=== PATIENT | male | born 1955 | race Caucasian/White ===

== ENCOUNTER 2019-06-02 17:51 | Inpatient (IN) | payer MEDICARE, MEDICAID, SELFPAY ==
[2019-06-02] VITALS (12 sets, daily range): BP systolic 142–189; BP diastolic 64–120; PULSE 48–72; RESP 16–32; O2SAT 92–99; BMI 36.5
--- NOTE | 2019-06-02 17:52 | ED_ITS ---
Entered by Vivienne Rivero, acting as scribe for Sherly Gerard MD HPI - SOB/Dyspnea General: Chief Complaint: Shortness of Breath/Dyspnea Stated Complaint: resp distress Time Seen by Provider: 06/02/19 18:00 Source: EMS Mode of arrival: EMS Limitations: altered mental status History of Present Illness: HPI Narrative: 63 yo Male presents to ED with complaint respiratory distress. Per EMS, patient was saturating at 72% on room air. Per EMS, patient was put on CPAP and came up to 80%. Per EMS, patient told them he had been intubated before and would like to be intubated again. Pt is altered on his arrival to the ED. MD elicited complaint: shortness of breath Pertinent past history: COPD and diabetes Onset (ago): minute(s) (Just Prior to Arrival) Timing: progressively worsening Known history of: COPD and diabetes Treatment prior to arrival: oxygen (CPAP) Review of Systems General: Reports: ROS unobtainable due to medical condition (respiratory distress) and ROS unobtainable due to mental status Resp: Reports: shortness of breath PFSH ED PFSH: Statuses (acute, chronic, etc) shown below reflect problem list status as previously entered and may not be historically accurate Medical History (Updated 06/02/19 @ 18:12 by Vivienne Rivero) Afib CHF (congestive heart failure) COPD (chronic obstructive pulmonary disease) Diabetes Surgical History (Updated 06/02/19 @ 18:12 by Vivienne Rivero) H/O heart artery stent Social History Smoking and tobacco status: current every day smoker Physical Exam Const: COMMON NORMALS: apparent distress EXAM LIMITATIONS: altered mental status GENERAL APPEARANCE: in distress and diaphoretic HENMT: COMMON NORMALS: normocephalic, head/scalp atraumatic, external ears normal, external nose normal and moist oral mucous membranes HEAD & SCALP: normocephalic and atraumatic FACE & SINUS: normal facial exam; no facial tenderness NOSE: external nose normal EXTERNAL EAR: Yes external ears normal MOUTH: oral and palatal mucosa normal, lip normal and tongue normal TEETH & GINGIVA: no abnormal tooth and associated gingiva THROAT: posterior oropharynx normal and uvula midline Eye: COMMON NORMALS: PERRL and EOMs intact bilaterally PUPIL: Yes PERRL Neck/C-Spine: COMMON NORMALS: full ROM, supple and no JVD GENERAL: Yes normal visual inspection and Yes trachea midline CERVICAL SPINE: No cervical spine tenderness Lymph: LYMPHATIC: no lymphadenopathy noted Chest: COMMONS NORMALS: inspection of chest normal Resp: COMMON NORMALS: normal respiratory effort and no use of accessory muscles; negative for clear to auscultation bilaterally EFFORT & INSPECTION: Yes able to speak in complete sentences and Yes symmetric chest movement AUSCULTATION: not clear to auscultation bilaterally and rhonchi Cardio: COMMON NORMALS: no JVD, regular rate, regular rhythm, no gallops, no murmurs and peripheral pulses 2+ throughout RATE: regular rate RHYTHM: regular rhythm PERIPHERAL PULSES: pulses 2+ throughout GI: COMMON NORMALS: normal to inspection, nondistended, normoactive bowel sounds, soft to palpation and non-tender PALPATION: Yes soft Back/Pelvis: COMMON NORMALS: thoracic and lumbar spine normal to inspection and thoraco-lumbar ROM normal Extremity: COMMON NORMALS: normal to inspection, full ROM and normal capillary refill GENERAL: Yes edema (1+ edema to bilateral lower extremities) Psych: COMMON NORMALS: mental status grossly normal, thought process normal, cooperative, affect normal, speech normal and activity/motor behavior normal SPEECH: Yes normal speech THOUGHT PROCESS: normal thought process Skin: COMMON NORMALS: no rashes or lesions noted and skin turgor normal GENERAL SKIN EXAM: no rashes or lesions noted and turgor normal Course ED course: Patient arrived by EMS - CPAP mask not tightly applied. He was agitated initially, then became obtunded. EMS reported a blood glucose of 135 - however on the ABG his glucose was 13 and on the initial labs it was 35. He was given an amp of D50, and his mental status improved - his accucheck was then 180, but dropped to 79 with in a short time. I reordered another amp, but by the time he was ready to be given that his glucose was down to 24 and he was agitated again. The second amp was given. Unclear why his glucose is dropping so low. He is in CHF and we need to be cautious with fluids - but will have to start a D10 drip. His ABG was acceptable from a respiratory stand point and he is doing well on Bipap. I think he will need to be admitted to close monitoring such as the ICU. Patient improved a lot in the ED - still on bipap, but alert and able to answer questions. His Blood glucose stabilized on a D10 drip. He was able to relate that he may have taken too much insulin. His insurance would not cover the insulin pen - and he has trouble seeing well enough to see the insulin syringes to be able to get his dosing right. Hospitalist will admit to a CSU bed for close monitoring. Vital Signs: Vital signs: Vital Signs Pulse Rate 52 L 06/02/19 22:17 Respiratory Rate 21 H 06/02/19 22:17 Blood Pressure 154/75 06/02/19 21:39 Pulse Oximetry 98 06/02/19 22:17 MDM - SOB/Dyspnea Lab Data: Labs: Lab Results 06/02/19 06/02/19 06/02/19 Range/Units 18:00 18:00 18:00 WBC 17.3 H (4.0-10.0) 10^3/ uL RBC 5.50 H (4.1-5.3) 10^6/u L Hgb 14.1 (11.7-16.6) g/dL Hct 46.5 (42.0-52.0) % MCV 84.5 (80-94) fL MCH 25.6 L (28.0-34.0) pg MCHC 30.3 (30.0-36.0) g/dL RDW 14.8 (12.1-15.1) % Plt Count 246 (130-400) 10^3/c mm MPV 11.1 H (7.4-10.4) fL Neut % (Auto) 73.7 % Lymph % (Auto) 14.5 % [place] % (Auto) 8.9 % Eos % (Auto) 1.5 % Baso % (Auto) 0.6 % Neut # (Auto) 12.8 H (1.8-7.7) 10^3/u L Lymph # (Auto) 2.5 (0.8-4.8) 10^3/u L [place] # (Auto) 1.5 H (0.2-0.9) 10^3/u L Eos # (Auto) 0.3 (0.0-0.8) 10^3/u L Baso # (Auto) 0.1 (0.0-0.1) 10^3/u L Nucleated RBC % (a uto) 0 % Nucleated RBCs # 0.0 /100WBC PT 14.60 H (10.5-13.3) SECO NDS INR 1.10 (0.8-1.2) Specimen Type Sample Site ABG pH (7.35-7.45) ABG pCO2 (35-45) mmHg ABG pO2 (80.0-100.0) mmH g ABG HCO3 (22-26) mmol/L ABG Base Excess (-2.0-2.0) mmol/ L Matthew Test Hematocrit (42-52) % Hgb O2 Saturation (95-100) % Carboxyhemoglobin (0.4-20.1) %THgb Methemoglobin (0.4-1.5) % Total Hemoglobin (14-18) g/dL O2 Delivery Device FiO2 % Digital Photographer ID Sodium 135 L (136-145) mmol/L Potassium 4.0 (3.5-5.1) mmol/L Chloride 94 L (98-107) mmol/L Carbon Dioxide 25 (22-29) mmol/L Anion Gap 20.0 H (5-19) BUN 39 H (8-23) mg/dL Creatinine 1.6 H (0.7-1.2) mg/dL GFR Calculation 43.6 L (90-130) mL/min Glucose 35 L* (65-115) mg/dL POC Glucose (70-110) mg/dL Calcium 9.8 (8.5-10.5) mg/dL Total Bilirubin 0.3 (0.15-1.2) mg/dL AST 23 (0-40) U/L ALT 12 (0-41) U/L Alkaline Phosphata se 77 (40-130) IU/L Troponin T Baselin e (0-15) ng/mL Troponin T 120 Min [place] (0-15) ng/mL Delta Troponin T (0-10) ABS# NT-Pro-B Natriuret Pep 3988 H (0-125) pg/mL Total Protein 7.5 (6.6-8.7) g/dL Albumin 4.1 (3.5-5.2) g/dL Globulin 3.4 (1.3-4.6) g/dL Influenza Type A A g (Negative) POC Influenza B Ag (Negative) 06/02/19 06/02/19 06/02/19 Range/Units 18:00 18:05 18:29 WBC (4.0-10.0) 10^3/ uL RBC (4.1-5.3) 10^6/u L Hgb (11.7-16.6) g/dL Hct (42.0-52.0) % MCV (80-94) fL MCH (28.0-34.0) pg MCHC (30.0-36.0) g/dL RDW (12.1-15.1) % Plt Count (130-400) 10^3/c mm MPV (7.4-10.4) fL Neut % (Auto) % Lymph % (Auto) % [place] % (Auto) % Eos % (Auto) % Baso % (Auto) % Neut # (Auto) (1.8-7.7) 10^3/u L Lymph # (Auto) (0.8-4.8) 10^3/u L [place] # (Auto) (0.2-0.9) 10^3/u L Eos # (Auto) (0.0-0.8) 10^3/u L Baso # (Auto) (0.0-0.1) 10^3/u L Nucleated RBC % (a uto) % Nucleated RBCs # /100WBC PT (10.5-13.3) SECO NDS INR (0.8-1.2) Specimen Type Arterial Sample Site Radial, right ABG pH 7.34 L (7.35-7.45) ABG pCO2 56.9 H (35-45) mmHg ABG pO2 73.5 L (80.0-100.0) mmH g ABG HCO3 30.5 H (22-26) mmol/L ABG Base Excess 3.2 H (-2.0-2.0) mmol/ L Matthew Test Pos Hematocrit 44.0 (42-52) % Hgb O2 Saturation 90.7 L (95-100) % Carboxyhemoglobin 3.8 (0.4-20.1) %THgb Methemoglobin 0.3 L (0.4-1.5) % Total Hemoglobin 14.4 (14-18) g/dL O2 Delivery Device Bipap FiO2 70.0 % Digital Photographer ID glc Sodium (136-145) mmol/L Potassium (3.5-5.1) mmol/L Chloride (98-107) mmol/L Carbon Dioxide (22-29) mmol/L Anion Gap (5-19) BUN (8-23) mg/dL Creatinine (0.7-1.2) mg/dL GFR Calculation (90-130) mL/min Glucose (65-115) mg/dL POC Glucose 180 (70-110) mg/dL Calcium (8.5-10.5) mg/dL Total Bilirubin (0.15-1.2) mg/dL AST (0-40) U/L ALT (0-41) U/L Alkaline Phosphata se (40-130) IU/L Troponin T Baselin e 47 H (0-15) ng/mL Troponin T 120 Min [place] (0-15) ng/mL Delta Troponin T (0-10) ABS# NT-Pro-B Natriuret Pep (0-125) pg/mL Total Protein (6.6-8.7) g/dL Albumin (3.5-5.2) g/dL Globulin (1.3-4.6) g/dL Influenza Type A A g (Negative) POC Influenza B Ag (Negative) 06/02/19 06/02/19 06/02/19 Range/Units 18:38 18:58 19:36 WBC (4.0-10.0) 10^3/ uL RBC (4.1-5.3) 10^6/u L Hgb (11.7-16.6) g/dL Hct (42.0-52.0) % MCV (80-94) fL MCH (28.0-34.0) pg MCHC (30.0-36.0) g/dL RDW (12.1-15.1) % Plt Count (130-400) 10^3/c mm MPV (7.4-10.4) fL Neut % (Auto) % Lymph % (Auto) % [place] % (Auto) % Eos % (Auto) % Baso % (Auto) % Neut # (Auto) (1.8-7.7) 10^3/u L Lymph # (Auto) (0.8-4.8) 10^3/u L [place] # (Auto) (0.2-0.9) 10^3/u L Eos # (Auto) (0.0-0.8) 10^3/u L Baso # (Auto) (0.0-0.1) 10^3/u L Nucleated RBC % (a uto) % Nucleated RBCs # /100WBC PT (10.5-13.3) SECO NDS INR (0.8-1.2) Specimen Type Sample Site ABG pH (7.35-7.45) ABG pCO2 (35-45) mmHg ABG pO2 (80.0-100.0) mmH g ABG HCO3 (22-26) mmol/L ABG Base Excess (-2.0-2.0) mmol/ L [place] Test Hematocrit (42-52) % Hgb O2 Saturation (95-100) % Carboxyhemoglobin (0.4-20.1) %THgb Methemoglobin (0.4-1.5) % Total Hemoglobin (14-18) g/dL O2 Delivery Device FiO2 % Digital Photographer ID Sodium (136-145) mmol/L Potassium (3.5-5.1) mmol/L Chloride (98-107) mmol/L Carbon Dioxide (22-29) mmol/L Anion Gap (5-19) BUN (8-23) mg/dL Creatinine (0.7-1.2) mg/dL GFR Calculation (90-130) mL/min Glucose (65-115) mg/dL POC Glucose 79 24 (70-110) mg/dL Calcium (8.5-10.5) mg/dL Total Bilirubin (0.15-1.2) mg/dL AST (0-40) U/L ALT (0-41) U/L Alkaline Phosphata se (40-130) IU/L Troponin T Baselin e (0-15) ng/mL Troponin T 120 Min [place] (0-15) ng/mL Delta Troponin T (0-10) ABS# NT-Pro-B Natriuret Pep (0-125) pg/mL Total Protein (6.6-8.7) g/dL Albumin (3.5-5.2) g/dL Globulin (1.3-4.6) g/dL Influenza Type A A g Negative (Negative) POC Influenza B Ag Negative (Negative) 06/02/19 06/02/19 06/02/19 Range/Units 20:01 20:03 20:28 WBC (4.0-10.0) 10^3/ uL RBC (4.1-5.3) 10^6/u L Hgb (11.7-16.6) g/dL Hct (42.0-52.0) % MCV (80-94) fL MCH (28.0-34.0) pg MCHC (30.0-36.0) g/dL RDW (12.1-15.1) % Plt Count (130-400) 10^3/c mm MPV (7.4-10.4) fL Neut % (Auto) % Lymph % (Auto) % [place] % (Auto) % Eos % (Auto) % Baso % (Auto) % Neut # (Auto) (1.8-7.7) 10^3/u L Lymph # (Auto) (0.8-4.8) 10^3/u L [place] # (Auto) (0.2-0.9) 10^3/u L Eos # (Auto) (0.0-0.8) 10^3/u L Baso # (Auto) (0.0-0.1) 10^3/u L Nucleated RBC % (a uto) % Nucleated RBCs # /100WBC PT (10.5-13.3) SECO NDS INR (0.8-1.2) Specimen Type Sample Site ABG pH (7.35-7.45) ABG pCO2 (35-45) mmHg ABG pO2 (80.0-100.0) mmH g ABG HCO3 (22-26) mmol/L ABG Base Excess (-2.0-2.0) mmol/ L Matthew Test Hematocrit (42-52) % Hgb O2 Saturation (95-100) % Carboxyhemoglobin (0.4-20.1) %THgb Methemoglobin (0.4-1.5) % Total Hemoglobin (14-18) g/dL O2 Delivery Device FiO2 % Digital Photographer ID Sodium (136-145) mmol/L Potassium (3.5-5.1) mmol/L Chloride (98-107) mmol/L Carbon Dioxide (22-29) mmol/L Anion Gap (5-19) BUN (8-23) mg/dL Creatinine (0.7-1.2) mg/dL GFR Calculation (90-130) mL/min Glucose (65-115) mg/dL POC Glucose 90 71 (70-110) mg/dL Calcium (8.5-10.5) mg/dL Total Bilirubin (0.15-1.2) mg/dL AST (0-40) U/L ALT (0-41) U/L Alkaline Phosphata se (40-130) IU/L Troponin T Baselin e (0-15) ng/mL Troponin T 120 Min [place] 56.85 H (0-15) ng/mL Delta Troponin T 9.85 (0-10) ABS# NT-Pro-B Natriuret Pep (0-125) pg/mL Total Protein (6.6-8.7) g/dL Albumin (3.5-5.2) g/dL Globulin (1.3-4.6) g/dL Influenza Type A A g (Negative) POC Influenza B Ag (Negative) 06/02/19 06/02/19 Range/Units 21:08 21:31 WBC (4.0-10.0) 10^3/ uL RBC (4.1-5.3) 10^6/u L Hgb (11.7-16.6) g/dL Hct (42.0-52.0) % MCV (80-94) fL MCH (28.0-34.0) pg MCHC (30.0-36.0) g/dL RDW (12.1-15.1) % Plt Count (130-400) 10^3/c mm MPV (7.4-10.4) fL Neut % (Auto) % Lymph % (Auto) % [place] % (Auto) % Eos % (Auto) % Baso % (Auto) % Neut # (Auto) (1.8-7.7) 10^3/u L Lymph # (Auto) (0.8-4.8) 10^3/u L [place] # (Auto) (0.2-0.9) 10^3/u L Eos # (Auto) (0.0-0.8) 10^3/u L Baso # (Auto) (0.0-0.1) 10^3/u L Nucleated RBC % (a uto) % Nucleated RBCs # /100WBC PT (10.5-13.3) SECO NDS INR (0.8-1.2) Specimen Type Sample Site ABG pH (7.35-7.45) ABG pCO2 (35-45) mmHg ABG pO2 (80.0-100.0) mmH g ABG HCO3 (22-26) mmol/L ABG Base Excess (-2.0-2.0) mmol/ L Matthew Test Hematocrit (42-52) % Hgb O2 Saturation (95-100) % Carboxyhemoglobin (0.4-20.1) %THgb Methemoglobin (0.4-1.5) % Total Hemoglobin (14-18) g/dL O2 Delivery Device FiO2 % Digital Photographer ID Sodium (136-145) mmol/L Potassium (3.5-5.1) mmol/L Chloride (98-107) mmol/L Carbon Dioxide (22-29) mmol/L Anion Gap (5-19) BUN (8-23) mg/dL Creatinine (0.7-1.2) mg/dL GFR Calculation (90-130) mL/min Glucose (65-115) mg/dL POC Glucose 80 89 (70-110) mg/dL Calcium (8.5-10.5) mg/dL Total Bilirubin (0.15-1.2) mg/dL AST (0-40) U/L ALT (0-41) U/L Alkaline Phosphata se (40-130) IU/L Troponin T Baselin e (0-15) ng/mL Troponin T 120 Min [place] (0-15) ng/mL Delta Troponin T (0-10) ABS# NT-Pro-B Natriuret Pep (0-125) pg/mL Total Protein (6.6-8.7) g/dL Albumin (3.5-5.2) g/dL Globulin (1.3-4.6) g/dL Influenza Type A A g (Negative) POC Influenza B Ag (Negative) Imaging Data^: CXR: Radiologist's impression: [address] [address] XRay Report Signed Patient: Franc Olivares #: [id number] : [id number]#:[id number] Age/Sex: 63 / MADM Date: 06/02/19 Loc: ERRoom/Bed: Attending Dr: Ordering Provider/Ordering MD: Sherly Gerard MD Date of Service: 06/02/19 Procedure(s): XR chest 1V portable [id number] Accession Number(s): [id number] Report Number: [id number] PROCEDURE INFORMATION: Exam: XR Chest, 1 View Exam date and time: 06/02/2019 6:20 PM Age: 63 years old Clinical indication: Condition or disease; Lung condition and disease; Respiratory failure; Status not specified; Additional info: Resp failure TECHNIQUE: Imaging protocol: XR of the chest Views: 1 view. COMPARISON: CR Chest 2 views* [id number] 01/17/2019 7:14 AM FINDINGS: Lungs: Vascular congestion. Diffuse mixed interstitial and ground-glass opacities in both lungs. Right base atelectasis. Pleural space: Small right pleural effusion. No pneumothorax. Heart/Mediastinum: Mild cardiomegaly. Bones/joints: Unremarkable. XR/XR chest 1V portable [id number] IMPRESSION: Congestive heart failure pattern. Dictated By:Yinka Concepcion Signed By:Yinka ConcepcionSignrosa Date/Time:06/02/19 1850 DD/ 1849 EKG Data^: EKG 1: EKG Interpretation Date: 06/02/19 EKG interpretation time: 18:30 Interpretation: Rate 71, RAD, elevation V1, V2, without reciprocal changes, QRS 109 EKG 2: EKG Interpretation Date: 06/02/19 EKG interpretation time: 19:45 Interpretation: Rate 55, no significant change from the first of the same day. QRS 112, RAD Critical Care Time Critical Care Time: Critical Care Time: Yes Total Critical Care Time: 45 Attestation: This case had a high probability of a clinically significant, sudden, or life threatening deterioration of this patient's condition which required my full and direct attention, intervention and personal management. Coding Level of Care Code ED Paper Slitter for Chg Fwd Exam Problem Focused The documentation recorded by the Mat kirkpatrick Carmen, accurately reflects the service I personally performed and the decisions made by me, Sherly Gerard MD
--- NOTE | 2019-06-02 18:00 | XRR_ITS ---
PROCEDURE INFORMATION: Exam: XR Chest, 1 View Exam date and time: 06/02/2019 6:20 PM Age: 63 years old Clinical indication: Condition or disease; Lung condition and disease; Respiratory failure; Status not specified; Additional info: Resp failure TECHNIQUE: Imaging protocol: XR of the chest Views: 1 view. COMPARISON: CR Chest 2 views* [id number] 01/17/2019 7:14 AM FINDINGS: Lungs: Vascular congestion. Diffuse mixed interstitial and ground-glass opacities in both lungs. Right base atelectasis. Pleural space: Small right pleural effusion. No pneumothorax. Heart/Mediastinum: Mild cardiomegaly. Bones/joints: Unremarkable. XR/XR chest 1V portable [id number] IMPRESSION: Congestive heart failure pattern.
--- NOTE | 2019-06-02 18:00 | ECG_ITS ---
Measurements Intervals [place] Rate: 71 P: 75 [place]: 177 QRS: 98 QRSD: 109 T: 84 QT: 405 QTc: 442 SINUS RHYTHM BORDERLINE RIGHT AXIS DEVIATION [QRS AXIS > 90] SEPTAL MYOCARDIAL INFARCTION , OF INDETERMINATE AGE [40+ ms Q WAVE IN V1/V2] INTERPRETATION BASED ON A DEFAULT AGE OF 40 YEARS Compared to ECG 01/14/2019 21:54:55 Myocardial infarct finding now present Intraventricular conduction delay no longer present Electronically Signed On 06-02-2019 20:56:55 BELL RINGER by Johnson Javier M.D. [email or web address]
[2019-06-02 18:17] LABS: Basophils # 0.1 10^3/uL (0.0-0.1); Basophils % 0.6 %; Eosinophils # 0.3 10^3/uL (0.0-0.8); Eosinophils % 1.5 %; Hematocrit 46.5 % (42.0-52.0); Hemoglobin 14.1 g/dL (11.7-16.6); Lymphocytes # 2.5 10^3/uL (0.8-4.8); Lymphocytes % 14.5 %; Mean Corpuscular HGB Conc 30.3 g/dL (30.0-36.0); Mean Corpuscular Hemoglobin 25.6 pg (28.0-34.0); Mean Corpuscular Volume 84.5 fL (80-94); Mean Platelet Volume 11.1 fL (7.4-10.4); Monocytes # 1.5 10^3/uL (0.2-0.9); Monocytes % 8.9 %; Neutrophils # 12.8 10^3/uL (1.8-7.7); Neutrophils % 73.7 %; Nucleated Red Blood Cells % 0 %; Platelet Count 246 10^3/cmm (130-400); Red Cell Distribution Width 14.8 % (12.1-15.1); White Blood Count 17.3 10^3/uL (4.0-10.0)
[2019-06-02 18:29] LABS: Troponin(5th) Baseline 47 ng/mL (0-15)
[2019-06-02 18:32] LABS: Glucose Point of Care 180 mg/dL (70-110)
[2019-06-02 18:34] LABS: ABG PCO2 56.9 mmHg (35-45); ABG PH Result 7.34 (7.35-7.45); Base Excess ABG 3.2 mmol/L (-2.0-2.0); Blood Gas Allen Test Pos; Blood Gas Operator Identificat glc; Blood Gas Sample Site Radial, right; Blood Gas Sample Type Arterial; Carboxyhemoglobin 3.8 %THgb (0.4-20.1); HCO3 ABG 30.5 mmol/L (22-26); HGB O2 Sat 90.7 % (95-100); Methemoglobin 0.3 % (0.4-1.5); Oxygen Device BIPAP; PO2 ABG 73.5 mmHg (80.0-100.0); Total Hemoglobin 14.4 g/dL (14-18)
[2019-06-02 18:39] LABS: Alanine Aminotransferase 12 U/L (0-41); Albumin Level 4.1 g/dL (3.5-5.2); Alkaline Phosphatase 77 IU/L (40-130); Aspartate Amino Transferase 23 U/L (0-40); Blood Urea Nitrogen 39 mg/dL (8-23); Calcium 9.8 mg/dL (8.5-10.5); Carbon Dioxide 25 mmol/L (22-29); Chloride 94 mmol/L (98-107); Globulin 3.4 g/dL (1.3-4.6); Glomerular Filtration Rate 43.6 mL/min (90-130); NT Pro B Type Natriuretic Pept 3988 pg/mL (0-125); Sodium 135 mmol/L (136-145); Total Bilirubin 0.3 mg/dL (0.15-1.2); Total Protein 7.5 g/dL (6.6-8.7)
[2019-06-02 18:41] LABS: Glucose 35 mg/dL (65-115)
[2019-06-02 19:01] LABS: Glucose Point of Care 79 mg/dL (70-110)
[2019-06-02 19:12] LABS: Influenza A by IFA Negative (Negative); Influenza B by IFA Negative (Negative)
[2019-06-02] MEDS: nitroglycerin 1 gm/inch oint Pkt 1 INCH TOPICAL (19:32)
[2019-06-02] MEDS: FUROsemide 10 mg/mL SDV 4mL 40 MG IVP (19:34)
[2019-06-02 19:40] LABS: Glucose Point of Care 24 mg/dL (70-110)
--- NOTE | 2019-06-02 19:41 | PC.NURSE ---
patient not answering nurses questions at this time
--- NOTE | 2019-06-02 19:42 | PC.NURSE ---
blood glucose bedside drawn by dago at 1937, blood glucose value was 24
--- NOTE | 2019-06-02 19:43 | PC.NURSE ---
Second EKG done at 1940 and shown to ER doctor
--- NOTE | 2019-06-02 20:01 | ECG_ITS ---
Measurements Intervals [place] Rate: 55 P: 73 [place]: 187 QRS: 104 QRSD: 112 T: 101 QT: 471 QTc: 453 SINUS BRADYCARDIA RIGHT AXIS DEVIATION [QRS AXIS > 100] SEPTAL MYOCARDIAL INFARCTION , PROBABLY RECENT [40+ ms Q WAVE IN V1/V2] ACUTE UT Compared to ECG 01/14/2019 21:54:55 Right-axis deviation now present Myocardial infarct finding now present Sinus rhythm no longer present Intraventricular conduction delay no longer present Electronically Signed On 06-02-2019 21:01:35 BINDER STRIPPER HAND by Johnson Javier M.D. [email or web address]
[2019-06-02] MEDS: dextrose 10% 1,000 ML 150 ML IV (20:05)
[2019-06-02 20:07] LABS: Glucose Point of Care 90 mg/dL (70-110)
[2019-06-02 20:25] LABS: Troponin 5 2HR 56.85 ng/mL (0-15); Troponin 5 2HR Delta 9.85 ABS# (0-10)
--- NOTE | 2019-06-02 20:30 | PC.NURSE ---
Patient blood glucose is 71 at 2030, doctor and charge nurse were notified
[2019-06-02 20:32] LABS: Glucose Point of Care 71 mg/dL (70-110)
--- NOTE | 2019-06-02 21:10 | PC.NURSE ---
Blood glucose at is 80, nurse and doctor were notified
[2019-06-02 21:12] LABS: Glucose Point of Care 80 mg/dL (70-110)
--- NOTE | 2019-06-02 21:33 | PC.NURSE ---
Blood glucose is 89 at 2130, nurse and doctor notified.
[2019-06-02 21:34] LABS: Glucose Point of Care 89 mg/dL (70-110)
--- NOTE | 2019-06-02 22:41 | P.HP_ITS ---
Providers/Chief Complaint Admitting Physician: Rebeca Mcdaniel Primary Care Provider: Aura Guevara Chief Complaint: resp distress History of Present Illness Franc Olivares is a 63 year old male who presented to the emergency room with respiratory distress and essentially unresponsive. By EMS his initial oxygen saturations were 72% on room air. He had been put on CPAP with oxygen en route and had improvement only into the low 80s. On arrival he continued to be quite hypoxemic and was transitioned to BiPAP. It was anticipated that he would likely need intubated. Blood sugar was checked and was 13 on initial value. It was rechecked and confirmed to be low at 35. He was given some D50 with improvement but an hour later had recurrent episodes of hypoglycemia and ultimately ended up on D10W. He was continued on BiPAP and after sugar came up, he started to come around a little bit. In talking with him he was doing okay except earlier today he noted that his blood sugars were quite high, greater than 500. He also had a cheeseburger and he knew he needed to give himself some extra insulin. He no longer has an insulin pen instead he uses syringes and a vial. He knew he needed to give himself some extra insulin and tried to do so. He admits that he has difficulty seeing how much insulin he is giving himself. He does not really know how much he had today. He is not on any oral hypoglycemic medications. He denies any recent chest pain, increasing cough, i ncreasing edema, orthopnea or PND. He denies any fevers. He says he was feeling okay until everything just came on him suddenly today. He has been compliant with his medications. Most of his medical care is received at [place]. Given the profound hypoglycemia and significant respiratory distress on arrival, patient is being admitted for further evaluation and treatment. Review of Systems Const: Denies: fever, chills or change in weight Eyes: Reports: change in vision (Over time and a little bit acutely today) ENMT: Reports: nasal congestion; Denies: throat pain Card: Reports: edema; Denies: chest pain or palpitations Resp: Reports: shortness of breath, productive cough (Sometimes) and non- productive cough (Sometimes); Denies: coughing up blood GI: Denies: abdominal pain, nausea, vomiting, difficulty swallowing, diarrhea, constipation or blood in stool : Denies: urinary hesitancy Musc: Denies: joint pain, joint swelling, redness or joint warmth Skin/Breast: Denies: rash or sores Neuro: Denies: headache, numbness in extremities or weakness in extremities Psych: Denies: anxiety or depression Endo: Denies: excessive sweating [place]/Lymph: Denies: easy bruising or easy bleeding Medications/Allergies Allergies Allergy/AdvReac Type Severity Reaction Status Date / Time No Known Allergies Allergy Verified 06/02/19 18:04 Additional Medication Information Additional Medication Information: Home medications appear to include insulin as already noted with patient being changed from pen to vials in the last 6 months or so. Other medicines include hydrocodone, Lasix, amiodarone, metoprolol, Plavix, Eliquis, gabapentin, lisinopril as well as Combivent and Spiriva along with Incruse Ellipta. He has as needed duo nebs. PFSH Acute PFSH: Statuses (acute, chronic, etc) shown below reflect problem list status as previously entered and may not be historically accurate Medical History Afib CAD (coronary artery disease) RCA stent CHF (congestive heart failure) Chronic kidney disease, stage 3 COPD (chronic obstructive pulmonary disease) Diabetes mellitus, type II, insulin dependent Dyslipidemia Hypertension LAURIE (obstructive sleep apnea) Surgical History H/O heart artery stent 2012. RCA stent. 50% LAD lesion at time. Family History Other CAD (coronary artery disease) Social History Smoking and tobacco status: current every day smoker Lives independently: Yes Household members: none Vitals/I&O/Wt Last Vital Signs Pulse 52 L 06/02/19 22:17 Resp 21 H 06/02/19 22:17 BP 154/75 06/02/19 21:39 Pulse Ox 98 06/02/19 22:17 Weight last 48 hrs Weight 108.862 kg Data : 06/02/19 18:00 06/02/19 18:00 Other Labs: Laboratory Tests 06/02/19 06/02/19 06/02/19 18:00 18:00 18:00 WBC 17.3 H Hgb 14.1 Hct 46.5 Plt Count 246 INR 1.10 ABG pH ABG pCO2 ABG pO2 ABG HCO3 Glucose 35 L* POC Glucose Delta Troponin T NT-Pro-B Natriuret Pep 3988 H 06/02/19 06/02/19 06/02/19 18:05 19:36 20:01 WBC Hgb Hct Plt Count INR ABG pH 7.34 L ABG pCO2 56.9 H ABG pO2 73.5 L ABG HCO3 30.5 H Glucose POC Glucose 24 Delta Troponin T 9.85 NT-Pro-B Natriuret Pep BMP 06/02/19 18:00 Sodium 135 L Potassium 4.0 Chloride 94 L Carbon Dioxide 25 BUN 39 H Creatinine 1.6 H Glucose 35 L* Calcium 9.8 Liver Function 06/02/19 Range/Units 18:00 Total Bilirubin 0.3 (0.15-1.2) mg/dL AST 23 (0-40) U/L ALT 12 (0-41) U/L Alkaline Phosphatase 77 (40-130) IU/L Albumin 4.1 (3.5-5.2) g/dL Urine 06/03/19 Range/Units 01:00 Urine Color Yellow (Yellow) Urine Appearance Clear (CLEAR) Urine pH 5 (5-7) Ur Specific [place] 1.015 (1.005-1.030) Urine Protein 3+ H (Negative) Urine Glucose (UA) Trace H (Normal) CXR: Radiologist's impression: FINDINGS: Lungs: Vascular congestion. Diffuse mixed interstitial and ground-glass opacities in both lungs. Right base atelectasis. Pleural space: Small right pleural effusion. No pneumothorax. Heart/Mediastinum: Mild cardiomegaly. Bones/joints: Unremarkable. XR/XR chest 1V portable [id number] IMPRESSION: Congestive heart failure pattern. A&P Assessment and plan (1) Encephalopathy acute: Secondary to profound hypoglycemia and hypoxemia Status: Acute Code(s): G93.40 - Encephalopathy, unspecified (2) Hypoglycemia: I am assuming that patient gave himself too much insulin based on the story that was provided. No known oral hypoglycemic agents. Acute cardiac event as well as infection are within the differential, as is potential overdose of some medications such as calcium channel blockers which fortunately are not on his available medication list. Status: Acute Code(s): E16.2 - Hypoglycemia, unspecified (3) Acute respiratory failure with hypoxia and hypercapnia: Difficult to fully ascertain at the moment if respiratory distress preceded the hypoglycemia or if the hypoglycemia preceded the respiratory distress. He does have known COPD as well as CHF and sleep apnea. 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 transplanted heart: [place] heart Associated angina: without angina Qualified Code(s): I25.10 - Atherosclerotic heart disease of [place] coronary artery without angina pectoris Code(s): I25.10 - Atherosclerotic heart disease of [place] coronary artery without angina pectoris (6) CHF (congestive heart failure): Acute on chronic Status: Chronic Qualifiers: Heart failure type: diastolic Heart failure chronicity: acute on chronic Qualified Code(s): I50.33 - Acute on chronic diastolic (congestive) heart failure Code(s): I50.9 - Heart failure, unspecified (7) COPD (chronic obstructive pulmonary disease): Cannot rule out an acute component though clinically x-ray is more consistent with acute pulmonary edema Status: Chronic Qualifiers: COPD type: emphysema Emphysema type: panlobular Qualified Code(s): J43.1 - Panlobular emphysema Code(s): J44.9 - Chronic obstructive pulmonary disease, unspecified (8) Chronic anticoagulation: Secondary to atrial fibrillation Status: Chronic Code(s): 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 Anticipate at some point this evening sugars will go up quite high. At that point we will start him on some low-dose insulin coverage. I think trying to get him on some long- acting insulin and avoiding high-dose short acting insulin is probably going to be a better approach for him although it worries me that he has difficulty discerning how much insulin he has given himself leading to this hospital stay. May need to see if we can get approval from insurance for the insulin pen again. Breathing treatments as needed Continue home amiodarone, metoprolol, lisinopril Continue Eliquis and Plavix Eliquis provides appropriate VTE prophylaxis Will need close follow-up with his regular providers upon discharge Would probably benefit from some diabetic education and home health monitoring to ensure he is giving himself appropriate amount of insulin along with managing his other medications. Some in-home teaching on how to draw up the insulin and potentially marking syringes may be helpful. Findings, concerns and plans were discussed with patient. He was given an opportunity to ask questions. Reviewed with him that he was very near today given the profound hypoglycemia and respiratory distress he was then. Fortunately the quick action of those initially caring for him allowed him to recover without requiring intubation this time. We did review CODE STATUS and he is full code. He has been intubated in the past and is okay should he require it again. Attestations Medical Necessity Statement*: Anticipate hospital stay greater than 2 midnights in this patient presenting with profound hypoglycemia and severe respiratory distress. At high risk of clinical decline up to and including without continued monitoring and appropriate management. Coding Level of Care Code Acute Pipelaying Fitter for Fausto Felix Diagnoses Encephalopathy acute G93.40 Hypoglycemia E16.2 Acute respiratory failure with hypoxia and hypercapnia J96.01; J96.02 Diabetes mellitus, type II, insulin dependent E11.9; Z79.4 CAD (coronary artery disease) I25.10 Coronary Disease-Associated Artery/Lesion type: [place] artery [place] vs. transplanted heart: [place] heart Associated angina: without angina CHF (congestive heart failure) I50.33 Heart failure type: diastolic Heart failure chronicity: acute on chronic COPD (chronic obstructive pulmonary disease) J43.1 COPD type: emphysema Emphysema type: panlobular Chronic anticoagulation Z79.01
--- NOTE | 2019-06-02 22:50 | PC.NURSE ---
Blood glucose is 122 at 2245, notified nurse and doctor
[2019-06-02 22:52] LABS: Glucose Point of Care 122 mg/dL (70-110)
--- NOTE | 2019-06-02 23:02 | PC.NURSE ---
EKG done at 2300 and shown to ER doctor. Patient stated that he was having chest pain. Respitory was at bedside at time of EKG, nurse and doctor were notified of the new on set of chest pain. Patient stated that the chest pain came on rough 30 to 40 minutes ago.
[2019-06-03] VITALS (17 sets, daily range): BP systolic 137–178; BP diastolic 49–88; PULSE 54–79; RESP 14–32; TEMP 36.6–36.8; O2SAT 91–99
--- NOTE | 2019-06-03 00:01 | ECG_ITS ---
Measurements Intervals [place] Rate: 57 P: 84 PA: 182 QRS: 113 QRSD: 108 T: 106 QT: 458 QTc: 446 SINUS BRADYCARDIA POSSIBLE RIGHT VENTRICULAR HYPERTROPHY [SOME/ALL OF: PROMINENT R IN V1, LATE TRANSITION, RAD, LEANNE, SSS] ANTEROLATERAL MYOCARDIAL INFARCTION [40+ ms Q WAVE IN I/aVL/V3-V6], OF INDETERMINATE AGE Compared to ECG 06/02/2019 19:44:10 Right-axis deviation no longer present Myocardial infarct finding still present Electronically Signed On 06-03-2019 20:42:10 LEAF STRIPPER by Myranda Rosas M.D. [email or web address]
[2019-06-03] MEDS: apixaban 5 mg Tablet PO ×3 (00:26→17:17)
[2019-06-03 00:35] LABS: Glucose Point of Care 175 mg/dL (70-110)
--- NOTE | 2019-06-03 00:37 | PC.NURSE ---
Dr. Mcdaniel notified of patient's blood sugar of 175. Also notified that I am unable to get a home medication list at this time.
--- NOTE | 2019-06-03 00:38 | PC.NURSE ---
Patient arrived from the ED via stretcher after report was received via phone. Patient is alert and oriented and is talking. I have not visualized patient ambulating. Patient has been oriented to his room and has call light within reach.
[2019-06-03] MEDS: acetaminophen 325 mg Tablet 650 MG PO (01:06)
[2019-06-03 01:27] LABS: Troponin 5 6HR 59.26 ng/L (0-15)
[2019-06-03 01:28] LABS: Troponin 5 6HR Delta 12.26 ng/L (0-12)
[2019-06-03 01:45] LABS: Add Urine Microscopic? YES; Bilirubin Urine Neg (NEGATIVE); Blood Urine Trace (Negative); Glucose Urine UA Trace (Normal); Ketones Urine Negative (Negative); Leukocyte Esterase Urine Negative (Negative); Nitrate Urine Negative (Negative); Protein Urine 3+ (Negative); Specific Gravity, Urine 1.015 (1.005-1.030); Urine Appearance Clear (CLEAR); Urine Color Yellow (Yellow); Urobilinogen Urine Norm (Negative); pH Urine 5 (5-7)
[2019-06-03 01:47] LABS: Hyaline Casts Urine 25-40
[2019-06-03 01:49] LABS: Add Urine Culture? No; Bacteria Urine TRACE; RBC Urine 0-4 /hpf (0-2)
--- NOTE | 2019-06-03 02:19 | PC.NURSE ---
Dr. Mcdaniel notified that patient had one on one sitter order put in at shift change due to confused and agitation that patient experienced after cath. Patient has been calm and alert and oriented all of my shift so far. One on one sitter order discontinued. Will check on patient frequently.
[2019-06-03 03:09] LABS: Glucose Point of Care 356 mg/dL (70-110)
[2019-06-03] MEDS: ipratropium-albuterol 3 mL Neb INHALATION ×5 (03:10→20:33)
--- NOTE | 2019-06-03 03:17 | PC.NURSE ---
Dr. Mcdaniel notified of blood glucose of 356. Ordered to turn dextrose fluids down to 25 ml/hr and recheck blood sugar in one hour.
--- NOTE | 2019-06-03 04:19 | PC.NURSE ---
Blood glucose 396. D10 shut off per order. Will recheck blood sugar in 2 hours.
[2019-06-03 04:22] LABS: Glucose Point of Care 394 mg/dL (70-110)
[2019-06-03] MEDS: metoprolol succinate ER (24 HR) 100 mg Tablet PO (04:52)
[2019-06-03] MEDS: FUROsemide 10 mg/mL SDV 10mL 60 MG IVP ×2 (04:52→17:16)
[2019-06-03 06:21] LABS: Glucose Point of Care 412 mg/dL (70-110)
[2019-06-03 06:40] LABS: Magnesium 1.8 mg/dL (1.7-2.3); Phosphorus 4.7 mg/dL (2.5-4.5)
[2019-06-03] MEDS: nitroglycerin 1 gm/inch oint Pkt 1 INCH TOPICAL ×3 (07:54→18:37)
[2019-06-03] MEDS: budesonide 0.5 mg/2 mL Neb INHALATION ×2 (07:55→20:33)
--- NOTE | 2019-06-03 08:15 | P.PN_ITS ---
Subjective Subjective: Interval history: Chart reviewed, patient known to me from previous visit. Off BiPAP, currently on NC. Off D10 and now hyperglycemic, on ISS. Patient seen and examined, resting in bed, is a little bit better than on initial admission. States he is having difficulty self administering his insulin with the syringes, he was using the pens which is much easier for him as it is more legible; he is unsure how much insulin he took yesterday. He is requesting something for acid reflux and requesting to work with physical therapy as well. Medications: Reviewed: Yes Medication Review Details: Current Medications Generic Name Dose Route Start Last Admin Trade Name Freq PRN Reason Stop Dose Admin Acetaminophen 650 mg 06/02/19 23:59 06/03/19 01:06 Tylenol PO 650 mg Q6H PRN Administration Mild/Mod Pain Or Temp >/= 101 Albuterol/Ipratrop ium 3 ml 06/03/19 04:00 06/03/19 07:55 Duoneb INHALATION 3 ml Q4H.RESPIRATORY S CH Administration Apixaban 5 mg 06/03/19 00:15 06/03/19 00:26 Eliquis PO 5 mg BID CHARLIE Administration Budesonide 0.5 mg 06/03/19 08:00 06/03/19 07:55 Pulmicort INHALATION 0.5 mg BID.RESPIRATORY S CH Administration Furosemide 60 mg 06/03/19 04:00 06/03/19 04:52 Lasix IVP 60 mg Q12H CHARLIE Administration Insulin Aspart 0 unit 06/03/19 21:00 06/03/19 06:27 Novolog SUBCUT 14 unit BEDTIME CHARLIE Administration Protocol Metoprolol Succina te 100 mg 06/03/19 06:00 06/03/19 04:52 Toprol Xl PO 100 mg 06 CHARLIE Administration Nitroglycerin 1 inch 06/03/19 07:00 06/03/19 07:54 Nitro-Bid TOPICAL 1 inch Q6H CHARLIE Administration Vitals/I&O/Wt Last Vital Signs Temp 98.2 F 06/03/19 07:09 Pulse 68 06/03/19 07:58 Resp 16 06/03/19 07:58 BP 178/80 06/03/19 07:09 Pulse Ox 93 06/03/19 07:58 06/02/19 06/03/19 06/03/19 22:59 06:59 14:59 Intake Total 1600 / 1600 Output Total 275 / 275 Balance 1325 / 1325 Weight last 48 hrs Weight 116.392 kg Weight 108.862 kg Physical Exam Const: COMMON NORMALS: no apparent distress and oriented x3 GENERAL APPEARANCE: cooperative, comfortable and disheveled NUTRITIONAL APPEARANCE: obese morbidly obese ORIENTATION/CONSCIOUSNESS: Yes awake HENMT: COMMON NORMALS: normocephalic, head/scalp atraumatic, hearing grossly normal bilaterally and moist oral mucous membranes HEAD & SCALP: normocephalic and atraumatic Eye: COMMON NORMALS: PERRL, EOMs intact bilaterally and conjunctivae normal CONJUNCTIVA: Yes conjunctivae normal PUPIL: Yes PERRL Neck/C-Spine: COMMON NORMALS: full ROM GENERAL: Yes normal visual inspection and Yes trachea midline Resp: COMMON NORMALS: normal respiratory effort, no retractions and no use of accessory muscles EFFORT & INSPECTION: Yes able to speak in complete sentences, Yes symmetric chest movement and No tachypneic OTHER: -Coarse breath sounds bilaterally, currently on 4 L nasal cannula Cardio: COMMON NORMALS: regular rate, regular rhythm, S1 normal heart sound, S2 normal heart sound and no murmurs RATE: regular rate RHYTHM: regular rhythm HEART SOUNDS: S1 normal and S2 normal GI: COMMON NORMALS: normal to inspection, nondistended, normoactive bowel sounds, soft to palpation and non-tender INSPECTION: Yes central obesity PALPATION: Yes soft Extremity: COMMON NORMALS: normal to inspection, full ROM and no clubbing, cyanosis or edema; negative for no pedal edema Neuro: COMMON NORMALS: oriented x3, moves all extremities, no focal motor deficits and no sensory deficits noted Psych: COMMON NORMALS: mental status grossly normal, thought process normal, cooperative, affect normal and speech normal SPEECH: Yes normal speech THOUGHT PROCESS: normal thought process Skin: COMMON NORMALS: no rashes or lesions noted, no jaundice, no petechiae and no mottling GENERAL SKIN EXAM: no rashes or lesions noted Data : 06/02/19 18:00 06/02/19 18:00 A&P Assessment and plan (1) Acute respiratory failure with hypoxia and hypercapnia: -noted to be hypercapnic and hypoxic on initial ABG; required continuous BiPAP that has now been weaned off. Likely multifactorial given acute CHF exacerbation, COPD -continue close monitoring of respiratory status -supplemental oxygen as needed; not oxygen dependent at baseline -will likely need home oxygen evaluation prior to d/c Status: Acute Code(s): J96.01 - Acute respiratory failure with hypoxia; J96.02 - Acute respiratory failure with hypercapnia (2) Encephalopathy acute: -secondary to hypoglycemia as well as hypercapnia and hypoxia -no longer hypoglycemic following D10W infusion; continue close monitoring of blood glucose -fall precautions -reorient as needed -management of hypercapnia and hypoxia as noted above Status: Acute Code(s): G93.40 - Encephalopathy, unspecified (3) Hypoglycemia: -BG as low as 24, improved and now hyperglycemic following D10W infusion -ISS with continued frequent accuchecks -continue hypoglycemia precautions Status: Acute Code(s): E16.2 - Hypoglycemia, unspecified (4) CHF (congestive heart failure): -acutely decompensated diastolic CHF as evidenced by SOB, hypoxia, evidence of fluid overload on imaging, elevated BNP (3988) -Echo (12/2018): EF=68%, G1DD -on IV diuresis with Lasix -monitor Is & Os, daily weights -continue to monitor renal function, lytes -noted troponins with significant delta change likely demand ischemia from CHF exacerbation and respiratory failure Status: Chronic Qualifiers: Heart failure chronicity: acute on chronic Heart failure type: diastolic Qualified Code(s): I50.33 - Acute on chronic diastolic (congestive) heart failure Code(s): I50.9 - Heart failure, unspecified (5) Chronic kidney disease, stage 3: -has known CKD stage 2-3; baseline Cr around 1 -monitor renal function particularly with diuresis Status: Chronic Code(s): N18.3 - Chronic kidney disease, stage 3 (moderate) Additional A&P Information -IDDM type II; last A1c-7.6 -Morbid obesity: BMI-39 kg/m2 -CAD s/p RCA stenting; continue Plavix -HTN; continue oral antihypertensives -LAURIE: CPAP qhs -Atrial fibrillation: on AC with Eliquis -diabetic diet as tolerated -DVT ppx not needed as on Eliquis -GI ppx with PPI Attestations Medical Necessity Statement*: Patient requires hospitalization for continued I V diuresis, monitoring of respiratory status and blood glucose. Time Spent in Patient Care: Greater than 35 minutes (>than 50% of time spent in counselling and/or direct pt care on unit) . Coding Level of Care Code Acute Supervisor Firearms for Chg Fwd Exam Problem Focused Diagnoses Acute respiratory failure with hypoxia and hypercapnia J96.01; J96.02 Encephalopathy acute G93.40 Hypoglycemia E16.2 CHF (congestive heart failure) I50.33 Heart failure chronicity: acute on chronic Heart failure type: diastolic Chronic kidney disease, stage 3 N18.3
[2019-06-03] MEDS: gabapentin 300 mg Capsule PO ×3 (09:39→20:17)
[2019-06-03] MEDS: lisinopril 5 mg Tablet PO (09:40)
[2019-06-03] MEDS: clopidogrel 75 mg Tablet PO (09:40)
[2019-06-03] MEDS: amiodarone 200 mg Tablet PO (09:40)
[2019-06-03 11:13] LABS: Glucose Point of Care 217 mg/dL (70-110)
--- NOTE | 2019-06-03 12:29 | PC.CHAP ---
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 [] Patient/Family/Request visit [] Outpatient visit [] Follow-up visit [] Physician referral [] Code/Alert [x] Routine visit [] Staff referral [] Actively dying [] Patient sleeping [] Family support [] [] Out of room [] Palliative care [] [] Receiving care in room [] Pre-surgical visit [] Trauma [] Long length of stay [] ICU visit [] Other: Relational/Emotional Strength [x] Patient feels connected with others/family/visitors/staff [] Distress [] Loneliness/isolation [] Abandonment Spirituality of Patient [x] Person of Theresa [xx] Attends Adventism of their Theresa [] Believes in Prayer [] Reads Bible or Episcopal materials [] There are Spiritual issues to be addressed Section Crews Activities Clerk Interventions [x] Prayer x] Active listening [x] Non-anxious presence [x] Spiritual/emotional support [] Crisis/trauma care [x] Spiritual counseling [] Bereavement support [] Provided bereavement packet [] Provided Bible/devotional materials [] Provided toy/stuffed animal, coloring book to patient or family member [] Provided Communion [] Anointing/[place] [] Salvation [] Completed spiritual assessment [] Other: Impact on Illness or Injury [] Angry [] Fearful [] Anxious [] Often cries [] Exhaustion [] Unable to work [] Unable to attend baptist [] Unable to walk/stand [] Unable to read [] Unable to drive [] Unable to eat/drink [] Unable to sleep [] Unable to be with family [] Patient intubated [x] Other:n/a Summary Time spent with patient
[2019-06-03] MEDS: pantoprazole DR 40 mg Tablet PO ×2 (13:58→17:16)
[2019-06-03] MEDS: HYDROcodone-acetaminophen 7.5-325 mg Tablet 1 TAB PO ×2 (13:58→18:47)
[2019-06-03] MEDS: alum-mag-hydroxide-sime 30 mL UDC PO (14:25)
[2019-06-03 16:07] LABS: Glucose Point of Care 406 mg/dL (70-110)
--- NOTE | 2019-06-03 16:51 | PC.PHAR ---
pt unable to verify meds. the meds entered are what the pharmacy has filled recently.
[2019-06-03 20:48] LABS: Glucose Point of Care 184 mg/dL (70-110)
--- NOTE | 2019-06-03 21:22 | PC.NURSE ---
Dr. Mcdaniel notified of patient asking for something to help him sleep. Patient states he takes Ambien at home, however Ambien is not listed in his med rec or external med history.
[2019-06-04] VITALS (27 sets, daily range): BP systolic 141–175; BP diastolic 49–99; PULSE 55–78; RESP 18–39; TEMP 36.6–36.8; O2SAT 56–98
[2019-06-04] MEDS: nitroglycerin 1 gm/inch oint Pkt 1 INCH TOPICAL ×3 (00:08→11:58)
[2019-06-04] MEDS: HYDROcodone-acetaminophen 7.5-325 mg Tablet 1 TAB PO ×3 (00:08→21:44)
[2019-06-04] MEDS: ipratropium-albuterol 3 mL Neb INHALATION ×9 (00:14→23:12)
[2019-06-04 04:50] LABS: Basophils # 0.1 10^3/uL (0.0-0.1); Basophils % 0.5 %; Eosinophils # 0.2 10^3/uL (0.0-0.8); Eosinophils % 2.6 %; Hemoglobin 12.5 g/dL (11.7-16.6); Lymphocytes # 2.1 10^3/uL (0.8-4.8); Lymphocytes % 22.6 %; Mean Corpuscular HGB Conc 30.5 g/dL (30.0-36.0); Mean Corpuscular Hemoglobin 26.6 pg (28.0-34.0); Mean Corpuscular Volume 87.2 fL (80-94); Mean Platelet Volume 11.6 fL (7.4-10.4); Monocytes # 0.9 10^3/uL (0.2-0.9); Monocytes % 10.1 %; Neutrophils # 5.8 10^3/uL (1.8-7.7); Neutrophils % 63.7 %; Nucleated Red Blood Cells % 0 %; Platelet Count 175 10^3/cmm (130-400); Red Cell Distribution Width 14.9 % (12.1-15.1); White Blood Count 9.2 10^3/uL (4.0-10.0)
[2019-06-04 05:10] LABS: Anion Gap 17.9 (5-19); Blood Urea Nitrogen 53 mg/dL (8-23); Calcium 9.3 mg/dL (8.5-10.5); Carbon Dioxide 26 mmol/L (22-29); Chloride 92 mmol/L (98-107); Glomerular Filtration Rate 38.1 mL/min (90-130); Glucose 173 mg/dL (65-115); Osmolality Calculated 275 mOsm/kg (285-295); Potassium 4.9 mmol/L (3.5-5.1); Sodium 131 mmol/L (136-145)
[2019-06-04] MEDS: metoprolol succinate ER (24 HR) 100 mg Tablet PO (05:33)
[2019-06-04] MEDS: FUROsemide 10 mg/mL SDV 10mL 60 MG IVP (05:33)
[2019-06-04 06:25] LABS: Glucose Point of Care 186 mg/dL (70-110)
[2019-06-04] MEDS: budesonide 0.5 mg/2 mL Neb INHALATION ×2 (07:58→19:51)
--- NOTE | 2019-06-04 08:53 | P.PN_ITS ---
Subjective Subjective: Interval history: AM labs noted, renal function worsening, had 750 mL urine output overnight. Will switch to bumex. Noted accucheks, will add meal time and long acting insulin. Patient seen and examined, sitting at the edge of the bed, continues to be very coarse diffusely on auscultation, does report feeling slightly better and was able to sit up for his meal earlier today. Has been using BiPAP more frequently throughout the day. Medications: Reviewed: Yes Medication Review Details: Current Medications Generic Name Dose Route Start Last Admin Trade Name Freq PRN Reason Stop Dose Admin Acetaminophen 650 mg 06/02/19 23:59 06/03/19 01:06 Tylenol PO 650 mg Q6H PRN Administration Mild/Mod Pain Or Temp >/= 101 Hydrocodone Bitart /Acetaminophen 1 tab 06/03/19 00:11 06/04/19 00:08 [place] 7.5-325 Mg PO 1 tab Q4H PRN Administration MODERATE TO SEVER E PAIN Al Hydrox/Mg [place] x/Simethicone 30 ml 06/03/19 12:44 06/03/19 14:25 Maalox PO 30 ml Q4H PRN Administration INDIGESTION Albuterol/Ipratrop ium 3 ml 06/03/19 00:11 06/04/19 05:21 Duoneb INHALATION 3 ml Q6H PRN Administration SHORTNESS OF SUSAN TH Albuterol/Ipratrop ium 3 ml 06/03/19 04:00 06/04/19 07:58 Duoneb INHALATION 3 ml Q4H.RESPIRATORY S CH Administration Amiodarone HCl 200 mg 06/03/19 09:00 06/03/19 09:40 Cordarone PO 200 mg DAILY CHARLIE Administration Apixaban 5 mg 06/03/19 00:15 06/03/19 17:17 Eliquis PO 5 mg BID CHARLIE Administration Budesonide 0.5 mg 06/03/19 08:00 06/04/19 07:58 Pulmicort INHALATION 0.5 mg BID.RESPIRATORY S CH Administration Clopidogrel Bisulf ate 75 mg 06/03/19 09:00 06/03/19 09:40 Plavix PO 75 mg DAILY CHARLIE Administration Gabapentin 300 mg 06/03/19 09:00 06/03/19 20:17 Neurontin PO 300 mg TID CHARLIE Administration Insulin Aspart 0 unit 06/03/19 21:00 06/03/19 06:27 Novolog SUBCUT 14 unit BEDTIME CHARLIE Administration Protocol Insulin Aspart 0 unit 06/03/19 08:00 06/03/19 17:18 Novolog SUBCUT 14 unit TIDWM CHARLIE Administration Protocol Lisinopril 5 mg 06/03/19 09:00 06/03/19 09:40 Prinivil PO 5 mg DAILY CHARLIE Administration Metoprolol Succina te 100 mg 06/03/19 06:00 06/04/19 05:33 Toprol Xl PO 100 mg 06 CHARLIE Administration Nitroglycerin 1 inch 06/03/19 07:00 06/04/19 05:33 Nitro-Bid TOPICAL 1 inch Q6H CHARLIE Administration Pantoprazole Sodiu m 40 mg 06/03/19 12:45 06/03/19 17:16 Protonix PO 40 mg BID CHARLIE Administration Vitals/I&O/Wt Last Vital Signs Temp 97.8 F 06/04/19 07:25 Pulse 71 06/04/19 08:21 Resp 39 H 06/04/19 07:58 BP 146/99 06/04/19 07:25 Pulse Ox 93 06/04/19 08:05 06/03/19 06/04/19 06/04/19 22:59 06:59 14:59 Intake Total 240 / 720 300 / 1020 Output Total 650 / 950 450 / 1400 480 / 480 Balance -410 / -230 -150 / -380 -480 / -480 Weight last 48 hrs Weight 115.847 kg Weight 116.392 kg Weight 108.862 kg Physical Exam Const: COMMON NORMALS: no apparent distress and oriented x3 GENERAL APPEARANCE: cooperative, comfortable and disheveled NUTRITIONAL APPEARANCE: obese morbidly obese ORIENTATION/CONSCIOUSNESS: Yes awake HENMT: COMMON NORMALS: normocephalic, head/scalp atraumatic, hearing grossly normal bilaterally and moist oral mucous membranes HEAD & SCALP: normocephalic and atraumatic Eye: COMMON NORMALS: PERRL, EOMs intact bilaterally and conjunctivae normal CONJUNCTIVA: Yes conjunctivae normal PUPIL: Yes PERRL Neck/C-Spine: COMMON NORMALS: full ROM GENERAL: Yes normal visual inspection and Yes trachea midline Resp: COMMON NORMALS: normal respiratory effort, no retractions and no use of accessory muscles EFFORT & INSPECTION: Yes able to speak in complete sentences, Yes symmetric chest movement and No tachypneic OTHER: -Coarse breath sounds bilaterally, currently on 4 L nasal cannula Cardio: COMMON NORMALS: regular rate, regular rhythm, S1 normal heart sound, S2 normal heart sound and no murmurs RATE: regular rate RHYTHM: regular rhythm HEART SOUNDS: S1 normal and S2 normal GI: COMMON NORMALS: normal to inspection, nondistended, normoactive bowel sounds, soft to palpation and non-tender INSPECTION: Yes central obesity PALPATION: Yes soft Extremity: COMMON NORMALS: normal to inspection, full ROM and no clubbing, cyanosis or edema; negative for no pedal edema Neuro: COMMON NORMALS: oriented x3, moves all extremities, no focal motor deficits and no sensory deficits noted Psych: COMMON NORMALS: mental status grossly normal, thought process normal, cooperative, affect normal and speech normal SPEECH: Yes normal speech THOUGHT PROCESS: normal thought process Skin: COMMON NORMALS: no rashes or lesions noted, no jaundice, no petechiae and no mottling GENERAL SKIN EXAM: no rashes or lesions noted Data : 06/04/19 04:06 06/04/19 04:06 A&P Assessment and plan (1) Acute respiratory failure with hypoxia and hypercapnia: -noted to be hypercapnic and hypoxic on initial ABG; required continuous BiPAP that has now been weaned off. Likely multifactorial given acute CHF exac erbation, COPD -continue close monitoring of respiratory status -supplemental oxygen as needed; not oxygen dependent at baseline -will likely need home oxygen evaluation prior to d/c Status: Acute Code(s): J96.01 - Acute respiratory failure with hypoxia; J96.02 - Acute respiratory failure with hypercapnia (2) CHF (congestive heart failure): -acutely decompensated diastolic CHF as evidenced by SOB, hypoxia, evidence of fluid overload on imaging, elevated BNP (3988) -Echo (12/2018): EF=68%, G1DD -on IV diuresis with Lasix; will switch to Bumex for continued diuresis due to noted renal impairment -monitor Is & Os, daily weights -continue to monitor renal function, lytes -noted troponins with significant delta change likely demand ischemia from CHF exacerbation and respiratory failure Status: Chronic Qualifiers: Heart failure chronicity: acute on chronic Heart failure type: diastolic Qualified Code(s): I50.33 - Acute on chronic diastolic (congestive) heart failure Code(s): I50.9 - Heart failure, unspecified (3) Encephalopathy acute: -secondary to hypoglycemia as well as hypercapnia and hypoxia; resolved -no longer hypoglycemic following D10W infusion; continue close monitoring of blood glucose -fall precautions -reorient as needed -management of hypercapnia and hypoxia as noted above Status: Resolved Code(s): G93.40 - Encephalopathy, unspecified (4) Hypoglycemia: -BG as low as 24, improved and now hyperglycemic following D10W infusion -ISS with continued frequent accuchecks -continue hypoglycemia precautions -add long-acting and meal-time insulin Status: Resolved Code(s): E16.2 - Hypoglycemia, unspecified (5) Chronic kidney disease, stage 3: -has known CKD stage 2-3; baseline Cr around 1 -continue to monitor renal function particularly with diuresis Status: Chronic Code(s): N18.3 - Chronic kidney disease, stage 3 (moderate) Additional A&P Information -IDDM type II; last A1c-7.6 -Morbid obesity: BMI-39 kg/m2 -CAD s/p RCA stenting; continue Plavix -HTN; continue oral antihypertensives -LAURIE: CPAP qhs -Atrial fibrillation: on AC with Eliquis -diabetic diet as tolerated -DVT ppx not needed as on Eliquis -GI ppx with PPI Attestations Medical Necessity Statement*: Patient requires hospitalization for continued IV diuresis, monitoring of renal function Time Spent in Patient Care: Greater than 35 minutes (>than 50% of time spent in counselling and/or direct pt care on unit) . Coding Level of Care Code Acute Director Of Premium Seat Sales for Fausto Felix Exam Problem Focused Diagnoses Acute respiratory failure with hypoxia and hypercapnia J96.01; J96.02 CHF (congestive heart failure) I50.33 Heart failure chronicity: acute on chronic Heart failure type: diastolic Encephalopathy acute G93.40 Hypoglycemia E16.2 Chronic kidney disease, stage 3 N18.3
[2019-06-04] MEDS: amiodarone 200 mg Tablet PO (09:17)
[2019-06-04] MEDS: gabapentin 300 mg Capsule PO ×3 (09:17→21:44)
[2019-06-04] MEDS: lisinopril 5 mg Tablet PO (09:17)
[2019-06-04] MEDS: pantoprazole DR 40 mg Tablet PO ×2 (09:17→18:47)
[2019-06-04] MEDS: apixaban 5 mg Tablet PO ×2 (09:18→18:47)
[2019-06-04] MEDS: clopidogrel 75 mg Tablet PO (09:18)
[2019-06-04 11:34] LABS: Glucose Point of Care 265 mg/dL (70-110)
[2019-06-04] MEDS: bumetanide 0.25 mg/mL SDV 10 mL 1 MG IV ×2 (11:57→21:44)
--- NOTE | 2019-06-04 15:47 | PC.CHAP ---
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 dishwashing machine repairer visit [] Patient/Family/Request visit [] Outpatient visit [] Follow-up visit [] Physician referral [] Code/Alert [x] Routine visit [] Staff referral [] Actively dying [] Patient sleeping [] Family support [] [] Out of room [] Palliative care [] [x] Receiving care in room [] Pre-surgical visit [] Trauma [] Long length of stay [] ICU visit [x] Other: Short Term Relational/Emotional Strength [] Patient feels connected with others/family/visitors/staff [x] Distress [x] Loneliness/isolation [] Abandonment Spirituality of Patient [x] Person of Theresa [] Attends Zoroastrianism of their Theresa [] Believes in Prayer [] Reads Bible or Bahai materials [] There are Spiritual issues to be addressed Parking Enforcer Interventions [x] Prayer [x] Active listening [x] Non-anxious presence [x] Spiritual/emotional support [] Crisis/trauma care [x] Spiritual counseling [] Bereavement support [] Provided bereavement packet [] Provided Bible/devotional materials [] Provided toy/stuffed animal, coloring book to patient or family member [] Provided Communion [] Anointing/[place] [] Salvation [x] Completed spiritual assessment [] Other: Impact on Illness or Injury [] Angry [x] Fearful [x] Anxious [] Often cries [] Exhaustion [x] Unable to work [] Unable to attend shinto [x] Unable to walk/stand [] Unable to read [] Unable to drive [x] Unable to eat/drink [] Unable to sleep [] Unable to be with family [] Patient intubated [] Other: Summary On oxgen / could node / good attitude Time spent with patient 10 mins
[2019-06-04 16:41] LABS: Glucose Point of Care 141 mg/dL (70-110)
--- NOTE | 2019-06-04 17:35 | PC.RESP ---
Patient given Pulmonary Rehab/Smoking Cessation information.
--- NOTE | 2019-06-04 21:39 | PC.NURSE ---
Patient's blood glucose is 164 at this time.
[2019-06-04] MEDS: insulin glargine 100 units/1 mL 20 UNIT SUBCUT (21:44)
[2019-06-05] VITALS (17 sets, daily range): BP systolic 106–164; BP diastolic 49–81; PULSE 52–73; RESP 15–31; TEMP 36.6; O2SAT 90–100
[2019-06-05 03:50] LABS: Glucose Point of Care 164 mg/dL (70-110)
[2019-06-05] MEDS: ipratropium-albuterol 3 mL Neb INHALATION ×6 (04:12→23:31)
[2019-06-05] MEDS: nitroglycerin 1 gm/inch oint Pkt 1 INCH TOPICAL ×3 (04:52→17:27)
[2019-06-05] MEDS: metoprolol succinate ER (24 HR) 100 mg Tablet PO (04:52)
[2019-06-05] MEDS: HYDROcodone-acetaminophen 7.5-325 mg Tablet 1 TAB PO ×3 (04:54→18:36)
[2019-06-05 04:55] LABS: Blood Urea Nitrogen 62 mg/dL (8-23); Calcium 9.8 mg/dL (8.5-10.5); Carbon Dioxide 31 mmol/L (22-29); Chloride 92 mmol/L (98-107); Glomerular Filtration Rate 30.2 mL/min (90-130); Glucose 182 mg/dL (65-115); Osmolality Calculated 282 mOsm/kg (285-295); Sodium 134 mmol/L (136-145)
[2019-06-05 06:15] LABS: Glucose Point of Care 179 mg/dL (70-110)
--- NOTE | 2019-06-05 07:26 | PC.NURSE ---
Patient accidentally pulled out IV in right AC. New IV started in right upper arm 22 gauge. Patient tolerated well. Dressing applied.
[2019-06-05] MEDS: budesonide 0.5 mg/2 mL Neb INHALATION ×2 (07:30→19:26)
--- NOTE | 2019-06-05 08:14 | P.PN_ITS ---
Subjective Subjective: Interval history: AM labs noted, worsening renal function, will hold diuresis today. Had 1000 mL urine output overnight. Patient seen and examined, sitting up at the edge of the bed, does not seem as dyspneic today, and has not used BiPAP as often as he did yesterday. Still sounds quite coarse diffusely on auscultation. Had some thick yellow sputum expectoration. Medications: Reviewed: Yes Medication Review Details: Current Medications Generic Name Dose Route Start Last Admin Trade Name Freq PRN Reason Stop Dose Admin Acetaminophen 650 mg 06/02/19 23:59 06/03/19 01:06 Tylenol PO 650 mg Q6H PRN Administration Mild/Mod Pain Or Temp >/= 101 Hydrocodone Bitart /Acetaminophen 1 tab 06/03/19 00:11 06/05/19 04:54 [place] 7.5-325 Mg PO 1 tab Q4H PRN Administration MODERATE TO SEVER E PAIN Al Hydrox/Mg [place] x/Simethicone 30 ml 06/03/19 12:44 06/03/19 14:25 Maalox PO 30 ml Q4H PRN Administration INDIGESTION Albuterol/Ipratrop ium 3 ml 06/03/19 00:11 06/04/19 05:21 Duoneb INHALATION 3 ml Q6H PRN Administration SHORTNESS OF SUSAN TH Albuterol/Ipratrop ium 3 ml 06/03/19 04:00 06/05/19 07:30 Duoneb INHALATION 3 ml Q4H.RESPIRATORY S CH Administration Amiodarone HCl 200 mg 06/03/19 09:00 06/04/19 09:17 Cordarone PO 200 mg DAILY CHARLIE Administration Apixaban 5 mg 06/03/19 00:15 06/04/19 18:47 Eliquis PO 5 mg BID CHARLIE Administration Budesonide 0.5 mg 06/03/19 08:00 06/05/19 07:30 Pulmicort INHALATION 0.5 mg BID.RESPIRATORY S CH Administration Bumetanide 1 mg 06/04/19 09:00 06/04/19 21:44 Bumex IV 1 mg Q12H CHARLIE Administration Clopidogrel Bisulf ate 75 mg 06/03/19 09:00 06/04/19 09:18 Plavix PO 75 mg DAILY CHARLIE Administration Gabapentin 300 mg 06/03/19 09:00 06/04/19 21:44 Neurontin PO 300 mg TID CHARLIE Administration Insulin Aspart 0 unit 06/03/19 21:00 06/04/19 21:40 Novolog SUBCUT Not Given BEDTIME [facility] Protocol Insulin Aspart 0 unit 06/03/19 08:00 06/04/19 18:47 Novolog SUBCUT 2 unit TIDWM CHARLIE Administration Protocol Insulin Aspart 10 unit 06/04/19 11:00 06/04/19 18:47 Novolog SUBCUT 10 unit TIDAC [facility] Administration Insulin Glargine 20 unit 06/04/19 21:00 06/04/19 21:44 Lantus SUBCUT 20 unit BEDTIME CHARLIE Administration Lisinopril 5 mg 06/03/19 09:00 06/04/19 09:17 Prinivil PO 5 mg DAILY [facility] Administration Metoprolol Succina te 100 mg 06/03/19 06:00 06/05/19 04:52 Toprol Xl PO 100 mg 06 CHARLIE Administration Nitroglycerin 1 inch 06/03/19 07:00 06/05/19 04:52 Nitro-Bid TOPICAL 1 inch Q6H CHARLIE Administration Pantoprazole Sodiu m 40 mg 06/03/19 12:45 06/04/19 18:47 Protonix PO 40 mg BID CHARLIE Administration Vitals/I&O/Wt Last Vital Signs Temp 97.9 F 06/05/19 04:00 Pulse 70 06/05/19 07:33 Resp 20 H 06/05/19 07:33 BP 160/77 06/05/19 07:18 Pulse Ox 91 06/05/19 07:33 06/04/19 06/05/19 06/05/19 22:59 06:59 14:59 Intake Total 120 / 240 300 / 540 Output Total 450 / 1230 550 / 1780 700 / 700 Balance -330 / -990 -250 / -1240 -700 / -700 Weight last 48 hrs Weight 115.666 kg Weight 115.847 kg Physical Exam Const: COMMON NORMALS: no apparent distress and oriented x3 GENERAL APPEARANCE: cooperative, comfortable and disheveled NUTRITIONAL APPEARANCE: obese morbidly obese ORIENTATION/CONSCIOUSNESS: Yes awake HENMT: COMMON NORMALS: normocephalic, head/scalp atraumatic, hearing grossly normal bilaterally and moist oral mucous membranes HEAD & SCALP: normocephalic and atraumatic Eye: COMMON NORMALS: PERRL, EOMs intact bilaterally and conjunctivae normal CONJUNCTIVA: Yes conjunctivae normal PUPIL: Yes PERRL Neck/C-Spine: COMMON NORMALS: full ROM GENERAL: Yes normal visual inspection and Yes trachea midline Resp: COMMON NORMALS: normal respiratory effort, no retractions and no use of accessory muscles EFFORT & INSPECTION: Yes able to speak in complete sentences, Yes symmetric chest movement and No tachypneic OTHER: -Coarse breath sounds bilaterally, currently on 4 L nasal cannula Cardio: COMMON NORMALS: regular rate, regular rhythm, S1 normal heart sound, S2 normal heart sound and no murmurs RATE: regular rate RHYTHM: regular rhythm HEART SOUNDS: S1 normal and S2 normal GI: COMMON NORMALS: normal to inspection, nondistended, normoactive bowel sounds, soft to palpation and non-tender INSPECTION: Yes central obesity PALPATION: Yes soft Extremity: COMMON NORMALS: normal to inspection, full ROM and no clubbing, cyanosis or edema; negative for no pedal edema Neuro: COMMON NORMALS: oriented x3, moves all extremities, no focal motor deficits and no sensory deficits noted Psych: COMMON NORMALS: mental status grossly normal, thought process normal, cooperative, affect normal and speech normal SPEECH: Yes normal speech THOUGHT PROCESS: normal thought process Skin: COMMON NORMALS: no rashes or lesions noted, no jaundice, no petechiae and no mottling GENERAL SKIN EXAM: no rashes or lesions noted Data : 06/04/19 04:06 06/05/19 04:11 A&P Assessment and plan (1) Acute respiratory failure with hypoxia and hypercapnia: -noted to be hypercapnic and hypoxic on initial ABG; required continuous BiPAP that has now been weaned off. Likely multifactorial given acute CHF exacerbation, COPD -continue close monitoring of respiratory status -supplemental oxygen as needed; not oxygen dependent at baseline -will likely need home oxygen evaluation prior to d/c -given expectoration as well as continued coarseness on auscultation, will start on empiric abx (doxycycline); already on steroid inhaler, neb treatments. Noted ground glass opacities on CXR Status: Acute Code(s): J96.01 - Acute respiratory failure with hypoxia; J96.02 - Acute respiratory failure with hypercapnia (2) CHF (congestive heart failure): -acutely decompensated diastolic CHF as evidenced by SOB, hypoxia, evidence of fluid overload on imaging, elevated BNP (3988) -Echo (12/2018): EF=68%, G1DD -on IV diuresis with Bumex for continued diuresis due to noted renal impairment; hold today due to worsening Cr -monitor Is & Os, daily weights -continue to monitor renal function, lytes -noted troponins with significant delta change likely demand ischemia from CHF exacerbation and respiratory failure Status: Chronic Qualifiers: Heart failure chronicity: acute on chronic Heart failure type: diastol ic Qualified Code(s): I50.33 - Acute on chronic diastolic (congestive) heart failure Code(s): I50.9 - Heart failure, unspecified (3) Encephalopathy acute: -secondary to hypoglycemia as well as hypercapnia and hypoxia; resolved -no longer hypoglycemic following D10W infusion; continue close monitoring of blood glucose -fall precautions -reorient as needed -management of hypercapnia and hypoxia as noted above Status: Resolved Code(s): G93.40 - Encephalopathy, unspecified (4) Hypoglycemia: -BG as low as 24, improved and now hyperglycemic following D10W infusion -ISS with continued accuchecks -continue hypoglycemia precautions -continue long-acting and meal-time insulin Status: Resolved Code(s): E16.2 - Hypoglycemia, unspecified (5) Chronic kidney disease, stage 3: -has known CKD stage 2-3; baseline Cr around 1.5-1.7 -continue to monitor renal function particularly with diuresis; noted worsening so holding diuretics today Status: Chronic Code(s): N18.3 - Chronic kidney disease, stage 3 (moderate) Additional A&P Information -IDDM type II; last A1c-7.6 -Morbid obesity: BMI-39 kg/m2 -CAD s/p RCA stenting; continue Plavix -HTN; continue oral antihypertensives -LAURIE: CPAP qhs -Atrial fibrillation: on AC with Eliquis -diabetic diet as tolerated -DVT ppx not needed as on Eliquis -GI ppx with PPI -Dispo: home -Code status:: FULL code Attestations Medical Necessity Statement*: Patient requires hospitalization for continued IV diuresis, monitoring of renal function Time Spent in Patient Care: Greater than 35 minutes (>than 50% of time spent in counselling and/or direct pt care on unit) . Coding Level of Care Code Acute Financial Report Service Sales Agent for g Fwd Exam Detailed Diagnoses Acute respiratory failure with hypoxia and hypercapnia J96.01; J96.02 CHF (congestive heart failure) I50.33 Heart failure chronicity: acute on chronic Heart failure type: diastolic Encephalopathy acute G93.40 Hypoglycemia E16.2 Chronic kidney disease, stage 3 N18.3
[2019-06-05] MEDS: pantoprazole DR 40 mg Tablet PO ×2 (08:54→17:27)
[2019-06-05] MEDS: lisinopril 5 mg Tablet PO (08:54)
[2019-06-05] MEDS: clopidogrel 75 mg Tablet PO (08:55)
[2019-06-05] MEDS: gabapentin 300 mg Capsule PO ×3 (08:55→20:50)
[2019-06-05] MEDS: apixaban 5 mg Tablet PO ×2 (08:55→17:27)
[2019-06-05] MEDS: amiodarone 200 mg Tablet PO (08:55)
[2019-06-05 11:46] LABS: Glucose Point of Care 143 mg/dL (70-110)
--- NOTE | 2019-06-05 14:05 | PC.SOCIAL ---
IMM Page 2 of IMM explained to and signed by patient. He verbalizes understanding. Initialed, dated, and timed and placed in chart. Copy provided to patient.
[2019-06-05 17:00] LABS: Glucose Point of Care 543 mg/dL (70-110)
[2019-06-05] MEDS: doxycycline 100 mg Tablet PO (17:27)
[2019-06-05] MEDS: insulin glargine 100 units/1 mL 20 UNIT SUBCUT (20:50)
[2019-06-05 21:00] LABS: Glucose Point of Care 162 mg/dL (70-110)
[2019-06-06] VITALS (19 sets, daily range): BP systolic 109–164; BP diastolic 51–83; PULSE 52–67; RESP 16–24; TEMP 36.6–36.9; O2SAT 90–100; BMI 38.6
[2019-06-06] MEDS: nitroglycerin 1 gm/inch oint Pkt 1 INCH TOPICAL (01:42)
[2019-06-06] MEDS: ipratropium-albuterol 3 mL Neb INHALATION ×6 (03:33→23:31)
[2019-06-06 05:50] LABS: Anion Gap 17.2 (5-19); Blood Urea Nitrogen 69 mg/dL (8-23); Carbon Dioxide 28 mmol/L (22-29); Chloride 96 mmol/L (98-107); Creatinine Clr Calc Pharmacy 30.2517; Glomerular Filtration Rate 21.1 mL/min (90-130); Glucose 220 mg/dL (65-115); Osmolality Calculated 288 mOsm/kg (285-295); Potassium 5.2 mmol/L (3.5-5.1); Sodium 136 mmol/L (136-145)
[2019-06-06 06:16] LABS: Glucose Point of Care 283 mg/dL (70-110)
[2019-06-06] MEDS: metoprolol succinate ER (24 HR) 100 mg Tablet PO (07:02)
[2019-06-06 07:11] LABS: Glucose Point of Care 355 mg/dL (70-110)
--- NOTE | 2019-06-06 07:58 | XR_ITS ---
WS: [id number] XR chest 1V portable [id number] REASON FOR EXAM: increased oxygen requirement, SOB FINDINGS: Comparison to June 02, 2019 the next interstitial and groundglass configuration has [place] ost completely resolved there is chronic changes seen in both lung rand overall proximal progress a ppears to be improved. The heart is not enlarged. The hilum and apices are normal. XR/XR chest 1V portable [id number] IMPRESSION: Improved mixed configuration of interstitial groundglass opacities in both lung rand and left basilar atelectasis all have resolved.
--- NOTE | 2019-06-06 07:58 | P.PN_ITS ---
Subjective Subjective: Interval history: AM labs noted, worsening Cr. Had 575 mL urine output overnight. Patient seen and examined, sitting up at the edge of the bed, seems to be in good spirits today. Chest x-ray shows improvement. He is down to 2 L nasal cannula. Requesting expectorants to see if that would help him breathe a little better has a consistent cough and he is having difficulty bringing up any sputum. Medications: Reviewed: Yes Medication Review Details: Current Medications Generic Name Dose Route Start Last Admin Trade Name Freq PRN Reason Stop Dose Admin Acetaminophen 650 mg 06/02/19 23:59 06/03/19 01:06 Tylenol PO 650 mg Q6H PRN Administration Mild/Mod Pain Or Temp >/= 101 Hydrocodone Bitart /Acetaminophen 1 tab 06/03/19 00:11 06/05/19 18:36 [place] 7.5-325 Mg PO 1 tab Q4H PRN Administration MODERATE TO SEVER E PAIN Al Hydrox/Mg [place] x/Simethicone 30 ml 06/03/19 12:44 06/03/19 14:25 Maalox PO 30 ml Q4H PRN Administration INDIGESTION Albuterol/Ipratrop ium 3 ml 06/03/19 00:11 06/04/19 05:21 Duoneb INHALATION 3 ml Q6H PRN Administration SHORTNESS OF SUSAN TH Albuterol/Ipratrop ium 3 ml 06/03/19 04:00 06/06/19 03:33 Duoneb INHALATION 3 ml Q4H.RESPIRATORY S CH Administration Amiodarone HCl 200 mg 06/03/19 09:00 06/05/19 08:55 Cordarone PO 200 mg DAILY CHARLIE Administration Apixaban 5 mg 06/03/19 00:15 06/05/19 17:27 Eliquis PO 5 mg BID CHARLIE Administration Budesonide 0.5 mg 06/03/19 08:00 06/05/19 19:26 Pulmicort INHALATION 0.5 mg BID.RESPIRATORY S CH Administration Bumetanide 1 mg 06/04/19 09:00 06/04/19 21:44 Bumex IV 1 mg Q12H CHARLIE Administration Clopidogrel Bisulf ate 75 mg 06/03/19 09:00 06/05/19 08:55 Plavix PO 75 mg DAILY CHARLIE Administration Doxycycline Monohy drate 100 mg 06/05/19 18:00 06/05/19 17:27 Vibramycin PO 100 mg BID [facility] Administration Protocol Gabapentin 300 mg 06/03/19 09:00 06/05/19 20:50 Neurontin PO 300 mg TID CHARLIE Administration Insulin Aspart 0 unit 06/03/19 21:00 06/05/19 20:50 Novolog SUBCUT Not Given BEDTIME [facility] Protocol Insulin Aspart 0 unit 06/03/19 08:00 06/05/19 17:26 Novolog SUBCUT 14 unit TIDWM [facility] Administration Protocol Insulin Aspart 10 unit 06/04/19 11:00 06/06/19 07:02 Novolog SUBCUT 10 unit TIDAC [facility] Administration Insulin Glargine 20 unit 06/04/19 21:00 06/05/19 20:50 Lantus SUBCUT 20 unit BEDTIME [facility] Administration Lisinopril 5 mg 06/03/19 09:00 06/05/19 08:54 Prinivil PO 5 mg DAILY [facility] Administration Metoprolol Succina te 100 mg 06/03/19 06:00 06/06/19 07:02 Toprol Xl PO 100 mg 06 [facility] Administration Nitroglycerin 1 inch 06/03/19 07:00 06/06/19 07:03 Nitro-Bid TOPICAL Not Given Q6H [facility] Pantoprazole Sodiu m 40 mg 06/03/19 12:45 06/05/19 17:27 Protonix PO 40 mg BID CHARLIE Administration Vitals/I&O/Wt Last Vital Signs Temp 98.4 F 06/06/19 04:00 Pulse 66 06/06/19 04:00 Resp 24 H 06/06/19 04:00 BP 120/76 06/06/19 04:00 Pulse Ox 95 06/06/19 04:00 06/05/19 06/06/19 06/06/19 22:59 06:59 14:59 Intake Total 840 / 1320 150 / 1470 Output Total 125 / 825 450 / 1275 Balance 715 / 495 -300 / 195 Weight last 48 hrs Weight 115.212 kg Weight 115.212 kg Weight 115.666 kg Physical Exam Const: COMMON NORMALS: no apparent distress and oriented x3 GENERAL APPEAR ANCE: cooperative and comfortable NUTRITIONAL APPEARANCE: obese morbidly obese ORIENTATION/CONSCIOUSNESS: Yes awake HENMT: COMMON NORMALS: normocephalic, head/scalp atraumatic, hearing grossly normal bilaterally and moist oral mucous membranes HEAD & SCALP: normocephalic and atraumatic Eye: COMMON NORMALS: PERRL, EOMs intact bilaterally and conjunctivae normal CONJUNCTIVA: Yes conjunctivae normal PUPIL: Yes PERRL Neck/C-Spine: COMMON NORMALS: full ROM GENERAL: Yes normal visual inspection and Yes trachea midline Resp: COMMON NORMALS: normal respiratory effort, no retractions and no use of accessory muscles EFFORT & INSPECTION: Yes able to speak in complete sentences, Yes symmetric chest movement and No tachypneic AUSCULTATION: rhonchi and wheezes expiratory wheezes OTHER: -Coarse breath sounds bilaterally though air entry is improving, currently on 2 L nasal cannula Cardio: COMMON NORMALS: regular rate, regular rhythm, S1 normal heart sound, S2 normal heart sound and no murmurs RATE: regular rate RHYTHM: regular rhythm HEART SOUNDS: S1 normal and S2 normal GI: COMMON NORMALS: normal to inspection, nondistended, normoactive bowel sounds, soft to palpation and non-tender INSPECTION: Yes central obesity PALPATION: Yes soft Extremity: COMMON NORMALS: normal to inspection, full ROM and no clubbing, cyanosis or edema; negative for no pedal edema OTHER: -s/p amputation of great toe on L Neuro: COMMON NORMALS: oriented x3, moves all extremities, no focal motor deficits and no sensory deficits noted Psych: COMMON NORMALS: mental status grossly normal, thought process normal, cooperative, affect normal and speech normal SPEECH: Yes normal speech THOUGHT PROCESS: normal thought process Skin: COMMON NORMALS: no rashes or lesions noted, no jaundice, no petechiae and no mottling GENERAL SKIN EXAM: no rashes or lesions noted Data : 06/04/19 04:06 06/06/19 04:24 A&P Assessment and plan (1) Acute respiratory failure with hypoxia and hypercapnia: -noted to be hypercapnic and hypoxic on initial ABG; required continuous BiPAP that has now been weaned off. Likely multifactorial given acute CHF exacerbation, COPD -continue close monitoring of respiratory status -supplemental oxygen as needed; not oxygen dependent at baseline -will likely need home oxygen evaluation prior to d/c -given expectoration as well as continued coarseness on auscultation, on empiric abx (doxycycline); already on steroid inhaler, neb treatments. Noted ground glass opacities on CXR; improved on repeat imaging today -add expectorants, already has flutter valve Status: Acute Code(s): J96.01 - Acute respiratory failure with hypoxia; J96.02 - Acute respiratory failure with hypercapnia (2) CHF (congestive heart failure): -acutely decompensated diastolic CHF as evidenced by SOB, hypoxia, evidence of fluid overload on imaging, elevated BNP (3988) -Echo (12/2018): EF=68%, G1DD -on IV diuresis with Bumex for continued diuresis due to noted renal impairment; continue to hold today due to worsening Cr -monitor Is & Os, daily weights -continue to monitor renal function, lytes -noted troponins with significant delta change likely demand ischemia from CHF exacerbation and respiratory failure Status: Chronic Qualifiers: Heart failure chronicity: acute on chronic Heart failure type: diastolic Qualified Code(s): I50.33 - Acute on chronic diastolic (congestive) heart failure Code(s): I50.9 - Heart failure, unspecified (3) Encephalopathy acute: -secondary to hypoglycemia as well as hypercapnia and hypoxia; resolved -no longer hypoglycemic following D10W infusion; continue close monitoring of blood glucose -fall precautions -reorient as needed -management of hypercapnia and hypoxia as noted above Status: Resolved Code(s): G93.40 - Encephalopathy, unspecified (4) Hypoglycemia: -BG as low as 24, improved and now hyperglycemic following D10W infusion -ISS with continued accuchecks -continue hypoglycemia precautions -continue long-acting and meal-time insulin Status: Resolved Code(s): E16.2 - Hypoglycemia, unspecified (5) Chronic kidney disease, stage 3: -has known CKD stage 2-3; baseline Cr around 1.5-1.7 -continue to monitor renal function particularly with diuresis; noted worsening so holding diuretics Status: Chronic Code(s): N18.3 - Chronic kidney disease, stage 3 (moderate) Additional A&P Information -IDDM type II; last A1c-7.6 -Morbid obesity: BMI-39 kg/m2 -CAD s/p RCA stenting; continue Plavix -HTN; continue oral antihypertensives -LAURIE: CPAP qhs -Atrial fibrillation: on AC with Eliquis -diabetic diet as tolerated -DVT ppx not needed as on Eliquis -GI ppx with PPI -Dispo: home -Code status:: FULL code Attestations Medical Necessity Statement*: Patient requires hospitalization for continued management of acute CHF exacerbation and acute kidney injury, diuretics on hold pending improvement in renal function. Time Spent in Patient Care: Greater than 35 minutes (>than 50% of time spent in counselling and/or direct pt care on unit) . Coding Level of Care Code Acute Learning And Development Assistant for g Fwd Exam Detailed Diagnoses Acute respiratory failure with hypoxia and hypercapnia J96.01; J96.02 CHF (congestive heart failure) I50.33 Heart failure chronicity: acute on chronic Heart failure type: diastolic Encephalopathy acute G93.40 Hypoglycemia E16.2 Chronic kidney disease, stage 3 N18.3
[2019-06-06] MEDS: budesonide 0.5 mg/2 mL Neb INHALATION ×2 (08:24→19:53)
[2019-06-06] MEDS: gabapentin 300 mg Capsule PO ×3 (08:40→20:36)
[2019-06-06] MEDS: pantoprazole DR 40 mg Tablet PO ×2 (08:40→18:03)
[2019-06-06] MEDS: apixaban 5 mg Tablet PO ×2 (08:40→18:03)
[2019-06-06] MEDS: clopidogrel 75 mg Tablet PO (08:40)
[2019-06-06] MEDS: doxycycline 100 mg Tablet PO ×2 (08:41→18:03)
[2019-06-06] MEDS: amiodarone 200 mg Tablet PO (08:41)
[2019-06-06] MEDS: lisinopril 5 mg Tablet PO (08:41)
[2019-06-06] MEDS: HYDROcodone-acetaminophen 7.5-325 mg Tablet 1 TAB PO ×3 (08:45→23:49)
[2019-06-06 11:21] LABS: Glucose Point of Care 157 mg/dL (70-110)
[2019-06-06] MEDS: sodium polystyrene sulfonate 15 gm/60 mL Btl PO (15:43)
[2019-06-06 17:01] LABS: Glucose Point of Care 284 mg/dL (70-110)
[2019-06-06] MEDS: guaiFENesin 600 mg Tablet PO (18:03)
[2019-06-06] MEDS: sennosides-docusate Tablet 1 TAB PO (18:04)
[2019-06-06 20:03] LABS: Glucose Point of Care 160 mg/dL (70-110)
[2019-06-06] MEDS: hyDROXYzine 25 mg Capsule PO (20:36)
[2019-06-06] MEDS: insulin glargine 100 units/1 mL 20 UNIT SUBCUT (20:36)
[2019-06-06] MEDS: benzonatate 100 mg Capsule PO (20:36)
--- NOTE | 2019-06-06 20:49 | PC.NURSE ---
Patient's oxygen saturation is 94-96% on room air. Patient requests to wear his Bipap while he sleeps.
--- NOTE | 2019-06-06 20:57 | PC.NURSE ---
Dr. Lake notified of patient asking for something to help him sleep. PO Vistaril 25 mg x1 ordered.
--- NOTE | 2019-06-06 23:49 | PC.NURSE ---
Patient states his right toe is hurting, stating i think it is my gout, they had to give me a shot in my foot for it before. PRN [place] given. Will continue to monitor.
[2019-06-07] VITALS (17 sets, daily range): BP systolic 120–173; BP diastolic 34–69; PULSE 54–82; RESP 13–25; TEMP 36.6–36.8; O2SAT 94–100
[2019-06-07] MEDS: ipratropium-albuterol 3 mL Neb INHALATION ×5 (04:04→21:03)
[2019-06-07] MEDS: metoprolol succinate ER (24 HR) 100 mg Tablet PO (04:23)
[2019-06-07] MEDS: nitroglycerin 1 gm/inch oint Pkt 1 INCH TOPICAL (04:23)
[2019-06-07] MEDS: HYDROcodone-acetaminophen 7.5-325 mg Tablet 1 TAB PO ×2 (06:01→20:37)
[2019-06-07] MEDS: bisacodyl 5 mg Tablet 10 MG PO (06:03)
[2019-06-07 06:06] LABS: Anion Gap 16.8 (5-19); Blood Urea Nitrogen 80 mg/dL (8-23); Calcium 8.4 mg/dL (8.5-10.5); Carbon Dioxide 27 mmol/L (22-29); Chloride 95 mmol/L (98-107); Glomerular Filtration Rate 24.9 mL/min (90-130); Glucose 284 mg/dL (65-115); Osmolality Calculated 288 mOsm/kg (285-295); Potassium 4.8 mmol/L (3.5-5.1); Sodium 134 mmol/L (136-145)
[2019-06-07 06:30] LABS: Glucose Point of Care 319 mg/dL (70-110)
--- NOTE | 2019-06-07 08:01 | PM.PN ---
Subjective Subjective: Interval history: Hemodynamically stable, weaned off supplemental oxygen, AM labs noted, improving renal function. Noted intermittent bradycardia so will decrease dose of BB. Had 625 mL urine output overnight. Patient resting with BiPAP on during my morning rounds, no complaints currently, seems to be doing better today. Received a dose of hydroxyzine last night which allowed him to rest better. Has had some expectoration with his cough. Medications: Reviewed: Yes Medication Review Details: Current Medications Generic Name Dose Route Start Last Admin Trade Name Freq PRN Reason Stop Dose Admin Acetaminophen 650 mg 06/02/19 23:59 06/03/19 01:06 Tylenol PO 650 mg Q6H PRN Administration Mild/Mod Pain Or Temp >/= 101 Hydrocodone Bitart /Acetaminophen 1 tab 06/07/19 05:46 06/07/19 06:01 [place] 7.5-325 Mg PO 1 tab Q4H PRN Administration MODERATE PAIN Al Hydrox/Mg [place] x/Simethicone 30 ml 06/03/19 12:44 06/03/19 14:25 Maalox PO 30 ml Q4H PRN Administration INDIGESTION Albuterol/Ipratrop ium 3 ml 06/03/19 00:11 06/04/19 05:21 Duoneb INHALATION 3 ml Q6H PRN Administration SHORTNESS OF SUSAN TH Albuterol/Ipratrop ium 3 ml 06/03/19 04:00 06/07/19 04:04 Duoneb INHALATION 3 ml Q4H.RESPIRATORY S CH Administration Amiodarone HCl 200 mg 06/03/19 09:00 06/06/19 08:41 Cordarone PO 200 mg DAILY CHARLIE Administration Apixaban 5 mg 06/03/19 00:15 06/06/19 18:03 Eliquis PO 5 mg BID CHARLIE Administration Benzonatate 100 mg 06/06/19 13:09 06/06/19 20:36 Tessalon Pear[place] PO 100 mg TID PRN Administration COUGH Bisacodyl 10 mg 06/02/19 23:59 06/07/19 06:03 Dulcolax PO 10 mg DAILY PRN Administration CONSTIPATION Budesonide 0.5 mg 06/03/19 08:00 06/06/19 19:53 Pulmicort INHALATION 0.5 mg BID.RESPIRATORY S CH Administration Bumetanide 1 mg 06/04/19 09:00 06/04/19 21:44 Bumex IV 1 mg Q12H CHARLIE Administration Clopidogrel Bisulf ate 75 mg 06/03/19 09:00 06/06/19 08:40 Plavix PO 75 mg DAILY CHARLIE Administration Doxycycline Monohy drate 100 mg 06/05/19 18:00 06/06/19 18:03 Vibramycin PO 100 mg BID CHARLIE Administration Protocol Gabapentin 300 mg 06/03/19 09:00 06/06/19 20:36 Neurontin PO 300 mg TID CHARLIE Administration Guaifenesin 600 mg 06/06/19 18:00 06/06/19 18:03 Mucinex PO 600 mg BID CHARLIE Administration Insulin Aspart 0 unit 06/03/19 21:00 06/06/19 19:50 Novolog SUBCUT Not Given BEDTIME COUNTS [facility]CLUDE 234 BEDS AT [facility] Protocol Insulin Aspart 0 unit 06/03/19 08:00 06/07/19 07:06 Novolog SUBCUT 10 unit TIDWM CHARLIE Administration Protocol Insulin Aspart 10 unit 06/04/19 11:00 06/07/19 07:07 Novolog SUBCUT 10 unit TIDAC COUNTS INCLUDE 234 BEDS AT [facility] Administration Insulin Glargine 20 unit 06/04/19 21:00 06/06/19 20:36 Lantus SUBCUT 20 unit BEDTIME CHARLIE Administration Lisinopril 5 mg 06/03/19 09:00 06/06/19 08:41 Prinivil PO 5 mg DAILY CHARLIE Administration Nitroglycerin 1 inch 06/03/19 07:00 06/07/19 04:23 Nitro-Bid TOPICAL 1 inch Q6H CHARLIE Administration Pantoprazole Sodiu m 40 mg 06/03/19 12:45 06/06/19 18:03 Protonix PO 40 mg BID CHARLIE Administration Senna/Docusate Sod ium 1 tab 06/06/19 18:00 06/06/19 18:04 Senna-S PO 1 tab BID CHARLIE Administration Vitals/I&O/Wt Last Vital Signs Temp 98.2 F 06/07/19 04:00 Pulse 62 06/07/19 07:14 Resp 14 06/07/19 07:14 BP 120/34 06/07/19 07:14 Pulse Ox 94 06/07/19 07:14 06/06/19 06/07/19 06/07/19 22:59 06:59 14:59 Intake Total 240 / 720 400 / 1120 Output Total 100 / 100 525 / 625 Balance 140 / 620 -125 / 495 Weight last 48 hrs Weight 115.893 kg Weight 115.212 kg Weight 115.212 kg Physical Exam Const: COMMON NORMALS: no apparent distress and oriented x3 GENERAL APPEARANCE: cooperative and comfortable NUTRITIONAL APPEARANCE: obese morbidly obese ORIENTATION/CONSCIOUSNESS: Yes awake HENMT: COMMON NORMALS: normocephalic, head/scalp atraumatic, hearing grossly normal bilaterally and moist oral mucous membranes HEAD & SCALP: normocephalic and atraumatic Eye: COMMON NORMALS: PERRL, EOMs intact bilaterally and conjunctivae normal CONJUNCTIVA: Yes conjunctivae normal PUPIL: Yes PERRL Neck/C-Spine: COMMON NORMALS: full ROM GENERAL: Yes normal visual inspection and Yes trachea midline Resp: COMMON NORMALS: normal respiratory effort, no retractions and no use of accessory muscles EFFORT & INSPECTION: Yes able to speak in complete sentences, Yes symmetric chest movement and No tachypneic AUSCULTATION: rhonchi and wheezes expiratory wheezes OTHER: -Coarse breath sounds bilaterally though air entry is improving, currently on RA Cardio: COMMON NORMALS: regular rate, regular rhythm, S1 normal heart sound, S2 normal heart sound and no murmurs RATE: regular rate RHYTHM: regular rhythm HEART SOUNDS: S1 normal and S2 normal GI: COMMON NORMALS: normal to inspection, nondistended, normoactive bowel sounds, soft to palpation and non-tender INSPECTION: Yes central obesity PALPATION: Yes soft Extremity: COMMON NORMALS: normal to inspection, full ROM and no clubbing, cyanosis or edema; negative for no pedal edema OTHER: -s/p amputation of great toe on L Neuro: COMMON NORMALS: oriented x3, moves all extremities, no focal motor deficits and no sensory deficits noted Psych: COMMON NORMALS: mental status grossly normal, thought process normal, cooperative, affect normal and speech normal SPEECH: Yes normal speech THOUGHT PROCESS: normal thought process Skin: COMMON NORMALS: no rashes or lesions noted, no jaundice, no petechiae and no mottling GENERAL SKIN EXAM: no rashes or lesions noted Data : 06/04/19 04:06 06/07/19 05:18 A&P Assessment and plan (1) Acute respiratory failure with hypoxia and hypercapnia: -noted to be hypercapnic and hypoxic on initial ABG; required continuous BiPAP that has now been weaned off. Likely multifactorial given acute CHF exacerbation, COPD -continue close monitoring of respiratory status -supplemental oxygen as needed; not oxygen dependent at baseline -will likely need home oxygen evaluation prior to d/c if still oxygen dependent -given expectoration as well as continued coarseness on auscultation, on empiric abx (doxycycline); already on steroid inhaler, neb treatments. Noted ground glass opacities on CXR; improved on repeat imaging today -added expectorants, already has flutter valve Status: Acute Code(s): J96.01 - Acute respiratory failure with hypoxia; J96.02 - Acute respiratory failure with hypercapnia (2) CHF (congestive heart failure): -acutely decompensated diastolic CHF as evidenced by SOB, hypoxia, evidence of fluid overload on imaging, elevated BNP (3988) -Echo (12/2018): EF=68%, G1DD -off diuresis due to noted renal impairment; improving renal function -continue to monitor Is & Os, daily weights -continue to monitor renal function, lytes -noted troponins with significant delta change likely demand ischemia from CHF exacerbation and respiratory failure Status: Chronic Qualifiers: Heart failure chronicity: acute on chronic Heart failure type: diastolic Qualified Code(s): I50.33 - Acute on chronic diastolic (congestive) heart failure Code(s): I50.9 - Heart failure, unspecified (3) Encephalopathy acute: -secondary to hypoglycemia as well as hypercapnia and hypoxia; resolved -no longer hypoglycemic following D10W infusion; continue close monitoring of blood glucose -fall precautions -reorient as needed -management of hypercapnia and hypoxia as noted above Status: Resolved Code(s): G93.40 - Encephalopathy, unspecified (4) Hypoglycemia: -BG as low as 24, improved and now hyperglycemic following D10W infusion -ISS with continued accuchecks -continue hypoglycemia precautions -continue long-acting and meal-time insulin Status: Resolved Code(s): E16.2 - Hypoglycemia, unspecified (5) Chronic kidney disease, stage 3: -has known CKD stage 2-3; baseline Cr around 1.5-1.7 -continue to monitor renal function particularly with diuresis; gradually improving Status: Chronic Code(s): N18.3 - Chronic kidney disease, stage 3 (moderate) Additional A&P Information -IDDM type II; last A1c-7.6 -Morbid obesity: BMI-39 kg/m2 -CAD s/p RCA stenting; continue Plavix -HTN; continue oral antihypertensives -LAURIE: CPAP qhs -Atrial fibrillation: on AC with Eliquis -diabetic diet as tolerated -DVT ppx not needed as on Eliquis -GI ppx with PPI -Dispo: home -Code status:: FULL code Attestations Medical Necessity Statement*: Patient requires hospitalization for continued management of acute kidney injury secondary to diuresis, pending continued renal function recovery. Time Spent in Patient Care: Greater than 35 minutes (>than 50% of time spent in counselling and/or direct pt care on unit). Coding Level of Care Code Acute Sheet Sorter for Chg Fwd Exam Detailed Diagnoses Acute respiratory failure with hypoxia and hypercapnia J96.01; J96.02 CHF (congestive heart failure) I50.33 Heart failure chronicity: acute on chronic Heart failure type: diastolic Encephalopathy acute G93.40 Hypoglycemia E16.2 Chronic kidney disease, stage 3 N18.3
[2019-06-07] MEDS: budesonide 0.5 mg/2 mL Neb INHALATION ×2 (08:12→21:03)
--- NOTE | 2019-06-07 09:21 | DCPLANNER ---
Pg 2 of IM updated and reviewed with pt. No questions, copy provided.
[2019-06-07] MEDS: doxycycline 100 mg Tablet PO ×2 (09:42→17:05)
[2019-06-07] MEDS: guaiFENesin 600 mg Tablet PO ×2 (09:42→17:06)
[2019-06-07] MEDS: clopidogrel 75 mg Tablet PO (09:42)
[2019-06-07] MEDS: sennosides-docusate Tablet 1 TAB PO ×2 (09:42→17:06)
[2019-06-07] MEDS: gabapentin 300 mg Capsule PO ×3 (09:42→20:37)
[2019-06-07] MEDS: pantoprazole DR 40 mg Tablet PO ×2 (09:42→17:06)
[2019-06-07] MEDS: apixaban 5 mg Tablet PO ×2 (09:43→17:06)
[2019-06-07] MEDS: lisinopril 5 mg Tablet PO (09:43)
[2019-06-07] MEDS: amiodarone 200 mg Tablet PO (09:43)
[2019-06-07 11:14] LABS: Glucose Point of Care 151 mg/dL (70-110)
[2019-06-07] MEDS: polyethylene glycol 3350 Pkt 17 gm PO (15:50)
[2019-06-07 16:12] LABS: Glucose Point of Care 228 mg/dL (70-110)
[2019-06-07 20:28] LABS: Glucose Point of Care 198 mg/dL (70-110)
[2019-06-07] MEDS: hyDROXYzine 25 mg Capsule PO (20:37)
[2019-06-07] MEDS: benzonatate 100 mg Capsule PO (20:37)
[2019-06-07] MEDS: insulin glargine 100 units/1 mL 20 UNIT SUBCUT (20:38)
[2019-06-08] VITALS (15 sets, daily range): BP systolic 97–174; BP diastolic 29–64; PULSE 55–65; RESP 16–20; TEMP 36.4–36.8; O2SAT 95–99
[2019-06-08] MEDS: ipratropium-albuterol 3 mL Neb INHALATION ×4 (00:10→12:16)
--- NOTE | 2019-06-08 04:58 | PC.NURSE ---
0600 Lopressor not given due to heart rate of 54. Will continue to monitor.
[2019-06-08 06:11] LABS: Anion Gap 17.3 (5-19); Blood Urea Nitrogen 71 mg/dL (8-23); Calcium 8.4 mg/dL (8.5-10.5); Carbon Dioxide 23 mmol/L (22-29); Chloride 96 mmol/L (98-107); Glomerular Filtration Rate 38.1 mL/min (90-130); Glucose 182 mg/dL (65-115); Osmolality Calculated 276 mOsm/kg (285-295); Potassium 5.3 mmol/L (3.5-5.1); Sodium 131 mmol/L (136-145)
[2019-06-08 06:14] LABS: Glucose Point of Care 227 mg/dL (70-110)
--- NOTE | 2019-06-08 06:28 | PC.NURSE ---
DR. MISTRY NOTIFIED OF PATIENT HAVING A V-TACH RUN ON THE HEART MONITOR. NURSES WENT TO CHECK ON PATIENT AND PATIENT WAS STABLE, HOWEVER PATIENT STATED THAT FELT WEIRD FOR A SECOND. HEART RATE IS CURRENTLY 53 IN SB. ORDERED TO GO AHEAD AND GIVEN AM DOSE OF METOPROLOL. STAT MAG LEVEL ORDERED.
[2019-06-08] MEDS: metoprolol succinate ER (24 HR) 50 mg Tablet PO (06:39)
--- NOTE | 2019-06-08 08:09 | PM.DCS ---
Discharge Providers Date of Admission: 06/02/19 22:44 Date of Discharge: June 08, 2019 Attending Provider at Admission: Rebeca Mcdaniel MD Attending Provider at Discharge: Edith Giles MD Diagnoses at Discharge Discharge Diagnosis (1) Acute respiratory failure with hypoxia and hypercapnia: Status: Acute Problem details: -noted to be hypercapnic and hypoxic on initial ABG; required continuous BiPAP that has now been weaned off. Likely multifactorial given acute CHF exacerbation, COPD -continue close monitoring of respiratory status -supplemental oxygen as needed; not oxygen dependent at baseline -will likely need home oxygen evaluation prior to d/c if still oxygen dependent -given expectoration as well as continued coarseness on auscultation, on empiric abx (doxycycline); already on steroid inhaler, neb treatments. Noted ground glass opacities on CXR; improved on repeat imaging -added expectorants, already has flutter valve (2) CHF (congestive heart failure): Status: Chronic Problem details: -acutely decompensated diastolic CHF as evidenced by SOB, hypoxia, evidence of fluid overload on imaging, elevated BNP (3988) -Echo (12/2018): EF=68%, G1DD -off diuresis due to noted renal impairment; improving renal function -continue to monitor Is & Os, daily weights -continue to monitor renal function, lytes -noted troponins with significant delta change likely demand ischemia from CHF exacerbation and respiratory failure Qualifiers: Heart failure chronicity: acute on chronic Heart failure type: diastolic Qualified Code(s): I50.33 - Acute on chronic diastolic (congestive) heart failure (3) Chronic kidney disease, stage 3: Status: Chronic Problem details: -has known CKD stage 2-3; baseline Cr around 1.5-1.7 -continue to monitor renal function particularly with diuresis; gradually improving -has f/u with nephrology the first week of June Other Information Additional DC diagnoses/information: -IDDM type II; last A1c-7.6 -Morbid obesity: BMI-39 kg/m2 -CAD s/p RCA stenting; continue Plavix -HTN; continue oral antihypertensives -LAURIE: CPAP qhs -Atrial fibrillation: on AC with Eliquis Reason for Visit Reason for Visit: Reason For Visit: resp distress Hospital Course Hospital Course: Patient was admitted to the cardiac stepdown unit and placed on telemetry monitoring. He was initially found to be hypoglycemic and required some time on a D10W infusion. Hypoglycemia resolved and his insulin regimen was resumed as a started to become more hyperglycemic. He was diuresed initially with Lasix and then switched to Bumex due to noted underlying chronic kidney disease. Unfortunately his renal function worsened at which point diuretics were discontinued allowing for renal function recovery. He was covered with empiric doxycycline due to concern for possible bronchitis. He will continue his treatment course for an additional 5 days. He was initially requiring supplemental oxygen and BiPAP throughout the day. He has been weaned off supplemental oxygen and is using BiPAP more for comfort particularly when he sleeps. He has obstructive sleep apnea and will need to continue using his CPAP machine at night. He will need to keep his appointment with his prepared foods supervisor scheduled for the first week of June to continue to monitor his chronic kidney disease. He was maintained on his anticoagulation with Eliquis. Overnight he was noted to develop runs of V. tach likely due to having held his beta-christina. This is since improved and resolved with resumption of metoprolol though given at a lower dose due to noted intermittent bradycardia. Patient is asymptomatic currently though did have a brief period of experiencing palpitations. He is counseled on need to be compliant with his medications and if symptoms recur is to seek medical attention immediately. We did do a home oxygen evaluation prior to discharge to ensure that patient will not require oxygen, and he did not qualify. He is to continue to use BiPAP at night on his return home. Discharge Summary: -Patient to follow-up with his primary care physician within 1 week -Patient to continue to follow-up with his prepared foods supervisor at [place] as scheduled on the first week of June Physical Exam Const: COMMON NORMALS: no apparent distress and oriented x3 GENERAL APPEARANCE: cooperative and comfortable NUTRITIONAL APPEARANCE: obese morbidly obese ORIENTATION/CONSCIOUSNESS: Yes awake HENMT: COMMON NORMALS: normocephalic, head/scalp atraumatic, hearing grossly normal bilaterally and moist oral mucous membranes HEAD & SCALP: normocephalic and atraumatic Eye: COMMON NORMALS: PERRL, EOMs intact bilaterally and conjunctivae normal CONJUNCTIVA: Yes conjunctivae normal PUPIL: Yes PERRL Neck/C-Spine: COMMON NORMALS: full ROM GENERAL: Yes normal visual inspection and Yes trachea midline Resp: COMMON NORMALS: normal respiratory effort, no retractions and no use of accessory muscles EFFORT & INSPECTION: Yes able to speak in complete sentences, Yes symmetric chest movement and No tachypneic AUSCULTATION: rhonchi (minimal) and wheezes expiratory wheezes OTHER: -air entry is improving, currently on RA Cardio: COMMON NORMALS: regular rate, regular rhythm, S1 normal heart sound, S2 normal heart sound and no murmurs RATE: regular rate RHYTHM: regular rhythm HEART SOUNDS: S1 normal and S2 normal GI: COMMON NORMALS: normal to inspection, nondistended, normoactive bowel sounds, soft to palpation and non-tender INSPECTION: Yes central obesity PALPATION: Yes soft Extremity: COMMON NORMALS: normal to inspection, full ROM and no clubbing, cyanosis or edema; negative for no pedal edema OTHER: -s/p amputation of great toe on L Neuro: COMMON NORMALS: oriented x3, moves all extremities, no focal motor deficits and no sensory deficits noted Psych: COMMON NORMALS: mental status grossly normal, thought process normal, cooperative, affect normal and speech normal SPEECH: Yes normal speech THOUGHT PROCESS: normal thought process Skin: COMMON NORMALS: no rashes or lesions noted, no jaundice, no petechiae and no mottling GENERAL SKIN EXAM: no rashes or lesions noted Discharge Data Data Completed and Pending: Completed Studies During Hospitalization Category Date Time Status XR chest 1V vipul ble [id number] Routine Exams 06/06/19 07:58 Completed XR chest 1V vipul ble [id number] Urgent Exams 06/02/19 18:00 Completed Labs from last 24 hours 06/08/19 06/08/19 06/08/19 06:09 05:45 05:45 Sodium 131 L Potassium 5.3 H Chloride 96 L Carbon Dioxide 23 Anion Gap 17.3 BUN 71 H Creatinine 1.8 H GFR Calculation 38.1 L Glucose 182 H POC Glucose 227 Calculated Osmolal ity 276 L Calcium 8.4 L Magnesium 2.0 06/07/19 06/07/19 06/07/19 20:08 15:57 10:29 Sodium Potassium Chloride Carbon Dioxide Anion Gap BUN Creatinine GFR Calculation Glucose POC Glucose 198 228 151 Calculated Osmolal ity Calcium Magnesium Vitals: Last Vital Signs Temp 98.2 F 06/08/19 07:15 Pulse 57 L 06/08/19 07:15 Resp 17 06/08/19 07:15 BP 174/64 02/18/20 07:15 Pulse Ox 98 06/08/19 07:15 Discharge Plan Discharge Patient Disposition: Home, Self-Care Condition: Stable Prescriptions: New metoprolol succinate 100 mg Tablet Extended Release 24 Hr 50 mg PO 06 30 Days Qty: 15 RF: 0 doxycycline monohydrate 100 mg Tablet 100 mg PO BID 5 Days Qty: 10 RF: 0 Continued ipratropium-albuterol 0.5 mg-3 mg(2.5 mg base)/3 mL solution for nebulization 3 ml INHALATION Q6H PRN (Reason: Shortness Of Breath) RF: 0 amiodarone 200 mg tablet 200 mg PO DAILY RF: 0 clopidogrel 75 mg tablet 75 mg PO DAILY RF: 0 hydrocodone-acetaminophen 10-325 mg tablet See Rx Instructions .ROUTE .COMPLEX RF: 0 gabapentin 300 mg capsule 300 mg PO TID RF: 0 Humalog U-100 Insulin 100 unit/mL solution See Rx Instructions .ROUTE .COMPLEX RF: 0 Spiriva with HandiHaler 18 mcg capsule, w/inhalation device 1 cap INHALATION DAILY RF: 0 Symbicort 160-4.5 mcg/actuation HFA aerosol inhaler 2 puff INHALATION BID RF: 0 Eliquis 5 mg tablet 5 mg PO BID RF: 0 Incruse Ellipta 62.5 mcg/actuation blister with device 1 inh INHALATION DAILY RF: 0 Combivent Respimat 20-100 mcg/actuation mist 2 puff INHALATION Q6H PRN (Reason: unknown) RF: 0 furosemide 40 mg tablet 40 mg PO DAILY 30 Days Qty: 30 RF: 0 lisinopril 5 mg tablet 5 mg PO DAILY 30 Days Qty: 30 RF: 0 Discontinued metoprolol succinate 100 mg tablet extended release 24 hr 100 mg PO DAILY RF: 0 Referrals: Aura Landaverde MD [Family Provider] - 4-7 days (Post-hospital follow up) Discharge Diet: Cardiac and Diabetic Discharge Activity: Resume usual activity Discharge Attestations Time Spent in Discharge Care*: greater than 30 min Specific Discharge Activities: Specific discharge activities: educating patient, discussing with rn case mgr/social workers/dc planners, documenting/other paperwork and evaluating patient/reviewing data Status at Discharge: Cognitive status at discharge: cognitively intact, Behavioral status at discharge: cooperative, Functional status at discharge: independent ambulation Overall status at discharge: patient is back to baseline Quality Metrics Clinical Quality Measures During this hospital stay, did patient experience: None Coding Level of Care Code Acute Community Placement Worker for Chg Fwd Exam Comprehensive Diagnoses Acute respiratory failure with hypoxia and hypercapnia J96.01; J96.02 CHF (congestive heart failure) I50.33 Heart failure chronicity: acute on chronic Heart failure type: diastolic Chronic kidney disease, stage 3 N18.3
[2019-06-08] MEDS: clopidogrel 75 mg Tablet PO (08:54)
[2019-06-08] MEDS: sennosides-docusate Tablet 1 TAB PO (08:54)
[2019-06-08] MEDS: lisinopril 5 mg Tablet PO (08:54)
[2019-06-08] MEDS: guaiFENesin 600 mg Tablet PO (08:54)
[2019-06-08] MEDS: amiodarone 200 mg Tablet PO (08:54)
[2019-06-08] MEDS: pantoprazole DR 40 mg Tablet PO (08:55)
[2019-06-08] MEDS: apixaban 5 mg Tablet PO (08:55)
[2019-06-08] MEDS: polyethylene glycol 3350 Pkt 17 gm PO (08:55)
[2019-06-08] MEDS: gabapentin 300 mg Capsule PO (08:55)
[2019-06-08] MEDS: doxycycline 100 mg Tablet PO (08:55)
[2019-06-08] MEDS: budesonide 0.5 mg/2 mL Neb INHALATION (08:56)
[2019-06-08] MEDS: FUROsemide 40 mg Tablet PO (08:59)
--- NOTE | 2019-06-08 09:58 | PC.CHAP ---
Pastoral Care Encounter/Spiritual Assessment Type of Contact [x] Declined alignment technician visit [] Patient/Family/Request visit [] Outpatient visit [] Follow-up visit [] Physician referral [] Code/Alert [] Routine visit [] Staff referral [] Actively dying [] Patient sleeping [] Family support [] [] Out of room [] Palliative care [] [] Receiving care in room [] Pre-surgical visit [] Trauma [] Long length of stay [] ICU visit [] Other: Relational/Emotional Strength [] Patient feels connected with others/family/visitors/staff [] Distress [] Loneliness/isolation [] Abandonment Spirituality of Patient [] Person of Theresa [] Attends Islam of their Theresa [] Believes in Prayer [] Reads Bible or Muslim materials [] There are Spiritual issues to be addressed Inking Machine Tender Interventions [] Prayer [] Active listening [] Non-anxious presence [] Spiritual/emotional support [] Crisis/trauma care [] Spiritual counseling [] Bereavement support [] Provided bereavement packet [] Provided Bible/devotional materials [] Provided toy/stuffed animal, coloring book to patient or family member [] Provided Communion [] Anointing/Amorita [] Salvation [] Completed spiritual assessment [] Other: Impact on Illness or Injury [] Angry [] Fearful [] Anxious [] Often cries [] Exhaustion [] Unable to work [] Unable to attend buddhist [] Unable to walk/stand [] Unable to read [] Unable to drive [] Unable to eat/drink [] Unable to sleep [] Unable to be with family [] Patient intubated [] Other: Summary Declined alignment technician visit Time spent with patient
[2019-06-08 11:21] LABS: Glucose Point of Care 167 mg/dL (70-110)
== END 2019-06-08 14:18 | disposition home or self-care (01) | DRG 291 ==
LOC: ER 18:38 → CSU 23:05
PROVIDERS: Student in an Organized Health Care Education/Training Program; Admitting Provider Hospitalist; Emergency Provider Emergency Medicine; Family Provider Family Medicine; Visit Provider Family Medicine
DX: I50.33 Acute on chronic diastolic (congestive) heart failure (principal); J96.01 Acute respiratory failure with hypoxia; J96.02 Acute respiratory failure with hypercapnia; G93.40 Encephalopathy, unspecified; I48.20 Chronic atrial fibrillation, unspecified; I24.8 Other forms of acute ischemic heart disease; N18.3 Chronic kidney disease, stage 3 (moderate); J43.1 Panlobular emphysema; Z79.01 Long term (current) use of anticoagulants; I25.10 Atherosclerotic heart disease of native coronary artery without angina pectoris; E16.2 Hypoglycemia, unspecified; E78.5 Hyperlipidemia, unspecified; G47.33 Obstructive sleep apnea (adult) (pediatric); E66.01 Morbid (severe) obesity due to excess calories; Z68.39 Body mass index [BMI] 39.0-39.9, adult; Z89.412 Acquired absence of left great toe; Z87.891 Personal history of nicotine dependence; Z79.02 Long term (current) use of antithrombotics/antiplatelets; Z79.82 Long term (current) use of aspirin; Z79.4 Long term (current) use of insulin; Z79.51 Long term (current) use of inhaled steroids; Z79.899 Other long term (current) drug therapy
CPT/HCPCS: 12345; 36415; 36416; 36600; 71045; 80048; 80053; 81001; 82805; 82962; 83735; 83880; 84100; 84484; 85025; 85610; 87804; 93005; 94640; 94660; 94664; 96372; 96375; 97110; 97161; 97530; 99284; J1815; J1940; J3490; J7626; J7799

== ENCOUNTER 2019-06-15 04:17 | Inpatient (IN) | payer MEDICARE, MEDICAID, SELFPAY ==
[2019-06-15] VITALS (46 sets, daily range): BP systolic 112–205; BP diastolic 42–107; PULSE 68–96; RESP 13–38; TEMP 36.5–37.1; O2SAT 91–100; BMI 36.5
--- NOTE | 2019-06-15 04:18 | ED_ITS ---
Entered by Irene Garg, acting as scribe for Documented by User: Eli Vaughan 06/15/19 06:24 HPI - SOB/Dyspnea General: Chief Complaint: Shortness of Breath/Dyspnea Stated Complaint: SHORTNESS OF BREATH Time Seen by Provider: 06/15/19 04:19 Source: EMS Mode of arrival: EMS Limitations: no limitations History of Present Illness: HPI Narrative: Franc is a 64-year-old male who comes in for respiratory distress. EMS reports the patient was here a week ago for congestive heart failure exacerbation. Patient denies any chest pain currently. No further history is obtainable as the patient is in severe respiratory distress. MD elicited complaint: shortness of breath Onset (ago): hour(s) (2 hours ago) Timing: constant Severity: severe Exacerbating factors: lying flat and exertion Relieving factors: oxygen Treatment prior to arrival: other (cpap) Related Data: Home oxygen amount: none Review of Systems General: Reports: ROS unobtainable due to medical condition PFS ED PFSH: Medical History (Updated 06/15/19 @ 10:39 by Alem Denny DO) Afib CAD (coronary artery disease) RCA stent CHF (congestive heart failure) diastolic CHF -Echo (12/2018): EF=68%, G1DD Chronic kidney disease, stage 3 -has known CKD stage 2-3; baseline Cr around 1.5-1.7 -continue to monitor renal function particularly with diuresis; gradually improving -has f/u with nephrology the first week of June COPD (chronic obstructive pulmonary disease) Diabetes mellitus, type II, insulin dependent Dyslipidemia History of amputation of great toe L, traumatic Hypertension LAURIE (obstructive sleep apnea) Family History Other CAD (coronary artery disease) Social History (Updated 06/15/19 @ 10:31 by Alem Denny DO) Smoking and tobacco status: former smoker Alcohol intake: never Substance/Drug Use: never Lives independently: Yes Household members: none Physical Exam Const: COMMON NORMALS: no apparent distress, oriented x3, no limitations, healthy appearing and well nourished EXAM LIMITATIONS: no altered mental status GENERAL APPEARANCE: cooperative, well kempt and well developed ORIENTATION/CONSCIOUSNESS: Yes awake HENMT: COMMON NORMALS: normocephalic, head/scalp atraumatic, hearing grossly normal bilaterally, external ears normal, EAC's normal, external nose normal and moist oral mucous membranes HEAD & SCALP: normal to inspection, normocephalic and atraumatic FACE & SINUS: normal facial exam and face symmetric NOSE: external nose normal and nares normal EXTERNAL EAR: Yes external ears normal EXTERNAL AUDITORY CANAL: EAC's normal MOUTH: oral and palatal mucosa normal and tongue normal Eye: COMMON NORMALS: PERRL, EOMs intact bilaterally, conjunctivae normal and no scleral icterus GENERAL EYE: normal appearance of both eyes and normal light reflex CONJUNCTIVA: Yes conjunctivae normal SCLERA: sclerae normal CORNEA: Yes corneas normal PUPIL: Yes PERRL DIRECT OPHTHALMOSCOPY: Yes normal light reflex Neck/C-Spine: COMMON NORMALS: full ROM, no lymphadenopathy, supple, no meningeal signs and no JVD GENERAL: Yes normal visual inspection and Yes trachea midline CERVICAL SPINE: Yes cervical ROM normal Chest: COMMONS NORMALS: inspection of chest normal and palpation of chest normal Resp: EFFORT & INSPECTION: Yes tachypneic, Yes respiratory distress, Yes labored and Yes uses accessory muscles AUSCULTATION: crackles Laterality: bilateral and rales Cardio: COMMON NORMALS: no JVD, regular rate, regular rhythm, S1 normal heart sound, S2 normal heart sound, no gallops, no clicks, no murmurs and no rub JUGULAR VENOUS DISTENTION: no JVD RATE: regular rate RHYTHM: regular rhythm HEART SOUNDS: S1 normal and S2 normal GI: COMMON NORMALS: soft to palpation, non-tender, no hepatosplenomegaly and no masses INSPECTION: Yes normal to inspection PALPATION: Yes soft and Yes no hepatosplenomegaly : COMMON NORMALS: Yes no CVA tenderness BLADDER/KIDNEY EXAM: Yes no CVA tenderness Back/Pelvis: COMMON NORMALS: no CVA tenderness, thoracic and lumbar spine normal to inspection, no thoracic nor lumbar tenderness and thoraco-lumbar ROM normal Extremity: COMMON NORMALS: normal to inspection, full ROM, normal capillary refill, no joint enlargement, no clubbing, cyanosis or edema and no calf tenderness Neuro: COMMON NORMALS: oriented x3, CN's II-XII intact bilaterally, moves all extremities, no focal motor deficits and no sensory deficits noted MENINGEAL SIGNS: Yes no meningeal signs Psych: COMMON NORMALS: mental status grossly normal, thought process normal, cooperative, affect normal, speech normal and activity/motor behavior normal APPEARANCE: Yes well kempt SPEECH: Yes normal speech THOUGHT PROCESS: normal thought process Skin: COMMON NORMALS: no rashes or lesions noted, skin turgor normal, no jaundice, no petechiae and no mottling GENERAL SKIN EXAM: no rashes or lesions noted and turgor normal Course Vital Signs: Vital signs: Vital Signs Temperature 97.7 F 06/15/19 04:18 Pulse Rate 78 06/15/19 11:00 Respiratory Rate 22 H 06/15/19 06:19 Blood Pressure 143/62 06/15/19 11:00 Pulse Oximetry 96 06/15/19 11:00 MDM - SOB/Dyspnea MDM Narrative: Medical decision making narrative: Arrival -patient arrives in respiratory distress by EMS. Per their verbal report the patient was recently discharged from here for congestive heart failure. The patient nods yes to this. No further history is obtainable at this time. Differential is considerable including acute coronary syndrome, COPD exacerbation, case of heart failure exacerbation, PE among many others. We will initiate stabilization therapy with BiPAP and investigate further for shortness of breath. Lab Data: Labs: Lab Results 06/15/19 06/15/19 06/15/19 Range/Units 04:55 05:14 05:14 WBC 16.3 H (4.0-10.0) 10^3/ uL RBC 4.96 (4.1-5.3) 10^6/u L Hgb 12.6 (11.7-16.6) g/dL Hct 41.8 L (42.0-52.0) % MCV 84.3 (80-94) fL MCH 25.4 L (28.0-34.0) pg MCHC 30.1 (30.0-36.0) g/dL RDW 15.3 H (12.1-15.1) % Plt Count 189 (130-400) 10^3/c mm MPV 11.3 H (7.4-10.4) fL Neut % (Auto) 89.1 % Lymph % (Auto) 4.2 % [place] % (Auto) 5.4 % Eos % (Auto) 0.3 % Baso % (Auto) 0.3 % Neut # (Auto) 14.5 H (1.8-7.7) 10^3/u L Lymph # (Auto) 0.7 L (0.8-4.8) 10^3/u L [place] # (Auto) 0.9 (0.2-0.9) 10^3/u L Eos # (Auto) 0.1 (0.0-0.8) 10^3/u L Baso # (Auto) 0.1 (0.0-0.1) 10^3/u L Nucleated RBC % (a uto) 0 % Nucleated RBCs # 0.0 /100WBC Sodium 135 L (136-145) mmol/L Potassium 5.9 H (3.5-5.1) mmol/L Chloride 95 L (98-107) mmol/L Carbon Dioxide 26 (22-29) mmol/L Anion Gap 19.9 H (5-19) BUN 35 H (8-23) mg/dL Creatinine 1.7 H (0.7-1.2) mg/dL GFR Calculation 40.5 L (90-130) mL/min Glucose 379 H (65-115) mg/dL Lactic Acid (0.5-2.2) mmol/L Calcium 9.5 (8.5-10.5) mg/dL Magnesium 1.7 (1.7-2.3) mg/dL Total Bilirubin 0.2 (0.15-1.2) mg/dL AST 51 H (0-40) U/L ALT 27 (0-41) U/L Alkaline Phosphata se 133 H (40-130) IU/L Troponin I 6 Hour (0-15) ng/mL Troponin I Hi Sens Del (0-12) ng/L Troponin T Baselin e (0-15) ng/mL Troponin T 120 Min [place] (0-15) ng/mL Delta Troponin T (0-10) ABS# NT-Pro-B Natriuret Pep 2749 H (0-125) pg/mL Total Protein 7.3 (6.6-8.7) g/dL Albumin 3.8 (3.5-5.2) g/dL Globulin 3.5 (1.3-4.6) g/dL Influenza Type A A g Negative (Negative) POC Influenza B Ag Negative (Negative) 06/15/19 06/15/19 06/15/19 Range/Units 05:14 05:14 06:22 WBC (4.0-10.0) 10^3/ uL RBC (4.1-5.3) 10^6/u L Hgb (11.7-16.6) g/dL Hct (42.0-52.0) % MCV (80-94) fL MCH (28.0-34.0) pg MCHC (30.0-36.0) g/dL RDW (12.1-15.1) % Plt Count (130-400) 10^3/c mm MPV (7.4-10.4) fL Neut % (Auto) % Lymph % (Auto) % [place] % (Auto) % Eos % (Auto) % Baso % (Auto) % Neut # (Auto) (1.8-7.7) 10^3/u L Lymph # (Auto) (0.8-4.8) 10^3/u L [place] # (Auto) (0.2-0.9) 10^3/u L Eos # (Auto) (0.0-0.8) 10^3/u L Baso # (Auto) (0.0-0.1) 10^3/u L Nucleated RBC % (a uto) % Nucleated RBCs # /100WBC Sodium (136-145) mmol/L Potassium (3.5-5.1) mmol/L Chloride (98-107) mmol/L Carbon Dioxide (22-29) mmol/L Anion Gap (5-19) BUN (8-23) mg/dL Creatinine (0.7-1.2) mg/dL GFR Calculation (90-130) mL/min Glucose (65-115) mg/dL Lactic Acid 1.6 (0.5-2.2) mmol/L Calcium (8.5-10.5) mg/dL Magnesium (1.7-2.3) mg/dL Total Bilirubin (0.15-1.2) mg/dL AST (0-40) U/L ALT (0-41) U/L Alkaline Phosphata se (40-130) IU/L Troponin I 6 Hour (0-15) ng/mL Troponin I Hi Sens Del (0-12) ng/L Troponin T Baselin e 153 H* (0-15) ng/mL Troponin T 120 Min [place] 239.5 H (0-15) ng/mL Delta Troponin T 86.5 H* (0-10) ABS# NT-Pro-B Natriuret Pep (0-125) pg/mL Total Protein (6.6-8.7) g/dL Albumin (3.5-5.2) g/dL Globulin (1.3-4.6) g/dL Influenza Type A A g (Negative) POC Influenza B Ag (Negative) 06/15/19 Range/Units 10:50 WBC (4.0-10.0) 10^3/ uL RBC (4.1-5.3) 10^6/u L Hgb (11.7-16.6) g/dL Hct (42.0-52.0) % MCV (80-94) fL MCH (28.0-34.0) pg MCHC (30.0-36.0) g/dL RDW (12.1-15.1) % Plt Count (130-400) 10^3/c mm MPV (7.4-10.4) fL Neut % (Auto) % Lymph % (Auto) % [place] % (Auto) % Eos % (Auto) % Baso % (Auto) % Neut # (Auto) (1.8-7.7) 10^3/u L Lymph # (Auto) (0.8-4.8) 10^3/u L [place] # (Auto) (0.2-0.9) 10^3/u L Eos # (Auto) (0.0-0.8) 10^3/u L Baso # (Auto) (0.0-0.1) 10^3/u L Nucleated RBC % (a uto) % Nucleated RBCs # /100WBC Sodium (136-145) mmol/L Potassium (3.5-5.1) mmol/L Chloride (98-107) mmol/L Carbon Dioxide (22-29) mmol/L Anion Gap (5-19) BUN (8-23) mg/dL Creatinine (0.7-1.2) mg/dL GFR Calculation (90-130) mL/min Glucose (65-115) mg/dL Lactic Acid (0.5-2.2) mmol/L Calcium (8.5-10.5) mg/dL Magnesium (1.7-2.3) mg/dL Total Bilirubin (0.15-1.2) mg/dL AST (0-40) U/L ALT (0-41) U/L Alkaline Phosphata se (40-130) IU/L Troponin I 6 Hour 434.7 H (0-15) ng/mL Troponin I Hi Sens Del 281.7 H* (0-12) ng/L Troponin T Baselin e (0-15) ng/mL Troponin T 120 Min [place] (0-15) ng/mL Delta Troponin T (0-10) ABS# NT-Pro-B Natriuret Pep (0-125) pg/mL Total Protein (6.6-8.7) g/dL Albumin (3.5-5.2) g/dL Globulin (1.3-4.6) g/dL Influenza Type A A g (Negative) POC Influenza B Ag (Negative) EKG Data^: EKG 1: Attestation: I personally reviewed and interpreted this EKG as follows: EKG Interpretation Date: 06/15/19 EKG interpretation time: 04:39 Interpretation: Normal sinus rhythm at 88 beats a minute, ST segment elevations but there are T wave inversions in aVL, similar to previous. Discharge Plan Discharge Condition: Serious Prescriptions: No Action doxycycline hyclate 100 mg Capsule 100 mg PO BID RF: 0 metoprolol succinate 100 mg tablet extended release 24 hr 100 mg PO 06 RF: 0 ipratropium-albuterol 0.5 mg-3 mg(2.5 mg base)/3 mL solution for nebulization 3 ml INHALATION Q6H PRN (Reason: Shortness Of Breath) RF: 0 amiodarone 200 mg tablet 200 mg PO DAILY RF: 0 clopidogrel 75 mg tablet 75 mg PO DAILY RF: 0 hydrocodone-acetaminophen 10-325 mg tablet See Rx Instructions .ROUTE .COMPLEX RF: 0 gabapentin 300 mg capsule 300 mg PO TID RF: 0 insulin lispro [Humalog U-100 Insulin] 100 unit/mL solution See Rx Instructions .ROUTE .COMPLEX RF: 0 Spiriva with HandiHaler 18 mcg capsule, w/inhalation device 1 cap INHALATION DAILY RF: 0 Symbicort 160-4.5 mcg/actuation HFA aerosol inhaler 2 puff INHALATION BID RF: 0 Eliquis 5 mg tablet 5 mg PO BID RF: 0 Incruse Ellipta 62.5 mcg/actuation blister with device 1 inh INHALATION DAILY RF: 0 Combivent Respimat 20-100 mcg/actuation mist 2 puff INHALATION Q6H PRN (Reason: unknown) RF: 0 furosemide 40 mg tablet 40 mg PO DAILY 30 Days Qty: 30 RF: 0 lisinopril 5 mg tablet 5 mg PO DAILY 30 Days Qty: 30 RF: 0 Sign Out Sign Out Data: Patient Sign Out occurred on 06/15/19 at 07:11. Patient's care was discussed, and care was transferred from Eli Vaughan to Neo Loaiza. Sign Out Comment: Case turned over to Dr. Prasad at change of shift Last updated by Eli Vaughan at 06/15/19 07:01 Coding Level of Care Code ED Publishing Editor for Chg Fwd Exam Comprehensive Documented by User: Neo Loaiza DO 06/15/19 11:53 HPI - SOB/Dyspnea General: Chief Complaint: Shortness of Breath/Dyspnea Stated Complaint: SHORTNESS OF BREATH Time Seen by Provider: 06/15/19 04:19 PFS ED PFSH: Medical History (Updated 06/15/19 @ 10:39 by Alem Denny DO) Afib CAD (coronary artery disease) RCA stent CHF (congestive heart failure) diastolic CHF -Echo (12/2018): EF=68%, G1DD Chronic kidney disease, stage 3 -has known CKD stage 2-3; baseline Cr around 1.5-1.7 -continue to monitor renal function particularly with diuresis; gradually improving -has f/u with nephrology the first week of June COPD (chronic obstructive pulmonary disease) Diabetes mellitus, type II, insulin dependent Dyslipidemia History of amputation of great toe L, traumatic Hypertension LAURIE (obstructive sleep apnea) Family History Other CAD (coronary artery disease) Social History (Updated 06/15/19 @ 10:31 by THOMAS Gracia Smoking and tobacco status: former smoker Alcohol intake: never Substance/Drug Use: never Lives independently: Yes Household members: none Course Vital Signs: Vital signs: Vital Signs Temperature 97.7 F 06/15/19 04:18 Pulse Rate 78 06/15/19 11:00 Respiratory Rate 22 H 06/15/19 06:19 Blood Pressure 143/62 06/15/19 11:00 Pulse Oximetry 96 06/15/19 11:00 MDM - SOB/Dyspnea Lab Data: Labs: Lab Results 06/15/19 06/15/19 06/15/19 Range/Units 04:55 05:14 05:14 WBC 16.3 H (4.0-10.0) 10^3/ uL RBC 4.96 (4.1-5.3) 10^6/u L Hgb 12.6 (11.7-16.6) g/dL Hct 41.8 L (42.0-52.0) % MCV 84.3 (80-94) fL MCH 25.4 L (28.0-34.0) pg MCHC 30.1 (30.0-36.0) g/dL RDW 15.3 H (12.1-15.1) % Plt Count 189 (130-400) 10^3/c mm MPV 11.3 H (7.4-10.4) fL Neut % (Auto) 89.1 % Lymph % (Auto) 4.2 % [place] % (Auto) 5.4 % Eos % (Auto) 0.3 % Baso % (Auto) 0.3 % Neut # (Auto) 14.5 H (1.8-7.7) 10^3/u L Lymph # (Auto) 0.7 L (0.8-4.8) 10^3/u L [place] # (Auto) 0.9 (0.2-0.9) 10^3/u L Eos # (Auto) 0.1 (0.0-0.8) 10^3/u L Baso # (Auto) 0.1 (0.0-0.1) 10^3/u L Nucleated RBC % (a uto) 0 % Nucleated RBCs # 0.0 /100WBC Sodium 135 L (136-145) mmol/L Potassium 5.9 H (3.5-5.1) mmol/L Chloride 95 L (98-107) mmol/L Carbon Dioxide 26 (22-29) mmol/L Anion Gap 19.9 H (5-19) BUN 35 H (8-23) mg/dL Creatinine 1.7 H (0.7-1.2) mg/dL GFR Calculation 40.5 L (90-130) mL/min Glucose 379 H (65-115) mg/dL Lactic Acid (0.5-2.2) mmol/L Calcium 9.5 (8.5-10.5) mg/dL Magnesium 1.7 (1.7-2.3) mg/dL Total Bilirubin 0.2 (0.15-1.2) mg/dL AST 51 H (0-40) U/L ALT 27 (0-41) U/L Alkaline Phosphata se 133 H (40-130) IU/L Troponin I 6 Hour (0-15) ng/mL Troponin I Hi Sens Del (0-12) ng/L Troponin T Baselin e (0-15) ng/mL Troponin T 120 Min [place] (0-15) ng/mL Delta Troponin T (0-10) ABS# NT-Pro-B Natriuret Pep 2749 H (0-125) pg/mL Total Protein 7.3 (6.6-8.7) g/dL Albumin 3.8 (3.5-5.2) g/dL Globulin 3.5 (1.3-4.6) g/dL Influenza Type A A g Negative (Negative) POC Influenza B Ag Negative (Negative) 06/15/19 06/15/19 06/15/19 Range/Units 05:14 05:14 06:22 WBC (4.0-10.0) 10^3/ uL RBC (4.1-5.3) 10^6/u L Hgb (11.7-16.6) g/dL Hct (42.0-52.0) % MCV (80-94) fL MCH (28.0-34.0) pg MCHC (30.0-36.0) g/dL RDW (12.1-15.1) % Plt Count (130-400) 10^3/c mm MPV (7.4-10.4) fL Neut % (Auto) % Lymph % (Auto) % [place] % (Auto) % Eos % (Auto) % Baso % (Auto) % Neut # (Auto) (1.8-7.7) 10^3/u L Lymph # (Auto) (0.8-4.8) 10^3/u L [place] # (Auto) (0.2-0.9) 10^3/u L Eos # (Auto) (0.0-0.8) 10^3/u L Baso # (Auto) (0.0-0.1) 10^3/u L Nucleated RBC % (a uto) % Nucleated RBCs # /100WBC Sodium (136-145) mmol/L Potassium (3.5-5.1) mmol/L Chloride (98-107) mmol/L Carbon Dioxide (22-29) mmol/L Anion Gap (5-19) BUN (8-23) mg/dL Creatinine (0.7-1.2) mg/dL GFR Calculation (90-130) mL/min Glucose (65-115) mg/dL Lactic Acid 1.6 (0.5-2.2) mmol/L Calcium (8.5-10.5) mg/dL Magnesium (1.7-2.3) mg/dL Total Bilirubin (0.15-1.2) mg/dL AST (0-40) U/L ALT (0-41) U/L Alkaline Phosphata se (40-130) IU/L Troponin I 6 Hour (0-15) ng/mL Troponin I Hi Sens Del (0-12) ng/L Troponin T Baselin e 153 H* (0-15) ng/mL Troponin T 120 Min [place] 239.5 H (0-15) ng/mL Delta Troponin T 86.5 H* (0-10) ABS# NT-Pro-B Natriuret Pep (0-125) pg/mL Total Protein (6.6-8.7) g/dL Albumin (3.5-5.2) g/dL Globulin (1.3-4.6) g/dL Influenza Type A A g (Negative) POC Influenza B Ag (Negative) 06/15/19 Range/Units 10:50 WBC (4.0-10.0) 10^3/ uL RBC (4.1-5.3) 10^6/u L Hgb (11.7-16.6) g/dL Hct (42.0-52.0) % MCV (80-94) fL MCH (28.0-34.0) pg MCHC (30.0-36.0) g/dL RDW (12.1-15.1) % Plt Count (130-400) 10^3/c mm MPV (7.4-10.4) fL Neut % (Auto) % Lymph % (Auto) % [place] % (Auto) % Eos % (Auto) % Baso % (Auto) % Neut # (Auto) (1.8-7.7) 10^3/u L Lymph # (Auto) (0.8-4.8) 10^3/u L [place] # (Auto) (0.2-0.9) 10^3/u L Eos # (Auto) (0.0-0.8) 10^3/u L Baso # (Auto) (0.0-0.1) 10^3/u L Nucleated RBC % (a uto) % Nucleated RBCs # /100WBC Sodium (136-145) mmol/L Potassium (3.5-5.1) mmol/L Chloride (98-107) mmol/L Carbon Dioxide (22-29) mmol/L Anion Gap (5-19) BUN (8-23) mg/dL Creatinine (0.7-1.2) mg/dL GFR Calculation (90-130) mL/min Glucose (65-115) mg/dL Lactic Acid (0.5-2.2) mmol/L Calcium (8.5-10.5) mg/dL Magnesium (1.7-2.3) mg/dL Total Bilirubin (0.15-1.2) mg/dL AST (0-40) U/L ALT (0-41) U/L Alkaline Phosphata se (40-130) IU/L Troponin I 6 Hour 434.7 H (0-15) ng/mL Troponin I Hi Sens Del 281.7 H* (0-12) ng/L Troponin T Baselin e (0-15) ng/mL Troponin T 120 Min [place] (0-15) ng/mL Delta Troponin T (0-10) ABS# NT-Pro-B Natriuret Pep (0-125) pg/mL Total Protein (6.6-8.7) g/dL Albumin (3.5-5.2) g/dL Globulin (1.3-4.6) g/dL Influenza Type A A g (Negative) POC Influenza B Ag (Negative) Discharge Plan Discharge Condition: Serious Prescriptions: No Action doxycycline hyclate 100 mg Capsule 100 mg PO BID RF: 0 metoprolol succinate 100 mg tablet extended release 24 hr 100 mg PO 06 RF: 0 ipratropium-albuterol 0.5 mg-3 mg(2.5 mg base)/3 mL solution for nebulization 3 ml INHALATION Q6H PRN (Reason: Shortness Of Breath) RF: 0 amiodarone 200 mg tablet 200 mg PO DAILY RF: 0 clopidogrel 75 mg tablet 75 mg PO DAILY RF: 0 hydrocodone-acetaminophen 10-325 mg tablet See Rx Instructions .ROUTE .COMPLEX RF: 0 gabapentin 300 mg capsule 300 mg PO TID RF: 0 insulin lispro [Humalog U-100 Insulin] 100 unit/mL solution See Rx Instructions .ROUTE .COMPLEX RF: 0 Spiriva with HandiHaler 18 mcg capsule, w/inhalation device 1 cap INHALATION DAILY RF: 0 Symbicort 160-4.5 mcg/actuation HFA aerosol inhaler 2 puff INHALATION BID RF: 0 Eliquis 5 mg tablet 5 mg PO BID RF: 0 Incruse Ellipta 62.5 mcg/actuation blister with device 1 inh INHALATION DAILY RF: 0 Combivent Respimat 20-100 mcg/actuation mist 2 puff INHALATION Q6H PRN (Reason: unknown) RF: 0 furosemide 40 mg tablet 40 mg PO DAILY 30 Days Qty: 30 RF: 0 lisinopril 5 mg tablet 5 mg PO DAILY 30 Days Qty: 30 RF: 0 Sign Out Sign Out Data: Patient Sign Out occurred on 06/15/19 at 07:11. Patient's care was discussed, and care was transferred from Eli Vaughan to Neo Loaiza. Sign Out Comment: Case turned over to Dr. Prasad at change of shift Last updated by Eli Vaughan at 06/15/19 07:01 Coding Level of Care Code ED Publishing Editor for [facility] Fwd Exam Comprehensive The documentation recorded by the [facility] kirkpatrick Stephanie Lyn, accurately reflects the service I personally performed and the decisions made by me, Eli Vaughan Jun 15, 2019 04:17
--- NOTE | 2019-06-15 04:21 | XR_ITS ---
WS: [id number] Portable AP upright chest, 06/15/2019 Clinical Data: cough Comparison: Portable chest, 06/06/2019 Findings: No nodules, masses or effusions are seen. The heart is normal. The pulmonary vascularity is not increased. No pneumonia or pneumothorax is seen. Minimal bibasilar patchy opacities probably rep resent atelectasis. XR/XR chest 1V portable [id number] Impression: No change in bibasilar atelectasis.
--- NOTE | 2019-06-15 04:21 | ECG_ITS ---
Measurements Intervals [facility] Rate: 88 P: 72 DC: 181 QRS: 64 QRSD: 114 T: 85 QT: 365 QTc: 442 SINUS RHYTHM LOW QRS VOLTAGE IN EXTREMITY LEADS [QRS DEFLECTION < 0.5 mV IN LIMB LEADS] POSSIBLE ANTERIOR MYOCARDIAL INFARCTION , OF INDETERMINATE AGE [30 ms Q WAVE IN V3 V3/V4, OR R < 0.2 mV IN V4] Compared to ECG 06/03/2019 03:04:09 Low QRS voltage now present Sinus bradycardia no longer present Atrial abnormality no longer present Myocardial infarct finding still present Electronically Signed On 06-15-2019 19:37:00 DISHWASHER BUSSER by Johnson Javier M.D. [id number]
[2019-06-15] MEDS: ipratropium-albuterol 3 mL Neb 9 ML INHALATION (04:31)
[2019-06-15] MEDS: FUROsemide 10 mg/mL SDV 4mL 40 MG IVP (05:15)
[2019-06-15] MEDS: nitroglycerin 1 gm/inch oint Pkt 1 INCH TOPICAL (05:15)
[2019-06-15 05:24] LABS: Influenza A by IFA Negative (Negative); Influenza B by IFA Negative (Negative)
[2019-06-15 05:26] LABS: Basophils # 0.1 10^3/uL (0.0-0.1); Basophils % 0.3 %; Eosinophils # 0.1 10^3/uL (0.0-0.8); Eosinophils % 0.3 %; Hematocrit 41.8 % (42.0-52.0); Hemoglobin 12.6 g/dL (11.7-16.6); Lymphocytes # 0.7 10^3/uL (0.8-4.8); Lymphocytes % 4.2 %; Mean Corpuscular HGB Conc 30.1 g/dL (30.0-36.0); Mean Corpuscular Hemoglobin 25.4 pg (28.0-34.0); Mean Corpuscular Volume 84.3 fL (80-94); Mean Platelet Volume 11.3 fL (7.4-10.4); Monocytes # 0.9 10^3/uL (0.2-0.9); Monocytes % 5.4 %; Neutrophils # 14.5 10^3/uL (1.8-7.7); Neutrophils % 89.1 %; Nucleated Red Blood Cells % 0 %; Platelet Count 189 10^3/cmm (130-400); Red Blood Count 4.96 10^6/uL (4.1-5.3); Red Cell Distribution Width 15.3 % (12.1-15.1); White Blood Count 16.3 10^3/uL (4.0-10.0)
[2019-06-15 05:41] LABS: Lactic Sepsis W/Reflex 1.6 mmol/L (0.5-2.2)
[2019-06-15 05:47] LABS: Troponin(5th) Baseline 153 ng/mL (0-15)
[2019-06-15 05:53] LABS: Alanine Aminotransferase 27 U/L (0-41); Albumin Level 3.8 g/dL (3.5-5.2); Alkaline Phosphatase 133 IU/L (40-130); Anion Gap 19.9 (5-19); Aspartate Amino Transferase 51 U/L (0-40); Blood Urea Nitrogen 35 mg/dL (8-23); Calcium 9.5 mg/dL (8.5-10.5); Carbon Dioxide 26 mmol/L (22-29); Chloride 95 mmol/L (98-107); Globulin 3.5 g/dL (1.3-4.6); Glomerular Filtration Rate 40.5 mL/min (90-130); Glucose 379 mg/dL (65-115); Magnesium 1.7 mg/dL (1.7-2.3); NT Pro B Type Natriuretic Pept 2749 pg/mL (0-125); Potassium 5.9 mmol/L (3.5-5.1); Sodium 135 mmol/L (136-145); Total Bilirubin 0.2 mg/dL (0.15-1.2); Total Protein 7.3 g/dL (6.6-8.7)
--- NOTE | 2019-06-15 06:21 | ECG_ITS ---
Measurements Intervals [place] Rate: 75 P: 86 LA: 185 QRS: 163 QRSD: 117 T: 77 QT: 405 QTc: 455 SINUS RHYTHM POSSIBLE RIGHT VENTRICULAR HYPERTROPHY [SOME/ALL OF: PROMINENT R IN V1, LATE TRA TRANSITION, RAD, LEANNE, SSS] POSSIBLE ANTERIOR MYOCARDIAL INFARCTION , OF INDETERMINATE AGE [30 ms Q WAVE IN V3 V3/V4, OR R < 0.2 mV IN V4] Compared to ECG 06/03/2019 03:04:09 Sinus bradycardia no longer present Myocardial infarct finding still present Electronically Signed On 06-15-2019 19:56:23 LOBSTERMAN by Johnson Javier M.D. [id number]
[2019-06-15] MEDS: HYDROcodone-acetaminophen 10-325 mg Tablet 1 TAB PO (06:47)
[2019-06-15] MEDS: aspirin 325 mg Tablet PO (06:48)
[2019-06-15 07:04] LABS: Troponin 5 2HR 239.5 ng/mL (0-15); Troponin 5 2HR Delta 86.5 ABS# (0-10)
--- NOTE | 2019-06-15 09:58 | PC.NURSE ---
pt on nasal cannula while eating breakfast and while speaking to hospitalist (Dr. Denny) in room.
--- NOTE | 2019-06-15 10:21 | ECG_ITS ---
Measurements Intervals [place] Rate: 75 P: 96 MS: 178 QRS: 130 QRSD: 117 T: 57 QT: 397 QTc: 444 SINUS RHYTHM POSSIBLE RIGHT VENTRICULAR HYPERTROPHY [SOME/ALL OF: PROMINENT R IN V1, LATE TRA TRANSITION, RAD, LEANNE, SSS] POSSIBLE ANTERIOR MYOCARDIAL INFARCTION , OF INDETERMINATE AGE [30 ms Q WAVE IN V3 V3/V4, OR R < 0.2 mV IN V4] Compared to ECG 06/03/2019 03:04:09 Sinus bradycardia no longer present Myocardial infarct finding still present Electronically Signed On 06-15-2019 19:58:53 EQUIPMENT CLEANER by Johnson Javier M.D. [id number]
--- NOTE | 2019-06-15 10:26 | P.HP_ITS ---
Providers/Chief Complaint Admitting Physician: Alem Denny DO Chief Complaint: SHORTNESS OF BREATH History of Present Illness Franc Olivares is a 64 year old male with a past medical history of COPD and congestive heart failure that presented to the emergency department for shortness of breath. Patient had been recently discharged on 06/08/2019 with a course of doxycycline. He was noted to have CHF and COPD exacerbation at that time and required BiPAP, he was then weaned to room air and discharged to home with self-care. He reported that suddenly last night he woke up and began having worsening shortness of breath and nonproductive cough. He stated that he has a BiPAP mask that he uses at night, typically is compliant with this. He stated that he may have had some weight gain over the past couple of days, however did not check his weight at home. He stated that he did have some heaviness in the center of his chest with this onset of shortness of breath. Took some nitroglycerin at home which helped with the discomfort. Patient denies any fevers since discharge, has not followed up with his primary care provider since discharge. He reports nonproductive cough that is slightly increased. Patient seen and evaluated in the emergency department admitted to the hospital due to concern for non-ST elevation IL and acute on chronic respiratory failure. Review of Systems Const: Denies: fever or chills Eyes: Denies: change in vision ENMT: Denies: nasal congestion Card: Reports: chest pain; Denies: palpitations or edema Resp: Reports: shortness of breath; Denies: productive cough or coughing up blood GI: Denies: abdominal pain, nausea, vomiting, diarrhea, constipation, blood in stool or black tarry stool : Denies: painful urination or blood in urine Musc: Denies: extremity pain or muscle cramps Skin/Breast: Denies: rash or new lesion Neuro: Denies: headache or dizziness Psych: Denies: anxiety or depression Endo: Denies: excessive urination or hot flashes [place]/Lymph: Denies: easy bruising or easy bleeding Medications/Allergies Home Medications Medication Instructions Recorded Confirmed Last Taken Type doxycycline hyclate 100 mg PO BID 06/15/19 06/15/19 Unknown History metoprolol succinate 100 mg PO 06 06/15/19 06/15/19 06/14/19 History Allergies Allergy/AdvReac Type Severity Reaction Status Date / Time No Known Allergies Allergy Verified 06/15/19 04:27 PFSH Acute PFSH: Medical History (Updated 06/15/19 @ 10:39 by Alem Denny DO) Afib CAD (coronary artery disease) RCA stent CHF (congestive heart failure) diastolic CHF -Echo (12/2018): EF=68%, G1DD Chronic kidney disease, stage 3 -has known CKD stage 2-3; baseline Cr around 1.5-1.7 -continue to monitor renal function particularly with diuresis; gradually improving -has f/u with nephrology the first week of June COPD (chronic obstructive pulmonary disease) Diabetes mellitus, type II, insulin dependent Dyslipidemia History of amputation of great toe L, traumatic Hypertension LAURIE (obstructive sleep apnea) Surgical History H/O heart artery stent 2012an. RCA stent. 50% LAD lesion at time. Family History Other CAD (coronary artery disease) Social History (Updated 06/15/19 @ 10:31 by Alem Denny DO) Smoking and tobacco status: former smoker Alcohol intake: never Substance/Drug Use: never Lives independently: Yes Household members: none Vitals/I&O/Wt Last Vital Signs Temp 97.7 F 06/15/19 04:18 Pulse 82 06/15/19 09:32 Resp 22 H 06/15/19 06:19 BP 135/42 06/15/19 09:32 Pulse Ox 97 06/15/19 09:32 Weight last 48 hrs Weight 108.862 kg Physical Exam Const: COMMON NORMALS: oriented x3 and alert GENERAL APPEARANCE: cooperative ORIENTATION/CONSCIOUSNESS: Yes awake, Yes oriented to person, Yes oriented to place and Yes oriented to time HENMT: COMMON NORMALS: normocephalic and head/scalp atraumatic HEAD & SCALP: normocephalic and atraumatic Eye: COMMON NORMALS: PERRL PUPIL: Yes PERRL Neck/C-Spine: COMMON NORMALS: supple GENERAL: Yes normal visual inspection Resp: EFFORT & INSPECTION: Yes tachypneic, Yes labored, Yes actively coughing and Yes uses accessory muscles AUSCULTATION: wheezes throughout Cardio: COMMON NORMALS: regular rate and regular rhythm RATE: regular rate RHYTHM: regular rhythm GI: COMMON NORMALS: soft to palpation and non-tender INSPECTION: No abdominal distension AUSCULTATION: Yes normoactive bowel sounds PALPATION: Yes soft OTHER: Obese Extremity: NARRATIVE EXTREMITY EXAM: Nonpitting lower extremity edema bilaterally, negative Homans sign in the lower extremities bilaterally, left great toe status post amputation Neuro: COMMON NORMALS: oriented x3, CN's II-XII intact bilaterally, moves all extremities and no focal motor deficits SENSORIUM/ORIENTATION: Yes alert, Yes oriented to person, Yes oriented to place and Yes oriented to time SPEECH: speech normal Psych: COMMON NORMALS: mental status grossly normal and cooperative Skin: COMMON NORMALS: no rashes or lesions noted Data : 06/15/19 05:14 06/15/19 05:14 Micro: Microbiology 06/15/19 05:15 Blood Culture - Preliminary Blood SPECIMEN COLLECTED 06/15/19 05:14 Blood Culture - Preliminary Blood SPECIMEN COLLECTED CXR: My impression: Reviewed, report as read by radiologist Radiologist's impression: Findings: No nodules, masses or effusions are seen. The heart is normal. The pulmonary vascularity is not increased. No pneumonia or pneumothorax is seen. Minimal bibasilar patchy opacities probably represent atelectasis. XR/XR chest 1V portable [id number] Impression: No change in bibasilar atelectasis A&P Assessment and plan (1) NSTEMI (non-ST elevated myocardial infarction): Elevated troponin with history of coronary artery disease, reported last cardiac cath at [facility] approx 2 years ago, reports history of stent placement in the RCA in 2012 and further stenting at outside facility. Will consult cardiology due to increase in troponin and chest pain that is new this admission. Telemetry, serial EKG and troponin, Plavix, aspirin, Lovenox, metoprolol continued Will give treatment dose Lovenox, Nitropaste in place and patient denies any further chest pressure. Patient also with hypoxia on admission requiring BiPAP placement secondary to COPD exacerbation which could be contributing to his elevated troponin, however with history of CAD and increase in troponin from last week will further evaluate cardiac ECHO ordered for further evaluation. Status: Acute Code(s): I21.4 - Non-ST elevation (NSTEMI) myocardial infarction (2) COPD (chronic obstructive pulmonary disease): COPD with acute exacerbation with acute on chronic respiratory failure. Patient is not on any home oxygen by nasal cannula at baseline, he is on BiPAP at night, will continue. Patient requiring BiPAP at this time due to continued hypoxia. Diffuse wheezing throughout we will continue with IV Solu-Medrol and recent doxycycline therefore will start on Levaquin. Respiratory therapy to assess and treat and oxygen per protocol. Admission to ICU due to acute on chronic respiratory failure and will continue to monitor closely. Status: Chronic Qualifiers: COPD type: emphysema Emphysema type: panlobular Qualified Code(s): J43.1 - Panlobular emphysema Code(s): J44.9 - Chronic obstructive pulmonary disease, unspecified (3) Afib: Currently in sinus rhythm, continue home metoprolol and amiodarone. Patient is on Eliquis at home, will transition to Lovenox while inpatient Telemetry Status: Chronic Code(s): I48.91 - Unspecified atrial fibrillation (4) CHF (congestive heart failure): Diastolic congestive heart failure, appears to be euvolemic at this time given IV Lasix in the ED with improvement of fluid status. We will continue to hold off on any fluids at this time and monitor strict intake and output as well as daily weights. We will continue with home Lasix Status: Chronic Qualifiers: Heart failure type: diastolic Heart failure chronicity: acute on chronic Qualified Code(s): I50.33 - Acute on chronic diastolic (congestive) heart failure Code(s): I50.9 - Heart failure, unspecified Additional A&P Information Diabetes mellitus type 2: We will continue on sliding scale insulin, will likely require long-acting insulin at time of discharge Morbid obesity Obstructive sleep apnea, respiratory failure not secondary to obstructive sleep apnea Chronic kidney disease: Renal function appears to be at baseline at this time, will continue to monitor closely, strict intake and output as well as daily weights Hypertension: Continue on lisinopril, metoprolol and Lasix Coronary artery disease with a history of stenting to the RCA in 2012, patient reports having stent placement at [facility] a couple of years ago, will work to obtain records. Patient is on metoprolol, Plavix, Lasix, not on statin. Would likely benefit we will check lipid panel and start on atorvastatin DVT prophylaxis: Treatment dose Lovenox due to above Diet: Cardiac, carbohydrate consistent CODE STATUS: Full code Attestations Medical Necessity Statement*: Patient requires hospitalization due to acute respiratory failure requiring BiPAP with COPD exacerbation and non-ST elevation IL. 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
--- NOTE | 2019-06-15 10:43 | USCV_ITS ---
Franc Olivares Age: 64 Gender: M : 1955 Exam Date: 06/15/2019 13:50 Ordering Phys: Alem Denny DO Technologist: Chema Calix Exam Location: [facility] – [place] Indication: NSTEMI BP: 204 / 89 HR: Rhythm: Sinus Technical Quality: Very poor MEASUREMENTS (Male / Female) Normal Values 2D ECHO LV Diastolic Diameter PLAX 5.0 cm 4.2 - 5.9 / 3.9 - 5.3 cm LV Systolic Diameter PLAX 3.0 cm IVS Diastolic Thickness 1.2 cm 0.6 - 1.0 / 0.6 - 0.9 cm IVS Systolic Thickness 1.5 cm LVPW Diastolic Thickness 1.2 cm 0.6 - 1.0 / 0.6 - 0.9 cm LVPW Systolic Thickness 1.3 cm LVOT Diameter 2.1 cm LV Ejection Fraction 2D Teich 69.7 % LV Ejection Fraction MOD 2C 72.2 % LV Ejection Fraction 2C AL 72.8 % LA Diameter 3.9 cm LA Width 3.9 cm LA Height 5.3 cm RA Width 3.8 cm RA Height 4.5 cm M-MODE LV Diastolic Diameter MM 6.1 cm 4.2 - 5.9 / 3.9 - 5.3 cm LV Systolic Diameter MM 4.0 cm LV Ejection Fraction MM Teich 62.7 % IVS Diastolic Thickness MM 1.3 cm 0.6 - 1.0 / 0.6 - 0.9 cm IVS Systolic Thickness MM 2.1 cm LVPW Diastolic Thickness MM 1.4 cm 0.6 - 1.0 / 0.6 - 0.9 cm LVPW Systolic Thickness MM 1.8 cm RV Diastolic Diameter MM 1.3 cm Aortic Annulus Diameter 3.1 cm LA Ao Ratio MM 1.3 MV E Point Septal Separation 1.6 cm DOPPLER AV Peak Velocity 146.0 cm/s LVOT Peak Velocity 104.0 cm/s AV Area Cont Eq vti 2.2 cm squared AV Area Cont Eq pk 2.4 cm squared MV Area PHT 5.0 cm squared Mitral E to A Ratio 0.8 MV E' Velocity 9.0 cm/s Mitral E to MV E' Ratio 11.3 Mitral E to LV E' Lateral Ratio 9.6 Mitral E to LV E' Septal Ratio 14.2 TR Peak Velocity 157.0 cm/s TR Peak Gradient 9.9 mmHg TV Peak E Velocity 88.0 cm/s Right Atrial Pressure 3.0 mmHg Pulmonary Artery Systolic Pressu 12.9 mmHg FINDINGS Left Ventricle Examination is poor and limited secondary to the patient's underlying lung disease and body habitus. The ventricle is probably normal in size. There is likely at least lower limit of normal left ventricular function. Grade 1 diastolic dysfunction. Wall motion disturbances cannot be determined. Rough estimate of ejection fraction 55%. Right Ventricle Normal right ventricular size and systolic function. Normal right ventricular systolic pressure. Right Atrium The right atrium is normal in size. Left Atrium The left atrium is normal in size. Mitral Valve Mitral valve not well visualized. Aortic Valve Aortic valve not well visualized. Tricuspid Valve Tricuspid valve not well visualized. Pulmonic Valve Pulmonic valve not well visualized. Pericardium Normal pericardium without effusion. Aorta Normal ascending aorta dimension. CONCLUSIONS Examination is poor and limited secondary to the patient's underlying lung disease and body habitus. The ventricle is probably normal in size. There is likely at least lower limit of normal left ventricular function. Grade 1 diastolic dysfunction. Wall motion disturbances cannot be determined. Rough estimate of ejection fraction 55%. Technically limited study. No significant valve abnormalities. There are no prior echocardiogram studies to compare. Dr. Anton Marroquin MD (Electronically Signed) Final Date: 15 June 2019 17:46 S
--- NOTE | 2019-06-15 10:53 | PC.NURSE ---
Troponin drawn from IV for lab.
--- NOTE | 2019-06-15 11:00 | PC.NURSE ---
medical geneticist in room to consult on Pt at this time (Dr. Marroquin)
[2019-06-15 11:28] LABS: Troponin 5 6HR 434.7 ng/mL (0-15); Troponin 5 6HR Delta 281.7 ng/L (0-12)
--- NOTE | 2019-06-15 11:28 | PM.CONSULT ---
Providers/Reason For Consult Consulting Physican/Specialty*: Cardiovascular medicine Reason for Consult*: Respiratory insufficiency, elevated troponin Requesting Juniean: Eduin Attending Physician: Eduin Primary Care Provider: [facility] History of Present Illness History of Present Illness Franc Olivares is a 64 year old male who was brought to the emergency room by ambulance earlier today with shortness of breath. He apparently had the sudden onset of shortness of breath last evening after developing a cough. Question as to whether or not he had chest pain is difficult to ascertain. When I see him in the emergency room he is still on a BiPAP mask so the communication is reduced to some degree. He states he took some nitroglycerin at home and it may have helped some pressure he had on his chest. He does have a BiPAP machine but was apparently not using it. His EKG is unchanged but his troponin is elevated so we have been asked to see him. He has had multiple admissions for exacerbation of his COPD and most of the time his troponin is mildly elevated. He does have a history of coronary disease as delineated below. He was here for 6 days just a week ago with unresponsiveness and an exacerbation of his COPD with hypoxic and hypercarbic respiratory failure. His room air saturation was 72% on admission and his blood sugar was 13. At that time his troponin was mildly elevated. Currently he is not having any chest pain. Review of Systems General: Reports: ROS unobtainable due to medical condition Meds/Allergies Home Medications and Allergies Home Medications Medication Instructions Recorded Confirmed Type Combivent Respimat 2 puff INHALATION Q6H PRN 06/03/19 06/15/19 History Eliquis 5 mg PO BID 06/03/19 06/15/19 History Incruse Ellipta 1 inh INHALATION DAILY 06/03/19 06/15/19 History Spiriva with HandiHaler 1 cap INHALATION DAILY 06/03/19 06/15/19 History Symbicort 2 puff INHALATION BID 06/03/19 06/15/19 History amiodarone 200 mg PO DAILY 06/03/19 06/15/19 History clopidogrel 75 mg PO DAILY 06/03/19 06/15/19 History gabapentin 300 mg PO TID 06/03/19 06/15/19 History hydrocodone-acetaminophen See Rx Instructions .ROUTE .COMPLEX 06/03/19 06/15/19 History insulin lispro [Humalog U-100 See Rx Instructions .ROUTE .COMPLEX 06/03/19 06/15/19 History Insulin] ipratropium-albuterol 3 ml INHALATION Q6H PRN 06/03/19 06/15/19 History doxycycline hyclate 100 mg PO BID 06/15/19 06/15/19 History metoprolol succinate 100 mg PO 06 06/15/19 06/15/19 History Allergies Allergy/AdvReac Type Severity Reaction Status Date / Time No Known Allergies Allergy Verified 06/15/19 04:27 PFSH Acute PFSH: Medical History (Updated 06/15/19 @ 10:39 by Alem Denny DO) Afib CAD (coronary artery disease) RCA stent CHF (congestive heart failure) diastolic CHF -Echo (12/2018): EF=68%, G1DD Chronic kidney disease, stage 3 -has known CKD stage 2-3; baseline Cr around 1.5-1.7 -continue to monitor renal function particularly with diuresis; gradually improving -has f/u with nephrology the first week of June COPD (chronic obstructive pulmonary disease) Diabetes mellitus, type II, insulin dependent Dyslipidemia History of amputation of great toe L, traumatic Hypertension LAURIE (obstructive sleep apnea) Surgical History H/O heart artery stent 2012. RCA stent. 50% LAD lesion at time. Family History Other CAD (coronary artery disease) Social History (Updated 06/15/19 @ 10:31 by Alem Denny DO) Smoking and tobacco status: former smoker Alcohol intake: never Substance/Drug Use: never Lives independently: Yes Household members: none Vitals/I&O/Wt Last Vital Signs Temp 97.7 F 06/15/19 04:18 Pulse 78 06/15/19 11:00 Resp 22 H 06/15/19 06:19 BP 143/62 06/15/19 11:00 Pulse Ox 96 06/15/19 11:00 Weight last 48 hrs Weight 240 lb Physical Exam Narrative: EXAM NARRATIVE: GENERAL: In general he is comfortable sitting up but still has a BiPAP in place. HEENT: Exam within normal limits. NECK: Supple without jugular vein distention. The carotid upstroke is normal without bruits. BACK: Exam normal. LUNGS: Scattered wheezes and decreased breath sounds bilaterally. HEART: Regular rate and rhythm. ABDOMEN: Benign without organomegaly or tenderness. EXTREMITIES: No edema. NEUROLOGIC: Exam normal. SKIN: Unremarkable. Data Micro: Micro: Microbiology 06/15/19 05:15 Blood Culture - Pr eliminary Blood SPECIMEN [facility] [place] 06/15/19 05:14 Blood Culture - Pr eliminary Blood SPECIMEN [facility] Other Data: Other data: Troponin I 53, 239. BNP 2749. EKG reveals sinus rhythm with a right axis deviation, poor R wave progression and an incomplete left bundle branch block unchanged from previous studies. Potassium 5.9. Glucose 379. Glomerular filtration rate 40 mL/min. Chest x-ray shows mild pulmonary vascular redistribution and atelectasis unchanged from the previous study. A&P Assessment and plan (1) NSTEMI (non-ST elevated myocardial infarction): Status: Acute Code(s): I21.4 - Non-ST elevation (NSTEMI) myocardial infarction (2) Dyslipidemia: Status: Chronic Code(s): E78.5 - Hyperlipidemia, unspecified (3) Acute respiratory failure with hypoxia and hypercapnia: Status: Acute Code(s): J96.01 - Acute respiratory failure with hypoxia; J96.02 - Acute respiratory failure with hypercapnia (4) Hypertension: Status: Chronic Code(s): I10 - Essential (primary) hypertension (5) LAURIE (obstructive sleep apnea): Status: Chronic Code(s): G47.33 - Obstructive sleep apnea (adult) (pediatric) (6) CAD (coronary artery disease): Status: Chronic Qualifiers: Coronary Disease-Associated Artery/Lesion type: [place] artery [place] vs. transplanted heart: [place] heart Associated angina: without angina Qualified Code(s): I25.10 - Atherosclerotic heart disease of [place] coronary artery without angina pectoris Code(s): I25.10 - Atherosclerotic heart disease of [place] coronary artery without angina pectoris (7) Chronic anticoagulation: Status: Chronic Code(s): Z79.01 - halfway (current) use of anticoagulants (8) COPD (chronic obstructive pulmonary disease): Status: Chronic Qualifiers: COPD type: emphysema Emphysema type: panlobular Qualified Code(s): J43.1 - Panlobular emphysema Code(s): J44.9 - Chronic obstructive pulmonary disease, unspecified (9) Afib: Status: Chronic Code(s): I48.91 - Unspecified atrial fibrillation (10) Diabetes mellitus, type II, insulin dependent: Status: Chronic Code(s): E11.9 - Type 2 diabetes mellitus without complications; Z79.4 - intermediate project manager (current) use of insulin (11) Chronic kidney disease, stage 3: Status: Chronic Code(s): N18.3 - Chronic kidney disease, stage 3 (moderate) (12) CHF (congestive heart failure): He receives the bulk of his primary care and cardiology care in [place]. The problem is when he gets in trouble this hospital is closer. He was scheduled to have a stress test last week but this did not take place because he was in the hospital here. It appears as though each time he is in with respiratory insufficiency like this his troponin is mildly elevated. He has no new EKG findings. His troponin delta is higher now than it has been in the past. He is not having any chest pain at this point. I plan to wait until we can get his respiratory status straightened out. I will probably just go ahead and do the Lexiscan sestamibi here. I am reluctant to perform angiography due to his underlying renal failure unless it is deemed necessary. 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 transplanted heart: [place] heart Associated angina: without angina Chronic anticoagulation Z79.01 COPD (chronic obstructive pulmonary disease) J43.1 COPD type: emphysema Emphysema type: panlobular Afib I48.91 Diabetes mellitus, type II, insulin dependent E11.9; Z79.4 Chronic kidney disease, stage 3 N18.3 CHF (congestive heart failure) I50.33 Heart failure type: diastolic Heart failure chronicity: acute on chronic
[2019-06-15] MEDS: clopidogrel 75 mg Tablet PO (11:43)
[2019-06-15] MEDS: amiodarone 200 mg Tablet PO (11:43)
[2019-06-15] MEDS: calcium gluconate 0.1 gm/mL 10% SDV 10mL 1 GM IVP (11:43)
[2019-06-15] MEDS: gabapentin 300 mg Capsule PO ×2 (14:04→20:16)
[2019-06-15] MEDS: lisinopril 5 mg Tablet PO (14:04)
[2019-06-15] MEDS: HYDROcodone-acetaminophen 10-325 mg Tablet PO ×2 (14:05→20:17)
[2019-06-15] MEDS: levofloxacin-dextrose 5 % 750 MG/150 ML PREMIX 150 MG IV (14:06)
[2019-06-15] MEDS: enoxaparin 120 mg/0.8 mL Syringe 110 MG SUBCUT (14:06)
[2019-06-15 14:45] LABS: Potassium 5.5 mmol/L (3.5-5.1)
[2019-06-15 14:55] LABS: Chol HDL Ratio 3.16 mg/dL (1.0-5.00); Cholesterol 218 mg/dL (0-200); HDL Cholesterol 69 mg/dL (60-100); LDL Cholesterol Calculated 138 mg/dL (50-129); Thyroid Stimulating Hormone 1.29 uIU/mL (0.27-4.20); Triglycerides 56 mg/dL (0-150)
[2019-06-15] MEDS: ipratropium-albuterol 3 mL Neb INHALATION ×2 (15:13→19:39)
[2019-06-15 17:08] LABS: Glucose Point of Care 474 mg/dL (70-110)
[2019-06-15 17:13] LABS: Glucose Point of Care 549 mg/dL (70-110)
[2019-06-15] MEDS: atorvastatin 40 mg Tablet PO (20:17)
[2019-06-15] MEDS: ondansetron 4 MG Tablet PO (20:39)
[2019-06-15] MEDS: insulin glargine 100 units/1 mL 15 UNIT SUBCUT (20:40)
[2019-06-16] VITALS (36 sets, daily range): BP systolic 94–193; BP diastolic 54–134; PULSE 64–86; RESP 11–30; TEMP 36.6–37.1; O2SAT 89–100; BMI 37.4
[2019-06-16] MEDS: enoxaparin 120 mg/0.8 mL Syringe 110 MG SUBCUT ×2 (00:59→12:08)
[2019-06-16] MEDS: ipratropium-albuterol 3 mL Neb INHALATION ×4 (03:36→22:18)
[2019-06-16 04:29] LABS: Hemoglobin 10.9 g/dL (11.7-16.6); Lymphocytes # 0.5 10^3/uL (0.8-4.8); Lymphocytes % 4.4 %; Mean Corpuscular HGB Conc 30.3 g/dL (30.0-36.0); Mean Corpuscular Hemoglobin 25.3 pg (28.0-34.0); Mean Corpuscular Volume 83.7 fL (80-94); Mean Platelet Volume 11.7 fL (7.4-10.4); Monocytes # 0.2 10^3/uL (0.2-0.9); Monocytes % 1.9 %; Neutrophils # 9.7 10^3/uL (1.8-7.7); Neutrophils % 93.4 %; Nucleated Red Blood Cells % 0 %; Platelet Count 147 10^3/cmm (130-400); Red Cell Distribution Width 15.6 % (12.1-15.1); White Blood Count 10.4 10^3/uL (4.0-10.0)
[2019-06-16 04:46] LABS: Anion Gap 19.6 (5-19); Blood Urea Nitrogen 56 mg/dL (8-23); Calcium 8.9 mg/dL (8.5-10.5); Carbon Dioxide 20 mmol/L (22-29); Chloride 94 mmol/L (98-107); Glomerular Filtration Rate 33.6 mL/min (90-130); Glucose 337 mg/dL (65-115); Osmolality Calculated 278 mOsm/kg (285-295); Potassium 5.6 mmol/L (3.5-5.1); Sodium 128 mmol/L (136-145)
[2019-06-16] MEDS: metoprolol succinate ER (24 HR) 50 mg Tablet 100 MG PO (05:50)
[2019-06-16 06:57] LABS: Glucose Point of Care 339 mg/dL (70-110)
[2019-06-16 06:57] LABS: Glucose Point of Care 341 mg/dL (70-110)
--- NOTE | 2019-06-16 07:16 | PM.PN ---
Subjective Subjective: Interval history: Franc became more short of breath overnight. When I saw him this morning he was back on the BiPAP machine. I took him off and placed him on oxygen so that we could have a conversation. His third troponin went up to 437. His BNP is 2749. His chest x-ray does not show quite the evidence of congestive heart failure as it did when he was here last time. He is not having any chest discomfort. His serial EKGs do not show any ST changes. They are basically unchanged over time. Medications: Reviewed: Yes Vitals/I&O/Wt Last Vital Signs Temp 98.7 F 06/16/19 06:00 Pulse 79 06/16/19 06:00 Resp 14 06/16/19 06:00 BP 193/93 06/16/19 06:00 Pulse Ox 96 06/16/19 06:00 06/15/19 06/16/19 06/16/19 22:59 06:59 14:59 Intake Total 720 / 720 240 / 960 Output Total 900 / 900 250 / 1150 Balance -180 / -180 -10 / -190 Weight last 48 hrs Weight 246 lb 4.8 oz Weight 240 lb Physical Exam Narrative: EXAM NARRATIVE: GENERAL: In general he looks comfortable this morning and is mildly short of breath at rest HEENT: Exam within normal limits. NECK: Supple without jugular vein distention. The carotid upstroke is normal without bruits. BACK: Exam normal. LUNGS: Decreased breath sounds, wheezes bilaterally HEART: Regular rate and rhythm. ABDOMEN: Benign without organomegaly or tenderness. EXTREMITIES: No edema. NEUROLOGIC: Exam normal. SKIN: Unremarkable. Data : 06/16/19 03:14 06/16/19 03:14 Micro: Microbiology 06/15/19 05:15 Blood Culture - Preliminary Blood NEGATIVE TO DATE 06/15/19 05:14 Blood Culture - Preliminary Blood NEGATIVE TO DATE A&P Assessment and plan (1) NSTEMI (non-ST elevated myocardial infarction): Status: Acute Code(s): I21.4 - Non-ST elevation (NSTEMI) myocardial infarction (2) Dyslipidemia: Status: Chronic Code(s): E78.5 - Hyperlipidemia, unspecified (3) Acute respiratory failure with hypoxia and hypercapnia: Status: Acute Code(s): J96.01 - Acute respiratory failure with hypoxia; J96.02 - Acute respiratory failure with hypercapnia (4) Hypertension: Status: Chronic Code(s): I10 - Essential (primary) hypertension (5) LAURIE (obstructive sleep apnea): Status: Chronic Code(s): G47.33 - Obstructive sleep apnea (adult) (pediatric) (6) CAD (coronary artery disease): Status: Chronic Qualifiers: Coronary Disease-Associated Artery/Lesion type: [place] artery [place] vs. transplanted heart: [place] heart Associated angina: without angina Qualified Code(s): I25.10 - Atherosclerotic heart disease of [place] coronary artery without angina pectoris Code(s): I25.10 - Atherosclerotic heart disease of [place] coronary artery without angina pectoris (7) Chronic anticoagulation: Status: Chronic Code(s): Z79.01 - retirement (current) use of anticoagulants (8) COPD (chronic obstructive pulmonary disease): Status: Chronic Qualifiers: COPD type: emphysema Emphysema type: panlobular Qualified Code(s): J43.1 - Panlobular emphysema Code(s): J44.9 - Chronic obstructive pulmonary disease, unspecified (9) Afib: Status: Chronic Code(s): I48.91 - Unspecified atrial fibrillation (10) CHF (congestive heart failure): Status: Chronic Qualifiers: Heart failure type: diastolic Heart failure chronicity: acute on chronic Qualified Code(s): I50.33 - Acute on chronic diastolic (congestive) heart failure Code(s): I50.9 - Heart failure, unspecified (11) Chronic kidney disease, stage 3: Status: Chronic Code(s): N18.3 - Chronic kidney disease, stage 3 (moderate) (12) Diabetes mellitus, type II, insulin dependent: Status: Chronic Code(s): E11.9 - Type 2 diabetes mellitus without complications; Z79.4 - 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 He reminded me this morning that he has a jacquard card lacer in [place] who he trusts. As mentioned, he was scheduled for stress test last week but he was admitted here. His shortness of breath is multifactorial. The echo was not very helpful because of his body habitus and his COPD. His shortness of breath is due to COPD and volume overload due to heart failure exacerbated by his renal insufficiency. He really should undergo coronary angiography but this would be increased risk due to his renal insufficiency. Also his respiratory status is a bit unstable at this point. I spoke to him at length about this this morning and he is reluctant to have an angiogram here. He would prefer to be treated medically here then be discharged to go back to his jacquard card lacer in [place] to see what she has to say. I told him that we would make every effort to get him compensated medically here so that he can safely go back over there. Therefore I am going to increase his Lasix to 40 mg twice daily. I will also add a long-acting nitrate. His other medicines will remain the same for now. 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 transplanted heart: [place] heart Associated angina: without angina Chronic anticoagulation Z79.01 COPD (chronic obstructive pulmonary disease) J43.1 COPD type: emphysema Emphysema type: panlobular Afib I48.91 CHF (congestive heart failure) I50.33 Heart failure type: diastolic Heart failure chronicity: acute on chronic Chronic kidney disease, stage 3 N18.3 Diabetes mellitus, type II, insulin dependent E11.9; Z79.4 Time Spent (min) 40
[2019-06-16] MEDS: sodium polystyrene sulfonate 15 gm/60 mL Btl PO (08:04)
[2019-06-16] MEDS: pantoprazole DR 40 mg Tablet PO (08:04)
[2019-06-16] MEDS: lisinopril 5 mg Tablet PO (08:04)
[2019-06-16] MEDS: isosorbide mononitrate ER 30 mg Tablet PO (08:04)
[2019-06-16] MEDS: gabapentin 300 mg Capsule PO ×3 (08:04→20:34)
[2019-06-16] MEDS: amiodarone 200 mg Tablet PO (08:04)
[2019-06-16] MEDS: clopidogrel 75 mg Tablet PO (08:04)
--- NOTE | 2019-06-16 08:22 | PM.PN ---
Subjective Subjective: Interval history: Patient awake sitting in the chair at time of exam this morning. He denied any chest pain. Reported that shortness of breath did improve. Medications: Reviewed: Yes Vitals/I&O/Wt Last Vital Signs Temp 98.7 F 06/16/19 06:00 Pulse 82 06/16/19 07:34 Resp 20 H 06/16/19 07:34 BP 193/93 06/16/19 06:00 Pulse Ox 94 06/16/19 07:34 06/15/19 06/16/19 06/16/19 22:59 06:59 14:59 Intake Total 720 / 720 240 / 960 240 / 240 Output Total 900 / 900 250 / 1150 100 / 100 Balance -180 / -180 -10 / -190 140 / 140 Weight last 48 hrs Weight 111.72 kg Weight 108.862 kg Physical Exam Const: COMMON NORMALS: oriented x3 and alert GENERAL APPEARANCE: cooperative ORIENTATION/CONSCIOUSNESS: Yes awake, Yes oriented to person, Yes oriented to place and Yes oriented to time HENMT: COMMON NORMALS: normocephalic and head/scalp atraumatic HEAD & SCALP: normocephalic and atraumatic Eye: COMMON NORMALS: PERRL PUPIL: Yes PERRL Neck/C-Spine: COMMON NORMALS: supple GENERAL: Yes normal visual inspection Resp: OTHER: Oxygen by nasal cannula in place, diminished breath sounds bilaterally with end expiratory wheezing, much improved from exam yesterday. 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 Neuro: COMMON NORMALS: oriented x3, CN's II-XII intact bilaterally, moves all extremities and no focal motor deficits SENSORIUM/ORIENTATION: Yes alert, Yes oriented to person, Yes oriented to place and Yes oriented to time SPEECH: speech normal Psych: COMMON NORMALS: mental status grossly normal and cooperative Skin: COMMON NORMALS: no rashes or lesions noted GENERAL SKIN EXAM: no rashes or lesions noted Data : 06/16/19 03:14 06/16/19 03:14 Micro: Microbiology 06/15/19 05:15 Blood Culture - Preliminary Blood NEGATIVE TO DATE 06/15/19 05:14 Blood Culture - Preliminary Blood NEGATIVE TO DATE A&P Assessment and plan (1) NSTEMI (non-ST elevated myocardial infarction): Followed by cardiology in [place]. Was scheduled for stress test last week, missed due to being hospitalized at that time Continue to follow-up with cardiology recommendations. We will continue with medical management at this time due to patient's underlying chronic kidney disease and not currently having any chest pain. Continue on aspirin, Plavix, statin, metoprolol Status: Acute Code(s): I21.4 - Non-ST elevation (NSTEMI) myocardial infarction (2) COPD (chronic obstructive pulmonary disease): COPD with acute exacerbation with acute on chronic respiratory failure. Continue on home BiPAP at night. Transfer out of the ICU his respiratory status has improved Transition from IV Solu-Medrol to oral prednisone Continue Levaquin Status: Chronic Qualifiers: COPD type: emphysema Emphysema type: panlobular Qualified Code(s): J43.1 - Panlobular emphysema Code(s): J44.9 - Chronic obstructive pulmonary disease, unspecified (3) Afib: Continue home metoprolol and amiodarone. Patient is on Eliquis at home, on treatment dose Lovenox while in the inpatient setting Telemetry Status: Chronic Code(s): I48.91 - Unspecified atrial fibrillation (4) CHF (congestive heart failure): Known diastolic CHF, echocardiogram shows no acute changes Lasix increased by cardiology to 40 twice daily Strict intake and output as well as daily weights Status: Chronic Qualifiers: Heart failure type: diastolic Heart failure chronicity: acute on chronic Qualified Code(s): I50.33 - Acute on chronic diastolic (congestive) heart failure Code(s): I50.9 - Heart failure, unspecified Additional A&P Information Diabetes mellitus type 2: Continue moderate dose sliding scale insulin, on Lantus 15 units at bedtime Morbid obesity Obstructive sleep apnea, respiratory failure not secondary to obstructive sleep apnea LETHA on Chronic kidney disease: Increase in BUN and creatinine today along with hyperkalemia. Diuresing per cardiology, will recheck renal function this afternoon. Given calcium gluconate and Kayexalate ordered Hypertension: Continue on metoprolol and Lasix, hold lisinopril Coronary artery disease with a history of stenting to the RCA in 2013, patient reports having stent placement at [place] a couple of years ago, will work to obtain records. Patient is on metoprolol, Plavix, Lasix, started on statin medication, also started on Imdur 30 mg daily. GERD: Started on PPI DVT prophylaxis: Treatment dose Lovenox due to above Diet: Cardiac, carbohydrate consistent CODE STATUS: Full code Attestations Medical Necessity Statement*: Will transfer out of the ICU today. 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
[2019-06-16] MEDS: aspirin 81 mg EC Tablet PO (09:07)
[2019-06-16] MEDS: predniSONE 20 mg Tablet 40 MG PO (09:10)
[2019-06-16] MEDS: FUROsemide 40 mg Tablet PO (09:10)
--- NOTE | 2019-06-16 10:09 | PC.CHAP ---
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 mobile equipment operator visit [] Patient/Family/Request visit [] Outpatient visit [] Follow-up visit [] Physician referral [] Code/Alert [x] Routine visit [] Staff referral [] Actively dying [] Patient sleeping [] Family support [] [] Out of room [x] Palliative care [] [] Receiving care in room [] Pre-surgical visit [] Trauma [] Long length of stay [] ICU visit [] Other: Relational/Emotional Strength [] Patient feels connected with others/family/visitors/staff [] Distress [] Loneliness/isolation [] Abandonment Spirituality of Patient [] Person of Theresa [] Attends Evangelical of their Theresa [x] Believes in Prayer [] Reads Bible or Denominational materials [] There are Spiritual issues to be addressed Supervisor Painting Interventions [x] Prayer [] Active listening [] Non-anxious presence [] Spiritual/emotional support [] Crisis/trauma care [] Spiritual counseling [] Bereavement support [] Provided bereavement packet [] Provided Bible/devotional materials [] Provided toy/stuffed animal, coloring book to patient or family member [] Provided Communion [] Anointing/[place] [] Salvation [x] Completed spiritual assessment [] Other: Impact on Illness or Injury [] Angry [] Fearful [] Anxious [] Often cries [] Exhaustion [] Unable to work [] Unable to attend confucianist [] Unable to walk/stand [] Unable to read [] Unable to drive [] Unable to eat/drink [] Unable to sleep [] Unable to be with family [] Patient intubated [] Other: Summary Time spent with patient 10 min
--- NOTE | 2019-06-16 11:42 | PC.NURSE ---
DR. PATINO NOTIFIED OF BLOOD SUGAR OF 539. ORDERED TO GIVE 24 UNITS OF NOVOLOG INSULIN.
[2019-06-16 11:58] LABS: Glucose Point of Care 539 mg/dL (70-110)
[2019-06-16] MEDS: levoFLOXacin 750 mg Tablet PO (12:07)
[2019-06-16] MEDS: alum-mag-hydroxide-sime 30 mL UDC 15 ML PO ×2 (12:08→19:50)
[2019-06-16 14:49] LABS: Anion Gap 21.2 (5-19); Blood Urea Nitrogen 75 mg/dL (8-23); Calcium 9.3 mg/dL (8.5-10.5); Carbon Dioxide 24 mmol/L (22-29); Chloride 92 mmol/L (98-107); Glucose 436 mg/dL (65-115); Osmolality Calculated 292 mOsm/kg (285-295); Potassium 5.2 mmol/L (3.5-5.1); Sodium 132 mmol/L (136-145)
[2019-06-16] MEDS: HYDROcodone-acetaminophen 10-325 mg Tablet PO ×2 (14:55→20:34)
--- NOTE | 2019-06-16 15:37 | PC.RESP ---
Patient given Pulmonary Rehab information.
[2019-06-16 16:33] LABS: Glucose Point of Care 301 mg/dL (70-110)
--- NOTE | 2019-06-16 17:11 | PC.NURSE ---
DR. PATINO REQUESTED LASIX TO BE HELD FOR PATIENT DUE TO INCREASED BUN AND CREATININE.
[2019-06-16] MEDS: insulin glargine 100 units/1 mL 35 UNIT SUBCUT (20:30)
[2019-06-16] MEDS: atorvastatin 40 mg Tablet PO (20:34)
[2019-06-16 21:39] LABS: Glucose Point of Care 299 mg/dL (70-110)
[2019-06-17] VITALS (33 sets, daily range): BP systolic 103–155; BP diastolic 40–88; PULSE 56–69; RESP 12–32; TEMP 36.4–36.6; O2SAT 92–100; BMI 38.0
[2019-06-17] MEDS: enoxaparin 120 mg/0.8 mL Syringe 110 MG SUBCUT (01:16)
--- NOTE | 2019-06-17 01:40 | PC.PHAR ---
RENAL DOSING FOR LEVAQUIN 750MG Q DAY DECREASED TO Q48H DUE TO CRCL OF 35
[2019-06-17 04:08] LABS: Basophils % 0.1 %; Hematocrit 45.4 % (42.0-52.0); Hemoglobin 14.4 g/dL (11.7-16.6); Lymphocytes # 0.5 10^3/uL (0.8-4.8); Lymphocytes % 4.1 %; Mean Corpuscular HGB Conc 31.7 g/dL (30.0-36.0); Mean Corpuscular Hemoglobin 26.4 pg (28.0-34.0); Mean Corpuscular Volume 83.2 fL (80-94); Mean Platelet Volume 12.7 fL (7.4-10.4); Monocytes # 0.4 10^3/uL (0.2-0.9); Monocytes % 3.3 %; Nucleated Red Blood Cells % 0 %; Platelet Count 105 10^3/cmm (130-400); Red Blood Count 5.46 10^6/uL (4.1-5.3); Red Cell Distribution Width 15.5 % (12.1-15.1); White Blood Count 10.9 10^3/uL (4.0-10.0)
[2019-06-17] MEDS: ipratropium-albuterol 3 mL Neb INHALATION ×4 (04:15→20:59)
[2019-06-17] MEDS: metoprolol succinate ER (24 HR) 50 mg Tablet 100 MG PO (05:29)
--- NOTE | 2019-06-17 06:04 | XR_ITS ---
WS: [id number] Chest 2 views, 06/17/2019 Clinical Data: copd, cough, hypoxia Comparison: Mobile chest, 06/15/2019. Findings: No nodules, masses or effusions are seen. The heart is normal. The pulmonary vascularity is not increased. No pneumonia or pneumothorax is seen. The bibasilar atelectasis has cleared. Monitor leads are on the chest wall. Aortic arch shows mild calcification. XR/XR chest 2V* [id number] Impression: Atherosclerosis.
[2019-06-17 06:38] LABS: Glucose Point of Care 364 mg/dL (70-110)
[2019-06-17 07:11] LABS: Glucose Point of Care 390 mg/dL (70-110)
--- NOTE | 2019-06-17 07:32 | PM.PN ---
Subjective Subjective: Interval history: Franc has been moved to the cardiac stepdown unit. He seems less short of breath. He is not having any chest pain. He uses the BiPAP at night but he states that he uses a device similar to this at home every night. He still gets short of breath if he is up and around. He is audibly wheezing. His creatinine has actually gone up from 2.0 yesterday morning to 2.5 late yesterday afternoon. Potassium is still slightly high. His BUN is up to 75. Glucoses are well into the 300s and sometimes into the 400s. On one occasion yesterday it was above 500. The echo, not unexpectedly, was a poor quality study due to his lung disease and body habitus. The overall left ventricular function is probably lower limit of normal. Not much else could be gleaned from the exam. Chest x-ray from this morning actually shows less pulmonary vascular redistribution and resolution of the right-sided pleural effusion. Blood cultures are negative to date. His urine output yesterday was 1805 mL the JASSI inhibitor has been put on hold which I believe is appropriate. The Lasix has also been put on hold. This was in response to the creatinine going up yesterday. Medications: Reviewed: Yes Vitals/I&O/Wt Last Vital Signs Temp 98 F 06/17/19 06:00 Pulse 61 06/17/19 07:16 Resp 12 06/17/19 07:16 BP 155/88 06/17/19 07:16 Pulse Ox 96 06/17/19 07:16 06/16/19 06/17/19 06/17/19 22:59 06:59 14:59 Intake Total 360 / 870 150 / 1020 Output Total 845 / 1055 450 / 1505 300 / 300 Balance -485 / -185 -300 / -485 -300 / -300 Weight last 48 hrs Weight 250 lb 4.8 oz Weight 250 lb 4.8 oz Weight 246 lb 4.8 oz Physical Exam Narrative: EXAM NARRATIVE: GENERAL: Comfortable at rest but with some audible wheezing HEENT: Exam within normal limits. NECK: Supple without jugular vein distention. The carotid upstroke is normal without bruits. BACK: Exam normal. LUNGS: Decreased breath sounds bilateral with wheezing HEART: Regular rate and rhythm. ABDOMEN: Benign without organomegaly or tenderness. EXTREMITIES: No edema. NEUROLOGIC: Exam normal. SKIN: Unremarkable. Data : 06/17/19 03:21 06/16/19 14:28 Micro: Microbiology 06/15/19 05:15 Blood Culture - Preliminary Blood NEGATIVE TO DATE 06/15/19 05:14 Blood Culture - Preliminary Blood NEGATIVE TO DATE A&P Assessment and plan (1) NSTEMI (non-ST elevated myocardial infarction): Status: Acute Code(s): I21.4 - Non-ST elevation (NSTEMI) myocardial infarction (2) Dyslipidemia: Status: Chronic Code(s): E78.5 - Hyperlipidemia, unspecified (3) Acute respiratory failure with hypoxia and hypercapnia: Status: Acute Code(s): J96.01 - Acute respiratory failure with hypoxia; J96.02 - Acute respiratory failure with hypercapnia (4) Hypertension: Status: Chronic Code(s): I10 - Essential (primary) hypertension (5) LAURIE (obstructive sleep apnea): Status: Chronic Code(s): G47.33 - Obstructive sleep apnea (adult) (pediatric) (6) CAD (coronary artery disease): Status: Chronic Qualifiers: Coronary Disease-Associated Artery/Lesion type: [place] artery [place] vs. transplanted heart: [place] heart Associated angina: without angina Qualified Code(s): I25.10 - Atherosclerotic heart disease of [place] coronary artery without angina pectoris Code(s): I25.10 - Atherosclerotic heart disease of [place] coronary artery without angina pectoris (7) Chronic anticoagulation: Status: Chronic Code(s): Z79.01 - detention (current) use of anticoagulants (8) COPD (chronic obstructive pulmonary disease): Status: Chronic Qualifiers: COPD type: emphysema Emphysema type: panlobular Qualified Code(s): J43.1 - Panlobular emphysema Code(s): J44.9 - Chronic obstructive pulmonary disease, unspecified (9) Afib: Status: Chronic Code(s): I48.91 - Unspecified atrial fibrillation (10) CHF (congestive heart failure): Status: Chronic Qualifiers: Heart failure type: diastolic Heart failure chronicity: acute on chronic Qualified Code(s): I50.33 - Acute on chronic diastolic (congestive) heart failure Code(s): I50.9 - Heart failure, unspecified (11) Chronic kidney disease, stage 3: Status: Chronic Code(s): N18.3 - Chronic kidney disease, stage 3 (moderate) (12) Diabetes mellitus, type II, insulin dependent: Status: Chronic Code(s): E11.9 - Type 2 diabetes mellitus without complications; 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 We probably have over diuresed him given the increase in the BUN and creatinine. It is proper to have held the JASSI inhibitor and the Lasix. He is still wheezing which I think is the primary culprit in his shortness of breath although it is related to both volume overload and COPD. Obviously he is not a good candidate for an angiogram now especially since his creatinine has gone up. He still wishes to try to be treated medically here and then make contact with his principal investigator in [place]. He is not having angina. 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 transplanted heart: [place] heart Associated angina: without angina Chronic anticoagulation Z79.01 COPD (chronic obstructive pulmonary disease) J43.1 COPD type: emphysema Emphysema type: panlobular Afib I48.91 CHF (congestive heart failure) I50.33 Heart failure type: diastolic Heart failure chronicity: acute on chronic Chronic kidney disease, stage 3 N18.3 Diabetes mellitus, type II, insulin dependent E11.9; Z79.4
[2019-06-17 07:52] LABS: Anion Gap 21.5 (5-19); Blood Urea Nitrogen 79 mg/dL (8-23); Calcium 8.9 mg/dL (8.5-10.5); Carbon Dioxide 23 mmol/L (22-29); Chloride 91 mmol/L (98-107); Glomerular Filtration Rate 33.6 mL/min (90-130); Glucose 298 mg/dL (65-115); Osmolality Calculated 281 mOsm/kg (285-295); Potassium 5.5 mmol/L (3.5-5.1); Sodium 130 mmol/L (136-145)
[2019-06-17] MEDS: amiodarone 200 mg Tablet PO (08:21)
[2019-06-17] MEDS: predniSONE 20 mg Tablet 60 MG PO (08:21)
[2019-06-17] MEDS: aspirin 81 mg EC Tablet PO (08:21)
[2019-06-17] MEDS: pantoprazole DR 40 mg Tablet PO (08:21)
[2019-06-17] MEDS: clopidogrel 75 mg Tablet PO (08:21)
[2019-06-17] MEDS: gabapentin 300 mg Capsule PO ×3 (08:21→20:31)
[2019-06-17] MEDS: isosorbide mononitrate ER 30 mg Tablet PO (08:22)
--- NOTE | 2019-06-17 09:31 | P.PN_ITS ---
Subjective Subjective: Interval history: Patient is awake in bed at time of exam today. He reported some continued shortness of breath. Reported cough that is nonproductive, stated that he can not get the sputum to expel. He denies any chest pain. Medications: Reviewed: Yes Vitals/I&O/Wt Last Vital Signs Temp 98 F 06/17/19 06:00 Pulse 64 06/17/19 08:45 Resp 18 06/17/19 08:37 BP 155/88 06/17/19 07:16 Pulse Ox 95 06/17/19 08:37 06/16/19 06/17/19 06/17/19 22:59 06:59 14:59 Intake Total 360 / 870 150 / 1020 Output Total 845 / 1055 450 / 1505 300 / 300 Balance -485 / -185 -300 / -485 -300 / -300 Weight last 48 hrs Weight 113.534 kg Weight 113.534 kg Weight 111.72 kg Physical Exam Const: COMMON NORMALS: oriented x3 and alert GENERAL APPEARANCE: cooperative ORIENTATION/CONSCIOUSNESS: Yes awake, Yes oriented to person, Yes oriented to place and Yes oriented to time HENMT: COMMON NORMALS: normocephalic and head/scalp atraumatic HEAD & SCALP: normocephalic and atraumatic Eye: COMMON NORMALS: PERRL PUPIL: Yes PERRL Neck/C-Spine: COMMON NORMALS: supple GENERAL: Yes normal visual inspection Resp: EFFORT & INSPECTION: Yes actively coughing and Yes uses accessory muscles AUSCULTATION: wheezes throughout OTHER: Oxygen by nasal cannula in place, diminished breath sounds bilaterally with end expiratory wheezing. 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 Neuro: COMMON NORMALS: oriented x3, CN's II-XII intact bilaterally, moves all extremities and no focal motor deficits SENSORIUM/ORIENTATION: Yes alert, Yes oriented to person, Yes oriented to place and Yes oriented to time SPEECH: speech normal Psych: COMMON NORMALS: mental status grossly normal and cooperative Skin: COMMON NORMALS: no rashes or lesions noted GENERAL SKIN EXAM: no rashes or lesions noted Data : 06/17/19 03:21 06/17/19 07:15 Micro: Microbiology 06/15/19 05:15 Blood Culture - Preliminary Blood NEGATIVE TO DATE 06/15/19 05:14 Blood Culture - Preliminary Blood NEGATIVE TO DATE A&P Assessment and plan (1) NSTEMI (non-ST elevated myocardial infarction): Followed by cardiology in [place]. Cardiology consultation appreciated Continue with medical management, patient would like to follow up with his diesel powerplant mechanic in [place] Continue on aspirin, Plavix, statin, metoprolol Status: Acute Code(s): I21.4 - Non-ST elevation (NSTEMI) myocardial infarction (2) COPD (chronic obstructive pulmonary disease): COPD with acute exacerbation with acute on chronic respiratory failure. Continue on home BiPAP at night. With recent exacerbation. Increased prednisone to 60mg daily today and continue on Levaquin. Repeat CXR today Status: Chronic Qualifiers: COPD type: emphysema Emphysema type: panlobular Qualified Code(s): J43.1 - Panlobular emphysema Code(s): J44.9 - Chronic obstructive pulmonary disease, unspecified (3) Afib: Continue home metoprolol and amiodarone. Restart home Eliquis and discontinue treatment dose lovenox Telemetry Status: Chronic Code(s): I48.91 - Unspecified atrial fibrillation (4) CHF (congestive heart failure): Known diastolic CHF, echocardiogram shows no acute changes Lasix on hold due to increasing BUN and creatinine. Hold further diuresis at this time and recheck labs in the AM. CXR does not show any significant fluid overload at this time Strict intake and output as well as daily weights Status: Chronic Qualifiers: Heart failure type: diastolic Heart failure chronicity: acute on chronic Qualified Code(s): I50.33 - Acute on chronic diastolic (congestive) heart failure Code(s): I50.9 - Heart failure, unspecified Additional A&P Information Diabetes mellitus type 2: Continue moderate dose sliding scale insulin, continue to increase Lantus. Elevated blood glucose likely secondary to steroids Morbid obesity Obstructive sleep apnea, respiratory failure not secondary to obstructive sleep apnea LETHA on Chronic kidney disease: Hold nephrotoxic agents,JASSI-I on hold. Holding further diuresis at this time. Hypertension: Continue metoprolol, ACI-I on hold due to renal function Coronary artery disease with a history of stenting to the RCA in 2012, patient reports having stent placement at [place] a couple of years ago, will work to obtain records. Patient is on metoprolol, Plavix, Lasix, started on statin medication, also started on Imdur 30 mg daily. 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
[2019-06-17 11:19] LABS: Glucose Point of Care 329 mg/dL (70-110)
[2019-06-17] MEDS: HYDROcodone-acetaminophen 10-325 mg Tablet PO ×2 (14:10→20:32)
[2019-06-17 16:42] LABS: Glucose Point of Care 301 mg/dL (70-110)
[2019-06-17] MEDS: polyethylene glycol 3350 Pkt 17 gm PO (17:07)
[2019-06-17] MEDS: apixaban 5 mg Tablet PO (17:07)
[2019-06-17] MEDS: atorvastatin 40 mg Tablet PO (20:31)
[2019-06-17] MEDS: insulin glargine 100 units/1 mL 45 UNIT SUBCUT (20:34)
[2019-06-18] VITALS (19 sets, daily range): BP systolic 96–177; BP diastolic 41–77; PULSE 52–65; RESP 13–27; TEMP 36.6–36.8; O2SAT 93–100; BMI 38.0
[2019-06-18 00:52] LABS: Glucose Point of Care 378 mg/dL (70-110)
[2019-06-18] MEDS: ipratropium-albuterol 3 mL Neb INHALATION ×4 (02:06→20:22)
[2019-06-18] MEDS: HYDROcodone-acetaminophen 10-325 mg Tablet PO ×2 (04:45→21:13)
[2019-06-18] MEDS: metoprolol succinate ER (24 HR) 50 mg Tablet 100 MG PO (05:00)
[2019-06-18 06:29] LABS: Glucose Point of Care 274 mg/dL (70-110)
[2019-06-18 06:59] LABS: Anion Gap 20.6 (5-19); Calcium 9.2 mg/dL (8.5-10.5); Carbon Dioxide 21 mmol/L (22-29); Chloride 90 mmol/L (98-107); Glomerular Filtration Rate 33.6 mL/min (90-130); Glucose 278 mg/dL (65-115); Osmolality Calculated 272 mOsm/kg (285-295); Potassium 5.6 mmol/L (3.5-5.1); Sodium 126 mmol/L (136-145)
[2019-06-18 07:00] LABS: Blood Urea Nitrogen 91 mg/dL (8-23)
--- NOTE | 2019-06-18 07:13 | P.PN_ITS ---
Subjective Subjective: Interval history: Franc has had an uneventful night. He is still wheezing slightly. His creatinine has come down to 2.0 however his BUN has gone up to 91. Sodium is still slightly low 126 and his potassium is still slightly high at 5.6. Urine output yesterday 900 mL. No angina. No evidence of congestive heart failure. Medications: Reviewed: Yes Vitals/I&O/Wt Last Vital Signs Temp 98 F 06/18/19 06:00 Pulse 64 06/18/19 04:00 Resp 16 06/18/19 04:00 BP 145/45 06/18/19 04:00 Pulse Ox 98 06/18/19 04:00 06/17/19 06/18/19 06/18/19 22:59 06:59 14:59 Intake Total 240 / 480 150 / 630 Output Total 350 / 1000 200 / 1200 Balance -110 / -520 -50 / -570 Weight last 48 hrs Weight 250 lb 4.8 oz Weight 250 lb 4.8 oz Weight 250 lb 4.8 oz Physical Exam Narrative: EXAM NARRATIVE: GENERAL: He is comfortable at rest sitting up HEENT: Exam within normal limits. NECK: Supple without jugular vein distention. The carotid upstroke is normal w ithout bruits. BACK: Exam normal. LUNGS: Clear. HEART: Regular rate and rhythm. Occasional scattered wheezes with inspiration. No rales. ABDOMEN: Benign without organomegaly or tenderness. EXTREMITIES: No edema. NEUROLOGIC: Exam normal. SKIN: Unremarkable. Data : 06/17/19 03:21 06/18/19 05:27 A&P Assessment and plan (1) NSTEMI (non-ST elevated myocardial infarction): Status: Acute Code(s): I21.4 - Non-ST elevation (NSTEMI) myocardial infarction (2) Dyslipidemia: Status: Chronic Code(s): E78.5 - Hyperlipidemia, unspecified (3) Acute respiratory failure with hypoxia and hypercapnia: Status: Acute Code(s): J96.01 - Acute respiratory failure with hypoxia; J96.02 - Acute respiratory failure with hypercapnia (4) Hypertension: Status: Chronic Code(s): I10 - Essential (primary) hypertension (5) LAURIE (obstructive sleep apnea): Status: Chronic Code(s): G47.33 - Obstructive sleep apnea (adult) (pediatric) (6) CAD (coronary artery disease): Status: Chronic Qualifiers: Coronary Disease-Associated Artery/Lesion type: [place] artery [place] vs. transplanted heart: [place] heart Associated angina: without angina Q ualified Code(s): I25.10 - Atherosclerotic heart disease of [place] coronary artery without angina pectoris Code(s): I25.10 - Atherosclerotic heart disease of [place] coronary artery without angina pectoris (7) Chronic anticoagulation: Status: Chronic Code(s): Z79.01 - longterm (current) use of anticoagulants (8) COPD (chronic obstructive pulmonary disease): Status: Chronic Qualifiers: COPD type: emphysema Emphysema type: panlobular Qualified Code(s): J43.1 - Panlobular emphysema Code(s): J44.9 - Chronic obstructive pulmonary disease, unspecified (9) Afib: Status: Chronic Code(s): I48.91 - Unspecified atrial fibrillation (10) CHF (congestive heart failure): Status: Chronic Qualifiers: Heart failure type: diastolic Heart failure chronicity: acute on chronic Qualified Code(s): I50.33 - Acute on chronic diastolic (congestive) heart failure Code(s): I50.9 - Heart failure, unspecified (11) Diabetes mellitus, type II, insulin dependent: Status: Chronic Code(s): E11.9 - Type 2 diabetes mellitus without complications; Z79.4 - longterm (current) use of insulin (12) Chronic kidney disease, stage 3: Status: Chronic Code(s): N18.3 - Chronic kidney disease, stage 3 (moderate) Additional A&P Information I spoke to Dr. Denny. We will give him some fluids and check his BUN and creatinine a little later today. His heart failure is certainly cleared up. He is not having any angina. He has an appointment with his primary care provider 3 days from now on Friday and then his marketing operations manager 5 days from now on . I suggested that we either send him home later today or tomorrow as long as his BUN and creatinine are improving. He can then follow-up with both of those appointments next week. After that he should see his jelly filter tender and determine whether the stress test that he missed last week needs to be rescheduled or whether they want to proceed with angiography. Currently he is stable without any angina and without any EKG changes. 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 transplanted heart: [place] heart Associated angina: without angina Chronic anticoagulation Z79.01 COPD (chronic obstructive pulmonary disease) J43.1 COPD type: emphysema Emphysema type: panlobular Afib I48.91 CHF (congestive heart failure) I50.33 Heart failure type: diastolic Heart failure chronicity: acute on chronic Diabetes mellitus, type II, insulin dependent E11.9; Z79.4 Chronic kidney disease, stage 3 N18.3
[2019-06-18] MEDS: sodium chloride 0.9% 1,000 ML 100 ML IV (08:26)
[2019-06-18] MEDS: pantoprazole DR 40 mg Tablet PO (08:33)
[2019-06-18] MEDS: predniSONE 20 mg Tablet 60 MG PO (08:33)
[2019-06-18] MEDS: isosorbide mononitrate ER 30 mg Tablet PO (08:33)
[2019-06-18] MEDS: gabapentin 300 mg Capsule PO ×3 (08:34→21:01)
[2019-06-18] MEDS: clopidogrel 75 mg Tablet PO (08:34)
[2019-06-18] MEDS: aspirin 81 mg EC Tablet PO (08:34)
[2019-06-18] MEDS: apixaban 5 mg Tablet PO ×2 (08:34→17:18)
--- NOTE | 2019-06-18 10:25 | PC.SOCIAL ---
IMM Page 2 of IMM explained to and signed by patient. He verbalizes understanding. Initialed, dated, and timed and placed in chart. Copy provided to patient.
[2019-06-18] MEDS: amiodarone 200 mg Tablet PO (11:53)
[2019-06-18] MEDS: levoFLOXacin 750 mg Tablet PO (11:54)
[2019-06-18 12:10] LABS: Glucose Point of Care 305 mg/dL (70-110)
[2019-06-18 12:53] LABS: Anion Gap 15.8 (5-19); Calcium 9.4 mg/dL (8.5-10.5); Carbon Dioxide 27 mmol/L (22-29); Chloride 91 mmol/L (98-107); Glomerular Filtration Rate 33.6 mL/min (90-130); Glucose 219 mg/dL (65-115); Osmolality Calculated 275 mOsm/kg (285-295); Potassium 4.8 mmol/L (3.5-5.1); Sodium 129 mmol/L (136-145)
[2019-06-18 13:14] LABS: Blood Urea Nitrogen 92 mg/dL (8-23)
--- NOTE | 2019-06-18 13:23 | P.PN_ITS ---
Subjective Subjective: Interval history: Franc was awake in bed at time of exam today. He reported breathing feeling better. Denied any chest pain. Discussed with Dr. Marroquin, stable for cardiac discharge. Patient continues to have increase in BUN, however creatinine has improved and urine output has remained steady. Medications: Reviewed: Yes Vitals/I&O/Wt Last Vital Signs Temp 98 F 06/18/19 06:00 Pulse 53 L 06/18/19 11:40 Resp 16 06/18/19 11:40 BP 152/70 06/18/19 11:40 Pulse Ox 97 06/18/19 11:40 06/17/19 06/18/19 06/18/19 22:59 06:59 14:59 Intake Total 240 / 480 150 / 630 240 / 240 Output Total 350 / 1000 200 / 1200 600 / 600 Balance -110 / -520 -50 / -570 -360 / -360 Weight last 48 hrs Weight 113.534 kg Weight 113.534 kg Weight 113.534 kg Physical Exam Const: COMMON NORMALS: oriented x3 and alert GENERAL APPEARANCE: cooperativ e ORIENTATION/CONSCIOUSNESS: Yes awake, Yes oriented to person, Yes oriented to place and Yes oriented to time HENMT: COMMON NORMALS: normocephalic and head/scalp atraumatic HEAD & SCALP: normocephalic and atraumatic Eye: COMMON NORMALS: PERRL PUPIL: Yes PERRL Neck/C-Spine: COMMON NORMALS: supple GENERAL: Yes normal visual inspection Resp: EFFORT & INSPECTION: Yes actively coughing and Yes uses accessory muscles AUSCULTATION: wheezes throughout OTHER: Oxygen by nasal cannula in place, diminished breath sounds bilaterally with end expiratory wheezing. 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 Cardiology consultation appreciated Continue with medical management, patient would like to follow up with his head neck surgeon in [place] Continue on aspirin, Plavix, statin, metoprolol Status: Acute Code(s): I21.4 - Non-ST elevation (NSTEMI) myocardial infarction (2) COPD (chronic obstructive pulmonary disease): COPD with acute exacerbation with acute on chronic respiratory failure. Continue on home BiPAP at night. With recent exacerbation. Prednisone 40mg daily and continue on Levaquin. Status: Chronic Qualifiers: COPD type: emphysema Emphysema type: panlobular Qualified Code(s): J43.1 - Panlobular emphysema Code(s): J44.9 - Chronic obstructive pulmonary disease, unspecified (3) Afib: Continue home metoprolol and amiodarone. Eliquis 5 mg twice daily continued Telemetry Status: Chronic Code(s): I48.91 - Unspecified atrial fibrillation (4) CHF (congestive heart failure): Known diastolic CHF, echocardiogram shows no acute changes Lasix on hold due to increasing BUN and creatinine. Chest x-ray improved, no evidence of any fluid overload. Patient is actually dry and giving very gentle IV fluids today. Recheck BUN and creatinine tomorrow due to increasing BUN will continue to require further hospitalization. Status: Chronic Qualifiers: Heart failure chronicity: acute on chronic Heart failure type: diastolic Qualified Code(s): I50.33 - Acute on chronic diastolic (congestive) heart failure Code(s): I50.9 - Heart failure, unspecified Additional A&P Information Diabetes mellitus type 2: Continue moderate dose sliding scale insulin, continue to increase Lantus. Elevated blood glucose likely secondary to steroids Morbid obesity Obstructive sleep apnea, respiratory failure not secondary to obstructive sleep apnea LETHA on Chronic kidney disease: Hold nephrotoxic agents,JASSI-I on hold. Holding further diuresis at this time and giving gentle IVF, urine output improving therefore will hold off on nephrology consultation Hyponatremia: Corrects to 131 with glucose Hypertension: Continue metoprolol, ACI-I on hold due to renal function Coronary artery disease with a history of stenting to the RCA in 2013, patient reports having stent placement at [place] a couple of years ago, will work to obtain records. Patient is on metoprolol, Plavix, Lasix, started on statin medication, also started on Imdur 30 mg daily. 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
[2019-06-18 14:53] LABS: Hematocrit 39.8 % (42.0-52.0); Hemoglobin 12.1 g/dL (11.7-16.6); Lymphocytes # 0.5 10^3/uL (0.8-4.8); Lymphocytes % 4.4 %; Mean Corpuscular HGB Conc 30.4 g/dL (30.0-36.0); Mean Corpuscular Hemoglobin 26.1 pg (28.0-34.0); Mean Corpuscular Volume 85.8 fL (80-94); Mean Platelet Volume 12.2 fL (7.4-10.4); Monocytes # 0.6 10^3/uL (0.2-0.9); Monocytes % 5.1 %; Neutrophils % 89.8 %; Nucleated Red Blood Cells % 0 %; Platelet Count 185 10^3/cmm (130-400); Red Blood Count 4.64 10^6/uL (4.1-5.3); Red Cell Distribution Width 15.3 % (12.1-15.1); White Blood Count 12.2 10^3/uL (4.0-10.0)
[2019-06-18] MEDS: sodium chloride 0.9% 1,000 ML 75 ML IV (17:01)
[2019-06-18] MEDS: polyethylene glycol 3350 Pkt 17 gm PO (17:29)
[2019-06-18 17:44] LABS: Glucose Point of Care 173 mg/dL (70-110)
[2019-06-18] MEDS: atorvastatin 40 mg Tablet PO (21:02)
[2019-06-18] MEDS: insulin glargine 100 units/1 mL 45 UNIT SUBCUT (21:03)
[2019-06-18 21:19] LABS: Glucose Point of Care 319 mg/dL (70-110)
[2019-06-19] VITALS (12 sets, daily range): BP systolic 145–175; BP diastolic 61–95; PULSE 60–71; RESP 16–21; TEMP 36.4–36.8; O2SAT 95–100
[2019-06-19] MEDS: ipratropium-albuterol 3 mL Neb INHALATION ×3 (03:06→20:42)
[2019-06-19 06:02] LABS: Glucose Point of Care 265 mg/dL (70-110)
[2019-06-19] MEDS: metoprolol succinate ER (24 HR) 50 mg Tablet 100 MG PO (06:12)
[2019-06-19 06:54] LABS: Anion Gap 15.7 (5-19); Calcium 9.4 mg/dL (8.5-10.5); Carbon Dioxide 26 mmol/L (22-29); Chloride 95 mmol/L (98-107); Glomerular Filtration Rate 37.9 mL/min (90-130); Glucose 276 mg/dL (65-115); Osmolality Calculated 282 mOsm/kg (285-295); Potassium 5.7 mmol/L (3.5-5.1); Sodium 131 mmol/L (136-145)
[2019-06-19 06:59] LABS: Blood Urea Nitrogen 87 mg/dL (8-23)
--- NOTE | 2019-06-19 07:14 | PM.PN ---
Subjective Subjective: Interval history: Franc has improved overnight. He was placed on an inhaler yesterday which is helped his wheezing. His wheezing is less than I have heard it since he has been here. No chest pain. No evidence of volume overload. Shortness of breath is better. Kidney function continues to improve. BUN is down to 87 today with a creatinine down to 1.8. Sodium up to 131. His potassium is 5.7. Medications: Reviewed: Yes Vitals/I&O/Wt Last Vital Signs Temp 98.3 F 06/19/19 04:05 Pulse 69 06/19/19 07:01 Resp 20 H 06/19/19 07:01 BP 145/95 06/19/19 07:01 Pulse Ox 100 06/19/19 07:01 06/18/19 06/19/19 06/19/19 22:59 06:59 14:59 Intake Total 600 / 840 250 / 1090 Output Total 625 / 1225 700 / 1925 Balance -25 / -385 -450 / -835 Weight last 48 hrs Weight 251 lb 4.8 oz Weight 250 lb 4.8 oz Physical Exam Narrative: EXAM NARRATIVE: GENERAL: In general he is comfortable sitting upright without shortness of breath or discomfort HEENT: Exam within normal limits. NECK: Supple without jugular vein distention. The carotid upstroke is normal without bruits. BACK: Exam normal. LUNGS: Scattered inspiratory wheezes HEART: Regular rate and rhythm. ABDOMEN: Benign without organomegaly or tenderness. EXTREMITIES: No edema. NEUROLOGIC: Exam normal. SKIN: Unremarkable. Data : 06/18/19 14:25 06/19/19 06:09 A&P Assessment and plan (1) NSTEMI (non-ST elevated myocardial infarction): Status: Acute Code(s): I21.4 - Non-ST elevation (NSTEMI) myocardial infarction (2) Dyslipidemia: Status: Chronic Code(s): E78.5 - Hyperlipidemia, unspecified (3) Acute respiratory failure with hypoxia and hypercapnia: Status: Acute Code(s): J96.01 - Acute respiratory failure with hypoxia; J96.02 - Acute respiratory failure with hypercapnia (4) Hypertension: Status: Chronic Code(s): I10 - Essential (primary) hypertension (5) LAURIE (obstructive sleep apnea): Status: Chronic Code(s): G47.33 - Obstructive sleep apnea (adult) (pediatric) (6) CAD (coronary artery disease): Status: Chronic Qualifiers: Coronary Disease-Associated Artery/Lesion type: [place] artery [place] vs. transplanted heart: [place] heart Associated angina: without angina Qualified Code(s): I25.10 - Atherosclerotic heart disease of [place] coronary artery without angina pectoris Code(s): I25.10 - Atherosclerotic heart disease of [place] coronary artery without angina pectoris (7) Chronic anticoagulation: Status: Chronic Code(s): Z79.01 - senior living (current) use of anticoagulants (8) COPD (chronic obstructive pulmonary disease): Status: Chronic Qualifiers: COPD type: emphysema Emphysema type: panlobular Qualified Code(s): J43.1 - Panlobular emphysema Code(s): J44.9 - Chronic obstructive pulmonary disease, unspecified (9) Afib: Status: Chronic Code(s): I48.91 - Unspecified atrial fibrillation (10) CHF (congestive heart failure): Status: Chronic Qualifiers: Heart failure type: diastolic Heart failure chronicity: acute on chronic Qualified Code(s): I50.33 - Acute on chronic diastolic (congestive) heart failure Code(s): I50.9 - Heart failure, unspecified (11) Diabetes mellitus, type II, insulin dependent: Status: Chronic Code(s): E11.9 - Type 2 diabetes mellitus without complications; Z79.4 - senior living (current) use of insulin (12) Chronic kidney disease, stage 3: Status: Chronic Code(s): N18.3 - Chronic kidney disease, stage 3 (moderate) Additional A&P Information He can safely go home today. As mentioned yesterday, he has a appointment with his primary care provider on Friday, appointment with his cheese tester on Friday, and I have instructed him to see his pest control service representative after that. He will need either stress testing or angiography at their discretion. I would continue the amiodarone, Plavix, statin, metoprolol, isosorbide, aspirin at the time of discharge. I would probably hold the JASSI inhibitor and Lasix for a few more days before reinstituting those. At the time of reinstitution the lisinopril dose should be 5 mg daily and the furosemide dose 40 mg once daily. Obviously because of his high potassium he does not need a potassium supplement. We will see him here on an as-needed basis as he already has a pest control service representative with whom he follows regularly. 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 transplanted heart: [place] heart Associated angina: without angina Chronic anticoagulation Z79.01 COPD (chronic obstructive pulmonary disease) J43.1 COPD type: emphysema Emphysema type: panlobular Afib I48.91 CHF (congestive heart failure) I50.33 Heart failure type: diastolic Heart failure chronicity: acute on chronic Diabetes mellitus, type II, insulin dependent E11.9; Z79.4 Chronic kidney disease, stage 3 N18.3
[2019-06-19] MEDS: predniSONE 20 mg Tablet 40 MG PO (07:57)
[2019-06-19] MEDS: pantoprazole DR 40 mg Tablet PO (07:58)
[2019-06-19] MEDS: aspirin 81 mg EC Tablet PO (07:58)
[2019-06-19] MEDS: amiodarone 200 mg Tablet PO (07:58)
[2019-06-19] MEDS: isosorbide mononitrate ER 30 mg Tablet PO (07:59)
[2019-06-19] MEDS: apixaban 5 mg Tablet PO ×2 (07:59→17:19)
[2019-06-19] MEDS: gabapentin 300 mg Capsule PO ×3 (07:59→21:00)
[2019-06-19] MEDS: sodium polystyrene sulfonate 15 gm/60 mL Btl 30 GM PO (09:02)
[2019-06-19] MEDS: clopidogrel 75 mg Tablet PO (09:03)
[2019-06-19 11:20] LABS: Glucose Point of Care 224 mg/dL (70-110)
--- NOTE | 2019-06-19 13:46 | P.PN_ITS ---
Subjective Subjective: Interval history: Patient reports he is feeling okay. No chest pain or shortness of breath. I saw him earlier today, and we discussed potentially going home although his potassium was somewhat high. He received a dose of Kayexalate and we recheck the potassium this afternoon and it is slightly higher at 6.0. Medications: Reviewed: Yes Vitals/I&O/Wt Last Vital Signs Temp 98.3 F 06/19/19 04:05 Pulse 64 06/19/19 11:08 Resp 19 H 06/19/19 11:08 BP 154/88 06/19/19 11:08 Pulse Ox 99 06/19/19 11:08 06/18/19 06/19/19 06/19/19 22:59 06:59 14:59 Intake Total 600 / 840 250 / 1090 260 / 260 Output Total 625 / 1225 700 / 1925 500 / 500 Balance -25 / -385 -450 / -835 -240 / -240 Weight last 48 hrs Weight 113.988 kg Weight 113.534 kg Physical Exam Narrative: EXAM NARRATIVE: General exam no apparent distress Cardiovascular regular rate and rhythm with a 2/6 systolic murmur Lungs clear but with diminished breath sounds at the bases Abdomen is soft with positive bowel sounds Extremities 1+ edema left lower extremity, trace right Data : 06/18/19 14:25 06/19/19 13:08 A&P Assessment and plan (1) NSTEMI (non-ST elevated myocardial infarction): Followed by cardiology in [place]. Cardiology consultation appreciated Continue with medical management, patient would like to follow up with his molder machine in [place] Continue on aspirin, Plavix, statin, metoprolol, nitrate Currently asymptomatic Status: Acute Code(s): I21.4 - Non-ST elevation (NSTEMI) myocardial infarction (2) COPD (chronic obstructive pulmonary disease): COPD with acute exacerbation with acute on chronic respiratory failure. Continue on home BiPAP at night. With recent exacerbation. Prednisone 40mg daily and continue on Levaquin. Doing well and improving Status: Chronic Qualifiers: COPD type: emphysema Emphysema type: panlobular Qualified Code(s): J43.1 - Panlobular emphysema Code(s): J44.9 - Chronic obstructive pulmonary disease, unspecified (3) Afib: Continue home metoprolol and amiodarone. Eliquis 5 mg twice daily continued Rhythm is controlled currently Status: Chronic Code(s): I48.91 - Unspecified atrial fibrillation (4) CHF (congestive heart failure): Known diastolic CHF, echocardiogram shows no acute changes Lasix on hold due to increasing BUN and creatinine. BUN and creatinine are improved, potassium is significantly elevated Status: Chronic Qualifiers: Heart failure type: diastolic Heart failure chronicity: acute on chronic Qualified Code(s): I50.33 - Acute on chronic diastolic (congestive) heart failure Code(s): I50.9 - Heart failure, unspecified Additional A&P Information Hyperkalemia. He has struggled with this somewhat during his hospital stay. It was higher today, and on repeat 6.0 after 1 dose of Kayexalate. I will repeat his dose of Kayexalate. Repeat BMP tomorrow. Hopefully if potassium is decreasing he can be discharged. Diabetes mellitus type 2: Continue moderate dose sliding scale insulin, Lantus Morbid obesity Obstructive sleep apnea, respiratory failure not secondary to obstructive sleep apnea Acute kidney injury. Holding Lasix. Likely can resume Friday. Hypertension. Continue metoprolol. Holding JASSI inhibitor secondary to acute kidney injury Coronary artery disease with a history of stenting to the RCA in 2012, patient reports having stent placement at [place]. Patient is on metoprolol, Plavix, Lasix, statin, Imdur, aspirin GERD: Started on PPI DVT prophylaxis with Eliquis CODE STATUS: Full code Attestations Medical Necessity Statement*: Needs continued hospitalization for close monitoring secondary to non-ST elevation myocardial infarction, hyperkalemia Coding Level of Care Code Acute Regional Engagement Consultant for [facility] Diagnoses NSTEMI (non-ST elevated myocardial infarction) I21.4 COPD (chronic obstructive pulmonary disease) J43.1 COPD type: emphysema Emphysema type: panlobular Afib I48.91 CHF (congestive heart failure) I50.33 Heart failure type: diastolic Heart failure chronicity: acute on chronic
[2019-06-19] MEDS: sodium polystyrene sulfonate 15 gm/60 mL Btl PO (14:54)
[2019-06-19 15:57] LABS: Glucose Point of Care 242 mg/dL (70-110)
[2019-06-19 18:20] LABS: Potassium 5.5 mmol/L (3.5-5.1)
[2019-06-19 20:18] LABS: Glucose Point of Care 254 mg/dL (70-110)
[2019-06-19] MEDS: atorvastatin 40 mg Tablet PO (21:00)
[2019-06-19] MEDS: insulin glargine 100 units/1 mL 45 UNIT SUBCUT (21:01)
[2019-06-19] MEDS: HYDROcodone-acetaminophen 10-325 mg Tablet PO (21:18)
[2019-06-20] VITALS (9 sets, daily range): BP systolic 164–210; BP diastolic 63–76; PULSE 59–68; RESP 16–22; TEMP 36.8; O2SAT 93–100
[2019-06-20] MEDS: ipratropium-albuterol 3 mL Neb INHALATION ×2 (02:33→09:58)
[2019-06-20] MEDS: metoprolol succinate ER (24 HR) 50 mg Tablet 100 MG PO (04:31)
[2019-06-20] MEDS: HYDROcodone-acetaminophen 10-325 mg Tablet PO (04:32)
[2019-06-20 06:05] LABS: Glucose Point of Care 125 mg/dL (70-110)
[2019-06-20 06:36] LABS: Anion Gap 15.3 (5-19); Blood Urea Nitrogen 73 mg/dL (8-23); Calcium 9.3 mg/dL (8.5-10.5); Carbon Dioxide 28 mmol/L (22-29); Chloride 96 mmol/L (98-107); Glomerular Filtration Rate 43.5 mL/min (90-130); Glucose 112 mg/dL (65-115); Osmolality Calculated 280 mOsm/kg (285-295); Potassium 4.3 mmol/L (3.5-5.1); Sodium 135 mmol/L (136-145)
[2019-06-20] MEDS: FUROsemide 40 mg Tablet PO (09:22)
[2019-06-20] MEDS: pantoprazole DR 40 mg Tablet PO (09:22)
[2019-06-20] MEDS: amiodarone 200 mg Tablet PO (09:22)
[2019-06-20] MEDS: apixaban 5 mg Tablet PO (09:22)
[2019-06-20] MEDS: predniSONE 20 mg Tablet 40 MG PO (09:22)
[2019-06-20] MEDS: clopidogrel 75 mg Tablet PO (09:22)
[2019-06-20] MEDS: isosorbide mononitrate ER 30 mg Tablet PO (09:23)
[2019-06-20] MEDS: aspirin 81 mg EC Tablet PO (09:23)
[2019-06-20] MEDS: gabapentin 300 mg Capsule PO (09:23)
--- NOTE | 2019-06-20 09:58 | PC.SOCIAL ---
IMM Updated Updated pt on Pg 2 IMM. Provided pt with a copy & left on pt's bedside table. No questions voiced. Signed, dated, & timed original in chart.
[2019-06-20 11:24] LABS: Glucose Point of Care 177 mg/dL (70-110)
[2019-06-20] MEDS: levoFLOXacin 750 mg Tablet PO (11:51)
--- NOTE | 2019-06-20 12:00 | P.DS_ITS ---
Discharge Providers Date of Admission: 06/15/19 10:26 Date of Discharge: June 20, 2019 Attending Provider at Admission: Alem Denny DO Attending Provider at Discharge: Baljinder Melgoza MD Diagnoses at Discharge Discharge Diagnosis (1) NSTEMI (non-ST elevated myocardial infarction): Status: Acute Problem details: Cardiology has evaluated. Continue Plavix, aspirin, statin, isosorbide, m etoprolol (2) COPD (chronic obstructive pulmonary disease): Status: Chronic Problem details: Improved Qualifiers: COPD type: emphysema Emphysema type: panlobular Qualified Code(s): J43.1 - Panlobular emphysema (3) Afib: Status: Chronic Problem details: Controlled. Continue metoprolol, amiodarone (4) CHF (congestive heart failure): Status: Chronic Problem details: diastolic CHF -Echo (12/2018): EF=68%, G1DD Qualifiers: Heart failure type: diastolic Heart failure chronicity: acute on chronic Qualified Code(s): I50.33 - Acute on chronic diastolic (congestive) heart failure Reason for Visit Reason for Visit: Reason For Visit: SHORTNESS OF BREATH Hospital Course Hospital Course: Franc is a 64-year-old white male who presented to the hospital with shortness of breath. He was diagnosed with acute diastolic heart failure, non-ST elevation myocardial infarction, and COPD exacerbation. He was started on nebs. He was diuresed. Cardiology was consulted. Echocardiogram was performed but it was a poor study. Left ventricular function was likely lower limits of normal. With diuresis he had worsening renal insufficiency. Diuresis was stopped, and renal function was allowed to recover. By June 19 he was doing much better. Creatinine was 1.6, potassium 4.3 down from elevated levels the day before. It was thought he could discharge home with follow-up with his primary care provider tomorrow. Physical Exam Narrative: EXAM NARRATIVE: General exam no apparent distress Cardiovascular regular in rhythm without murmur Lungs a few expiratory wheezes Abdomen is soft and positive bowel sounds obese Extremities trace edema Discharge Data Data Completed and Pending: Completed Studies During Hospitalization Category Date Time Status XR chest 1V vipul ble [id number] Stat Exams 06/15/19 04:21 Completed XR chest 2V* [id number] Routine Exams 06/17/19 06:04 Completed CV echo complete* [id number] Routine Ultrasound 06/15/19 10:43 Completed Labs from last 24 hours 06/20/19 06/20/19 06/20/19 11:10 06:09 06:01 Sodium 135 L Potassium 4.3 Chloride 96 L Carbon Dioxide 28 Anion Gap 15.3 BUN 73 H Creatinine 1.6 H GFR Calculation 43.5 L Glucose 112 POC Glucose 177 125 Calculated Osmolal ity 280 L Calcium 9.3 06/19/19 06/19/19 06/19/19 19:44 17:59 15:47 Sodium Potassium 5.5 H Chloride Carbon Dioxide Anion Gap BUN Creatinine GFR Calculation Glucose POC Glucose 254 242 Calculated Osmolal ity Calcium 06/19/19 13:08 Sodium Potassium 6.0 H Chloride Carbon Dioxide Anion Gap BUN Creatinine GFR Calculation Glucose POC Glucose Calculated Osmolal ity Calcium Vitals: Last Vital Signs Temp 98.2 F 06/20/19 04:38 Pulse 59 L 06/20/19 11:11 Resp 19 H 06/20/19 11:11 BP 164/63 06/20/19 11:11 Pulse Ox 96 06/20/19 11:11 Discharge Plan Discharge Patient Disposition: Home, Self-Care Condition: Stable Prescriptions: New atorvastatin 40 mg Tablet 40 mg PO BEDTIME Qty: 30 RF: 0 aspirin 81 mg Tablet,Delayed Release (Dr/Ec) 81 mg PO DAILY Qty: 30 RF: 0 prednisone 20 mg Tablet 40 mg PO DAILY Qty: 6 RF: 0 isosorbide mononitrate 30 mg Tablet Extended Release 24 Hr 30 mg PO DAILY Qty: 30 RF: 0 pantoprazole 40 mg Tablet,Delayed Release (Dr/Ec) 40 mg PO DAILY Qty: 30 RF: 0 levofloxacin 750 mg Tablet 750 mg PO Q48H Qty: 3 RF: 0 Continued metoprolol succinate 100 mg tablet extended release 24 hr 100 mg PO 06 RF: 0 ipratropium-albuterol 0.5 mg-3 mg(2.5 mg base)/3 mL solution for nebulization 3 ml INHALATION Q6H PRN (Reason: Shortness Of Breath) RF: 0 amiodarone 200 mg tablet 200 mg PO DAILY RF: 0 clopidogrel 75 mg tablet 75 mg PO DAILY RF: 0 hydrocodone-acetaminophen 10-325 mg tablet See Rx Instructions .ROUTE .COMPLEX RF: 0 gabapentin 300 mg capsule 300 mg PO TID RF: 0 insulin lispro [Humalog U-100 Insulin] 100 unit/mL solution See Rx Instructions .ROUTE .COMPLEX RF: 0 Spiriva with HandiHaler 18 mcg capsule, w/inhalation device 1 cap INHALATION DAILY RF: 0 Symbicort 160-4.5 mcg/actuation HFA aerosol inhaler 2 puff INHALATION BID RF: 0 Eliquis 5 mg tablet 5 mg PO BID RF: 0 Incruse Ellipta 62.5 mcg/actuation blister with device 1 inh INHALATION DAILY RF: 0 Combivent Respimat 20-100 mcg/actuation mist 2 puff INHALATION Q6H PRN (Reason: unknown) RF: 0 furosemide 40 mg tablet 40 mg PO DAILY 30 Days Qty: 30 RF: 0 Discontinued doxycycline hyclate 100 mg Capsule 100 mg PO BID RF: 0 lisinopril 5 mg tablet 5 mg PO DAILY 30 Days Qty: 30 RF: 0 Referrals: Aura Landaverde MD [Family Provider] - 1-3 days (BMP on follow-up) Discharge Diet: Cardiac and Diabetic Discharge Activity: Resume usual activity Activity Restrictions/Additional Instructions: Take all medicine as prescribed Keep follow-up with primary care provider on Friday Keep nephrology follow-up BMP on Friday Possible restart of lisinopril Friday if no concerns with electrolytes. Discharge Attestations Time Spent in Discharge Care*: greater than 30 min Status at Discharge: Cognitive status at discharge: cognitively intact , Behavioral status at discharge: cooperative , Quality Metrics Clinical Quality Measures During this hospital stay, did patient experience: None Coding Level of Care Code Acute Rose Grading Supervisor for [facility] Diagnoses NSTEMI (non-ST elevated myocardial infarction) I21.4 COPD (chronic obstructive pulmonary disease) J43.1 COPD type: emphysema Emphysema type: panlobular Afib I48.91 CHF (congestive heart failure) I50.33 Heart failure type: diastolic Heart failure chronicity: acute on chronic
== END 2019-06-20 13:20 | disposition home or self-care (01) | DRG 280 ==
LOC: ER 07:11 → ICU 12:26 → CSU 06-16 11:14
PROVIDERS: Emergency Medicine; Admitting Provider Family Medicine; Emergency Provider Family Medicine; Family Provider Family Medicine; Visit Provider Internal Medicine
DX: I21.4 Non-ST elevation (NSTEMI) myocardial infarction (principal); I50.33 Acute on chronic diastolic (congestive) heart failure; J96.01 Acute respiratory failure with hypoxia; J96.02 Acute respiratory failure with hypercapnia; I13.0 Hypertensive heart and chronic kidney disease with heart failure and stage 1 through stage 4 chronic kidney disease, or unspecified chronic kidney disease; N17.9 Acute kidney failure, unspecified; J43.1 Panlobular emphysema; I48.91 Unspecified atrial fibrillation; E78.5 Hyperlipidemia, unspecified; G47.33 Obstructive sleep apnea (adult) (pediatric); J44.9 Chronic obstructive pulmonary disease, unspecified; E11.22 Type 2 diabetes mellitus with diabetic chronic kidney disease; N18.3 Chronic kidney disease, stage 3 (moderate); I25.10 Atherosclerotic heart disease of native coronary artery without angina pectoris; E66.01 Morbid (severe) obesity due to excess calories; K21.9 Gastro-esophageal reflux disease without esophagitis; Z68.38 Body mass index [BMI] 38.0-38.9, adult; Z79.82 Long term (current) use of aspirin; Z79.899 Other long term (current) drug therapy; Z79.4 Long term (current) use of insulin
CPT/HCPCS: 12345; 36415; 36416; 36591; 71045; 71046; 80048; 80053; 80061; 82962; 83605; 83735; 83880; 84132; 84443; 84484; 85025; 87040; 87804; 93005; 93306; 94640; 94660; 94664; 96372; 96375; 97110; 97116; 97162; 97165; 97535; 99284; J0610; J1650; J1815; J1940; J1956; J2930; J7030; J7512; Q0162

== ENCOUNTER 2019-07-04 11:16 | Inpatient (IN) | payer MEDICARE, MEDICAID, SELFPAY ==
[2019-07-04] VITALS (28 sets, daily range): BP systolic 107–199; BP diastolic 63–107; PULSE 67–124; RESP 13–30; TEMP 36.7; O2SAT 77–98; BMI 38.0
--- NOTE | 2019-07-04 11:39 | ED_ITS ---
Entered by Vivienne Rivero, acting as scribe for Neo Loaiza DO HPI - SOB/Dyspnea General: Chief Complaint: Shortness of Breath/Dyspnea Stated Complaint: sob Time Seen by Provider: 07/04/19 11:29 Source: patient Mode of arrival: wheelchair Limitations: no limitations History of Present Illness: HPI Narrative: 64 yo Male presents to ED with complaint of shortness of breath. Pt has a history of COPD and arrives to the ED with oxygen saturations in the 70s. Pt's shortness of breath started last night. Pt does not normally use oxygen at home. MD elicited complaint: shortness of breath Pertinent past history: COPD Onset (ago): day(s) Timing: progressively worsening Exacerbating factors: exertion and movement Relieving factors: oxygen Known history of: COPD Associated symptoms: Reports cough and hemoptysis Treatment prior to arrival: bronchodilator Related Data: Home oxygen amount: none Review of Systems General: Reports: 10 or more systems reviewed and unremarkable except in HPI and below Card: Reports: shortness of breath on exertion Resp: Reports: shortness of breath, productive cough and coughing up blood PFSH ED PFSH: Medical History Afib Controlled. Continue metoprolol, amiodarone CAD (coronary artery disease) RCA stent CHF (congestive heart failure) diastolic CHF -Echo (12/2018): EF=68%, G1DD Chronic kidney disease, stage 3 -has known CKD stage 2-3; baseline Cr around 1.5-1.7 -continue to monitor renal function particularly with diuresis; gradually improving -has f/u with nephrology the first week of June COPD (chronic obstructive pulmonary disease) Improved Diabetes mellitus, type II, insulin dependent Dyslipidemia History of amputation of great toe L, traumatic Hypertension LAURIE (obstructive sleep apnea) Surgical History H/O heart artery stent 2012. RCA stent. 50% LAD lesion at time. Family History Other CAD (coronary artery disease) Social History Smoking and tobacco status: former smoker Alcohol intake: never Lives independently: Yes Household members: none Physical Exam Const: COMMON NORMALS: no apparent distress, average body habitus, oriented x3, no limitations, healthy appearing, alert and well nourished HENMT: COMMON NORMALS: normocephalic, head/scalp atraumatic, hearing grossly normal bilaterally, external ears normal, EAC's normal, TM's normal bilaterally, external nose normal, nasal mucous membranes and turbinates normal, moist oral mucous membranes, oropharynx normal, dentition normal and gingiva normal HEAD & SCALP: normocephalic and atraumatic NOSE: external nose normal and nasal mucous membranes and turbinates normal EXTERNAL EAR: Yes external ears normal EXTERNAL AUDITORY CANAL: EAC's normal TYMPANIC MEMBRANE: TM's normal bilaterally Eye: COMMON NORMALS: PERRL, EOMs intact bilaterally, conjunctivae normal, no scleral icterus, no papilledema, normal visual rand by confrontation and fundi normal bilaterally CONJUNCTIVA: Yes conjunctivae normal PUPIL: Yes PERRL DIRECT OPHTHALMOSCOPY: Yes no papilledema and Yes fundi normal bilaterally Neck/C-Spine: COMMON NORMALS: full ROM, no lymphadenopathy, supple, no meningeal signs, no JVD, thyroid normal and no carotid bruits THYROID: thyroid normal Chest: COMMONS NORMALS: inspection of chest normal and palpation of chest normal Resp: COMMON NORMALS: normal respiratory effort, no retractions, no use of accessory muscles, clear to auscultation bilaterally and percussion normal EFFORT & INSPECTION: Yes respiratory distress (severe) and Yes uses accessory muscles AUSCULTATION: clear to auscultation bilaterally, rhonchi throughout and wheezes throughout PERCUSSION: percussion normal Cardio: COMMON NORMALS: no JVD, regular rate, regular rhythm, S1 normal heart sound, S2 normal heart sound, no gallops, no clicks, no murmurs, no rub and peripheral pulses 2+ throughout RATE: regular rate RHYTHM: regular rhythm HEART SOUNDS: S1 normal and S2 normal PERIPHERAL PULSES: pulses 2+ throughout GI: COMMON NORMALS: normal to inspection, nondistended, normoactive bowel sounds, soft to palpation, non-tender, no hepatosplenomegaly, no masses and no bruits PALPATION: Yes soft and Yes no hepatosplenomegaly : COMMON NORMALS: Yes no CVA tenderness BLADDER/KIDNEY EXAM: Yes no CVA tenderness Back/Pelvis: COMMON NORMALS: no CVA tenderness, thoracic and lumbar spine normal to inspection, no thoracic nor lumbar tenderness, thoraco-lumbar ROM normal and straight leg raise negative bilaterally Extremity: COMMON NORMALS: normal to inspection, full ROM, normal capillary refill, no joint enlargement, no clubbing, cyanosis or edema, no calf tenderness and no pedal edema RIGHT LOWER EXTREMITY: Yes lower leg Right lower leg: Yes inspection (3+ edema) LEFT LOWER EXTREMITY: Yes lower leg Left lower leg: Yes inspection (3+ edema) Neuro: COMMON NORMALS: oriented x3 SENSORIUM/ORIENTATION: Yes alert MENINGEAL SIGNS: Yes no meningeal signs Skin: COMMON NORMALS: no rashes or lesions noted, no wounds, skin turgor normal, no jaundice, no petechiae and no mottling GENERAL SKIN EXAM: no rashe s or lesions noted and turgor normal Course Vital Signs: Vital signs: Vital Signs Temperature 98.1 F 07/04/19 11:27 Pulse Rate 83 07/04/19 15:00 Respiratory Rate 18 07/04/19 15:00 Blood Pressure 168/107 07/04/19 15:00 Pulse Oximetry 95 07/04/19 15:00 MDM - SOB/Dyspnea Lab Data: Labs: Lab Results 07/04/19 07/04/19 07/04/19 Range/Units 11:55 11:55 11:55 WBC 14.8 H (4.0-10.0) 10^3/ uL RBC 4.09 L (4.1-5.3) 10^6/u L Hgb 10.5 L (11.7-16.6) g/dL Hct 35.0 L (42.0-52.0) % MCV 85.6 (80-94) fL MCH 25.7 L (28.0-34.0) pg MCHC 30.0 (30.0-36.0) g/dL RDW 16.9 H (12.1-15.1) % Plt Count 169 (130-400) 10^3/c mm MPV 11.1 H (7.4-10.4) fL Neut % (Auto) 92.4 % Lymph % (Auto) 1.7 % Hitchcock % (Auto) 5.3 % Eos % (Auto) 0.0 % Baso % (Auto) 0.1 % Neut # (Auto) 13.7 H (1.8-7.7) 10^3/u L Lymph # (Auto) 0.3 L (0.8-4.8) 10^3/u L Hitchcock # (Auto) 0.8 (0.2-0.9) 10^3/u L Eos # (Auto) 0.0 (0.0-0.8) 10^3/u L Baso # (Auto) 0.0 (0.0-0.1) 10^3/u L Nucleated RBC % (a uto) 0 % Nucleated RBCs # 0.0 /100WBC PT 17.30 H (10.5-13.3) SECO NDS INR 1.36 H (0.8-1.2) Specimen Type Sample Site ABG pH (7.35-7.45) ABG pCO2 (35-45) mmHg ABG pO2 (80.0-100.0) mmH g ABG HCO3 (22-26) mmol/L ABG Base Excess (-2.0-2.0) mmol/ L Matthew Test Hematocrit (42-52) % O2 Delivery Device O2 Liters/Min % FiO2 % Shipyard Helper ID Sodium 131 L (136-145) mmol/L Potassium 5.6 H (3.5-5.1) mmol/L Chloride 91 L (98-107) mmol/L Carbon Dioxide 24 (22-29) mmol/L Anion Gap 21.6 H (5-19) BUN 63 H (8-23) mg/dL Creatinine 1.5 H (0.7-1.2) mg/dL GFR Calculation 46.8 L (90-130) mL/min Glucose 648 H* (65-115) mg/dL POC Glucose (70-110) mg/dL Calculated Osmolal ity 302 H (285-295) mOsm/k g Calcium 9.3 (8.5-10.5) mg/dL Total Bilirubin 0.6 (0.15-1.2) mg/dL AST 20 (0-40) U/L ALT 22 (0-41) U/L Alkaline Phosphata se 91 (40-130) IU/L Troponin T Baselin e (0-15) ng/mL Troponin T 120 Min [place] (0-15) ng/mL Delta Troponin T (0-10) ABS# NT-Pro-B Natriuret Pep 94567 H (0-125) pg/mL Total Protein 6.7 (6.6-8.7) g/dL Albumin 3.2 L (3.5-5.2) g/dL Globulin 3.5 (1.3-4.6) g/dL Influenza Type A A g (Negative) POC Influenza B Ag (Negative) 07/04/19 07/04/19 07/04/19 Range/Units 11:55 12:20 12:58 WBC (4.0-10.0) 10^3/ uL RBC (4.1-5.3) 10^6/u L Hgb (11.7-16.6) g/dL Hct (42.0-52.0) % MCV (80-94) fL MCH (28.0-34.0) pg MCHC (30.0-36.0) g/dL RDW (12.1-15.1) % Plt Count (130-400) 10^3/c mm MPV (7.4-10.4) fL Neut % (Auto) % Lymph % (Auto) % Hitchcock % (Auto) % Eos % (Auto) % Baso % (Auto) % Neut # (Auto) (1.8-7.7) 10^3/u L Lymph # (Auto) (0.8-4.8) 10^3/u L Hitchcock # (Auto) (0.2-0.9) 10^3/u L Eos # (Auto) (0.0-0.8) 10^3/u L Baso # (Auto) (0.0-0.1) 10^3/u L Nucleated RBC % (a uto) % Nucleated RBCs # /100WBC PT (10.5-13.3) SECO NDS INR (0.8-1.2) Specimen Type Arterial Sample Site Brachial, left ABG pH 7.42 (7.35-7.45) ABG pCO2 41.0 (35-45) mmHg ABG pO2 76.8 L (80.0-100.0) mmH g ABG HCO3 26.2 H (22-26) mmol/L ABG Base Excess 1.5 (-2.0-2.0) mmol/ L Matthew Test N/a Hematocrit 32.1 L (42-52) % O2 Delivery Device Nc O2 Liters/Min 4.0 % FiO2 36.0 % Shipyard Helper ID amh Sodium (136-145) mmol/L Potassium (3.5-5.1) mmol/L Chloride (98-107) mmol/L Carbon Dioxide (22-29) mmol/L Anion Gap (5-19) BUN (8-23) mg/dL Creatinine (0.7-1.2) mg/dL GFR Calculation (90-130) mL/min Glucose (65-115) mg/dL POC Glucose (70-110) mg/dL Calculated Osmolal ity (285-295) mOsm/k g Calcium (8.5-10.5) mg/dL Total Bilirubin (0.15-1.2) mg/dL AST (0-40) U/L ALT (0-41) U/L Alkaline Phosphata se (40-130) IU/L Troponin T Baselin e 97 H (0-15) ng/mL Troponin T 120 Min [place] (0-15) ng/mL Delta Troponin T (0-10) ABS# NT-Pro-B Natriuret Pep (0-125) pg/mL Total Protein (6.6-8.7) g/dL Albumin (3.5-5.2) g/dL Globulin (1.3-4.6) g/dL Influenza Type A A g Negative (Negative) POC Influenza B Ag Negative (Negative) 07/04/19 07/04/19 Range/Units 13:30 14:21 WBC (4.0-10.0) 10^3/ uL RBC (4.1-5.3) 10^6/u L Hgb (11.7-16.6) g/dL Hct (42.0-52.0) % MCV (80-94) fL MCH (28.0-34.0) pg MCHC (30.0-36.0) g/dL RDW (12.1-15.1) % Plt Count (130-400) 10^3/c mm MPV (7.4-10.4) fL Neut % (Auto) % Lymph % (Auto) % Hitchcock % (Auto) % Eos % (Auto) % Baso % (Auto) % Neut # (Auto) (1.8-7.7) 10^3/u L Lymph # (Auto) (0.8-4.8) 10^3/u L Hitchcock # (Auto) (0.2-0.9) 10^3/u L Eos # (Auto) (0.0-0.8) 10^3/u L Baso # (Auto) (0.0-0.1) 10^3/u L Nucleated RBC % (a uto) % Nucleated RBCs # /100WBC PT (10.5-13.3) SECO NDS INR (0.8-1.2) Specimen Type Sample Site ABG pH (7.35-7.45) ABG pCO2 (35-45) mmHg ABG pO2 (80.0-100.0) mmH g ABG HCO3 (22-26) mmol/L ABG Base Excess (-2.0-2.0) mmol/ L Matthew Test Hematocrit (42-52) % O2 Delivery Device O2 Liters/Min % FiO2 % Shipyard Helper ID Sodium (136-145) mmol/L Potassium (3.5-5.1) mmol/L Chloride (98-107) mmol/L Carbon Dioxide (22-29) mmol/L Anion Gap (5-19) BUN (8-23) mg/dL Creatinine (0.7-1.2) mg/dL GFR Calculation (90-130) mL/min Glucose (65-115) mg/dL POC Glucose 478 (70-110) mg/dL Calculated Osmolal ity (285-295) mOsm/k g Calcium (8.5-10.5) mg/dL Total Bilirubin (0.15-1.2) mg/dL AST (0-40) U/L ALT (0-41) U/L Alkaline Phosphata se (40-130) IU/L Troponin T Baselin e (0-15) ng/mL Troponin T 120 Min [place] 114.2 H (0-15) ng/mL Delta Troponin T 17.2 H* (0-10) ABS# NT-Pro-B Natriuret Pep (0-125) pg/mL Total Protein (6.6-8.7) g/dL Albumin (3.5-5.2) g/dL Globulin (1.3-4.6) g/dL Influenza Type A A g (Negative) POC Influenza B Ag (Negative) Imaging Data^: CXR: Radiologist's impression: [address] [address] XRay Report Signed Patient: Franc Olivares #: [id number] : 4Acct#:[id number] Age/Sex: 64 / MADM Date: 07/04/19 Loc: ERRoom/Bed: Attending Dr: Ordering Provider/Ordering MD: Neo Loaiza DO Date of Service: 07/04/19 Procedure(s): XR chest 1V portable [id number] Accession Number(s): [id number] Report Number: [id number] PROCEDURE INFORMATION: Exam: XR Chest, 1 View Exam date and time: 07/04/2019 11:42 AM Age: 64 years old Clinical indication: Shortness of breath; Additional info: Dyspnea TECHNIQUE: Imaging protocol: XR of the chest Views: 1 view. COMPARISON: CR XR chest 2V* [id number] 06/17/2019 6:26 AM FINDINGS: Lungs: Parenchymal densities are seen in the right perihilar region. Low lung volumes are present. Interstitial congestion is seen in the bilateral lower lobes. Pleural space: Bilateral lower lobe pleural effusion. No pneumothorax. Heart/Mediastinum: Unremarkable. No cardiomegaly. Bones/joints: Unremarkable. XR/XR chest 1V portable [id number] IMPRESSION: Parenchymal densities right perihilar region. Interstitial congestion bilateral lower lobes Dictated By:Jose Zuñiga Signed By:Shan Zuñiga Date/Time:07/04/19 1238 DD/ 1237 Discharge Plan Discharge Patient Disposition: Admitted As Inpatient Clinical Impression: Acute respiratory failure with hypoxia and hypercapnia, Acute exacerbation of chronic obstructive airways disease, NSTEMI (non-ST elevated myocardial infarction) CHF (congestive heart failure) Qualifiers: Heart failure type: unspecified Heart failure chronicity: chronic Qualified Code(s): I50.9 - Heart failure, unspecified Pneumonia Qualifiers: Pneumonia type: due to unspecified organism Laterality: bilateral Lung location: unspecified part of lung Qualified Code(s): J18.9 - Pneumonia, unspecified organism Condition: Fair Referrals: Aura Landaverde MD [Family Provider] - Coding Level of Care Code ED Technical Assistant for Chg Fwd Exam Comprehensive The documentation recorded by the Mat kirkpatrick Carmen, accurately reflects th e service I personally performed and the decisions made by Josse denney Donald P, DO Jul 04, 2019 11:16
--- NOTE | 2019-07-04 11:39 | XRR_ITS ---
PROCEDURE INFORMATION: Exam: XR Chest, 1 View Exam date and time: 07/04/2019 11:42 AM Age: 64 years old Clinical indication: Shortness of breath; Additional info: Dyspnea TECHNIQUE: Imaging protocol: XR of the chest Views: 1 view. COMPARISON: CR XR chest 2V* [id number] 06/17/2019 6:26 AM FINDINGS: Lungs: Parenchymal densities are seen in the right perihilar region. Low lung volumes are present. Interstitial congestion is seen in the bilateral lower lobes. Pleural space: Bilateral lower lobe pleural effusion. No pneumothorax. Heart/Mediastinum: Unremarkable. No cardiomegaly. Bones/joints: Unremarkable. XR/XR chest 1V portable [id number] IMPRESSION: Parenchymal densities right perihilar region. Interstitial congestion bilateral lower lobes
--- NOTE | 2019-07-04 11:41 | ECG_ITS ---
Measurements Intervals [place] Rate: 97 P: 60 FL: 164 QRS: 55 QRSD: 106 T: 70 QT: 320 QTc: 407 SINUS RHYTHM LOW QRS VOLTAGE IN EXTREMITY LEADS POSSIBLE ANTERIOR MYOCARDIAL INFARCTION , OF INDETERMINATE AGE Compared to ECG 06/15/2019 10:22:47 Low QRS voltage now present Atrial abnormality no longer present Myocardial infarct finding still present Electronically Signed On 07-05-2019 11:33:00 CDT by Uma Carter M.D. [email or web address]
[2019-07-04] MEDS: ipratropium-albuterol 3 mL Neb 6 ML INHALATION (11:44)
[2019-07-04] MEDS: ipratropium-albuterol 3 mL Neb INHALATION ×4 (11:53→23:40)
[2019-07-04 12:07] LABS: Basophils % 0.1 %; Hemoglobin 10.5 g/dL (11.7-16.6); Lymphocytes # 0.3 10^3/uL (0.8-4.8); Lymphocytes % 1.7 %; Mean Corpuscular Hemoglobin 25.7 pg (28.0-34.0); Mean Corpuscular Volume 85.6 fL (80-94); Mean Platelet Volume 11.1 fL (7.4-10.4); Monocytes # 0.8 10^3/uL (0.2-0.9); Monocytes % 5.3 %; Neutrophils # 13.7 10^3/uL (1.8-7.7); Neutrophils % 92.4 %; Nucleated Red Blood Cells % 0 %; Platelet Count 169 10^3/cmm (130-400); Red Blood Count 4.09 10^6/uL (4.1-5.3); Red Cell Distribution Width 16.9 % (12.1-15.1); White Blood Count 14.8 10^3/uL (4.0-10.0)
[2019-07-04 12:10] LABS: INR 1.36 (0.8-1.2)
[2019-07-04 12:20] LABS: Troponin(5th) Baseline 97 ng/mL (0-15)
[2019-07-04 12:26] LABS: Alanine Aminotransferase 22 U/L (0-41); Albumin Level 3.2 g/dL (3.5-5.2); Alkaline Phosphatase 91 IU/L (40-130); Anion Gap 21.6 (5-19); Blood Urea Nitrogen 63 mg/dL (8-23); Calcium 9.3 mg/dL (8.5-10.5); Carbon Dioxide 24 mmol/L (22-29); Chloride 91 mmol/L (98-107); Globulin 3.5 g/dL (1.3-4.6); Glomerular Filtration Rate 46.8 mL/min (90-130); NT Pro B Type Natriuretic Pept 14153 pg/mL (0-125); Osmolality Calculated 302 mOsm/kg (285-295); Potassium 5.6 mmol/L (3.5-5.1); Sodium 131 mmol/L (136-145); Total Bilirubin 0.6 mg/dL (0.15-1.2); Total Protein 6.7 g/dL (6.6-8.7)
[2019-07-04 12:28] LABS: Glucose 648 mg/dL (65-115)
[2019-07-04 12:30] LABS: Aspartate Amino Transferase 20 U/L (0-40)
[2019-07-04 13:09] LABS: ABG PH Result 7.42 (7.35-7.45); Arterial Blood Gas Hematocrit 32.1 % (42-52); Base Excess ABG 1.5 mmol/L (-2.0-2.0); Blood Gas Operator Identificat amh; Blood Gas Sample Site Brachial, left; Blood Gas Sample Type Arterial; HCO3 ABG 26.2 mmol/L (22-26); Oxygen Device NC; PO2 ABG 76.8 mmHg (80.0-100.0)
[2019-07-04] MEDS: insulin regular-human 100 units/1 mL 10 UNIT IVP ×2 (13:14→15:01)
--- NOTE | 2019-07-04 13:41 | ECG_ITS ---
Measurements Intervals [place] Rate: 83 P: 91 DC: 169 QRS: 65 QRSD: 102 T: 73 QT: 346 QTc: 408 SINUS RHYTHM LOW QRS VOLTAGE IN EXTREMITY LEADS [QRS DEFLECTION < 0.5 mV IN LIMB LEADS] ANTEROSEPTAL MYOCARDIAL INFARCTION , OF INDETERMINATE AGE [40+ ms Q WAVE IN V1- V4] Compared to ECG 06/15/2019 10:22:47 Low QRS voltage now present Atrial abnormality no longer present Myocardial infarct finding still present Electronically Signed On 07-05-2019 11:33:27 CDT by Uma Carter M.D. [id number]
[2019-07-04] MEDS: piperacillin-tazobactam 4.5 GM in sodium chloride 0.9% (plus) 50 ML IV (13:58)
[2019-07-04 13:59] LABS: Influenza A by IFA Negative (Negative); Influenza B by IFA Negative (Negative)
[2019-07-04 14:15] LABS: Troponin 5 2HR 114.2 ng/mL (0-15); Troponin 5 2HR Delta 17.2 ABS# (0-10)
[2019-07-04 14:25] LABS: Glucose Point of Care 478 mg/dL (70-110)
[2019-07-04] MEDS: sodium chloride 0.9% 1,000 ML 100 ML IV (16:08)
--- NOTE | 2019-07-04 16:08 | CTR_ITS ---
PROCEDURE INFORMATION: Exam: CT Chest Without Contrast Exam date and time: 07/04/2019 5:48 PM Age: 64 years old Clinical indication: Shortness of breath; Patient HX: SOB; Additional info: Hemoptysis TECHNIQUE: Imaging protocol: Computed tomography of the chest without contrast. Total DLP: 979.39 mGy-cm Radiation optimization: All CT scans at this facility use at least one of these dose optimization techniques: automated exposure control; mA and/or kV adjustment per patient size (includes targeted exams where dose is matched to clinical indication); or iterative reconstruction. COMPARISON: CR XR chest 1V portable [id number] 07/04/2019 12:07 PM FINDINGS: Lungs: Bilateral airspace opacities are identified compatible with pneumonic infiltrates. This is greatest in the right upper lobe and both lower lobes. Pleural space: There are small pleural effusions right greater than left. No pleural thickening or gas in the pleural fluid is suggest empyema. No cavitary pneumonia. Heart: There is a small hiatal hernia. The heart is enlarged. There are coronary artery calcifications. Aorta: Unremarkable. No aortic aneurysm. Lymph nodes: No axillary adenopathy. Multiple subcentimeter lymph nodes are noted in the mediastinum and kolby. Bones/joints: Moderate degenerative changes are noted in the spine. No acute bony abnormality. Soft tissues: Unremarkable. CT/CT chest [facility] [id number] IMPRESSION: 1. There are small pleural effusions right greater than left. 2. Bilateral airspace opacities are noted throughout both lungs compatible with pneumonic infiltrates greatest in the lower lobes. Radiation Dose CTDIVOL = (mGy): DLP = 979.39 (mGy-cm)
[2019-07-04 16:11] LABS: Procalcitonin 0.11 ng/mL (0-0.5)
--- NOTE | 2019-07-04 16:11 | P.HP_ITS ---
Providers/Chief Complaint Chief Complaint: sob History of Present Illness Franc Olivares is a 64 year old male with a past medical history of heart failure with preserved ejection fraction, COPD BiPAP dependent, no home O2, chronic kidney disease stage III, CAD status post RCA stenting on aspirin Plavix, insulin-dependent type 2 diabetes mellitus, hypertension, hyperlipidemia, LAURIE, atrial fibrillation on Eliquis, who presents to [facility] ER due to complaints of shortness of breath and chest pain. Patient has had multiple hospitalizations in the last few months for CHF and COPD exacerbations. Patient states that last he felt short of breath, had productive cough brown sputum, evolving to hemoptysis, he has a COPD exacerbation kit, what I can gather he has some steroids and antibiotics which he took, his symptoms persisted, felt short of breath with minimal exertion persistent cough, persistent hemoptysis, no fevers, no chills, no sick contacts, no recent travel, patient states that he lives in [place] by himself, has a pet dog, uses medication as prescribed patient states. Patient states his blood sugars might be elevated because of the prednisone that he has taken from the rescue kit. Patient also states that this morning he had some substernal chest pain, like something sitting on his chest, nonradiating, associated shortness of breath, no lightheadedness, dizziness, lasting a few minutes, patient status post RCA stenting less than a year ago in [place], patient was supposed to follow-up with cardiology after his last discharge, but he was short of breath, could not make it to the appointment, his appointment was is scheduled for next week, has not had his outpatient stress test. Reports bilateral lower extremity edema and swelling. Review of Systems Const: Denies: fever, chills, fatigue or malaise Eyes: Denies: change in vision or blurry vision ENMT: Denies: nasal congestion Card: Reports: chest pain Resp: Reports: shortness of breath, productive cough and coughing up blood; Denies: non-productive cough or wheezing GI: Denies: abdominal pain, nausea, vomiting, vomiting blood, diarrhea, constipation, blood in stool or black tarry stool : Denies: flank pain, difficulty urinating, painful urination or urinary frequency Musc: Denies: neck pain or back pain Skin/Breast: Denies: rash Neuro: Denies: headache, dizziness or vertigo Psych: Denies: anxiety or depression Endo: Denies: excessive urination or excessive thirst Medications/Allergies Home Medications Medication Instructions Recorded Confirmed Last Taken Type Fish Oil 1 cap PO DAILY 07/04/19 07/04/19 Unknown History amoxicillin-pot clavulanate 1 tab PO BID 07/04/19 07/04/19 07/04/19 History [Augmentin] cinnamon bark [Cinnamon] 500 mg PO DAILY 07/04/19 07/04/19 Unknown History guaifenesin [Mucinex] 1,200 mg PO DAILY 07/04/19 07/04/19 07/03/19 History insulin glargine [Lantus Solostar 15 unit SUBCUT BEDTIME 07/04/19 07/04/19 07/03/19 History U-100 Insulin] lisinopril 5 mg PO DAILY 07/04/19 07/04/19 Unknown History prednisone 40 mg PO DAILY 07/04/19 07/04/19 07/04/19 History Allergies Allergy/AdvReac Type Severity Reaction Status Date / Time No Known Allergies Allergy Verified 06/15/19 04:27 PFSH Acute PFSH: Medical History Afib Controlled. Continue metoprolol, amiodarone CAD (coronary artery disease) RCA stent CHF (congestive heart failure) diastolic CHF -Echo (12/2018): EF=68%, G1DD Chronic kidney disease, stage 3 -has known CKD stage 2-3; baseline Cr around 1.5-1.7 -continue to monitor renal function particularly with diuresis; gradually improving -has f/u with nephrology the first week of June COPD (chronic obstructive pulmonary disease) Improved Diabetes mellitus, type II, insulin dependent Dyslipidemia History of amputation of great toe L, traumatic Hypertension LAURIE (obstructive sleep apnea) Surgical History H/O heart artery stent 2012an. RCA stent. 50% LAD lesion at time. Family History Other CAD (coronary artery disease) Social History Smoking and tobacco status: former smoker Alcohol intake: never Lives independently: Yes Household members: none Vitals/I&O/Wt Last Vital Signs Temp 98.1 F 07/04/19 11:27 Pulse 81 07/04/19 15:52 Resp 18 07/04/19 15:52 BP 168/107 07/04/19 15:00 Pulse Ox 96 07/04/19 15:52 Weight last 48 hrs Weight 113.398 kg Physical Exam Const: COMMON NORMALS: no apparent distress and oriented x3 GENERAL APPEAR ANCE: cooperative and comfortable HENMT: COMMON NORMALS: normocephalic HEAD & SCALP: normocephalic Eye: COMMON NORMALS: PERRL, EOMs intact bilaterally and no papilledema GENERAL EYE: normal appearance of both eyes PUPIL: Yes PERRL DIRECT OPHTHALMOSCOPY: Yes no papilledema Neck/C-Spine: COMMON NORMALS: full ROM, no lymphadenopathy, no JVD and thyroid normal THYROID: thyroid normal Lymph: LYMPHATIC: no lymphadenopathy noted Resp: COMMON NORMALS: normal respiratory effort, no retractions, no use of accessory muscles and clear to auscultation bilaterally EFFORT & INSPECTION: Yes tachypneic AUSCULTATION: rhonchi and wheezes Cardio: COMMON NORMALS: no JVD, regular rate, regular rhythm, S1 normal heart sound, S2 normal heart sound, no gallops, no clicks and no murmurs RATE: regular rate RHYTHM: regular rhythm HEART SOUNDS: S1 normal and S2 normal GI: COMMON NORMALS: normal to inspection, nondistended, normoactive bowel sounds, soft to palpation, non-tender and no hepatosplenomegaly PALPATION: Yes soft and Yes no hepatosplenomegaly Extremity: COMMON NORMALS: normal to inspection, full ROM and no pedal edema Neuro: COMMON NORMALS: oriented x3, CN's II-XII intact bilaterally, moves all extremities and no focal motor deficits Psych: COMMON NORMALS: mental status grossly normal, thought process normal and cooperative THOUGHT PROCESS: normal thought process Data : 07/04/19 11:55 07/04/19 11:55 Micro: Microbiology 07/04/19 11:55 Blood Culture - Preliminary Blood SPECIMEN COLLECTED 07/04/19 11:50 Blood Culture - Preliminary Blood SPECIMEN COLLECTED A&P Assessment and plan (1) Acute respiratory failure: -Secondary to right sided pneumonia, diastolic CHF bit with BNP in the 14,000, and COPD exacerbation Plan: -Continue broad-spectrum antibiotics vancomycin and Zosyn, cover for healthcare associated pneumonia as he has been readmitted a couple times in the last few months -DuoNeb treatments, every 4 hours, every 2 as needed -Received Solu-Medrol in the ER, continue prednisone 40 mg once daily -Bumex 1 mg every 12 hours with metolazone 5 mg once daily -Fluid restrictions 1500 cc an hour, monitor urine output, monitor creatinine -Continue BiPAP overnight, nasal cannula during the day Status: Acute Code(s): J96.00 - Acute respiratory failure, unspecified whether with hypoxia or hypercapnia (2) Pneumonia: Urine bacterial antigens, sputum culture, viral panel Status: Acute Qualifiers: Laterality: bilateral Lung location: unspecified part of lung Pneumonia type: due to unspecified organism Qualified Code(s): J18.9 - Pneumonia, unspecified organism Code(s): J18.9 - Pneumonia, unspecified organism (3) NSTEMI (non-ST elevated myocardial infarction): -Likely supply demand ischemia from type II NSTEMI -But has a positive delta Trop, and history of RCA stent placement, and chest pain, EKG no significant ST-T wave changes Plan: -Continue telemetry monitoring -Switch to Lovenox 1 charan per kick twice daily, hold Eliquis -Aspirin, statin, beta-christina -Monitor for chest pain -Patient had an echocardiogram on his last admission which showed grade 1 diastolic dysfunction, ejection fraction 55%, poor study Status: Acute Code(s): I21.4 - Non-ST elevation (NSTEMI) myocardial infarction (4) Dyslipidemia: Status: Chronic Code(s): E78.5 - Hyperlipidemia, unspecified (5) Hypertension: Hypertensive urgency, start home meds Status: Chronic Code(s): I10 - Essential (primary) hypertension (6) LAURIE (obstructive sleep apnea): Status: Chronic Code(s): G47.33 - Obstructive sleep apnea (adult) (pediatric) (7) Chronic anticoagulation: On hold as on therapeutic Lovenox Status: Chronic Code(s): Z79.01 - 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) use of anticoagulants (8) Diabetes mellitus, type II, insulin dependent: Hyperglycemia secondary to steroids Increase Lantus to 20 units at bedtime, high-dose sliding scale Status: Chronic Code(s): E11.9 - Type 2 diabetes mellitus without complications; Z79.4 - 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) use of insulin (9) Chronic kidney disease, stage 3: Creatinine 1.5 Status: Chronic Code(s): N18.3 - Chronic kidney disease, stage 3 (moderate) (10) Afib: Continue amiodarone, metoprolol Status: Chronic Code(s): I48.91 - Unspecified atrial fibrillation (11) COPD (chronic obstructive pulmonary disease): Status: Chronic Qualifiers: COPD type: emphysema Emphysema type: panlobular Qualified Code(s): J43.1 - Panlobular emphysema Code(s): J44.9 - Chronic obstructive pulmonary disease, unspecified (12) CHF (congestive heart failure): Status: Chronic Qualifiers: Heart failure type: unspecified Heart failure chronicity: chronic Qualified Code(s): I50.9 - Heart failure, unspecified Code(s): I50.9 - Heart failure, unspecified Attestations Medical Necessity Statement*: Patient requires hospitalization, inpatient, greater than 2 midnights, for acute respiratory failure Coding Level of Care Code Acute Advisory Application Developer for [facility] Diagnoses Acute respiratory failure J96.00 Pneumonia J18.9 Laterality: bilateral Lung location: unspecified part of lung Pneumonia type: due to unspecified organism NSTEMI (non-ST elevated myocardial infarction) I21.4 Dyslipidemia E78.5 Hypertension I10 LAURIE (obstructive sleep apnea) G47.33 Chronic anticoagulation Z79.01 Diabetes mellitus, type II, insulin dependent E11.9; Z79.4 Chronic kidney disease, stage 3 N18.3 Afib I48.91 COPD (chronic obstructive pulmonary disease) J43.1 COPD type: emphysema Emphysema type: panlobular CHF (congestive heart failure) I50.9 Heart failure type: unspecified Heart failure chronicity: chronic
[2019-07-04 16:14] LABS: Glucose Point of Care 393 mg/dL (70-110)
[2019-07-04 16:22] LABS: C Reactive Protein 133.7 mg/L (0.0-4.9)
[2019-07-04 16:28] LABS: Erythrocyte Sedimentation Rate 74 mm/hr (0-10)
[2019-07-04] MEDS: metOLazone 5 MG Tablet PO (16:55)
[2019-07-04] MEDS: enoxaparin 120 mg/0.8 mL Syringe 110 MG SUBCUT (16:55)
[2019-07-04] MEDS: bumetanide 0.25 mg/mL SDV 10 mL 1 MG IV (16:56)
[2019-07-04] MEDS: HYDROcodone-acetaminophen 10-325 mg Tablet 1 TAB PO (17:06)
[2019-07-04 17:08] LABS: Estmated Average Glucose 197; Hemoglobin A1C 8.5 % (4.0-6.0)
[2019-07-04 19:07] LABS: Troponin 5 6HR 157.5 ng/mL (0-15); Troponin 5 6HR Delta 60.5 ng/L (0-12)
--- NOTE | 2019-07-04 19:15 | PC.NURSE ---
lab called with critical results: 6hr troponin 157.5, delta now 60.5 notified Garcia via phone with his response being patient already on lovenox and to be sure he ordered an echocardiogram and to also notify the MD general hardware salesperson. Dr Lau notified of results at this time also. MMorgan RN
--- NOTE | 2019-07-04 19:37 | PC.PHAR ---
Pharmacokinetic dosing service Date: 07/04/19 Time: 1937 Objective: Patient: Franc Olivares Floor: ICU-10 Age: 64 yo Serum creatinine: 1.5 mg/dL Height: 68.0 Inches Weight (kg): 113.398 Diagnosis: Relevant medical/social history: Cultures and sensitivities: Other labs: Assessment: IBW (kg): 68.40 Dosing wt(kg): 113.398 Estimated Creatinine clearance (ml/min): 46.9 CRCL method: Cockcroft and Gault using ibw(default). Drug selected: Vancomycin Loading dose (mg): 0 Vd (liters): 102.1 (factor used: 0.9 L/kg) Salvatore (hr-1): 0.043 Half life (hrs): 16.12 Recommended dose: 2000 mg Interval: 24 hrs Infusion time (hrs): 1.5 Predicted peak (mcg/mL): 29.5 Predicted trough (mcg/mL): 11.21 Total body weight is being used for vancomycin dosing. Renal function is stable [ ] /unstable [ ] Recommendations: Give Vancomycin 2000 mg q 24 hrs with an expected Cpeak of 29.5 mcg/ml and an expected Ctrough of 11.21 mcg/ml Renal dosing of other antibiotics (review renal dosing of other medications and list guidelines here): Thank you for the consult, will continue to follow. Signature: [facility]
--- NOTE | 2019-07-04 20:19 | PC.NURSE ---
accucheck result = HI, lab notified for need to draw blood glucose stat. MMorgan RN
[2019-07-04 20:30] LABS: Glucose Point of Care > 600 mg/dL (70-110)
[2019-07-04] MEDS: gabapentin 300 mg Capsule PO (20:59)
[2019-07-04] MEDS: atorvastatin 40 mg Tablet PO (20:59)
[2019-07-04] MEDS: HYDROcodone-acetaminophen 10-325 mg Tablet PO (21:00)
[2019-07-04] MEDS: insulin glargine 100 units/1 mL 20 UNIT SUBCUT (21:01)
[2019-07-04 21:10] LABS: Glucose 677 mg/dL (65-115)
--- NOTE | 2019-07-04 21:13 | PC.NURSE ---
critical lab result blood glucose = 677, contacted Dr Lau with new orders received for 25 units novolog now. MMorgan RN
[2019-07-04] MEDS: piperacillin-tazobactam 3.375 GM in sodium chloride 0.9% (plus) 100 ML IV (22:16)
--- NOTE | 2019-07-04 23:07 | PC.NURSE ---
patient refused recheck of blood sugar at this time, says I have had alot of regular insulin since I have gotten here and I want to wait a little longer so I don't end up bottoming out here in a while. attempts to educate patient about our protocol here at the hospital and his hyperglycemic reading unsuccessful. Patient stated I do this every time I get steroids. MMORGAN RN
[2019-07-05] VITALS (27 sets, daily range): BP systolic 122–176; BP diastolic 57–127; PULSE 60–109; RESP 13–26; TEMP 36.7–36.8; O2SAT 87–100
[2019-07-05] MEDS: HYDROcodone-acetaminophen 10-325 mg Tablet PO ×2 (02:19→20:36)
[2019-07-05 02:30] LABS: Glucose Point of Care > 600 mg/dL (70-110)
--- NOTE | 2019-07-05 02:54 | USCV_ITS ---
Franc Olivares Age: 64 Gender: M : 1955 Exam Date: 07/05/2019 09:02 Ordering Phys: [place] MD Technologist: Chema Calix [place] [facility] [place]: ELVAT TROP BP: 138 / 76 HR: 64 Rhythm: Sinus Technical Quality: MEASUREMENTS (Male / Female) Normal Values 2D ECHO LV Diastolic Diameter PLAX 5.5 cm 4.2 - 5.9 / 3.9 - 5.3 cm LV Systolic Diameter PLAX 4.4 cm IVS Diastolic Thickness 1.6 cm 0.6 - 1.0 / 0.6 - 0.9 cm IVS Systolic Thickness 1.6 cm LVPW Diastolic Thickness 1.1 cm 0.6 - 1.0 / 0.6 - 0.9 cm LVPW Systolic Thickness 1.8 cm LVOT Diameter 2.7 cm LV Ejection Fraction 2D Teich 40.5 % LV Ejection Fraction MOD 2C 63.3 % LV Ejection Fraction 2C AL 63.8 % LA Diameter 5.6 cm LA Width 4.9 cm LA Height 5.3 cm RA Width 4.1 cm RA Height 4.8 cm Aorta at Sinotubular Diameter 3.4 cm M-MODE LV Diastolic Diameter MM 5.5 cm 4.2 - 5.9 / 3.9 - 5.3 cm LV Systolic Diameter MM 4.3 cm LV Ejection Fraction MM Teich 42.8 % IVS Diastolic Thickness MM 1.1 cm 0.6 - 1.0 / 0.6 - 0.9 cm IVS Systolic Thickness MM 1.7 cm LVPW Diastolic Thickness MM 1.5 cm 0.6 - 1.0 / 0.6 - 0.9 cm LVPW Systolic Thickness MM 1.9 cm RV Diastolic Diameter MM 3.0 cm Aortic Annulus Diameter 4.4 cm LA Ao Ratio MM 1.3 MV E Point Septal Separation 1.5 cm DOPPLER AV Peak Velocity 127.0 cm/s LVOT Peak Velocity 82.0 cm/s AV Area Cont Eq vti 3.9 cm squared AV Area Cont Eq pk 3.6 cm squared MV Area PHT 5.0 cm squared Mitral E to A Ratio 3.1 MV E' Velocity 5.0 cm/s Mitral E to MV E' Ratio 28.4 Mitral E to LV E' Lateral Ratio 31.6 Mitral E to LV E' Septal Ratio 26.2 TR Peak Velocity 108.0 cm/s TR Peak Gradient 4.6 mmHg TV Peak E Velocity 105.0 cm/s Right Atrial Pressure 3.0 mmHg Pulmonary Artery Systolic Pressu 7.7 mmHg FINDINGS Left Ventricle Normal left ventricular cavity size. Normal left ventricular systolic function. Left ventricular ejection fraction is estimated at 65 %. No regional wall motion abnormalities. Grade II diastolic dysfunction, moderately elevated filling pressures. Right Ventricle Normal right ventricular size and systolic function. Right ventricular systolic pressure 7.7 mmHg. Right Atrium Normal right atrial size. Left Atrium Mildly increased left atrial size. Mitral Valve Moderate mitral annular calcification. Mildly thickened mitral valve. Mild mitral valve regurgitation. Aortic Valve Aortic valve not well visualized. No aortic valve stenosis. No aortic valve regurgitation. Tricuspid Valve Tricuspid valve not well visualized. Trace tricuspid valve regurgitation. Pulmonic Valve Pulmonic valve not well visualized. No pulmonary valve stenosis. Pericardium No pericardial effusion. Aorta Normal-sized aortic root. CONCLUSIONS 1. This is a technically difficult study. 2. Normal left ventricular cavity size and systolic function. Left ventricular ejection fraction is estimated at 65 %. No regional wall motion abnormalities. Grade II diastolic dysfunction, moderately elevated filling pressures. 3. Normal right ventricular size and systolic function. 4. Mild mitral valve regurgitation. 5. Direct comparison to previous echocardiogram dated 06/15/2019, may not be possible given technical differences in the study. Uma Carter MD (Electronically Signed) Final Date: 05 July 2019 17:04 S
[2019-07-05] MEDS: ipratropium-albuterol 3 mL Neb INHALATION ×5 (03:23→21:09)
[2019-07-05] MEDS: enoxaparin 120 mg/0.8 mL Syringe 110 MG SUBCUT ×2 (03:50→17:10)
[2019-07-05] MEDS: bumetanide 0.25 mg/mL SDV 10 mL 1 MG IV ×2 (03:50→17:10)
--- NOTE | 2019-07-05 04:00 | PC.NURSE ---
patient c/o chestb pain mid sternal area,describes it as pressure pain , SR on monitor, Dr Lau notified, EKG done, nitroglycerin paste applied, patient states it eased up when he sat up on side of bed. MMorgan RN
--- NOTE | 2019-07-05 04:01 | ECG_ITS ---
Measurements Intervals [place] Rate: 78 P: 79 VA: 166 QRS: 112 QRSD: 111 T: 63 QT: 367 QTc: 420 SINUS RHYTHM MARKED RIGHT AXIS DEVIATION [QRS AXIS > 100] LOW QRS VOLTAGE IN EXTREMITY LEADS [QRS DEFLECTION < 0.5 mV IN LIMB LEADS] POSSIBLE ANTERIOR MYOCARDIAL INFARCTION, OF INDETERMINATE AGE WARNING: DATA QUALITY MAY AFFECT INTERPRETATION Compared to ECG 06/15/2019 10:22:47 Right-axis deviation now present Low QRS voltage now present Atrial abnormality no longer present Myocardial infarct finding still present Electronically Signed On 07-05-2019 11:30:22 CDT by Uma Carter M.D. [id number]
[2019-07-05] MEDS: nitroglycerin 1 gm/inch oint Pkt 1 INCH TOPICAL (04:17)
--- NOTE | 2019-07-05 04:31 | PC.NURSE ---
patient states chest pain is gone now. MMorgan RN
[2019-07-05] MEDS: piperacillin-tazobactam 3.375 GM in sodium chloride 0.9% (plus) 100 ML IV ×2 (05:15→13:48)
[2019-07-05 06:15] LABS: Glucose Point of Care 463 mg/dL (70-110)
[2019-07-05] MEDS: insulin glargine 100 units/1 mL 10 UNIT SUBCUT (09:18)
[2019-07-05] MEDS: amiodarone 200 mg Tablet PO (09:19)
[2019-07-05] MEDS: predniSONE 20 mg Tablet 40 MG PO (09:19)
[2019-07-05] MEDS: lisinopril 5 mg Tablet PO (09:19)
[2019-07-05] MEDS: guaiFENesin 600 mg Tablet 1200 MG PO (09:19)
[2019-07-05] MEDS: pantoprazole DR 40 mg Tablet PO (09:19)
[2019-07-05] MEDS: metoprolol succinate ER (24 HR) 50 mg Tablet PO (09:20)
[2019-07-05] MEDS: gabapentin 300 mg Capsule PO ×3 (09:20→20:36)
[2019-07-05] MEDS: isosorbide mononitrate ER 30 mg Tablet PO (09:20)
[2019-07-05] MEDS: aspirin 81 mg EC Tablet PO (09:20)
[2019-07-05] MEDS: clopidogrel 75 mg Tablet PO (09:20)
[2019-07-05 11:12] LABS: Glucose Point of Care 326 mg/dL (70-110)
--- NOTE | 2019-07-05 11:15 | P.CONIM_ITS ---
Providers/Reason For Consult Consulting Physican/Specialty*: DR. Carter, Cardiology Reason for Consult*: Chest pain and elevated troponin Attending Physician: Papo Lake MD History of Present Illness History of Present Illness Franc Olivares is a 64 year old male with past medical history of CAD with recent right coronary artery stenting in March 2019 on DAPT, heart failure with preserved ejection fraction, chronic kidney disease stage III with baseline creatinine around 1.5-1.7, COPD on BiPAP not on home oxygen, insulin-dependent type 2 diabetes mellitus, paroxysmal atrial fibrillation on Eliquis and amiodarone, dyslipidemia, hypertension and obstructive sleep apnea was recently hospitalized with shortness of breath and leg swelling. He has had multiple recent hospitalization for COPD exacerbation decompensated congestive heart failure as well as with NSTEMI type II with elevated troponin as high as greater than 400. He follows up with Dr. Barros (clinical consultant) at [place] and is scheduled to have an appointment with her end of this month. In his last hospitalization the plan was to do outpatient stress test but patient wanted to wait until he followed up with his clinical consultant to get that scheduled. He obviously was not able to make to his appointment. He recently saw a edi developer at [facility] in [place] about a week back. Last Friday he noticed cough productive of reddish sputum and started antibiotic and prednisone as instructed by his edi developer. His symptoms improved somewhat but then in the past 2 to 3 days he his shortness of breath worsened along with his leg swelling and he presented to ER here for further evaluation. He denies having any fever chills or sick contacts. He also describes what sounds like orthopnea and mild paroxysmal nocturnal dyspnea. Chest pressurew unlike anginal episodes he had previously in March and related more with shortness of breath. He lives by himself at [place] with a pet dog. He lost his last summer and moved to this area. Review of Systems Const: Denies: fever, chills, fatigue or malaise Eyes: Denies: change in vision or blurry vision ENMT: Denies: nasal congestion Card: Reports: chest pain Resp: Reports: shortness of breath, productive cough and coughing up blood; Denies: non-productive cough or wheezing GI: Denies: abdominal pain, nausea, vomiting, vomiting blood, diarrhea, constipation, blood in stool or black tarry stool : Denies: flank pain, difficulty urinating, painful urination or urinary frequency Musc: Denies: neck pain or back pain Skin/Breast: Denies: rash Neuro: Denies: headache, dizziness or vertigo Psych: Denies: anxiety or depression Endo: Denies: excessive urination or excessive thirst [place]/Lymph: Denies: easy bleeding, petechiae or purpura All/Imm: Denies: throat swelling or tongue swelling Meds/Allergies Home Medications and Allergies Home Medications Medication Instructions Recorded Confirmed Type Combivent Respimat 2 puff INHALATION Q6H PRN 06/03/19 07/04/19 History Eliquis 5 mg PO BID 06/03/19 07/04/19 History Incruse Ellipta 1 inh INHALATION DAILY 06/03/19 07/04/19 History Spiriva with HandiHaler 1 cap INHALATION DAILY 06/03/19 07/04/19 History Symbicort 2 puff INHALATION BID 06/03/19 07/04/19 History amiodarone 200 mg PO DAILY 06/03/19 07/04/19 History clopidogrel 75 mg PO DAILY 06/03/19 07/04/19 History gabapentin 300 mg PO TID 06/03/19 07/04/19 History hydrocodone-acetaminophen See Rx Instructions .ROUTE .COMPLEX 06/03/19 07/04/19 History insulin lispro [Humalog U-100 See Rx Instructions .ROUTE .COMPLEX 06/03/19 07/04/19 History Insulin] ipratropium-albuterol 3 ml INHALATION Q6H PRN 06/03/19 07/04/19 History furosemide 40 mg PO DAILY 30 Days #30 tab 06/08/19 07/04/19 Rx metoprolol succinate 50 mg PO DAILY 06/15/19 07/04/19 History aspirin 81 mg PO DAILY #30 tab 06/19/19 07/04/19 Rx atorvastatin 40 mg PO BEDTIME #30 tab 06/19/19 07/04/19 Rx isosorbide mononitrate 30 mg PO DAILY #30 tab 06/19/19 07/04/19 Rx pantoprazole 40 mg PO DAILY #30 tab 06/19/19 07/04/19 Rx Fish Oil 1 cap PO DAILY 07/04/19 07/04/19 History amoxicillin-pot clavulanate 1 tab PO BID 07/04/19 07/04/19 History [Augmentin] cinnamon bark [Cinnamon] 500 mg PO DAILY 07/04/19 07/04/19 History guaifenesin [Mucinex] 1,200 mg PO DAILY 07/04/19 07/04/19 History insulin glargine [Lantus Solostar 15 unit SUBCUT BEDTIME 07/04/19 07/04/19 History U-100 Insulin] lisinopril 5 mg PO DAILY 07/04/19 07/04/19 History prednisone 40 mg PO DAILY 07/04/19 07/04/19 History Allergies Allergy/AdvReac Type Severity Reaction Status Date / Time No Known Allergies Allergy Verified 06/15/19 04:27 Current Medications Current Medications Generic Name Dose Route Start Last Admin Trade Name Freq PRN Reason Stop Dose Admin Hydrocodone Bitart/Acetaminophen 1 - 2 tab 07/04/19 18:24 07/05/19 02:19 [place] 10-325 Mg PO 2 tab Q4H PRN Administration PAIN Albuterol/Ipratropium 3 ml 07/04/19 20:00 07/05/19 11:10 Duoneb INHALATION 3 ml Q4H.RESPIRATORY CHARLIE Administration Amiodarone HCl 200 mg 07/05/19 09:00 07/05/19 09:19 Cordarone PO 200 mg DAILY CHARLIE Administration Aspirin 81 mg 07/05/19 09:00 07/05/19 09:20 Aspirin Ec PO 81 mg DAILY CHARLIE Administration Atorvastatin Calcium 40 mg 07/04/19 21:00 07/04/19 20:59 Lipitor PO 40 mg BEDTIME CHARLIE Administration Bumetanide 1 mg 07/04/19 16:30 07/05/19 03:50 Bumex IV 1 mg Q12H CHARLIE Administration Clopidogrel Bisulfate 75 mg 07/05/19 09:00 07/05/19 09:20 Plavix PO 75 mg DAILY CHARLIE Administration Enoxaparin Sodium 110 mg 07/04/19 16:30 07/05/19 03:50 Lovenox SUBCUT 110 mg Q12H CHARLIE Administration Gabapentin 300 mg 07/04/19 21:00 07/05/19 09:20 Neurontin PO 300 mg TID CHARLIE Administration Guaifenesin 1,200 mg 07/05/19 09:00 07/05/19 09:19 Mucinex PO 1,200 mg DAILY CHARLIE Administration Sodium Chloride 1,000 mls @ 100 mls/hr 07/04/19 15:15 07/05/19 01:18 Sodium Chloride 0.9% IV Not Given .Q10H CHARLIE Piperacillin Sod/Tazobactam 100 mls @ 25 mls/hr 07/04/19 22:00 07/05/19 05:15 Sod 3.375 gm/ Sodium Chloride IV 25 mls/hr Q8H CHARLIE Administration Protocol Vancomycin HCl 2,000 mg/ 500 mls @ 250 mls/hr 07/04/19 20:00 07/04/19 22:14 Sodium Chloride IV Infused Q24H CHARLIE Infusion Insulin Aspart 0 unit 07/04/19 18:00 07/05/19 06:14 Novolog SUBCUT 18 unit TIDWM [facility] Administration Protocol Insulin Glargine 20 unit 07/04/19 21:00 07/04/19 21:01 Lantus SUBCUT 20 unit BEDTIME CHARLIE Administration Insulin Glargine 10 unit 07/05/19 08:25 07/05/19 09:18 Lantus SUBCUT 10 unit QAM CHARLIE Administration Isosorbide Mononitrate 30 mg 07/05/19 09:00 07/05/19 09:20 Imdur PO 30 mg DAILY CHARLIE Administration Lisinopril 5 mg 07/05/19 09:00 07/05/19 09:19 Prinivil PO 5 mg DAILY CHARLIE Administration Metoprolol Succinate 50 mg 07/05/19 09:00 07/05/19 09:20 Toprol Xl PO 50 mg DAILY CHARLIE Administration Pantoprazole Sodium 40 mg 07/05/19 09:00 07/05/19 09:19 Protonix PO 40 mg DAILY CHARLIE Administration Prednisone 40 mg 07/05/19 09:00 07/05/19 09:19 Prednisone PO 40 mg DAILY CHARLIE Administration PFSH Acute PFSH: Medical History Afib Controlled. Continue metoprolol, amiodarone CAD (coronary artery disease) RCA stent CHF (congestive heart failure) diastolic CHF -Echo (12/2018): EF=68%, G1DD Chronic kidney disease, stage 3 -has known CKD stage 2-3; baseline Cr around 1.5-1.7 -continue to monitor renal function particularly with diuresis; gradually improving -has f/u with nephrology the first week of June COPD (chronic obstructive pulmonary disease) Improved Diabetes mellitus, type II, insulin dependent Dyslipidemia History of amputation of great toe L, traumatic Hypertension LAURIE (obstructive sleep apnea) Surgical History H/O heart artery stent 2012. RCA stent. 50% LAD lesion at time. Family History Other CAD (coronary artery disease) Social History Smoking and tobacco status: former smoker Alcohol intake: never Lives independently: Yes Household members: none Vitals/I&O/Wt Last Vital Signs Temp 98.3 F 07/05/19 04:00 Pulse 70 07/05/19 11:12 Resp 16 07/05/19 11:12 BP 166/71 07/05/19 08:00 Pulse Ox 96 07/05/19 11:12 07/04/19 07/05/19 07/05/19 22:59 06:59 14:59 Intake Total 1981.667 / 1981.667 320 / 2302.667 460 / 460 Output Total 950 / 950 450 / 1400 150 / 150 Balance 1032.667 / 1032.667 -130 / 902.667 310 / 310 Weight last 48 hrs Weight 250 lb Physical Exam Const: COMMON NORMALS: no apparent distress, average body habitus, oriented x 3, alert and well nourished GENERAL APPEARANCE: cooperative, comfortable, well kempt and well developed ORIENTATION/CONSCIOUSNESS: Yes oriented to person, Yes oriented to place and Yes oriented to time HENMT: COMMON NORMALS: normocephalic, head/scalp atraumatic, hearing grossly normal bilaterally, external ears normal, external nose normal and moist oral mucous membranes HEAD & SCALP: normocephalic and atraumatic NOSE: external nose normal EXTERNAL EAR: Yes external ears normal Eye: COMMON NORMALS: PERRL, EOMs intact bilaterally and conjunctivae normal CONJUNCTIVA: Yes conjunctivae normal SCLERA: sclerae normal PUPIL: Yes PERRL Neck/C-Spine: COMMON NORMALS: supple and no JVD Resp: COMMON NORMALS: normal respiratory effort and no use of accessory muscles AUSCULTATION: no crackles, rales (bilateral mid to basal posterior rales (R>L)), no rhonchi, no wheezes and diminished lung sounds (bilateral bases) Cardio: COMMON NORMALS: no JVD, regular rate, regular rhythm, S1 normal heart sound, S2 normal heart sound and peripheral pulses 2+ throughout; negative for no gallops and negative for no clicks JUGULAR VENOUS DISTENTION: no JVD PALPATION: normal PMI, no heave, no palpable S3, no palpable S4 and no thrill RATE: regular rate RHYTHM: regular rhythm HEART SOUNDS: S1 normal, S2 normal, no click, no gallops and no murmurs BRUITS: no carotid bruits PERIPHERAL PULSES: pulses 2+ throughout GI: COMMON NORMALS: normal to inspection, nondistended, normoactive bowel sounds, soft to palpation and non-tender PALPATION: Yes soft RECTAL EXAM: Yes deferred Neuro: COMMON NORMALS: oriented x3 and no focal motor deficits SENSORIUM/ORIENTATION: Yes alert, Yes oriented to person, Yes oriented to place and Yes oriented to time CRANIAL NERVES: Yes CN normal except as noted Psych: COMMON NORMALS: thought process normal APPEARANCE: Yes well kempt THOUGHT PROCESS: normal thought process THOUGHT CONTENT: Yes normal thought content MEMORY/COGNITION: Yes memory grossly intact INSIGHT: insight good JUDGEMENT: judgment good Data Micro: Micro: Microbiology 07/04/19 12:20 Gram Stain - Final Sputum - Expector ated Sputum Sputum Culture - P reliminary 07/04/19 19:00 MRSA Culture - Fin al Nose 07/04/19 19:00 Gram Stain - Final Sputum - Expector ated Sputum 07/04/19 19:00 Bacterial Antigens - Final Urine,Voided 07/04/19 11:55 Blood Culture - Pr eliminary Blood [facility] 07/04/19 11:50 Blood Culture - Pr eliminary Blood SPECIMEN [facility] A&P Assessment and plan (1) Acute respiratory failure: In setting of right-sided pneumonia and heart failure with preserved ejection fraction; Oxygen requirement has gone down. He was off BiPAP at the time of evaluation and he is currently requiring oxygen via nasal cannula. Status: Acute Code(s): J96.00 - Acute respiratory failure, unspecified whether with hypoxia or hypercapnia (2) CHF (congestive heart failure): Continue Bumex 1 mg IV every 12 hours along with metolazone. -Continue with fluid restriction intake and output monitoring and follow-up BMP. -Follow-up echocardiogram this visit without any significant change. Status: Chronic Qualifiers: Heart failure chronicity: acute on chronic Heart failure type: diastolic Qualified Code(s): I50.33 - Acute on chronic diastolic (congestive) heart failure Code(s): I50.9 - Heart failure, unspecified (3) Pneumonia: Chest x-ray with right sided pneumonia. On antibiotic as per Dr. Lake. Status: Acute Qualifiers: Laterality: bilateral Lung location: unspecified part of lung Pneumonia type: due to unspecified organism Qualified Code(s): J18.9 - Pneumonia, unspecified organism Code(s): J18.9 - Pneumonia, unspecified organism (4) NSTEMI (non-ST elevated myocardial infarction): Non-ST elevation IL type II in setting of decompensated congestive heart failure and pneumonia. -Elevation in troponin T has been less than what it was in his previous visit. -Continue current medications. -Plan for stress test once patient is more euvolemic, likely prior to discharge. Status: Acute Code(s): I21.4 - Non-ST elevation (NSTEMI) myocardial infarction (5) Chronic kidney disease, stage 3: Status: Chronic Code(s): N18.3 - Chronic kidney disease, stage 3 (moderate) (6) Afib: Continue current medications. Status: Chronic Qualifiers: Atrial fibrillation type: paroxysmal Qualified Code(s): I48.0 - Paroxysmal atrial fibrillation Code(s): I48.91 - Unspecified atrial fibrillation (7) CAD (coronary artery disease): Status: Chronic Qualifiers: Associated angina: without angina Coronary Disease-Associated Artery/Lesion type: [place] artery [place] vs. transplanted heart: [place] heart Qualified Code(s): I25.10 - Atherosclerotic heart disease of [place] coronary artery without angina pectoris Code(s): I25.10 - Atherosclerotic heart disease of [place] coronary artery without angina pectoris (8) Hypertension: Status: Chronic Qualifiers: Hypertension type: essential hypertension Qualified Code(s): I10 - Essential (primary) hypertension Code(s): I10 - Essential (primary) hypertension (9) LAURIE (obstructive sleep apnea): Status: Chronic Code(s): G47.33 - Obstructive sleep apnea (adult) (pediatric) (10) Diabetes mellitus, type II, insulin dependent: Status: Chronic Code(s): E11.9 - Type 2 diabetes mellitus without complications; Z79.4 - termite helper (current) use of insulin Additional A&P Information Anemia Hyponatremia Thank you for allowing me to participate in patient's care. Please feel free to call with questions or concerns. Coding Level of Care Code Acute Lighthouse Keeper for g Fwd Exam Comprehensive Diagnoses Acute respiratory failure J96.00 CHF (congestive heart failure) I50.33 Heart failure chronicity: acute on chronic Heart failure type: diastolic Pneumonia J18.9 Laterality: bilateral Lung location: unspecified part of lung Pneumonia type: due to unspecified organism NSTEMI (non-ST elevated myocardial infarction) I21.4 Chronic kidney disease, stage 3 N18.3 Afib I48.0 Atrial fibrillation type: paroxysmal CAD (coronary artery disease) I25.10 Associated angina: without angina Coronary Disease-Associated Artery/Lesion type: [place] artery [place] vs. transplanted heart: [place] heart Hypertension I10 Hypertension type: essential hypertension LAURIE (obstructive sleep apnea) G47.33 Diabetes mellitus, type II, insulin dependent E11.9; Z79.4
--- NOTE | 2019-07-05 14:49 | PC.CHAP ---
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 handling tech visit [] Patient/Family/Request visit [] Outpatient visit [] Follow-up visit [] Physician referral [] Code/Alert [] Routine visit [] Staff referral [] Actively dying [] Patient sleeping [] Family support [] [] Out of room [] Palliative care [] [x] Receiving care in room [] Pre-surgical visit [] Trauma [] Long length of stay [x] ICU visit [] Other: Relational/Emotional Strength [] Patient feels connected with others/family/visitors/staff [] Distress [] Loneliness/isolation [] Abandonment Spirituality of Patient [] Person of Theresa [] Attends Druze of their Theresa [] Believes in Prayer [] Reads Bible or Yarsanism materials [] There are Spiritual issues to be addressed Correspondence School Teacher Interventions [] Prayer [] Active listening [] Non-anxious presence [] Spiritual/emotional support [] Crisis/trauma care [] Spiritual counseling [] Bereavement support [] Provided bereavement packet [] Provided Bible/devotional materials [] Provided toy/stuffed animal, coloring book to patient or family member [] Provided Communion [] Anointing/[place] [] Salvation [] Completed spiritual assessment [] Other: Impact on Illness or Injury [] Angry [] Fearful [] Anxious [] Often cries [] Exhaustion [] Unable to work [] Unable to attend amish [] Unable to walk/stand [] Unable to read [] Unable to drive [] Unable to eat/drink [] Unable to sleep [] Unable to be with family [] Patient intubated [] Other: Summary Patient was receiving care from the nursing staff at the time of handling tech visit. Correspondence School Teacher referred patient for a follow up visit by kellen tamayolain. Visit attempted by Correspondence School Teacher Georges Reyes. Time spent with patient 3 minutes
--- NOTE | 2019-07-05 15:10 | PC.SOCIAL ---
Patient was given the Medicare BPMI beneficiary letter. Original is signed and placed in the chart.
[2019-07-05 16:07] LABS: Basophils % 0.1 %; Hematocrit 31.5 % (42.0-52.0); Hemoglobin 9.7 g/dL (11.7-16.6); Lymphocytes # 0.2 10^3/uL (0.8-4.8); Lymphocytes % 1.4 %; Mean Corpuscular HGB Conc 30.8 g/dL (30.0-36.0); Mean Corpuscular Hemoglobin 25.7 pg (28.0-34.0); Mean Corpuscular Volume 83.3 fL (80-94); Monocytes # 0.9 10^3/uL (0.2-0.9); Monocytes % 5.4 %; Neutrophils # 15.3 10^3/uL (1.8-7.7); Neutrophils % 92.4 %; Nucleated Red Blood Cells % 0 %; Platelet Count 177 10^3/cmm (130-400); Red Blood Count 3.78 10^6/uL (4.1-5.3); Red Cell Distribution Width 15.8 % (12.1-15.1); White Blood Count 16.5 10^3/uL (4.0-10.0)
[2019-07-05 16:20] LABS: Alanine Aminotransferase 20 U/L (0-41); Albumin Level 2.9 g/dL (3.5-5.2); Alkaline Phosphatase 67 IU/L (40-130); Anion Gap 17.6 (5-19); Aspartate Amino Transferase 16 U/L (0-40); Blood Urea Nitrogen 81 mg/dL (8-23); Calcium 9.2 mg/dL (8.5-10.5); Carbon Dioxide 26 mmol/L (22-29); Chloride 90 mmol/L (98-107); Creatinine Clr Calc Pharmacy 52.2348; Globulin 3.4 g/dL (1.3-4.6); Glomerular Filtration Rate 40.5 mL/min (90-130); Glucose 303 mg/dL (65-115); Osmolality Calculated 279 mOsm/kg (285-295); Potassium 4.6 mmol/L (3.5-5.1); Sodium 129 mmol/L (136-145); Total Bilirubin 0.5 mg/dL (0.15-1.2); Total Protein 6.3 g/dL (6.6-8.7)
--- NOTE | 2019-07-05 16:58 | P.PN_ITS ---
Subjective Subjective: Interval history: This morning patient is sitting up in bed, states that his breathing has improved, did have one episode of mid substernal chest pain, no fevers, has a cough, states that swelling has improved, has no other complaints this morning Vitals/I&O/Wt Last Vital Signs Temp 98.3 F 07/05/19 04:00 Pulse 83 07/05/19 16:00 Resp 20 H 07/05/19 16:00 BP 143/70 07/05/19 16:00 Pulse Ox 96 07/05/19 16:00 07/05/19 07/05/19 07/05/19 06:59 14:59 22:59 Intake Total 320 / 2302.667 660 / 660 Output Total 450 / 1400 150 / 150 Balance -130 / 902.667 510 / 510 Weight last 48 hrs Weight 113.398 kg Physical Exam Const: COMMON NORMALS: no apparent distress and oriented x3 HENMT: COMMON NORMALS: normocephalic HEAD & SCALP: normocephalic Neck/C-Spine: COMMON NORMALS: no JVD Resp: COMMON NORMALS: normal respiratory effort, no retractions and no use of accessory muscles EFFORT & INSPECTION: Yes actively coughing AUSCULTATION: rhonchi and wheezes Cardio: COMMON NORMALS: no JVD, regular rate, regular rhythm, S1 normal heart sound and S2 normal heart sound RATE: regular rate RHYTHM: regular rhythm HEART SOUNDS: S1 normal and S2 normal GI: COMMON NORMALS: normal to inspection, nondistended, normoactive bowel sounds, soft to palpation, non-tender, no hepatosplenomegaly, no masses and no bruits PALPATION: Yes soft and Yes no hepatosplenomegaly Extremity: COMMON NORMALS: normal capillary refill, no clubbing, cyanosis or edema, no calf tenderness and no pedal edema Neuro: COMMON NORMALS: oriented x3 Psych: COMMON NORMALS: mental status grossly normal Data : 07/05/19 15:08 07/05/19 15:08 Micro: Microbiology 07/04/19 11:55 Blood Culture - Preliminary Blood NEGATIVE TO DATE 07/04/19 11:50 Blood Culture - Preliminary Blood NEGATIVE TO DATE 07/04/19 12:20 Gram Stain - Final Sputum - Expectorated Sputum Sputum Culture - Preliminary 07/04/19 19:00 MRSA Culture - Final Nose 07/04/19 19:00 Gram Stain - Final Sputum - Expectorated Sputum 07/04/19 19:00 Bacterial Antigens - Final Urine,Voided A&P Assessment and plan (1) Acute respiratory failure: -Secondary to right sided pneumonia, diastolic CHF bit with BNP in the 14,000, and COPD exacerbation -CT chest shows Bilateral airspace opacities are identified compatible with pneumonic infiltrates. This is greatest in the right upper lobe and both lower lobes. Pleural space: There are small pleural effusions right greater than left. Plan: -Continue broad-spectrum antibiotics vancomycin and Zosyn, cover for healthcare associated pneumonia as he has been readmitted a couple times in the last few months -DuoNeb treatments, every 4 hours, every 2 as needed -Received Solu-Medrol in the ER, continue prednisone 40 mg once daily -Bumex 1 mg every 12 hours with metolazone 5 mg once daily -Fluid restrictions 1500 cc an hour, monitor urine output, monitor creatinine -Continue BiPAP overnight, nasal cannula during the day Status: Acute Code(s): J96.00 - Acute respiratory failure, unspecified whether with hypoxia or hypercapnia (2) Pneumonia: Urine bacterial antigens, sputum culture, viral panel Status: Acute Qualifiers: Laterality: bilateral Lung location: unspecified part of lung Pneumonia type: due to unspecified organism Qualified Code(s): J18.9 - Pneumonia, unspecified organism Code(s): J18.9 - Pneumonia, unspecified organism (3) NSTEMI (non-ST elevated myocardial infarction): -Likely supply demand ischemia from type II NSTEMI -But has a positive delta Trop, and history of RCA stent placement, and chest pain, EKG no significant ST-T wave changes Plan: -Continue telemetry monitoring -Switch to Lovenox 1 charan per kick twice daily, hold Eliquis -Aspirin, statin, beta-christina -Monitor for chest pain -Patient had an echocardiogram on his last admission which showed grade 1 diastolic dysfunction, ejection fraction 55%, poor study -Echocardiogram pending -Cardiology has been consulted Status: Acute Code(s): I21.4 - Non-ST elevation (NSTEMI) myocardial infarction (4) Dyslipidemia: Status: Chronic Code(s): E78.5 - Hyperlipidemia, unspecified (5) Hypertension: Hypertensive urgency, start home meds Status: Chronic Code(s): I10 - Essential (primary) hypertension (6) LAURIE (obstructive sleep apnea): Status: Chronic Code(s): G47.33 - Obstructive sleep apnea (adult) (pediatric) (7) Chronic anticoagulation: On hold as on therapeutic Lovenox Status: Chronic Code(s): Z79.01 - director decision support (current) use of anticoagulants (8) Diabetes mellitus, type II, insulin dependent: Hyperglycemia secondary to steroids Increase Lantus to 20 units at bedtime, 10 units in the morning, high-dose sliding scale Status: Chronic Code(s): E11.9 - Type 2 diabetes mellitus without complications; Z79.4 - halfway (current) use of insulin (9) Chronic kidney disease, stage 3: Creatinine 1.5 Status: Chronic Code(s): N18.3 - Chronic kidney disease, stage 3 (moderate) (10) Afib: Continue amiodarone, metoprolol Status: Chronic Code(s): I48.91 - Unspecified atrial fibrillation (11) COPD (chronic obstructive pulmonary disease): Status: Chronic Qualifiers: COPD type: emphysema Emphysema type: panlobular Qualified Code(s): J43.1 - Panlobular emphysema Code(s): J44.9 - Chronic obstructive pulmonary disease, unspecified (12) CHF (congestive heart failure): Status: Chronic Qualifiers: Heart failure type: unspecified Heart failure chronicity: chronic Qualified Code(s): I50.9 - Heart failure, unspecified Code(s): I50.9 - Heart failure, unspecified Additional A&P Information Will transfer out of ICU to cardiac stepdown unit today Attestations Medical Necessity Statement*: Post hospitalization due to acute respiratory failure, NSTEMI Coding Level of Care Code Acute Paper Stripper for [facility] Fw Diagnoses Acute respiratory failure J96.00 Pneumonia J18.9 Laterality: bilateral Lung location: unspecified part of lung Pneumonia type: due to unspecified organism NSTEMI (non-ST elevated myocardial infarction) I21.4 Dyslipidemia E78.5 Hypertension I10 LAURIE (obstructive sleep apnea) G47.33 Chronic anticoagulation Z79.01 Diabetes mellitus, type II, insulin dependent E11.9; Z79.4 Chronic kidney disease, stage 3 N18.3 Afib I48.91 COPD (chronic obstructive pulmonary disease) J43.1 COPD type: emphysema Emphysema type: panlobular CHF (congestive heart failure) I50.9 Heart failure type: unspecified Heart failure chronicity: chronic
[2019-07-05 17:05] LABS: Glucose Point of Care 354 mg/dL (70-110)
[2019-07-05] MEDS: atorvastatin 40 mg Tablet PO (20:36)
[2019-07-05] MEDS: alum-mag-hydroxide-sime 30 mL UDC PO (20:39)
[2019-07-05 20:57] LABS: Glucose Point of Care 517 mg/dL (70-110)
[2019-07-05 20:57] LABS: Glucose Point of Care 568 mg/dL (70-110)
[2019-07-05] MEDS: insulin glargine 100 units/1 mL 20 UNIT SUBCUT (22:00)
[2019-07-06] VITALS (28 sets, daily range): BP systolic 104–172; BP diastolic 55–101; PULSE 72–100; RESP 14–28; TEMP 36.7; O2SAT 83–100
[2019-07-06] MEDS: piperacillin-tazobactam 3.375 GM in sodium chloride 0.9% (plus) 100 ML IV ×4 (01:01→22:20)
[2019-07-06] MEDS: ipratropium-albuterol 3 mL Neb INHALATION ×6 (01:12→20:16)
[2019-07-06] MEDS: HYDROcodone-acetaminophen 10-325 mg Tablet PO ×2 (01:24→20:34)
[2019-07-06] MEDS: enoxaparin 120 mg/0.8 mL Syringe 110 MG SUBCUT ×2 (04:04→17:31)
[2019-07-06] MEDS: bumetanide 0.25 mg/mL SDV 10 mL 1 MG IV ×2 (04:04→17:31)
[2019-07-06 04:23] LABS: Basophils % 0.1 %; Hematocrit 33.8 % (42.0-52.0); Hemoglobin 10.4 g/dL (11.7-16.6); Lymphocytes # 0.5 10^3/uL (0.8-4.8); Lymphocytes % 2.8 %; Mean Corpuscular HGB Conc 30.8 g/dL (30.0-36.0); Mean Corpuscular Hemoglobin 25.6 pg (28.0-34.0); Mean Platelet Volume 11.2 fL (7.4-10.4); Monocytes # 1.2 10^3/uL (0.2-0.9); Monocytes % 7.2 %; Neutrophils # 14.8 10^3/uL (1.8-7.7); Neutrophils % 89.5 %; Nucleated Red Blood Cells % 0 %; Platelet Count 176 10^3/cmm (130-400); Red Blood Count 4.07 10^6/uL (4.1-5.3); Red Cell Distribution Width 15.8 % (12.1-15.1); White Blood Count 16.5 10^3/uL (4.0-10.0)
[2019-07-06 05:01] LABS: Alanine Aminotransferase 22 U/L (0-41); Albumin Level 3.4 g/dL (3.5-5.2); Alkaline Phosphatase 75 IU/L (40-130); Aspartate Amino Transferase 18 U/L (0-40); Calcium 9.5 mg/dL (8.5-10.5); Carbon Dioxide 24 mmol/L (22-29); Creatinine Clr Calc Pharmacy 52.2348; Globulin 2.5 g/dL (1.3-4.6); Glomerular Filtration Rate 40.5 mL/min (90-130); Glucose 305 mg/dL (65-115); Magnesium 2.3 mg/dL (1.7-2.3); Phosphorus 4.5 mg/dL (2.5-4.5); Total Bilirubin 0.4 mg/dL (0.15-1.2); Total Protein 5.9 g/dL (6.6-8.7)
[2019-07-06] MEDS: insulin glargine 100 units/1 mL 10 UNIT SUBCUT (05:59)
[2019-07-06 06:29] LABS: Anion Gap 21.3 (5-19); Chloride 90 mmol/L (98-107); Potassium 5.3 mmol/L (3.5-5.1); Sodium 130 mmol/L (136-145)
[2019-07-06 06:49] LABS: Blood Urea Nitrogen 87 mg/dL (8-23); Osmolality Calculated 282 mOsm/kg (285-295)
[2019-07-06] MEDS: aspirin 81 mg EC Tablet PO (08:47)
[2019-07-06] MEDS: guaiFENesin 600 mg Tablet 1200 MG PO (08:47)
[2019-07-06] MEDS: predniSONE 20 mg Tablet 40 MG PO (08:47)
[2019-07-06] MEDS: gabapentin 300 mg Capsule PO ×3 (08:47→20:34)
[2019-07-06] MEDS: metoprolol succinate ER (24 HR) 50 mg Tablet PO (08:48)
[2019-07-06] MEDS: isosorbide mononitrate ER 30 mg Tablet PO (08:48)
[2019-07-06] MEDS: pantoprazole DR 40 mg Tablet PO (08:48)
[2019-07-06] MEDS: lisinopril 5 mg Tablet PO (08:48)
[2019-07-06] MEDS: clopidogrel 75 mg Tablet PO (08:48)
[2019-07-06] MEDS: amiodarone 200 mg Tablet PO (08:48)
[2019-07-06] MEDS: alum-mag-hydroxide-sime 30 mL UDC PO ×2 (10:42→14:04)
[2019-07-06 11:31] LABS: Glucose Point of Care 421 mg/dL (70-110)
--- NOTE | 2019-07-06 12:16 | PC.RESP ---
Patient given Pulmonary Rehab information.
[2019-07-06] MEDS: azithromycin 500 MG in sodium chloride 0.9% 250 ML 250 MG IV (12:53)
--- NOTE | 2019-07-06 15:21 | P.PN_ITS ---
Subjective Subjective: Interval history: Patient states that his breathing has improved, swelling has improved, no fevers, no chills, no nausea, no vomiting, no lightheadedness, dizziness, would like to have stress test as inpatient Vitals/I&O/Wt Last Vital Signs Temp 98.1 F 07/06/19 12:00 Pulse 99 07/06/19 14:56 Resp 19 H 07/06/19 14:56 BP 122/74 07/06/19 12:00 Pulse Ox 99 07/06/19 14:56 07/06/19 07/06/19 07/06/19 06:59 14:59 22:59 Intake Total 61.875 / 1061.875 900.542 / 900.542 Output Total 300 / 600 450 / 450 Balance -238.125 / 461.875 450.542 / 450.542 Physical Exam Const: COMMON NORMALS: no apparent distress and oriented x3 HENMT: COMMON NORMALS: normocephalic HEAD & SCALP: normocephalic Neck/C-Spine: COMMON NORMALS: no JVD Resp: COMMON NORMALS: normal respiratory effort, no retractions, no use of accessory muscles and clear to auscultation bilaterally AUSCULTATION: clear to auscultation bilaterally Cardio: COMMON NORMALS: no JVD, regular rate, regular rhythm, S1 normal heart sound and S2 normal heart sound RATE: regular rate RHYTHM: regular rhythm HEART SOUNDS: S1 normal and S2 normal GI: COMMON NORMALS: normal to inspection, nondistended, normoactive bowel sounds, soft to palpation, non-tender, no hepatosplenomegaly, no masses and no bruits PALPATION: Yes soft and Yes no hepatosplenomegaly Extremity: COMMON NORMALS: normal capillary refill, no clubbing, cyanosis or edema, no calf tenderness and no pedal edema Neuro: COMMON NORMALS: oriented x3 Psych: COMMON NORMALS: mental status grossly normal Data : 07/06/19 04:10 07/06/19 04:10 Micro: Microbiology 07/04/19 12:20 Gram Stain - Final Sputum - Expectorated Sputum Sputum Culture - Final 07/04/19 19:00 Gram Stain - Final Sputum - Expectorated Sputum Sputum Culture - Preliminary 07/04/19 11:55 Blood Culture - Preliminary Blood NEGATIVE TO DATE 07/04/19 11:50 Blood Culture - Preliminary Blood NEGATIVE TO DATE A&P Assessment and plan (1) Acute respiratory failure: -Secondary to right sided pneumonia, diastolic CHF bit with BNP in the 14,000, and COPD exacerbation -CT chest shows Bilateral airspace opacities are identified compatible with pneumonic infiltrates. This is greatest in the right upper lobe and both lower lobes. Pleural space: There are small pleural effusions right greater than left. Plan: -Continue broad-spectrum antibiotics vancomycin and Zosyn we will add azithromycin for atypical coverage, cover for healthcare associated pneumonia as he has been readmitted a couple times in the last few months -DuoNeb treatments, every 4 hours, every 2 as needed -Received Solu-Medrol in the ER, continue prednisone 40 mg once daily -Bumex 1 mg every 12 hours, even though BUN is 87, as of decided to continue IV diuresis given significant pulmonary edema -Fluid restrictions 1500 cc an hour, monitor urine output, monitor creatinine -Continue BiPAP overnight, nasal cannula during the day Status: Acute Code(s): J96.00 - Acute respiratory failure, unspecified whether with hypoxia or hypercapnia (2) Pneumonia: Urine bacterial antigens, sputum culture, viral panel Status: Acute Qualifiers: Laterality: bilateral Lung location: unspecified part of lung Pneumonia type: due to unspecified organism Qualified Code(s): J18.9 - Pneumonia, unspecified organism Code(s): J18.9 - Pneumonia, unspecified organism (3) NSTEMI (non-ST elevated myocardial infarction): -Likely supply demand ischemia from type II NSTEMI -But has a positive delta Trop, and history of RCA stent placement, and chest pain, EKG no significant ST-T wave changes Plan: -Continue telemetry monitoring -Switch to Lovenox 1 charan per kick twice daily, hold Eliquis -Aspirin, statin, beta-christina -Monitor for chest pain -Patient had an echocardiogram on his last admission which showed grade 1 diastolic dysfunction, ejection fraction 55%, poor study -Cardiology has been consulted Status: Acute Code(s): I21.4 - Non-ST elevation (NSTEMI) myocardial infarction (4) Dyslipidemia: Status: Chronic Code(s): E78.5 - Hyperlipidemia, unspecified (5) Hypertension: Hypertensive urgency, start home meds Status: Chronic Qualifiers: Hypertension type: essential hypertension Qualified Code(s): I10 - Essential (primary) hypertension Code(s): I10 - Essential (primary) hypertension (6) LAURIE (obstructive sleep apnea): Status: Chronic Code(s): G47.33 - Obstructive sleep apnea (adult) (pediatric) (7) Chronic anticoagulation: On hold as on therapeutic Lovenox Status: Chronic Code(s): Z79.01 - senior care (current) use of anticoagulants (8) Diabetes mellitus, type II, insulin dependent: Hyperglycemia secondary to steroids Increase Lantus to 20 units at bedtime, 10 units in the morning, high-dose sliding scale Status: Chronic Code(s): E11.9 - Type 2 diabetes mellitus without complications; Z79.4 - senior care (current) use of insulin (9) Chronic kidney disease, stage 3: Creatinine 1.5 Status: Chronic Code(s): N18.3 - Chronic kidney disease, stage 3 (moderate) (10) Afib: Continue amiodarone, metoprolol Status: Chronic Qualifiers: Atrial fibrillation type: paroxysmal Qualified Code(s): I48.0 - Paroxysmal atrial fibrillation Code(s): I48.91 - Unspecified atrial fibrillation (11) COPD (chronic obstructive pulmonary disease): Status: Chronic Qualifiers: COPD type: emphysema Emphysema type: panlobular Qualified Code(s): J43.1 - Panlobular emphysema Code(s): J44.9 - Chronic obstructive pulmonary disease, unspecified (12) CHF (congestive heart failure): Status: Chronic Qualifiers: Heart failure type: diastolic Heart failure chronicity: acute on chronic Qualified Code(s): I50.33 - Acute on chronic diastolic (congestive) heart failure Code(s): I50.9 - Heart failure, unspecified Additional A&P Information Will transfer out of ICU to cardiac stepdown unit today Attestations Medical Necessity Statement*: Patient requires continued hospitalization for acute respiratory failure Coding Level of Care Code Acute 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 [facility] Diagnoses Acute respiratory failure J96.00 Pneumonia J18.9 Laterality: bilateral Lung location: unspecified part of lung Pneumonia type: due to unspecified organism NSTEMI (non-ST elevated myocardial infarction) I21.4 Dyslipidemia E78.5 Hypertension I10 Hypertension type: essential hypertension LAURIE (obstructive sleep apnea) G47.33 Chronic anticoagulation Z79.01 Diabetes mellitus, type II, insulin dependent E11.9; Z79.4 Chronic kidney disease, stage 3 N18.3 Afib I48.0 Atrial fibrillation type: paroxysmal COPD (chronic obstructive pulmonary disease) J43.1 COPD type: emphysema Emphysema type: panlobular CHF (congestive heart failure) I50.33 Heart failure type: diastolic Heart failure chronicity: acute on chronic
--- NOTE | 2019-07-06 17:26 | ECG_ITS ---
NAME OF STUDY: LEXISCAN SESTAMIBI STRESS TEST INDICATION: Chest Pain PROCEDURE: At the baseline, the blood pressure was 161/90 mm Hg with a heart rate of 98 bpm and oxygen saturation of 96%. The electrocardiogram showed atrial fibrillation, right axis deviation. Low QRS voltage in extremity leads and possible old anterior myocardial infarction. The Lexiscan was infused over a period of 20 seconds. A total of 0.4 milligrams of Lexiscan was infused. The stress phase was continued for a total of 5 minutes. Heart rate at the end of the stress phase was 93 bpm with a blood pressure 213/69 mm Hg and oxygen saturation of 96%. The EKG at the peak infusion revealed atrial fibrillation with no significant ST-T wave changes. Sestamibi was injected 20 seconds after the Lexiscan infusion. Blood pressure at the end of the recovery phase was 158/73 mm Hg with a heart rate of 89 beats per minute and oxygen saturation of 96%. CONCLUSION: 1. No significant EKG changes with the LexiScan infusion. 2. No LexiScan induced chest pain or cardiac arrhythmia. 3. Normal blood pressure and heart rate response. 4. Sestamibi/sestamibi perfusion scan pending; see separate report. Electronically Signed On 07-08-2019 12:42:36 CDT by mUa Carter M.D. [email or web address]
[2019-07-06 17:30] LABS: Glucose Point of Care 468 mg/dL (70-110)
--- NOTE | 2019-07-06 19:29 | PM.PN ---
Subjective Subjective: Interval history: Patient's breathing, SOB and swelling has improved. Medications: Reviewed: Yes Medication Review Details: Current Medications Hydrocodone Bitart/Acetaminophen ([place] 10-325 Mg) 1 - 2 tab PO Q4H PRN PRN Reason: PAIN Last Admin: 07/06/19 01:24 Dose: 2 tab Documented by: Al Hydrox/Mg Hydrox/Simethicone (Maalox) 30 ml PO Q4H PRN PRN Reason: INDIGESTION Last Admin: 07/06/19 14:04 Dose: 30 ml Documented by: Albuterol/Ipratropium (Duoneb) 3 ml INHALATION Q6H PRN PRN Reason: SHORTNESS OF BREATH Albuterol/Ipratropium (Duoneb) 3 ml INHALATION Q4H.RESPIRATORY [facility] Last Admin: 07/06/19 16:47 Dose: 3 ml Documented by: Albuterol/Ipratropium (Combivent Respimat) 2 puff INHALATION Q6H.RESPIRATORY PRN PRN Reason: SOB/WHEEZING Amiodarone HCl (Cordarone) 200 mg PO DAILY [facility] Last Admin: 07/06/19 08:48 Dose: 200 mg Documented by: Aspirin (Aspirin Ec) 81 mg PO DAILY [facility] Last Admin: 07/06/19 08:47 Dose: 81 mg Documented by: Atorvastatin Calcium (Lipitor) 40 mg PO BEDTIME [facility] Last Admin: 07/05/19 20:36 Dose: 40 mg Documented by: Bumetanide (Bumex) 1 mg IV Q12H [facility] Last Admin: 07/06/19 17:31 Dose: 1 mg Documented by: Clopidogrel Bisulfate (Plavix) 75 mg PO DAILY [facility] Last Admin: 07/06/19 08:48 Dose: 75 mg Documented by: Dextrose (D50w) 25 ml IVP ONCE PRN; Protocol PRN Reason: hypoglycemia protocol Dextrose (D50w) 50 ml IVP PRN PRN; Protocol PRN Reason: hypoglycemia protocol Enoxaparin Sodium (Lovenox) 110 mg SUBCUT Q12H [facility] Last Admin: 07/06/19 17:31 Dose: 110 mg Documented by: Gabapentin (Neurontin) 300 mg PO TID [facility] Last Admin: 07/06/19 14:04 Dose: 300 mg Documented by: Glucagon (Glucagen) 1 mg IM ONCE PRN; Protocol PRN Reason: Adult Acute Hypoglycemia Prot. Guaifenesin (Mucinex) 1,200 mg PO DAILY [facility] Last Admin: 07/06/19 08:47 Dose: 1,200 mg Documented by: Dextrose (D5w) 500 mls @ 100 mls/hr IV ONCE PRN; Protocol PRN Reason: Adult Acute Hypoglycemia Prot Piperacillin Sod/Tazobactam (Sod 3.375 gm/ Sodium Chloride) 100 mls @ 25 mls/hr IV Q8H [facility]; Protocol Last Admin: 07/06/19 13:03 Dose: 12.5 mls/hr Documented by: Azithromycin 500 mg/ Sodium (Chloride) 250 mls @ 250 mls/hr IV Q24H [facility]; Protocol Last Admin: 07/06/19 12:53 Dose: 250 mls/hr Documented by: Insulin Aspart (Novolog) 0 unit SUBCUT TIDWM [facility]; Protocol Last Admin: 07/06/19 17:32 Dose: 18 unit Documented by: Insulin Glargine (Lantus) 20 unit SUBCUT BEDTIME [facility] Last Admin: 07/05/19 22:00 Dose: 20 unit Documented by: Insulin Glargine (Lantus) 10 unit SUBCUT QAM [facility] Last Admin: 07/06/19 05:59 Dose: 10 unit Documented by: Isosorbide Mononitrate (Imdur) 30 mg PO DAILY [facility] Last Admin: 07/06/19 08:48 Dose: 30 mg Documented by: Lisinopril (Prinivil) 5 mg PO DAILY [facility] Last Admin: 07/06/19 08:48 Dose: 5 mg Documented by: Metoprolol Succinate (Toprol Xl) 50 mg PO DAILY [facility] Last Admin: 07/06/19 08:48 Dose: 50 mg Documented by: Non-Formulary Medication (Cinnamon Bark [Cinnamon]) 500 mg PO DAILY [facility] Last Admin: 07/06/19 08:50 Dose: Not Given Documented by: Non-Formulary Medication (Fish Oil) 1 cap PO DAILY [facility] Last Admin: 07/06/19 08:51 Dose: Not Given Documented by: Non-Formulary Medication (Umeclidinium [Incruse Ellipta]) 1 inh INHALATION DAILY [facility] Last Admin: 07/06/19 08:53 Dose: Not Given Documented by: Ondansetron HCl (Zofran) 4 mg IVP Q6H PRN PRN Reason: NAUSEA AND VOMITING Pantoprazole Sodium (Protonix) 40 mg PO DAILY [facility] Last Admin: 07/06/19 08:48 Dose: 40 mg Documented by: Prednisone (Prednisone) 40 mg PO DAILY [facility] Last Admin: 07/06/19 08:47 Dose: 40 mg Documented by: Fluticasone/Salmeterol (Advair Diskus 500-50) 1 puff INHALATION BID.RESPIRATORY [facility] Last Admin: 07/06/19 09:35 Dose: 1 puff Documented by: Tiotropium Wood (Spiriva) 18 mcg INHALATION DAILY.RESPIRATORY [facility] Last Admin: 07/06/19 12:03 Dose: Not Given Documented by: Vitals/I&O/Wt Last Vital Signs Temp 98.1 F 07/06/19 12:00 Pulse 79 07/06/19 16:49 Resp 18 07/06/19 16:49 BP 137/75 07/06/19 16:00 Pulse Ox 98 07/06/19 16:49 07/06/19 07/06/19 07/06/19 06:59 14:59 22:59 Intake Total 61.875 / 1061.875 900.542 / 900.542 522 / 1422.542 Output Total 300 / 600 450 / 450 200 / 650 Balance -238.125 / 461.875 450.542 / 450.542 322 / 772.542 Physical Exam Const: COMMON NORMALS: no apparent distress, average body habitus, oriented x3, alert and well nourished GENERAL APPEARANCE: cooperative, comfortable, well kempt and well developed ORIENTATION/CONSCIOUSNESS: Yes oriented to person, Yes oriented to place and Yes oriented to time HENMT: COMMON NORMALS: normocephalic, head/scalp atraumatic, hearing grossly normal bilaterally, external ears normal, external nose normal and moist oral mucous membranes HEAD & SCALP: normocephalic and atraumatic NOSE: external nose normal EXTERNAL EAR: Yes external ears normal Eye: COMMON NORMALS: PERRL, EOMs intact bilaterally and conjunctivae normal CONJUNCTIVA: Yes conjunctivae normal SCLERA: sclerae normal PUPIL: Yes PERRL Neck/C-Spine: COMMON NORMALS: supple and no JVD Resp: COMMON NORMALS: normal respiratory effort and no use of accessory muscles AUSCULTATION: no crackles, no rales, no rhonchi, no wheezes and diminished lung sounds (bilateral bases) Cardio: COMMON NORMALS: no JVD and peripheral pulses 2+ throughout; negative for no gallops and negative for no clicks JUGULAR VENOUS DISTENTION: no JVD PALPATION: normal PMI, no heave, no palpable S3, no palpable S4 and no thrill RHYTHM: abnormal rhythm irregularly irregular HEART SOUNDS: no click, no gallops and no murmurs BRUITS: no carotid bruits PERIPHERAL PULSES: pulses 2+ throughout GI: COMMON NORMALS: normal to inspection, nondistended, normoactive bowel sounds, soft to palpation and non-tender PALPATION: Yes soft RECTAL EXAM: Yes deferred Extremity: GENERAL: Yes edema (1+ bilaterally) Neuro: COMMON NORMALS: oriented x3 and no focal motor deficits SENSORIUM/ORIENTATION: Yes alert, Yes oriented to person, Yes oriented to place and Yes oriented to time CRANIAL NERVES: Yes CN normal except as noted Psych: COMMON NORMALS: thought process normal APPEARANCE: Yes well kempt THOUGHT PROCESS: normal thought process THOUGHT CONTENT: Yes normal thought content MEMORY/COGNITION: Yes memory grossly intact INSIGHT: insight good JUDGEMENT: judgment good Data : 07/06/19 04:10 07/06/19 04:10 Micro: Microbiology 07/04/19 12:20 Gram Stain - Final Sputum - Expectorated Sputum Sputum Culture - Final 07/04/19 19:00 Gram Stain - Final Sputum - Expectorated Sputum Sputum Culture - Preliminary A&P Assessment and plan (1) Acute respiratory failure: In setting of right-sided pneumonia and heart failure with preserved ejection fraction; Oxygen requirement has gone down. He was off BiPAP at the time of evaluation and he is currently requiring oxygen via nasal cannula. Status: Acute Code(s): J96.00 - Acute respiratory failure, unspecified whether with hypoxia or hypercapnia (2) CHF (congestive heart failure): - Bumex held. -Continue with fluid restriction intake and output monitoring and follow-up BMP. -Follow-up echocardiogram this visit without any significant change. Status: Chronic Qualifiers: Heart failure type: diastolic Heart failure chronicity: acute on chronic Qualified Code(s): I50.33 - Acute on chronic diastolic (congestive) heart failure Code(s): I50.9 - Heart failure, unspecified (3) Pneumonia: Chest x-ray with right sided pneumonia. On antibiotic as per Dr. Lake. Status: Acute Qualifiers: Laterality: bilateral Lung location: unspecified part of lung Pneumonia type: due to unspecified organism Qualified Code(s): J18.9 - Pneumonia, unspecified organism Code(s): J18.9 - Pneumonia, unspecified organism (4) NSTEMI (non-ST elevated myocardial infarction): Non-ST elevation [place] type II in setting of decompensated congestive heart failure and pneumonia. -Elevation in troponin T has been less than what it was in his previous visit. -Continue current medications. -Plan for stress test tomorrow. Status: Acute Code(s): I21.4 - Non-ST elevation (NSTEMI) myocardial infarction (5) Chronic kidney disease, stage 3: BUN has increased. Status: Chronic Code(s): N18.3 - Chronic kidney disease, stage 3 (moderate) (6) Afib: He went into A. fib. rate controlled. Continue current medications. Status: Chronic Qualifiers: Atrial fibrillation type: paroxysmal Qualified Code(s): I48.0 - Paroxysmal atrial fibrillation Code(s): I48.91 - Unspecified atrial fibrillation (7) CAD (coronary artery disease): Status: Chronic Qualifiers: Coronary Disease-Associated Artery/Lesion type: [place] artery [place] vs. transplanted heart: [place] heart Associated angina: without angina Qualified Code(s): I25.10 - Atherosclerotic heart disease of [place] coronary artery without angina pectoris Code(s): I25.10 - Atherosclerotic heart disease of [place] coronary artery without angina pectoris (8) Hypertension: Status: Chronic Qualifiers: Hypertension type: essential hypertension Qualified Code(s): I10 - Essential (primary) hypertension Code(s): I10 - Essential (primary) hypertension (9) LAURIE (obstructive sleep apnea): Status: Chronic Code(s): G47.33 - Obstructive sleep apnea (adult) (pediatric) (10) Diabetes mellitus, type II, insulin dependent: Status: Chronic Code(s): E11.9 - Type 2 diabetes mellitus without complications; Z79.4 - [facility] (current) use of insulin Additional A&P Information Anemia Hyponatremia Thank you for allowing me to participate in patient's care. Please feel free to call with questions or concerns. 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 transplanted heart: [place] heart Associated angina: without angina Hypertension I10 Hypertension type: essential hypertension LAURIE (obstructive sleep apnea) G47.33 Diabetes mellitus, type II, insulin dependent E11.9; Z79.4
[2019-07-06] MEDS: insulin glargine 100 units/1 mL 20 UNIT SUBCUT (20:34)
[2019-07-06] MEDS: atorvastatin 40 mg Tablet PO (20:34)
[2019-07-07] VITALS (18 sets, daily range): BP systolic 131–185; BP diastolic 58–104; PULSE 71–118; RESP 12–28; TEMP 36.8; O2SAT 90–100
[2019-07-07] MEDS: HYDROcodone-acetaminophen 10-325 mg Tablet PO ×3 (00:20→21:21)
[2019-07-07] MEDS: ipratropium-albuterol 3 mL Neb INHALATION ×6 (00:52→20:24)
[2019-07-07 01:18] LABS: Glucose Point of Care 433 mg/dL (70-110)
[2019-07-07] MEDS: bumetanide 0.25 mg/mL SDV 10 mL 1 MG IV (04:31)
[2019-07-07] MEDS: enoxaparin 120 mg/0.8 mL Syringe 110 MG SUBCUT ×2 (04:32→16:53)
[2019-07-07 04:55] LABS: Basophils % 0.1 %; Hematocrit 37.1 % (42.0-52.0); Hemoglobin 10.6 g/dL (11.7-16.6); Lymphocytes # 0.4 10^3/uL (0.8-4.8); Lymphocytes % 3.6 %; Mean Corpuscular HGB Conc 28.6 g/dL (30.0-36.0); Mean Corpuscular Hemoglobin 25.8 pg (28.0-34.0); Mean Corpuscular Volume 90.3 fL (80-94); Mean Platelet Volume 11.1 fL (7.4-10.4); Monocytes # 0.7 10^3/uL (0.2-0.9); Monocytes % 6.5 %; Neutrophils # 9.3 10^3/uL (1.8-7.7); Neutrophils % 89.2 %; Nucleated Red Blood Cells % 0 %; Platelet Count 206 10^3/cmm (130-400); Red Blood Count 4.11 10^6/uL (4.1-5.3); White Blood Count 10.4 10^3/uL (4.0-10.0)
[2019-07-07 05:04] LABS: Alanine Aminotransferase 21 U/L (0-41); Albumin Level 3.1 g/dL (3.5-5.2); Alkaline Phosphatase 89 IU/L (40-130); Aspartate Amino Transferase 14 U/L (0-40); Chloride 90 mmol/L (98-107); Potassium 5.5 mmol/L (3.5-5.1); Sodium 130 mmol/L (136-145)
[2019-07-07 05:51] LABS: Anion Gap 18.5 (5-19); Blood Urea Nitrogen 81 mg/dL (8-23); Calcium 8.8 mg/dL (8.5-10.5); Carbon Dioxide 27 mmol/L (22-29); Glomerular Filtration Rate 31.8 mL/min (90-130); Glucose 487 mg/dL (65-115); Magnesium 2.3 mg/dL (1.7-2.3); Osmolality Calculated 292 mOsm/kg (285-295); Total Bilirubin 0.3 mg/dL (0.15-1.2); Total Protein 6.1 g/dL (6.6-8.7)
[2019-07-07] MEDS: piperacillin-tazobactam 3.375 GM in sodium chloride 0.9% (plus) 100 ML IV ×3 (07:36→21:23)
[2019-07-07] MEDS: insulin glargine 100 units/1 mL 20 UNIT SUBCUT ×2 (08:03→21:22)
[2019-07-07] MEDS: guaiFENesin 600 mg Tablet 1200 MG PO (09:00)
[2019-07-07] MEDS: predniSONE 20 mg Tablet 40 MG PO (09:00)
[2019-07-07] MEDS: pantoprazole DR 40 mg Tablet PO (09:01)
[2019-07-07] MEDS: aspirin 81 mg EC Tablet PO (09:01)
[2019-07-07] MEDS: clopidogrel 75 mg Tablet PO (09:01)
[2019-07-07] MEDS: metoprolol succinate ER (24 HR) 50 mg Tablet PO (09:01)
[2019-07-07] MEDS: amiodarone 200 mg Tablet PO ×2 (09:01→17:05)
[2019-07-07] MEDS: isosorbide mononitrate ER 60 mg Tablet PO (09:01)
[2019-07-07] MEDS: gabapentin 300 mg Capsule PO ×3 (09:01→21:21)
--- NOTE | 2019-07-07 09:13 | PC.SOCIAL ---
IMM Update Pg2 of IMM given and explained to patient who verbalized understanding. Copy provided. Original placed in chart.
--- NOTE | 2019-07-07 09:15 | SUR.PREOP ---
STRESS TEST POSTPONED Notified by nuclear medicine that Dr Carter is postponing today's stress test. She will reevaluate in the morning if the patient needs a stress test at that time.
[2019-07-07] MEDS: azithromycin 500 MG in sodium chloride 0.9% 250 ML 250 MG IV (11:42)
--- NOTE | 2019-07-07 12:49 | P.PN_ITS ---
Subjective Subjective: Interval history: Patient states that he is doing better this morning, no wheezing, no cough, no significant shortness of breath, no fevers, still has some lower extremity edema really wants to have a stress test done as inpatient, no chest pain, Vitals/I&O/Wt Last Vital Signs Temp 98.1 F 07/06/19 12:00 Pulse 86 07/07/19 12:00 Resp 19 H 07/07/19 12:00 BP 131/58 07/07/19 12:00 Pulse Ox 90 07/07/19 12:00 07/06/19 07/07/19 07/07/19 22:59 06:59 14:59 Intake Total 922 / 2072.542 100 / 2172.542 500 / 500 Output Total 200 / 650 550 / 1200 300 / 300 Balance 722 / 1422.542 -450 / 972.542 200 / 200 Physical Exam Const: COMMON NORMALS: no apparent distress and oriented x3 GENERAL APPEARANCE: cooperative and comfortable HENMT: COMMON NORMALS: normocephalic HEAD & SCALP: normocephalic Eye: COMMON NORMALS: PERRL, EOMs intact bilaterally and no papilledema GENERAL EYE: normal appearance of both eyes PUPIL: Yes PERRL DIRECT OPHTHALMOSCOPY: Yes no papilledema Neck/C-Spine: COMMON NORMALS: no JVD and thyroid normal THYROID: thyroid normal Lymph: LYMPHATIC: no lymphadenopathy noted Resp: COMMON NORMALS: normal respiratory effort, no retractions, no use of accessory muscles and clear to auscultation bilaterally EFFORT & INSPECTION: Yes tachypneic and Yes actively coughing AUSCULTATION: clear to auscultation bilaterally Cardio: COMMON NORMALS: no JVD, regular rate, regular rhythm, S1 normal heart sound and S2 normal heart sound RATE: regular rate RHYTHM: regular rhythm HEART SOUNDS: S1 normal and S2 normal GI: COMMON NORMALS: normal to inspection, nondistended, normoactive bowel sounds, soft to palpation, non-tender, no hepatosplenomegaly, no masses and no bruits PALPATION: Yes soft and Yes no hepatosplenomegaly Extremity: COMMON NORMALS: normal capillary refill, no clubbing, cyanosis or edema, no calf tenderness and no pedal edema Neuro: COMMON NORMALS: oriented x3 Psych: COMMON NORMALS: mental status grossly normal and thought process normal THOUGHT PROCESS: normal thought process Data : 07/07/19 04:30 07/07/19 04:30 Micro: Microbiology 07/04/19 19:00 Gram Stain - Final Sputum - Expectorated Sputum Sputum Culture - Final 07/04/19 12:20 Gram Stain - Final Sputum - Expectorated Sputum Sputum Culture - Final A&P Assessment and plan (1) Acute respiratory failure: -Secondary to right sided pneumonia, diastolic CHF bit with BNP in the 14,000, and COPD exacerbation -CT chest shows Bilateral airspace opacities are identified compatible with pneumonic infiltrates. This is greatest in the right upper lobe and both lower lobes. Pleural space: There are small pleural effusions right greater than left. Plan: -De-escalate to Zosyn and azithromycin -DuoNeb treatments, every 4 hours, every 2 as needed -Received Solu-Medrol in the ER, continue prednisone 40 mg once daily -Bumex 1 mg every 12 hours, will hold diuresis today due to concerns of dehydration -Fluid restrictions 1500 cc an hour, monitor urine output, monitor creatinine -Continue BiPAP overnight, nasal cannula during the day Status: Acute Code(s): J96.00 - Acute respiratory failure, unspecified whether with hypoxia or hypercapnia (2) Pneumonia: Urine bacterial antigens, sputum culture, viral panel so far unremarkable Status: Acute Qualifiers: Laterality: bilateral Lung location: unspecified part of lung Pneumonia type: due to unspecified organism Qualified Code(s): J18.9 - Pneumonia, unspecified organism Code(s): J18.9 - Pneumonia, unspecified organism (3) NSTEMI (non-ST elevated myocardial infarction): -Likely supply demand ischemia from type II NSTEMI -But has a positive delta Trop, and history of RCA stent placement, and chest pain, EKG no significant ST-T wave changes Plan: -Continue telemetry monitoring -Switch to Lovenox 1 charan per kick twice daily, hold Eliquis -Aspirin, statin, beta-christina -im Imdur addeddur added -Monitor for chest pain -Patient had an echocardiogram on his last admission which showed grade 1 diastolic dysfunction, ejection fraction 55%, poor study -Cardiology has been consulted Status: Acute Code(s): I21.4 - Non-ST elevation (NSTEMI) myocardial infarction (4) Dyslipidemia: Status: Chronic Code(s): E78.5 - Hyperlipidemia, unspecified (5) Hypertension: Hypertensive urgency, start home meds Status: Chronic Qualifiers: Hypertension type: essential hypertension Qualified Code(s): I10 - Essential (primary) hypertension Code(s): I10 - Essential (primary) hypertension (6) LAURIE (obstructive sleep apnea): Status: Chronic Code(s): G47.33 - Obstructive sleep apnea (adult) (pediatric) (7) Chronic anticoagulation: On hold as on therapeutic Lovenox Status: Chronic Code(s): Z79.01 - group home (current) use of anticoagulants (8) Diabetes mellitus, type II, insulin dependent: Today blood sugars have been elevated, blood sugar 487, with pseudohyponatremia Plan -Increase Lantus to 20 units twice daily -High-dose sliding scale Status: Chronic Code(s): E11.9 - Type 2 diabetes mellitus without complications; 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 (9) Chronic kidney disease, stage 3: Creatinine 1.5 Status: Chronic Code(s): N18.3 - Chronic kidney disease, stage 3 (moderate) (10) Afib: Continue amiodarone, metoprolol Status: Chronic Qualifiers: Atrial fibrillation type: paroxysmal Qualified Code(s): I48.0 - Paroxysmal atrial fibrillation Code(s): I48.91 - Unspecified atrial fibrillation (11) COPD (chronic obstructive pulmonary disease): Status: Chronic Qualifiers: COPD type: emphysema Emphysema type: panlobular Qualified Code(s): J43.1 - Panlobular emphysema Code(s): J44.9 - Chronic obstructive pulmonary disease, unspecified (12) CHF (congestive heart failure): Status: Chronic Qualifiers: Heart failure type: diastolic Heart failure chronicity: acute on chronic Qualified Code(s): I50.33 - Acute on chronic diastolic (congestive) heart failure Code(s): I50.9 - Heart failure, unspecified Additional A&P Information Will transfer out of ICU to cardiac stepdown unit today Attestations Medical Necessity Statement*: Patient requires continued hospitalization for pneumonia, CHF,nstemi Coding Level of Care Code 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[facility] Diagnoses Acute respiratory failure J96.00 Pneumonia J18.9 Laterality: bilateral Lung location: unspecified part of lung Pneumonia type: due to unspecified organism NSTEMI (non-ST elevated myocardial infarction) I21.4 Dyslipidemia E78.5 Hypertension I10 Hypertension type: essential hypertension LAURIE (obstructive sleep apnea) G47.33 Chronic anticoagulation Z79.01 Diabetes mellitus, type II, insulin dependent E11.9; Z79.4 Chronic kidney disease, stage 3 N18.3 Afib I48.0 Atrial fibrillation type: paroxysmal COPD (chronic obstructive pulmonary disease) J43.1 COPD type: emphysema Emphysema type: panlobular CHF (congestive heart failure) I50.33 Heart failure type: diastolic Heart failure chronicity: acute on chronic
[2019-07-07 14:39] LABS: Glucose Point of Care 501 mg/dL (70-110)
[2019-07-07 14:39] LABS: Glucose Point of Care 287 mg/dL (70-110)
[2019-07-07 16:53] LABS: Glucose Point of Care 156 mg/dL (70-110)
--- NOTE | 2019-07-07 16:56 | XR_ITS ---
WS: [id number] XR chest 2V* 64042 REASON FOR EXAM: CHF, Pneumonia FINDINGS: Follow-up evaluation for congestive heart failure dated July 04, 2019. The pulmonary edema has resolved. There is no pleural effusion seen. The heart is smaller than previous exam. The hilum and apices normal. XR/XR chest 2V* [id number] IMPRESSION: Resolved congestive heart failure.
--- NOTE | 2019-07-07 16:59 | PM.PN ---
Subjective Subjective: Interval history: Patient was sitting in bed this morning at the time of examination. He complains of fatigue, no CP or SOB. He states cough has improved. Medications: Reviewed: Yes Medication Review Details: Current Medications Hydrocodone Bitart/Acetaminophen ([place] 10-325 Mg) 1 - 2 tab PO Q4H PRN PRN Reason: PAIN Last Admin: 07/07/19 04:31 Dose: 2 tab Documented by: Al Hydrox/Mg Hydrox/Simethicone (Maalox) 30 ml PO Q4H PRN PRN Reason: INDIGESTION Last Admin: 07/06/19 14:04 Dose: 30 ml Documented by: Albuterol/Ipratropium (Duoneb) 3 ml INHALATION Q6H PRN PRN Reason: SHORTNESS OF BREATH Albuterol/Ipratropium (Duoneb) 3 ml INHALATION Q4H.RESPIRATORY CHARLIE Last Admin: 07/07/19 15:51 Dose: 3 ml Documented by: Albuterol/Ipratropium (Combivent Respimat) 2 puff INHALATION Q6H.RESPIRATORY PRN PRN Reason: SOB/WHEEZING Aminophylline (Aminophylline) 25 mg IVP Q2M PRN PRN Reason: see dose instructions Stop: 07/08/19 06:36 Amiodarone HCl (Cordarone) 200 mg PO BID CHARLIE Aspirin (Aspirin Ec) 81 mg PO DAILY [facility] Last Admin: 07/07/19 09:01 Dose: 81 mg Documented by: Atorvastatin Calcium (Lipitor) 40 mg PO BEDTIME [facility] Last Admin: 07/06/19 20:34 Dose: 40 mg Documented by: Budesonide (Pulmicort) 0.5 mg INHALATION BID.RESPIRATORY CHARLIE Bumetanide (Bumex) 1 mg IV Q12H CHARLIE Last Admin: 07/07/19 04:31 Dose: 1 mg Documented by: Clopidogrel Bisulfate (Plavix) 75 mg PO DAILY [facility] Last Admin: 07/07/19 09:01 Dose: 75 mg Documented by: Dextrose (D50w) 25 ml IVP ONCE PRN; Protocol PRN Reason: hypoglycemia protocol Dextrose (D50w) 50 ml IVP PRN PRN; Protocol PRN Reason: hypoglycemia protocol Enoxaparin Sodium (Lovenox) 110 mg SUBCUT Q12H [facility] Last Admin: 07/07/19 16:53 Dose: 110 mg Documented by: Gabapentin (Neurontin) 300 mg PO TID [facility] Last Admin: 07/07/19 14:25 Dose: 300 mg Documented by: Glucagon (Glucagen) 1 mg IM ONCE PRN; Protocol PRN Reason: Adult Acute Hypoglycemia Prot. Guaifenesin (Mucinex) 1,200 mg PO DAILY [facility] Last Admin: 07/07/19 09:00 Dose: 1,200 mg Documented by: Dextrose (D5w) 500 mls @ 100 mls/hr IV ONCE PRN; Protocol PRN Reason: Adult Acute Hypoglycemia Prot Piperacillin Sod/Tazobactam (Sod 3.375 gm/ Sodium Chloride) 100 mls @ 25 mls/hr IV Q8H CHARLIE; Protocol Last Admin: 07/07/19 13:24 Dose: 25 mls/hr Documented by: Azithromycin 500 mg/ Sodium (Chloride) 250 mls @ 250 mls/hr IV Q24H CHARLIE; Protocol Last Admin: 07/07/19 11:42 Dose: 250 mls/hr Documented by: Insulin Aspart (Novolog) 0 unit SUBCUT TIDWM [facility]; Protocol Last Admin: 07/07/19 16:52 Dose: 6 unit Documented by: Insulin Glargine (Lantus) 20 unit SUBCUT BEDTIME [facility] Last Admin: 07/06/19 20:34 Dose: 20 unit Documented by: Insulin Glargine (Lantus) 20 unit SUBCUT QAM [facility] Last Admin: 07/07/19 08:03 Dose: 20 unit Documented by: Isosorbide Mononitrate (Imdur) 45 mg PO DAILY [facility] Lisinopril (Prinivil) 5 mg PO DAILY [facility] Last Admin: 07/06/19 08:48 Dose: 5 mg Documented by: Metoprolol Succinate (Toprol Xl) 75 mg PO DAILY [facility] Nitroglycerin (Nitrostat) 0.4 mg SUBLINGUAL Q5M PRN PRN Reason: CHEST PAIN Stop: 07/08/19 06:36 Non-Formulary Medication (Cinnamon Bark [Cinnamon]) 500 mg PO DAILY [facility] Last Admin: 07/07/19 08:59 Dose: Not Given Documented by: Non-Formulary Medication (Fish Oil) 1 cap PO DAILY [facility] Last Admin: 07/07/19 08:59 Dose: Not Given Documented by: Non-Formulary Medication (Umeclidinium [Incruse Ellipta]) 1 inh INHALATION DAILY [facility] Last Admin: 07/07/19 08:59 Dose: Not Given Documented by: Ondansetron HCl (Zofran) 4 mg IVP Q6H PRN PRN Reason: NAUSEA AND VOMITING Ondansetron HCl (Zofran) 4 mg IVP Q2M PRN PRN Reason: NAUSEA Pantoprazole Sodium (Protonix) 40 mg PO DAILY [facility] Last Admin: 07/07/19 09:01 Dose: 40 mg Documented by: Prednisone (Prednisone) 40 mg PO DAILY [facility] Last Admin: 07/07/19 09:00 Dose: 40 mg Documented by: Fluticasone/Salmeterol (Advair Diskus 500-50) 1 puff INHALATION BID.RESPIRATORY [facility] Last Admin: 07/07/19 08:54 Dose: 1 puff Documented by: Tiotropium [place] (Spiriva) 18 mcg INHALATION DAILY.RESPIRATORY [facility] Last Admin: 07/07/19 11:22 Dose: Not Given Documented by: Vitals/I&O/Wt Last Vital Signs Temp 98.1 F 07/06/19 12:00 Pulse 89 07/07/19 16:00 Resp 16 07/07/19 16:00 BP 157/82 07/07/19 16:00 Pulse Ox 95 07/07/19 16:00 07/07/19 07/07/19 07/07/19 06:59 14:59 22:59 Intake Total 100 / 2172.542 500 / 500 Output Total 550 / 1200 700 / 700 250 / 950 Balance -450 / 972.542 -200 / -200 -250 / -450 Physical Exam Const: COMMON NORMALS: no apparent distress, average body habitus, oriented x3, alert and well nourished GENERAL APPEARANCE: cooperative, comfortable, well kempt and well developed ORIENTATION/CONSCIOUSNESS: Yes oriented to person, Yes oriented to place and Yes oriented to time HENMT: COMMON NORMALS: normocephalic and head/scalp atraumatic HEAD & SCALP: normocephalic and atraumatic Eye: COMMON NORMALS: PERRL and EOMs intact bilaterally SCLERA: sclerae normal PUPIL: Yes PERRL Neck/C-Spine: COMMON NORMALS: supple and no JVD (appreciated, short thick neck) Resp: AUSCULTATION: crackles (coarse bilateral crakles (R>L)), no rales, no rhonchi, wheezes and diminished lung sounds (bilateral bases) Cardio: COMMON NORMALS: no JVD (appreciated, short thick neck) and peripheral pulses 2+ throughout JUGULAR VENOUS DISTENTION: no JVD PALPATION: normal PMI, no heave and no thrill RHYTHM: abnormal rhythm irregularly irregular HEART SOUNDS: no click, no gallops and no murmurs BRUITS: no carotid bruits PERIPHERAL PULSES: pulses 2+ throughout Extremity: GENERAL: Yes edema (2+ bilaterally pedal and pretibial) Neuro: COMMON NORMALS: oriented x3 SENSORIUM/ORIENTATION: Yes alert, Yes oriented to person, Yes oriented to place and Yes oriented to time CRANIAL NERVES: Yes CN normal except as noted Psych: COMMON NORMALS: thought process normal APPEARANCE: Yes well kempt THOUGHT PROCESS: normal thought process THOUGHT CONTENT: Yes normal thought content MEMORY/COGNITION: Yes memory grossly intact INSIGHT: insight good JUDGEMENT: judgment good Data : 07/07/19 04:30 07/07/19 04:30 Micro: Microbiology 07/04/19 19:00 Gram Stain - Final Sputum - Expectorated Sputum Sputum Culture - Final A&P Assessment and plan (1) Acute respiratory failure: In setting of right-sided pneumonia and heart failure with preserved ejection fraction; Oxygen requirement has gone down. He was off BiPAP at the time of evaluation and he is currently requiring oxygen via nasal cannula. He is using BiPAP at night. Status: Acute Code(s): J96.00 - Acute respiratory failure, unspecified whether with hypoxia or hypercapnia (2) CHF (congestive heart failure): - Bumex 1 mg IV earlier today. -Continue with fluid restriction intake and output monitoring and follow-up BMP. -Follow-up echocardiogram this visit without any significant change. Status: Chronic Qualifiers: Heart failure type: diastolic Heart failure chronicity: acute on chronic Qualified Code(s): I50.33 - Acute on chronic diastolic (congestive) heart failure Code(s): I50.9 - Heart failure, unspecified (3) Pneumonia: Chest x-ray with right sided pneumonia. On antibiotic as per Dr. Lake. Status: Acute Qualifiers: Laterality: bilateral Lung location: unspecified part of lung Pneumonia type: due to unspecified organism Qualified Code(s): J18.9 - Pneumonia, unspecified organism Code(s): J18.9 - Pneumonia, unspecified organism (4) NSTEMI (non-ST elevated myocardial infarction): Non-ST elevation [place] type II in setting of decompensated congestive heart failure and pneumonia. -Elevation in troponin T has been less than what it was in his previous visit. -Continue current medications. -Plan for stress test tomorrow. Status: Acute Code(s): I21.4 - Non-ST elevation (NSTEMI) myocardial infarction (5) Chronic kidney disease, stage 3: LETHA on CKD, I think it is cardiorenal in etiology. Follow up BMP. Status: Chronic Code(s): N18.3 - Chronic kidney disease, stage 3 (moderate) (6) Afib: He went into A. fib. rate controlled. Continue current medications. Status: Chronic Qualifiers: Atrial fibrillation type: paroxysmal Qualified Code(s): I48.0 - Paroxysmal atrial fibrillation Code(s): I48.91 - Unspecified atrial fibrillation (7) CAD (coronary artery disease): Status: Chronic Qualifiers: Coronary Disease-Associated Artery/Lesion type: [place] artery [place] vs. transplanted heart: [place] heart Associated angina: without angina Qualified Code(s): I25.10 - Atherosclerotic heart disease of [place] coronary artery without angina pectoris Code(s): I25.10 - Atherosclerotic heart disease of [place] coronary artery without angina pectoris (8) Hypertension: Status: Chronic Qualifiers: Hypertension type: essential hypertension Qualified Code(s): I10 - Essential (primary) hypertension Code(s): I10 - Essential (primary) hypertension (9) LAURIE (obstructive sleep apnea): Status: Chronic Code(s): G47.33 - Obstructive sleep apnea (adult) (pediatric) (10) Diabetes mellitus, type II, insulin dependent: Status: Chronic Code(s): E11.9 - Type 2 diabetes mellitus without complications; Z79.4 - long 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 Thank you for allowing me to participate in patient's care. Please feel free to call with questions or concerns. 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 transplanted heart: [place] heart Associated angina: without angina Hypertension I10 Hypertension type: essential hypertension LAURIE (obstructive sleep apnea) G47.33 Diabetes mellitus, type II, insulin dependent E11.9; Z79.4
[2019-07-07] MEDS: budesonide 0.5 mg/2 mL Neb INHALATION (20:24)
[2019-07-07] MEDS: atorvastatin 40 mg Tablet PO (21:21)
[2019-07-07 22:37] LABS: Glucose Point of Care 407 mg/dL (70-110)
[2019-07-08] VITALS (24 sets, daily range): BP systolic 119–190; BP diastolic 60–82; PULSE 53–114; RESP 14–29; TEMP 36.4–36.9; O2SAT 18–100
--- NOTE | 2019-07-08 00:56 | PC.NURSE ---
Blood glucose 407 at 2100. No HS sliding scale insulin orders noted. 20 units Lantus insulin given SQ as ordered. Left message for Dr. Baker, at 2118 with no return call.
[2019-07-08] MEDS: ipratropium-albuterol 3 mL Neb INHALATION ×6 (01:03→23:36)
[2019-07-08] MEDS: HYDROcodone-acetaminophen 10-325 mg Tablet PO ×3 (03:34→21:52)
[2019-07-08] MEDS: enoxaparin 120 mg/0.8 mL Syringe 110 MG SUBCUT (03:55)
[2019-07-08 04:23] LABS: Hematocrit 31.5 % (42.0-52.0); Hemoglobin 9.6 g/dL (11.7-16.6); Lymphocytes # 0.6 10^3/uL (0.8-4.8); Lymphocytes % 7.1 %; Mean Corpuscular HGB Conc 30.5 g/dL (30.0-36.0); Mean Corpuscular Hemoglobin 25.6 pg (28.0-34.0); Mean Platelet Volume 10.8 fL (7.4-10.4); Monocytes # 0.7 10^3/uL (0.2-0.9); Monocytes % 7.5 %; Neutrophils # 7.7 10^3/uL (1.8-7.7); Nucleated Red Blood Cells % 0 %; Platelet Count 179 10^3/cmm (130-400); Red Blood Count 3.75 10^6/uL (4.1-5.3); Red Cell Distribution Width 15.9 % (12.1-15.1); White Blood Count 9.1 10^3/uL (4.0-10.0)
[2019-07-08 04:49] LABS: Alanine Aminotransferase 24 U/L (0-41); Alkaline Phosphatase 67 IU/L (40-130); Anion Gap 17.2 (5-19); Aspartate Amino Transferase 18 U/L (0-40); Calcium 8.6 mg/dL (8.5-10.5); Carbon Dioxide 26 mmol/L (22-29); Chloride 94 mmol/L (98-107); Globulin 2.8 g/dL (1.3-4.6); Glomerular Filtration Rate 28.6 mL/min (90-130); Glucose 368 mg/dL (65-115); Magnesium 2.5 mg/dL (1.7-2.3); Osmolality Calculated 290 mOsm/kg (285-295); Phosphorus 3.6 mg/dL (2.5-4.5); Potassium 5.2 mmol/L (3.5-5.1); Sodium 132 mmol/L (136-145); Total Bilirubin 0.3 mg/dL (0.15-1.2); Total Protein 5.8 g/dL (6.6-8.7)
[2019-07-08 05:05] LABS: Blood Urea Nitrogen 99 mg/dL (8-23)
[2019-07-08 06:05] LABS: Glucose Point of Care 387 mg/dL (70-110)
[2019-07-08] MEDS: piperacillin-tazobactam 3.375 GM in sodium chloride 0.9% (plus) 100 ML IV (07:02)
--- NOTE | 2019-07-08 08:43 | SUR.PREOP ---
Patient reports no pain or discomfort prior to the start of the procedure.
[2019-07-08] MEDS: regadenoson 0.4 Mg/5 ml Syringe IVP (08:45)
[2019-07-08 10:08] LABS: Glucose Point of Care 404 mg/dL (70-110)
[2019-07-08] MEDS: guaiFENesin 600 mg Tablet 1200 MG PO (10:11)
[2019-07-08] MEDS: aspirin 81 mg EC Tablet PO (10:11)
[2019-07-08] MEDS: gabapentin 300 mg Capsule PO ×3 (10:11→21:52)
[2019-07-08] MEDS: isosorbide mononitrate ER 30 mg Tablet 45 MG PO (10:12)
[2019-07-08] MEDS: clopidogrel 75 mg Tablet PO (10:12)
[2019-07-08] MEDS: pantoprazole DR 40 mg Tablet PO (10:12)
[2019-07-08] MEDS: amiodarone 200 mg Tablet PO ×2 (10:13→18:26)
[2019-07-08] MEDS: predniSONE 20 mg Tablet 40 MG PO (10:13)
[2019-07-08] MEDS: metoprolol succinate ER (24 HR) 50 mg Tablet 75 MG PO (10:14)
[2019-07-08] MEDS: insulin glargine 100 units/1 mL 20 UNIT SUBCUT (10:21)
[2019-07-08] MEDS: azithromycin 500 MG in sodium chloride 0.9% 250 ML 250 MG IV (11:23)
[2019-07-08 11:28] LABS: Glucose Point of Care 409 mg/dL (70-110)
--- NOTE | 2019-07-08 14:00 | PM.PN ---
Subjective Subjective: Interval history: This morning patient states that he is doing well, is on room air, still has swelling of his bilateral extremities, his breathing has significantly improved, no fevers, no chills, no nausea, no vomiting, lightheadedness, no dizziness, is having a stress test this morning Vitals/I&O/Wt Last Vital Signs Temp 98.4 F 07/08/19 04:00 Pulse 86 07/08/19 12:00 Resp 15 07/08/19 12:00 BP 134/79 07/08/19 12:00 Pulse Ox 97 07/08/19 11:47 07/07/19 07/08/19 07/08/19 22:59 06:59 14:59 Intake Total 670 / 1420 580 / 2000 720 / 720 Output Total 250 / 950 800 / 1750 Balance 420 / 470 -220 / 250 720 / 720 Physical Exam Const: COMMON NORMALS: no apparent distress and oriented x3 HENMT: COMMON NORMALS: normocephalic HEAD & SCALP: normocephalic Neck/C-Spine: COMMON NORMALS: no JVD Resp: COMMON NORMALS: normal respiratory effort, no retractions, no use of accessory muscles and clear to auscultation bilaterally AUSCULTATION: clear to auscultation bilaterally Cardio: COMMON NORMALS: no JVD, regular rate, regular rhythm, S1 normal heart sound and S2 normal heart sound RATE: regular rate RHYTHM: regular rhythm HEART SOUNDS: S1 normal and S2 normal GI: COMMON NORMALS: normal to inspection, nondistended, normoactive bowel sounds, soft to palpation, non-tender, no hepatosplenomegaly, no masses and no bruits PALPATION: Yes soft and Yes no hepatosplenomegaly Extremity: COMMON NORMALS: normal capillary refill, no clubbing, cyanosis or edema, no calf tenderness and no pedal edema Neuro: COMMON NORMALS: oriented x3 Psych: COMMON NORMALS: mental status grossly normal Data : 07/08/19 03:40 07/08/19 03:40 A&P Assessment and plan (1) Acute respiratory failure: -Secondary to right sided pneumonia, diastolic CHF bit with BNP in the 14,000, and COPD exacerbation -CT chest shows Bilateral airspace opacities are identified compatible with pneumonic infiltrates. This is greatest in the right upper lobe and both lower lobes. Pleural space: There are small pleural effusions right greater than left. Plan: -De-escalate to azithromycin -DuoNeb treatments, every 4 hours, every 2 as needed -Received Solu-Medrol in the ER, continue prednisone 40 mg once daily -Bumex 1 mg every 12 hours, will hold diuresis today due to concerns of dehydration -Fluid restrictions 1500 cc an hour, monitor urine output, monitor creatinine -Continue BiPAP overnight, nasal cannula during the day Status: Acute Code(s): J96.00 - Acute respiratory failure, unspecified whether with hypoxia or hypercapnia (2) Pneumonia: Urine bacterial antigens, sputum culture, viral panel so far unremarkable Status: Acute Qualifiers: Laterality: bilateral Lung location: unspecified part of lung Pneumonia type: due to unspecified organism Qualified Code(s): J18.9 - Pneumonia, unspecified organism Code(s): J18.9 - Pneumonia, unspecified organism (3) NSTEMI (non-ST elevated myocardial infarction): -Likely supply demand ischemia from type II NSTEMI -But has a positive delta Trop, and history of RCA stent placement, and chest pain, EKG no significant ST-T wave changes Plan: -Continue telemetry monitoring -Switch to Lovenox 1 charan per kick twice daily, hold Eliquis -Aspirin, statin, beta-christina -im Imdur addeddur added -Monitor for chest pain -Patient had an echocardiogram on his last admission which showed grade 1 diastolic dysfunction, ejection fraction 55%, poor study -Cardiology has been consulted, will have a stress test today Status: Acute Code(s): I21.4 - Non-ST elevation (NSTEMI) myocardial infarction (4) Dyslipidemia: Status: Chronic Code(s): E78.5 - Hyperlipidemia, unspecified (5) Hypertension: Hypertensive urgency, start home meds Status: Chronic Qualifiers: Hypertension type: essential hypertension Qualified Code(s): I10 - Essential (primary) hypertension Code(s): I10 - Essential (primary) hypertension (6) LAURIE (obstructive sleep apnea): Status: Chronic Code(s): G47.33 - Obstructive sleep apnea (adult) (pediatric) (7) Chronic anticoagulation: On hold as on therapeutic Lovenox Status: Chronic Code(s): Z79.01 - retirement (current) use of anticoagulants (8) Diabetes mellitus, type II, insulin dependent: Today blood sugars have been elevated, blood sugar 487, with pseudohyponatremia Plan -Increase Lantus to 20 units twice daily -High-dose sliding scale Status: Chronic Code(s): E11.9 - Type 2 diabetes mellitus without complications; 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 (9) Chronic kidney disease, stage 3: Creatinine today is 2.3 Status: Chronic Code(s): N18.3 - Chronic kidney disease, stage 3 (moderate) (10) Afib: Continue amiodarone, metoprolol Status: Chronic Qualifiers: Atrial fibrillation type: paroxysmal Qualified Code(s): I48.0 - Paroxysmal atrial fibrillation Code(s): I48.91 - Unspecified atrial fibrillation (11) COPD (chronic obstructive pulmonary disease): Status: Chronic Qualifiers: COPD type: emphysema Emphysema type: panlobular Qualified Code(s): J43.1 - Panlobular emphysema Code(s): J44.9 - Chronic obstructive pulmonary disease, unspecified (12) CHF (congestive heart failure): Status: Chronic Qualifiers: Heart failure type: diastolic Heart failure chronicity: acute on chronic Qualified Code(s): I50.33 - Acute on chronic diastolic (congestive) heart failure Code(s): I50.9 - Heart failure, unspecified Additional A&P Information Will transfer out of ICU to general medical floors, hold diuresis, stepdown antibiotic therapy Attestations Medical Necessity Statement*: Patient requires continued hospitalization due to acute respiratory failure, secondary to pneumonia Coding Level of Care Code 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 [employer] Diagnoses Acute respiratory failure J96.00 Pneumonia J18.9 Laterality: bilateral Lung location: unspecified part of lung Pneumonia type: due to unspecified organism NSTEMI (non-ST elevated myocardial infarction) I21.4 Dyslipidemia E78.5 Hypertension I10 Hypertension type: essential hypertension LAURIE (obstructive sleep apnea) G47.33 Chronic anticoagulation Z79.01 Diabetes mellitus, type II, insulin dependent E11.9; Z79.4 Chronic kidney disease, stage 3 N18.3 Afib I48.0 Atrial fibrillation type: paroxysmal COPD (chronic obstructive pulmonary disease) J43.1 COPD type: emphysema Emphysema type: panlobular CHF (congestive heart failure) I50.33 Heart failure type: diastolic Heart failure chronicity: acute on chronic
--- NOTE | 2019-07-08 15:58 | PC.NURSE ---
TRANSFER TO FLOOR Report called. Patient transferred via wheelchair with all belongings including cell phone, etc. Patient oriented to room and call light within reach.
--- NOTE | 2019-07-08 16:58 | P.PN_ITS ---
Subjective Subjective: Interval history: Patient was sitting in bed this morning at the time of examination. He complains of fatigue, no CP or SOB. He states cough has improved and is oxygenating well on room air. He remains in atrial fibrillation with rate fairly controlled. He underwent stress test today. Medications: Reviewed: Yes Medication Review Details: Current Medications Hydrocodone Bitart/Acetaminophen ([place] 10-325 Mg) 1 - 2 tab PO Q4H PRN PRN Reason: PAIN Last Admin: 07/07/19 04:31 Dose: 2 tab Documented by: Al Hydrox/Mg Hydrox/Simethicone (Maalox) 30 ml PO Q4H PRN PRN Reason: INDIGESTION Last Admin: 07/06/19 14:04 Dose: 30 ml Documented by: Albuterol/Ipratropium (Duoneb) 3 ml INHALATION Q6H PRN PRN Reason: SHORTNESS OF BREATH Albuterol/Ipratropium (Duoneb) 3 ml INHALATION Q4H.RESPIRATORY CHARLIE Last Admin: 07/07/19 15:51 Dose: 3 ml Documented by: Albuterol/Ipratropium (Combivent Respimat) 2 puff INHALATION Q6H.RESPIRATORY PRN PRN Reason: SOB/WHEEZING Aminophylline (Aminophylline) 25 mg IVP Q2M PRN PRN Reason: see dose instructions Stop: 07/08/19 06:36 Amiodarone HCl (Cordarone) 200 mg PO BID CHARLIE Aspirin (Aspirin Ec) 81 mg PO DAILY [facility] Last Admin: 07/07/19 09:01 Dose: 81 mg Documented by: Atorvastatin Calcium (Lipitor) 40 mg PO BEDTIME [facility] Last Admin: 07/06/19 20:34 Dose: 40 mg Documented by: Budesonide (Pulmicort) 0.5 mg INHALATION BID.RESPIRATORY CHARLIE Bumetanide (Bumex) 1 mg IV Q12H CHARLIE Last Admin: 07/07/19 04:31 Dose: 1 mg Documented by: Clopidogrel Bisulfate (Plavix) 75 mg PO DAILY [facility] Last Admin: 07/07/19 09:01 Dose: 75 mg Documented by: Dextrose (D50w) 25 ml IVP ONCE PRN; Protocol PRN Reason: hypoglycemia protocol Dextrose (D50w) 50 ml IVP PRN PRN; Protocol PRN Reason: hypoglycemia protocol Enoxaparin Sodium (Lovenox) 110 mg SUBCUT Q12H [facility] Last Admin: 07/07/19 16:53 Dose: 110 mg Documented by: Gabapentin (Neurontin) 300 mg PO TID [facility] Last Admin: 07/07/19 14:25 Dose: 300 mg Documented by: Glucagon (Glucagen) 1 mg IM ONCE PRN; Protocol PRN Reason: Adult Acute Hypoglycemia Prot. Guaifenesin (Mucinex) 1,200 mg PO DAILY [facility] Last Admin: 07/07/19 09:00 Dose: 1,200 mg Documented by: Dextrose (D5w) 500 mls @ 100 mls/hr IV ONCE PRN; Protocol PRN Reason: Adult Acute Hypoglycemia Prot Piperacillin Sod/Tazobactam (Sod 3.375 gm/ Sodium Chloride) 100 mls @ 25 mls/hr IV Q8H [facility]; Protocol Last Admin: 07/07/19 13:24 Dose: 25 mls/hr Documented by: Azithromycin 500 mg/ Sodium (Chloride) 250 mls @ 250 mls/hr IV Q24H [facility]; Protocol Last Admin: 07/07/19 11:42 Dose: 250 mls/hr Documented by: Insulin Aspart (Novolog) 0 unit SUBCUT TIDWM [facility]; Protocol Last Admin: 07/07/19 16:52 Dose: 6 unit Documented by: Insulin Glargine (Lantus) 20 unit SUBCUT BEDTIME [facility] Last Admin: 07/06/19 20:34 Dose: 20 unit Documented by: Insulin Glargine (Lantus) 20 unit SUBCUT QAM [facility] Last Admin: 07/07/19 08:03 Dose: 20 unit Documented by: Isosorbide Mononitrate (Imdur) 45 mg PO DAILY [facility] Lisinopril (Prinivil) 5 mg PO DAILY [facility] Last Admin: 07/06/19 08:48 Dose: 5 mg Documented by: Metoprolol Succinate (Toprol Xl) 75 mg PO DAILY [facility] Nitroglycerin (Nitrostat) 0.4 mg SUBLINGUAL Q5M PRN PRN Reason: CHEST PAIN Stop: 07/08/19 06:36 Non-Formulary Medication (Cinnamon Bark [Cinnamon]) 500 mg PO DAILY [facility] Last Admin: 07/07/19 08:59 Dose: Not Given Documented by: Non-Formulary Medication (Fish Oil) 1 cap PO DAILY [facility] Last Admin: 07/07/19 08:59 Dose: Not Given Documented by: Non-Formulary Medication (Umeclidinium [Incruse Ellipta]) 1 inh INHALATION DAILY [facility] Last Admin: 07/07/19 08:59 Dose: Not Given Documented by: Ondansetron HCl (Zofran) 4 mg IVP Q6H PRN PRN Reason: NAUSEA AND VOMITING Ondansetron HCl (Zofran) 4 mg IVP Q2M PRN PRN Reason: NAUSEA Pantoprazole Sodium (Protonix) 40 mg PO DAILY [facility] Last Admin: 07/07/19 09:01 Dose: 40 mg Documented by: Prednisone (Prednisone) 40 mg PO DAILY [facility] Last Admin: 07/07/19 09:00 Dose: 40 mg Documented by: Fluticasone/Salmeterol (Advair Diskus 500-50) 1 puff INHALATION BID.RESPIRATORY [facility] Last Admin: 07/07/19 08:54 Dose: 1 puff Documented by: Tiotropium [place] (Spiriva) 18 mcg INHALATION DAILY.RESPIRATORY [facility] Last Admin: 07/07/19 11:22 Dose: Not Given Documented by: Vitals/I&O/Wt Last Vital Signs Temp 97.6 F 07/08/19 16:00 Pulse 77 07/08/19 16:36 Resp 19 H 07/08/19 16:36 BP 146/75 07/08/19 16:00 Pulse Ox 99 07/08/19 16:36 07/08/19 07/08/19 07/08/19 06:59 14:59 22:59 Intake Total 580 / 2000 720 / 720 Output Total 800 / 1750 Balance -220 / 250 720 / 720 Physical Exam Const: COMMON NORMALS: no apparent distress, average body habitus, oriented x3, alert and well nourished GENERAL APPEARANCE: cooperative, comfortable, well kempt and well developed ORIENTATION/CONSCIOUSNESS: Yes oriented to person, Yes oriented to place and Yes oriented to time HENMT: COMMON NORMALS: normocephalic and head/scalp atraumatic HEAD & SCALP: normocephalic and atraumatic Eye: COMMON NORMALS: PERRL and EOMs intact bilaterally SCLERA: sclerae normal PUPIL: Yes PERRL Neck/C-Spine: COMMON NORMALS: supple and no JVD (appreciated, short thick nec k) Resp: COMMON NORMALS: clear to auscultation bilaterally AUSCULTATION: clear to auscultation bilaterally, no crackles, no rales, no rhonchi, no wheezes and lung sounds not diminished Cardio: COMMON NORMALS: no JVD (appreciated, short thick neck) and peripheral pulses 2+ throughout JUGULAR VENOUS DISTENTION: no JVD PALPATION: normal PMI, no heave and no thrill RHYTHM: abnormal rhythm HEART SOUNDS: no click, no gallops and no murmurs BRUITS: no carotid bruits PERIPHERAL PULSES: pulses 2+ throughout Extremity: GENERAL: Yes edema (2-3+ bilaterally edema extensing above knees) Neuro: COMMON NORMALS: oriented x3 SENSORIUM/ORIENTATION: Yes alert, Yes oriented to person, Yes oriented to place and Yes oriented to time CRANIAL NERVES: Yes CN normal except as noted Psych: COMMON NORMALS: thought process normal APPEARANCE: Yes well kempt THOUGHT PROCESS: normal thought process THOUGHT CONTENT: Yes normal thought content MEMORY/COGNITION: Yes memory grossly intact INSIGHT: insight good JUDGEMENT: judgment good Data : 07/08/19 03:40 07/08/19 03:40 Lexiscan MPI: I personally reviewed and interpreted this imaging study as follows: My impression: IMPRESSIONS 1. Medium sized perfusion abnormality of moderate to severe severity of mid to apical inferolateral, apical inferior and apical lateral prado with some reversiblility in mid inferior and mid inferolateral prado. 2. This is suggestive of old myocardial infarction in right coronary artery/circumflex artery territory with small sukhwinder-infarct ischemia. 3. The left ventricular ejection fraction is moderately reduced with a value of 34%. 4. There is hypokinesis of mid to apical inferior and apical lateral prado. 5. No prior similar studies to compare. A&P Assessment and plan (1) Acute respiratory failure: In setting of right-sided pneumonia and heart failure with preserved ejection fraction; resolved Oxygen requirement has gone down. He was off BiPAP at the time of evaluation and he is currently on RA. He is using BiPAP at night. Status: Acute Code(s): J96.00 - Acute respiratory failure, unspecified whether with hypoxia or hypercapnia (2) CHF (congestive heart failure): - Bumex 1 mg IV yestersay. Hold off on anticoagulation. -Continue with fluid restriction intake and output monitoring and follow-up BMP. -Follow-up echocardiogram this visit without any significant change. Status: Chronic Qualifiers: Heart failure type: diastolic Heart failure chronicity: acute on chronic Qualified Code(s): I50.33 - Acute on chronic diastolic (congestive) heart failure Code(s): I50.9 - Heart failure, unspecified (3) Pneumonia: Chest x-ray with right sided pneumonia. On antibiotic as per Dr. Lake. Status: Acute Qualifiers: Laterality: bilateral Lung location: unspecified part of lung Pneumonia type: due to unspecified organism Qualified Code(s): J18.9 - Pneumonia, unspecified organism Code(s): J18.9 - Pneumonia, unspecified organism (4) NSTEMI (non-ST elevated myocardial infarction): Non-ST elevation [place] type II in setting of decompensated congestive heart failure and pneumonia. -Elevation in troponin T has been less than what it was in his previous visit. -Continue current medications. -Small sukhwinder-infarct ischemia on mid inferior and mid [place] wall on stress test. Optimize medications. Status: Acute Code(s): I21.4 - Non-ST elevation (NSTEMI) myocardial infarction (5) Chronic kidney disease, stage 3: LETHA on CKD, I think it is cardiorenal in etiology. Follow up BMP. Status: Chronic Code(s): N18.3 - Chronic kidney disease, stage 3 (moderate) (6) Afib: He went into A. fib. rate controlled. Continue current medications. Status: Chronic Qualifiers: Atrial fibrillation type: paroxysmal Qualified Code(s): I48.0 - Paroxysmal atrial fibrillation Code(s): I48.91 - Unspecified atrial fibrillation (7) CAD (coronary artery disease): Status: Chronic Qualifiers: Coronary Disease-Associated Artery/Lesion type: [place] artery [place] vs. transplanted heart: [place] heart Associated angina: without angina Qualif ied Code(s): I25.10 - Atherosclerotic heart disease of [place] coronary artery without angina pectoris Code(s): I25.10 - Atherosclerotic heart disease of [place] coronary artery without angina pectoris (8) Hypertension: Status: Chronic Qualifiers: Hypertension type: essential hypertension Qualified Code(s): I10 - Essential (primary) hypertension Code(s): I10 - Essential (primary) hypertension (9) LAURIE (obstructive sleep apnea): Status: Chronic Code(s): G47.33 - Obstructive sleep apnea (adult) (pediatric) (10) Diabetes mellitus, type II, insulin dependent: Status: Chronic Code(s): E11.9 - Type 2 diabetes mellitus without complications; 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 Thank you for allowing me to participate in patient's care. Please feel free to call with questions or concerns. Attestations Medical Necessity Statement*: Needs hospital stay for CHF and worsening renal function. Coding Level of Care Code Acute Admission Specialist for [facility] Fwd Exam Comprehensive Diagnoses Acute respiratory failure J96.00 CHF (congestive heart failure) I50.33 Heart failure type: diastolic Heart failure chronicity: acute on chronic Pneumonia J18.9 Laterality: bilateral Lung location: unspecified part of lung Pneumonia type: due to unspecified organism NSTEMI (non-ST elevated myocardial infarction) I21.4 Chronic kidney disease, stage 3 N18.3 Afib I48.0 Atrial fibrillation type: paroxysmal CAD (coronary artery disease) I25.10 Coronary Disease-Associated Artery/Lesion type: [place] artery [place] vs. transplanted heart: [place] heart Associated angina: without angina Hypertension I10 Hypertension type: essential hypertension LAURIE (obstructive sleep apnea) G47.33 Diabetes mellitus, type II, insulin dependent E11.9; Z79.4
--- NOTE | 2019-07-08 17:26 | NMCV_ITS ---
NM elvis perf SPECT r/s* [id number] Franc Olivares Age: 64 Gender: M : 1955 Exam Date: 07/08/2019 07:54 Ordering Phys: Uma Carter MD ([email or web address]) Technologist: MELVIN Ackerman Exam Location: [facility] Indications: SOB STRESS TEST Please see separate stress test report [facility] for full findings IMAGE PROTOCOL Rest/Stress 1 Lexiscan Day Radiopharmaceutical Dose (mCi) Administration Site Administered by Rest: Tc-99m 10.6 IV MELVIN Ackerman Sestamibi Stress:Tc-99m 32.5 IV MELVIN Ackerman Sestamibi Rest: 08-Jul-2019 60 Discovery 630 Stress: 08-Jul-2019 30 Discovery 630 0.4mg Lexiscan. Supine position only as patient was unable to lay prone. SPECT RESULTS Technical Quality: Excellent Raw Data Analysis: Subdiaphragmatic activity Image Corrections: No attenuation or motion correction applied Summed Stress Score: 11 Summed Rest Score: 7 Summed Difference Score: 5 PERFUSION FINDINGS Medium sized perfusion abnormality of moderate to severe severity of mid to apical inferolateral, apical inferior and apical lateral prado with some reversible defect in mid inferior and mid inferolateral prado on supine stress images. FUNCTIONAL RESULTS (calculated via Gated SPECT) Stress Image LV EF (%): 34 Stress EDV (mL):176 TID: 1.02 Stress ESV (mL):116 FUNCTIONAL FINDINGS: The left ventricle is dilated in size. Transient Ischemia Dilatation of 1. The left ventricular ejection fraction is moderately reduced with a value of 34%. There is hypokinesis of mid to apical inferior and apical lateral prado. Increased end-diastolic volume of 176 mL and end-systolic volume of 116 mL. IMPRESSIONS 1. Medium sized perfusion abnormality of moderate to severe severity of mid to apical inferolateral, apical inferior and apical lateral prado with some reversible defect in mid inferior and mid inferolateral prado. 2. This is suggestive of old myocardial infarction in right coronary artery/circumflex artery territory with small sukhwinder-infarct ischemia. 3. The left ventricular ejection fraction is moderately reduced with a value of 34%. 4. There is hypokinesis of mid to apical inferior and apical lateral prado. 5. No prior similar studies to compare. Uma Carter MD (Electronically Signed) Final Date: 08 July 2019 12:32 S
[2019-07-08] MEDS: amoxicillin-clav 875-125 mg Tablet 1 TAB PO (18:26)
[2019-07-08 18:27] LABS: Glucose Point of Care 309 mg/dL (70-110)
[2019-07-08] MEDS: apixaban 5 mg Tablet PO (18:27)
[2019-07-08] MEDS: budesonide 0.5 mg/2 mL Neb INHALATION (20:21)
[2019-07-08 21:44] LABS: Glucose Point of Care 306 mg/dL (70-110)
[2019-07-08] MEDS: atorvastatin 40 mg Tablet PO (21:52)
[2019-07-09] VITALS (16 sets, daily range): BP systolic 148–169; BP diastolic 64–94; PULSE 68–93; RESP 15–20; TEMP 36.1–36.8; O2SAT 92–99
[2019-07-09] MEDS: insulin glargine 100 units/1 mL 20 UNIT SUBCUT ×3 (00:37→21:10)
[2019-07-09] MEDS: HYDROcodone-acetaminophen 10-325 mg Tablet PO ×3 (02:09→21:10)
[2019-07-09] MEDS: ipratropium-albuterol 3 mL Neb INHALATION ×5 (03:34→20:39)
[2019-07-09 06:42] LABS: Glucose Point of Care 256 mg/dL (70-110)
[2019-07-09] MEDS: budesonide 0.5 mg/2 mL Neb INHALATION ×2 (07:24→20:39)
[2019-07-09] MEDS: amoxicillin-clav 875-125 mg Tablet 1 TAB PO ×2 (08:34→17:43)
[2019-07-09] MEDS: aspirin 81 mg EC Tablet PO (08:34)
[2019-07-09] MEDS: metoprolol succinate ER (24 HR) 50 mg Tablet 75 MG PO (08:34)
[2019-07-09] MEDS: isosorbide mononitrate ER 30 mg Tablet 45 MG PO (08:35)
[2019-07-09] MEDS: gabapentin 300 mg Capsule PO ×3 (08:35→21:09)
[2019-07-09] MEDS: pantoprazole DR 40 mg Tablet PO (08:35)
[2019-07-09] MEDS: clopidogrel 75 mg Tablet PO (08:36)
[2019-07-09] MEDS: amiodarone 200 mg Tablet PO (08:36)
[2019-07-09] MEDS: guaiFENesin 600 mg Tablet 1200 MG PO (08:36)
[2019-07-09] MEDS: predniSONE 20 mg Tablet 40 MG PO (08:36)
[2019-07-09] MEDS: apixaban 5 mg Tablet PO ×2 (08:36→17:43)
[2019-07-09] MEDS: azithromycin 250 mg Tablet PO (08:41)
[2019-07-09 10:47] LABS: Basophils % 0.1 %; Eosinophils # 0.1 10^3/uL (0.0-0.8); Eosinophils % 0.5 %; Hematocrit 29.6 % (42.0-52.0); Lymphocytes # 1.1 10^3/uL (0.8-4.8); Lymphocytes % 10.8 %; Mean Corpuscular HGB Conc 30.4 g/dL (30.0-36.0); Mean Corpuscular Hemoglobin 25.2 pg (28.0-34.0); Mean Corpuscular Volume 82.9 fL (80-94); Mean Platelet Volume 10.5 fL (7.4-10.4); Monocytes # 0.9 10^3/uL (0.2-0.9); Monocytes % 8.8 %; Neutrophils # 7.9 10^3/uL (1.8-7.7); Neutrophils % 79.2 %; Nucleated Red Blood Cells % 0 %; Platelet Count 199 10^3/cmm (130-400); Red Blood Count 3.57 10^6/uL (4.1-5.3)
[2019-07-09 11:09] LABS: Alanine Aminotransferase 26 U/L (0-41); Alkaline Phosphatase 53 IU/L (40-130); Anion Gap 16.8 (5-19); Aspartate Amino Transferase 17 U/L (0-40); Calcium 8.7 mg/dL (8.5-10.5); Carbon Dioxide 25 mmol/L (22-29); Chloride 96 mmol/L (98-107); Globulin 2.9 g/dL (1.3-4.6); Glomerular Filtration Rate 35.6 mL/min (90-130); Glucose 262 mg/dL (65-115); Osmolality Calculated 285 mOsm/kg (285-295); Potassium 4.8 mmol/L (3.5-5.1); Sodium 133 mmol/L (136-145); Total Bilirubin 0.3 mg/dL (0.15-1.2); Total Protein 5.9 g/dL (6.6-8.7)
[2019-07-09 11:16] LABS: Glucose Point of Care 249 mg/dL (70-110)
[2019-07-09 11:16] LABS: Blood Urea Nitrogen 86 mg/dL (8-23)
[2019-07-09 11:25] LABS: Magnesium 2.4 mg/dL (1.7-2.3); NT Pro B Type Natriuretic Pept 9391 pg/mL (0-125)
--- NOTE | 2019-07-09 11:35 | PC.SOCIAL ---
IMM Updated Page 2 of IMM updated and given to patient. Initialed, dated, and timed and placed back in chart.
--- NOTE | 2019-07-09 11:44 | PC.CHAP ---
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 auto bumper straightener visit [] Patient/Family/Request visit [] Outpatient visit [] Follow-up visit [] Physician referral [] Code/Alert [X] Routine visit [] Staff referral [] Actively dying [] Patient sleeping [] Family support [] [] Out of room [] Palliative care [] [X] Receiving care in room [] Pre-surgical visit [] Trauma [] Long length of stay [] ICU visit [] Other: Relational/Emotional Strength [X] Patient feels connected with others/family/visitors/staff [] Distress [] Loneliness/isolation [] Abandonment Spirituality of Patient [X] Person of Theresa [] Attends Christian of their Theresa [X] Believes in Prayer [] Reads Bible or Episcopalian materials [] There are Spiritual issues to be addressed Breastfeeding Program Coordinator Interventions [X] Prayer [X] Active listening [X] Non-anxious presence [X] Spiritual/emotional support [] Crisis/trauma care [x] Spiritual counseling [] Bereavement support [] Provided bereavement packet [] Provided Bible/devotional materials [] Provided toy/stuffed animal, coloring book to patient or family member [] Provided Communion [] Anointing/[place] [] Salvation [x] Completed spiritual assessment [] Other: Impact on Illness or Injury [] Angry [] Fearful [] Anxious [] Often cries [] Exhaustion [] Unable to work [] Unable to attend jewish [] Unable to walk/stand [] Unable to read [] Unable to drive [] Unable to eat/drink [] Unable to sleep [] Unable to be with family [] Patient intubated [] Other: Summary Able to communicate Knows what kind of treatment needs to be done, Feels good, good attitude Time spent with patient 10 mins
--- NOTE | 2019-07-09 11:50 | P.PN_ITS ---
Subjective Subjective: Interval history: Patient states that this morning he is not ready to go home, he still has some shortness of breath with exertion, has MT hose on, he is not requiring any oxygen, remains afebrile, After an extensive discussion with the patient, the plan is today for him to get out of bed, ambulate, ambulate with physical therapy, I will increase his dose of steroids for 24 hours, will start oral Bumex 1 mg daily, his creatinine is now 1.9, continue fluid restrictions, and hopefully discharge tomorrow, patient was in agreement Vitals/I&O/Wt Last Vital Signs Temp 97.9 F 07/09/19 11:34 Pulse 76 07/09/19 11:34 Resp 18 07/09/19 11:34 BP 164/73 07/09/19 11:34 Pulse Ox 98 07/09/19 11:34 07/08/19 07/09/19 07/09/19 22:59 06:59 14:59 Intake Total 240 / 960 120 / 1080 480 / 480 Output Total 950 / 950 400 / 400 Balance 240 / 960 -830 / 130 80 / 80 Physical Exam Const: COMMON NORMALS: no apparent distress and oriented x3 GENERAL APPEARANCE: cooperative and comfortable HENMT: COMMON NORMALS: normocephalic HEAD & SCALP: normocephalic Eye: COMMON NORMALS: PERRL, EOMs intact bilaterally and no papilledema GENERAL EYE: normal appearance of both eyes PUPIL: Yes PERRL DIRECT OPHTHALMOSCOPY: Yes no papilledema Neck/C-Spine: COMMON NORMALS: no JVD and thyroid normal THYROID: thyroid normal Lymph: LYMPHATIC: no lymphadenopathy noted Resp: COMMON NORMALS: normal respiratory effort, no retractions, no use of accessory muscles and clear to auscultation bilaterally EFFORT & INSPECTION: Yes tachypneic and Yes actively coughing AUSCULTATION: clear to auscultation bilaterally Cardio: COMMON NORMALS: no JVD, regular rate, regular rhythm, S1 normal heart sound and S2 normal heart sound RATE: regular rate RHYTHM: regular rhythm HEART SOUNDS: S1 normal and S2 normal GI: COMMON NORMALS: normal to inspection, nondistended, normoactive bowel sounds, soft to palpation, non-tender, no hepatosplenomegaly, no masses and no bruits PALPATION: Yes soft and Yes no hepatosplenomegaly Extremity: COMMON NORMALS: normal capillary refill, no clubbing, cyanosis or edema, no calf tenderness and no pedal edema Neuro: COMMON NORMALS: oriented x3 Psych: COMMON NORMALS: mental status grossly normal and thought process normal THOUGHT PROCESS: normal thought process Data : 07/09/19 10:15 07/09/19 10:15 A&P Assessment and plan (1) Acute respiratory failure: -Secondary to right sided pneumonia, diastolic CHF bit with BNP in the 14,000, and COPD exacerbation -CT chest shows Bilateral airspace opacities are identified compatible with pneumonic infiltrates. This is greatest in the right upper lobe and both lower lobes. Pleural space: There are small pleural effusions right greater than left. Plan: -De-escalate to azithromycin and Augmentin -DuoNeb treatments, every 4 hours, every 2 as needed -I have increased dose of Solu-Medrol for 24 hours, go down to 40 mg tomorrow -We will give 1 dose of Bumex p.o. daily recheck creatinine tomorrow -Fluid restrictions 1500 cc an hour, monitor urine output, monitor creatinine -Continue BiPAP overnight, nasal cannula during the day Status: Acute Code(s): J96.00 - Acute respiratory failure, unspecified whether with hypoxia or hypercapnia (2) Pneumonia: Urine bacterial antigens, sputum culture, viral panel so far unremarkable Status: Acute Qualifiers: Laterality: bilateral Lung location: unspecified part of lung Pneumonia type: due to unspecified organism Qualified Code(s): J18.9 - Pneumonia, unspecified organism Code(s): J18.9 - Pneumonia, unspecified organism (3) NSTEMI (non-ST elevated myocardial infarction): -Likely supply demand ischemia from type II NSTEMI -But has a positive delta Trop, and history of RCA stent placement, and chest pain, EKG no significant ST-T wave changes Plan: -Continue telemetry monitoring -Switch to Lovenox 1 charan per kick twice daily, hold Eliquis -Aspirin, statin, beta-christina -im Imdur addeddur added -Monitor for chest pain -Patient had an echocardiogram on his last admission which showed grade 1 gallo stolic dysfunction, ejection fraction 55%, poor study -Cardiology has been consulted, will have a stress test today Status: Acute Code(s): I21.4 - Non-ST elevation (NSTEMI) myocardial infarction (4) Dyslipidemia: Status: Chronic Code(s): E78.5 - Hyperlipidemia, unspecified (5) Hypertension: Hypertensive urgency, start home meds Status: Chronic Qualifiers: Hypertension type: essential hypertension Qualified Code(s): I10 - Essential (primary) hypertension Code(s): I10 - Essential (primary) hypertension (6) LAURIE (obstructive sleep apnea): Status: Chronic Code(s): G47.33 - Obstructive sleep apnea (adult) (pediatric) (7) Chronic anticoagulation: On hold as on therapeutic Lovenox Status: Chronic Code(s): Z79.01 - halfway (current) use of anticoagulants (8) Diabetes mellitus, type II, insulin dependent: Today blood sugars have been elevated, blood sugar 487, with pseudohyponatremia Plan -Increase Lantus to 20 units twice daily -High-dose sliding scale Status: Chronic Code(s): E11.9 - Type 2 diabetes mellitus without complications; Z79.4 - intermodal dispatcher (current) use of insulin (9) Chronic kidney disease, stage 3: Creatinine today is 2.3 Status: Chronic Code(s): N18.3 - Chronic kidney disease, stage 3 (moderate) (10) Afib: Continue amiodarone, metoprolol Status: Chronic Qualifiers: Atrial fibrillation type: paroxysmal Qualified Code(s): I48.0 - Paroxysmal atrial fibrillation Code(s): I48.91 - Unspecified atrial fibrillation (11) COPD (chronic obstructive pulmonary disease): Status: Chronic Qualifiers: COPD type: emphysema Emphysema type: panlobular Qualified Code(s): J43.1 - Panlobular emphysema Code(s): J44.9 - Chronic obstructive pulmonary disease, unspecified (12) CHF (congestive heart failure): Status: Chronic Qualifiers: Heart failure type: diastolic Heart failure chronicity: acute on chronic Qualified Code(s): I50.33 - Acute on chronic diastolic (congestive) heart failure Code(s): I50.9 - Heart failure, unspecified Additional A&P Information After an extensive discussion with the patient, the plan is today for him to get out of bed, ambulate, ambulate with physical therapy, I will increase his dose of steroids for 24 hours, will start oral Bumex 1 mg daily, his creatinine is now 1.9, continue fluid restrictions, and hopefully discharge tomorrow, patient was in agreement Attestations Medical Necessity Statement*: Patient requires hospitalization for acute resp iratory failure, likely discharge in the next 24 hours Coding Level of Care Code Acute Insurance Underwriting Assistant for Fausto Isidro Diagnoses Acute respiratory failure J96.00 Pneumonia J18.9 Laterality: bilateral Lung location: unspecified part of lung Pneumonia type: due to unspecified organism NSTEMI (non-ST elevated myocardial infarction) I21.4 Dyslipidemia E78.5 Hypertension I10 Hypertension type: essential hypertension LAURIE (obstructive sleep apnea) G47.33 Chronic anticoagulation Z79.01 Diabetes mellitus, type II, insulin dependent E11.9; Z79.4 Chronic kidney disease, stage 3 N18.3 Afib I48.0 Atrial fibrillation type: paroxysmal COPD (chronic obstructive pulmonary disease) J43.1 COPD type: emphysema Emphysema type: panlobular CHF (congestive heart failure) I50.33 Heart failure type: diastolic Heart failure chronicity: acute on chronic
[2019-07-09] MEDS: bumetanide 1 mg Tablet PO (11:56)
--- NOTE | 2019-07-09 17:02 | PM.PN ---
Subjective Subjective: Interval history: Patient was sitting in bed this morning at the time of examination. He complains of fatigue, no CP or SOB. He states cough has improved and is oxygenating well on room air. He remains in atrial fibrillation with rate fairly controlled. Every time I have seen the patient, he is sitting by the side of his bed with legs down. Medications: Reviewed: Yes Medication Review Details: Current Medications Hydrocodone Bitart/Acetaminophen ([place] 10-325 Mg) 1 - 2 tab PO Q4H PRN PRN Reason: PAIN Last Admin: 07/07/19 04:31 Dose: 2 tab Documented by: Al Hydrox/Mg Hydrox/Simethicone (Maalox) 30 ml PO Q4H PRN PRN Reason: INDIGESTION Last Admin: 07/06/19 14:04 Dose: 30 ml Documented by: Albuterol/Ipratropium (Duoneb) 3 ml INHALATION Q6H PRN PRN Reason: SHORTNESS OF BREATH Albuterol/Ipratropium (Duoneb) 3 ml INHALATION Q4H.RESPIRATORY CHARLIE Last Admin: 07/07/19 15:51 Dose: 3 ml Documented by: Albuterol/Ipratropium (Combivent Respimat) 2 puff INHALATION Q6H.RESPIRATORY PRN PRN Reason: SOB/WHEEZING Aminophylline (Aminophylline) 25 mg IVP Q2M PRN PRN Reason: see dose instructions Stop: 07/08/19 06:36 Amiodarone HCl (Cordarone) 200 mg PO BID CHARLIE Aspirin (Aspirin Ec) 81 mg PO DAILY [facility] Last Admin: 07/07/19 09:01 Dose: 81 mg Documented by: Atorvastatin Calcium (Lipitor) 40 mg PO BEDTIME CHARLIE Last Admin: 07/06/19 20:34 Dose: 40 mg Documented by: Budesonide (Pulmicort) 0.5 mg INHALATION BID.RESPIRATORY CHARLIE Bumetanide (Bumex) 1 mg IV Q12H CHARLIE Last Admin: 07/07/19 04:31 Dose: 1 mg Documented by: Clopidogrel Bisulfate (Plavix) 75 mg PO DAILY [facility] Last Admin: 07/07/19 09:01 Dose: 75 mg Documented by: Dextrose (D50w) 25 ml IVP ONCE PRN; Protocol PRN Reason: hypoglycemia protocol Dextrose (D50w) 50 ml IVP PRN PRN; Protocol PRN Reason: hypoglycemia protocol Enoxaparin Sodium (Lovenox) 110 mg SUBCUT Q12H [facility] Last Admin: 07/07/19 16:53 Dose: 110 mg Documented by: Gabapentin (Neurontin) 300 mg PO TID [facility] Last Admin: 07/07/19 14:25 Dose: 300 mg Documented by: Glucagon (Glucagen) 1 mg IM ONCE PRN; Protocol PRN Reason: Adult Acute Hypoglycemia Prot. Guaifenesin (Mucinex) 1,200 mg PO DAILY [facility] Last Admin: 07/07/19 09:00 Dose: 1,200 mg Documented by: Dextrose (D5w) 500 mls @ 100 mls/hr IV ONCE PRN; Protocol PRN Reason: Adult Acute Hypoglycemia Prot Piperacillin Sod/Tazobactam (Sod 3.375 gm/ Sodium Chloride) 100 mls @ 25 mls/hr IV Q8H CHARLIE; Protocol Last Admin: 07/07/19 13:24 Dose: 25 mls/hr Documented by: Azithromycin 500 mg/ Sodium (Chloride) 250 mls @ 250 mls/hr IV Q24H CHARLIE; Protocol Last Admin: 07/07/19 11:42 Dose: 250 mls/hr Documented by: Insulin Aspart (Novolog) 0 unit SUBCUT TIDWM [facility]; Protocol Last Admin: 07/07/19 16:52 Dose: 6 unit Documented by: Insulin Glargine (Lantus) 20 unit SUBCUT BEDTIME [facility] Last Admin: 07/06/19 20:34 Dose: 20 unit Documented by: Insulin Glargine (Lantus) 20 unit SUBCUT QAM [facility] Last Admin: 07/07/19 08:03 Dose: 20 unit Documented by: Isosorbide Mononitrate (Imdur) 45 mg PO DAILY [facility] Lisinopril (Prinivil) 5 mg PO DAILY [facility] Last Admin: 07/06/19 08:48 Dose: 5 mg Documented by: Metoprolol Succinate (Toprol Xl) 75 mg PO DAILY [facility] Nitroglycerin (Nitrostat) 0.4 mg SUBLINGUAL Q5M PRN PRN Reason: CHEST PAIN Stop: 07/08/19 06:36 Non-Formulary Medication (Cinnamon Bark [Cinnamon]) 500 mg PO DAILY [facility] Last Admin: 07/07/19 08:59 Dose: Not Given Documented by: Non-Formulary Medication (Fish Oil) 1 cap PO DAILY [facility] Last Admin: 07/07/19 08:59 Dose: Not Given Documented by: Non-Formulary Medication (Umeclidinium [Incruse Ellipta]) 1 inh INHALATION DAILY [facility] Last Admin: 07/07/19 08:59 Dose: Not Given Documented by: Ondansetron HCl (Zofran) 4 mg IVP Q6H PRN PRN Reason: NAUSEA AND VOMITING Ondansetron HCl (Zofran) 4 mg IVP Q2M PRN PRN Reason: NAUSEA Pantoprazole Sodium (Protonix) 40 mg PO DAILY [facility] Last Admin: 07/07/19 09:01 Dose: 40 mg Documented by: Prednisone (Prednisone) 40 mg PO DAILY [facility] Last Admin: 07/07/19 09:00 Dose: 40 mg Documented by: Fluticasone/Salmeterol (Advair Diskus 500-50) 1 puff INHALATION BID.RESPIRATORY [facility] Last Admin: 07/07/19 08:54 Dose: 1 puff Documented by: Tiotropium [place] (Spiriva) 18 mcg INHALATION DAILY.RESPIRATORY [facility] Last Admin: 07/07/19 11:22 Dose: Not Given Documented by: Vitals/I&O/Wt Last Vital Signs Temp 98.0 F 07/09/19 16:00 Pulse 90 07/09/19 16:00 Resp 18 07/09/19 16:00 BP 165/80 07/09/19 16:00 Pulse Ox 99 07/09/19 16:00 07/09/19 07/09/19 07/09/19 06:59 14:59 22:59 Intake Total 120 / 1080 720 / 720 Output Total 950 / 950 600 / 600 600 / 1200 Balance -830 / 130 120 / 120 -600 / -480 Physical Exam Const: COMMON NORMALS: no apparent distress, average body habitus, oriented x3, alert and well nourished GENERAL APPEARANCE: cooperative, comfortable, well kempt and well developed ORIENTATION/CONSCIOUSNESS: Yes oriented to person, Yes oriented to place and Yes oriented to time HENMT: COMMON NORMALS: normocephalic and head/scalp atraumatic HEAD & SCALP: normocephalic and atraumatic Eye: COMMON NORMALS: PERRL and EOMs intact bilaterally SCLERA: sclerae normal PUPIL: Yes PERRL Neck/C-Spine: COMMON NORMALS: supple and no JVD (appreciated, short thick neck) Resp: COMMON NORMALS: clear to auscultation bilaterally AUSCULTATION: clear to auscultation bilaterally, no crackles, no rales, no rhonchi, no wheezes and lung sounds not diminished Cardio: COMMON NORMALS: no JVD (appreciated, short thick neck) and peripheral pulses 2+ throughout JUGULAR VENOUS DISTENTION: no JVD PALPATION: normal PMI, no heave and no thrill RHYTHM: abnormal rhythm HEART SOUNDS: no click, no gallops and no murmurs BRUITS: no carotid bruits PERIPHERAL PULSES: pulses 2+ throughout Extremity: GENERAL: Yes edema (2-3+ bilaterally edema extensing above knees) Neuro: COMMON NORMALS: oriented x3 SENSORIUM/ORIENTATION: Yes alert, Yes oriented to person, Yes oriented to place and Yes oriented to time CRANIAL NERVES: Yes CN normal except as noted Psych: COMMON NORMALS: thought process normal APPEARANCE: Yes well kempt THOUGHT PROCESS: normal thought process THOUGHT CONTENT: Yes normal thought content MEMORY/COGNITION: Yes memory grossly intact INSIGHT: insight good JUDGEMENT: judgment good Data : 07/09/19 10:15 07/09/19 10:15 Micro: Microbiology 07/04/19 11:55 Blood Culture - Final Blood NO GROWTH AFTER 5 DAYS 07/04/19 11:50 Blood Culture - Final Blood NO GROWTH AFTER 5 DAYS A&P Assessment and plan (1) Acute respiratory failure: In setting of right-sided pneumonia and heart failure with preserved ejection fraction; resolved Oxygen requirement has gone down. He was off BiPAP at the time of evaluation and he is currently on RA. He is using BiPAP at night. Status: Acute Code(s): J96.00 - Acute respiratory failure, unspecified whether with hypoxia or hypercapnia (2) CHF (congestive heart failure): -Patient was started again on Bumex 1 mg p.o. today. Placed on MT hose yesterday. -Continue with fluid restriction intake and output monitoring and follow-up BMP. -Follow-up echocardiogram this visit without any significant change. -Stress test with small sukhwinder-infarct ischemia. Decompensation of congestive heart failure likely in setting of pneumonia. Status: Chronic Qualifiers: Heart failure type: diastolic Heart failure chronicity: acute on chronic Qualified Code(s): I50.33 - Acute on chronic diastolic (congestive) heart failure Code(s): I50.9 - Heart failure, unspecified (3) Pneumonia: Chest x-ray with right sided pneumonia. On antibiotic as per Dr. Lake. Status: Acute Qualifiers: Laterality: bilateral Lung location: unspecified part of lung Pneumonia type: due to unspecified organism Qualified Code(s): J18.9 - Pneumonia, unspecified organism Code(s): J18.9 - Pneumonia, unspecified organism (4) NSTEMI (non-ST elevated myocardial infarction): Non-ST elevation [place] type II in setting of decompensated congestive heart failure and pneumonia. -Elevation in troponin T has been less than what it was in his previous visit. -Continue current medications. -Small sukhwinder-infarct ischemia on mid inferior and mid [place] wall on stress test. Optimize medications. Status: Acute Code(s): I21.4 - Non-ST elevation (NSTEMI) myocardial infarction (5) Afib: He went into A. fib. rate controlled. Continue current medications. Status: Chronic Qualifiers: Atrial fibrillation type: paroxysmal Qualified Code(s): I48.0 - Paroxysmal atrial fibrillation Code(s): I48.91 - Unspecified atrial fibrillation (6) CAD (coronary artery disease): Status: Chronic Qualifiers: Coronary Disease-Associated Artery/Lesion type: [place] artery [place] vs. transplanted heart: [place] heart Associated angina: without angina Qualified Code(s): I25.10 - Atherosclerotic heart disease of [place] coronary artery without angina pectoris Code(s): I25.10 - Atherosclerotic heart disease of [place] coronary artery without angina pectoris (7) Chronic kidney disease, stage 3: LETHA on CKD stage III with baseline creatinine of about 1.7. -Continue to hold lisinopril. -Renal function has improved once diuresis was held yesterday. Status: Chronic Code(s): N18.3 - Chronic kidney disease, stage 3 (moderate) (8) Hypertension: Status: Chronic Qualifiers: Hypertension type: essential hypertension Qualified Code(s): I10 - Essential (primary) hypertension Code(s): I10 - Essential (primary) hypertension (9) LAURIE (obstructive sleep apnea): Status: Chronic Code(s): G47.33 - Obstructive sleep apnea (adult) (pediatric) (10) Diabetes mellitus, type II, insulin dependent: Status: Chronic Code(s): E11.9 - Type 2 diabetes mellitus without complications; Z79.4 - senior care (current) use of insulin Additional A&P Information Anemia: Hemoglobin has dropped in the last 2 days. He is on triple therapy and has significant bruising. It has been 3 months since his last stent. May stop Plavix and continue with aspirin and Eliquis. COPD exacerbation: Currently being managed by Dr. Lake Hyponatremia Hyperkalemia: Resolved. Thank you for allowing me to participate in patient's care. Please feel free to call with questions or concerns. Attestations Medical Necessity Statement*: As per primary team. Coding Level of Care Code Acute Crucible Packer for Fausto Felix Diagnoses Acute respiratory failure J96.00 CHF (congestive heart failure) I50.33 Heart failure type: diastolic Heart failure chronicity: acute on chronic Pneumonia J18.9 Laterality: bilateral Lung location: unspecified part of lung Pneumonia type: due to unspecified organism NSTEMI (non-ST elevated myocardial infarction) I21.4 Afib I48.0 Atrial fibrillation type: paroxysmal CAD (coronary artery disease) I25.10 Coronary Disease-Associated Artery/Lesion type: [place] artery [place] vs. transplanted heart: [place] heart Associated angina: without angina Chronic kidney disease, stage 3 N18.3 Hypertension I10 Hypertension type: essential hypertension LAURIE (obstructive sleep apnea) G47.33 Diabetes mellitus, type II, insulin dependent E11.9; Z79.4
[2019-07-09 17:05] LABS: Glucose Point of Care 236 mg/dL (70-110)
[2019-07-09] MEDS: atorvastatin 40 mg Tablet PO (21:09)
[2019-07-10] VITALS (14 sets, daily range): BP systolic 149–182; BP diastolic 64–77; PULSE 78–105; RESP 16–18; TEMP 36.2–36.9; O2SAT 95–100
[2019-07-10] MEDS: ipratropium-albuterol 3 mL Neb INHALATION ×4 (00:01→11:50)
[2019-07-10] MEDS: HYDROcodone-acetaminophen 10-325 mg Tablet PO (03:01)
[2019-07-10 06:09] LABS: Hematocrit 30.5 % (42.0-52.0); Hemoglobin 9.1 g/dL (11.7-16.6); Lymphocytes # 0.3 10^3/uL (0.8-4.8); Lymphocytes % 3.5 %; Mean Corpuscular HGB Conc 29.8 g/dL (30.0-36.0); Mean Corpuscular Hemoglobin 25.1 pg (28.0-34.0); Mean Corpuscular Volume 84.3 fL (80-94); Monocytes # 0.3 10^3/uL (0.2-0.9); Monocytes % 3.5 %; Neutrophils # 7.4 10^3/uL (1.8-7.7); Neutrophils % 92.1 %; Nucleated Red Blood Cells % 0 %; Platelet Count 214 10^3/cmm (130-400); Red Blood Count 3.62 10^6/uL (4.1-5.3); Red Cell Distribution Width 16.1 % (12.1-15.1); White Blood Count 8.1 10^3/uL (4.0-10.0)
[2019-07-10] MEDS: insulin glargine 100 units/1 mL 20 UNIT SUBCUT (06:15)
[2019-07-10 06:39] LABS: Alanine Aminotransferase 27 U/L (0-41); Albumin Level 3.3 g/dL (3.5-5.2); Alkaline Phosphatase 58 IU/L (40-130); Anion Gap 14.6 (5-19); Aspartate Amino Transferase 17 U/L (0-40); Blood Urea Nitrogen 77 mg/dL (8-23); Carbon Dioxide 30 mmol/L (22-29); Chloride 94 mmol/L (98-107); Creatinine Clr Calc Pharmacy 52.2348; Glomerular Filtration Rate 40.5 mL/min (90-130); Glucose 359 mg/dL (65-115); Osmolality Calculated 290 mOsm/kg (285-295); Potassium 5.6 mmol/L (3.5-5.1); Sodium 133 mmol/L (136-145); Total Bilirubin 0.4 mg/dL (0.15-1.2); Total Protein 6.3 g/dL (6.6-8.7)
[2019-07-10 06:49] LABS: Glucose Point of Care 389 mg/dL (70-110)
[2019-07-10] MEDS: budesonide 0.5 mg/2 mL Neb INHALATION (07:48)
[2019-07-10] MEDS: apixaban 5 mg Tablet PO (08:49)
[2019-07-10] MEDS: metoprolol succinate ER (24 HR) 50 mg Tablet 75 MG PO (08:49)
[2019-07-10] MEDS: bumetanide 1 mg Tablet PO (08:49)
[2019-07-10] MEDS: guaiFENesin 600 mg Tablet 1200 MG PO (08:49)
[2019-07-10] MEDS: aspirin 81 mg EC Tablet PO (08:49)
[2019-07-10] MEDS: isosorbide mononitrate ER 30 mg Tablet 45 MG PO (08:49)
[2019-07-10] MEDS: gabapentin 300 mg Capsule PO (08:49)
[2019-07-10] MEDS: amiodarone 200 mg Tablet PO (08:50)
[2019-07-10] MEDS: clopidogrel 75 mg Tablet PO (08:50)
[2019-07-10] MEDS: pantoprazole DR 40 mg Tablet PO (08:50)
[2019-07-10] MEDS: amoxicillin-clav 875-125 mg Tablet 1 TAB PO (08:55)
[2019-07-10] MEDS: azithromycin 250 mg Tablet PO (08:55)
--- NOTE | 2019-07-10 10:23 | PM.PN ---
Subjective Subjective: Interval history: Cardiology coverage the patient is feeling okay. His shortness of breath is improving. Denies any fever or chills. No significant cough. He is almost back to his baseline status. He has bilateral leg swelling which is more or less chronic and is mostly dependent. Is complaining of blister on the dorsum of the of right big toe, which has been there for 3 weeks. He also has a tender healing ulceration in the plantar aspect of the right foot. He is being followed by a herbarium curator. He is known to have bilateral peripheral artery disease and had intervention a year ago. Medications: Reviewed: Yes Medication Review Details: Current Medications Hydrocodone Bitart/Acetaminophen ([place] 10-325 Mg) 1 - 2 tab PO Q4H PRN PRN Reason: PAIN Last Admin: 07/10/19 03:01 Dose: 2 tab Documented by: Al Hydrox/Mg Hydrox/Simethicone (Maalox) 30 ml PO Q4H PRN PRN Reason: INDIGESTION Last Admin: 07/06/19 14:04 Dose: 30 ml Documented by: Albuterol/Ipratropium (Duoneb) 3 ml INHALATION Q6H PRN PRN Reason: SHORTNESS OF BREATH Albuterol/Ipratropium (Duoneb) 3 ml INHALATION Q4H.RESPIRATORY [facility] Last Admin: 07/10/19 07:38 Dose: 3 ml Documented by: Amiodarone HCl (Cordarone) 200 mg PO DAILY [facility] Last Admin: 07/10/19 08:50 Dose: 200 mg Documented by: Amoxicillin/Clavulanate Potassium (Augmentin 875-125 Mg) 1 tab PO BID CHARLIE; Protocol Last Admin: 07/10/19 08:55 Dose: 1 tab Documented by: Apixaban (Eliquis) 5 mg PO BID [facility] Last Admin: 07/10/19 08:49 Dose: 5 mg Documented by: Aspirin (Aspirin Ec) 81 mg PO DAILY [facility] Last Admin: 07/10/19 08:49 Dose: 81 mg Documented by: Atorvastatin Calcium (Lipitor) 40 mg PO BEDTIME CHARLIE Last Admin: 07/09/19 21:09 Dose: 40 mg Documented by: Azithromycin (Zithromax) 250 mg PO DAILY [facility]; Protocol Last Admin: 07/10/19 08:55 Dose: 250 mg Documented by: Budesonide (Pulmicort) 0.5 mg INHALATION BID.RESPIRATORY [facility] Last Admin: 07/10/19 07:48 Dose: 0.5 mg Documented by: Bumetanide (Bumex) 1 mg PO DAILY [facility] Last Admin: 07/10/19 08:49 Dose: 1 mg Documented by: Clopidogrel Bisulfate (Plavix) 75 mg PO DAILY [facility] Last Admin: 07/10/19 08:50 Dose: 75 mg Documented by: Dextrose (D50w) 25 ml IVP ONCE PRN; Protocol PRN Reason: hypoglycemia protocol Dextrose (D50w) 50 ml IVP PRN PRN; Protocol PRN Reason: hypoglycemia protocol Gabapentin (Neurontin) 300 mg PO TID [facility] Last Admin: 07/10/19 08:49 Dose: 300 mg Documented by: Glucagon (Glucagen) 1 mg IM ONCE PRN; Protocol PRN Reason: Adult Acute Hypoglycemia Prot. Guaifenesin (Mucinex) 1,200 mg PO DAILY [facility] Last Admin: 07/10/19 08:49 Dose: 1,200 mg Documented by: Dextrose (D5w) 500 mls @ 100 mls/hr IV ONCE PRN; Protocol PRN Reason: Adult Acute Hypoglycemia Prot Insulin Aspart (Novolog) 0 unit SUBCUT TIDWM [facility]; Protocol Last Admin: 07/10/19 08:48 Dose: 16 unit Documented by: Insulin Glargine (Lantus) 20 unit SUBCUT BEDTIME [facility] Last Admin: 07/09/19 21:10 Dose: 20 unit Documented by: Insulin Glargine (Lantus) 20 unit SUBCUT QAM [facility] Last Admin: 07/10/19 06:15 Dose: 20 unit Documented by: Isosorbide Mononitrate (Imdur) 45 mg PO DAILY [facility] Last Admin: 07/10/19 08:49 Dose: 45 mg Documented by: Lisinopril (Prinivil) 5 mg PO DAILY [facility] Last Admin: 07/06/19 08:48 Dose: 5 mg Documented by: Methylprednisolone Sodium Succinate (Solu-Medrol) 40 mg IVP Q8H [facility] Last Admin: 07/10/19 03:00 Dose: 40 mg Documented by: Metoprolol Succinate (Toprol Xl) 75 mg PO DAILY [facility] Last Admin: 07/10/19 08:49 Dose: 75 mg Documented by: Non-Formulary Medication (Cinnamon Bark [Cinnamon]) 500 mg PO DAILY [facility] Last Admin: 07/10/19 08:50 Dose: Not Given Documented by: Non-Formulary Medication (Fish Oil) 1 cap PO DAILY [facility] Last Admin: 07/10/19 08:50 Dose: Not Given Documented by: Non-Formulary Medication (Umeclidinium [Incruse Ellipta]) 1 inh INHALATION DAILY [facility] Last Admin: 07/10/19 08:50 Dose: Not Given Documented by: Ondansetron HCl (Zofran) 4 mg IVP Q6H PRN PRN Reason: NAUSEA AND VOMITING Ondansetron HCl (Zofran) 4 mg IVP Q2M PRN PRN Reason: NAUSEA Pantoprazole Sodium (Protonix) 40 mg PO DAILY [facility] Last Admin: 07/10/19 08:50 Dose: 40 mg Documented by: Fluticasone/Salmeterol (Advair Diskus 500-50) 1 puff INHALATION BID.RESPIRATORY [facility] Last Admin: 07/09/19 20:39 Dose: 1 puff Documented by: Tiotropium [place] (Spiriva) 18 mcg INHALATION DAILY.RESPIRATORY [facility] Last Admin: 07/10/19 07:39 Dose: 18 mcg Documented by: Vitals/I&O/Wt Last Vital Signs Temp 97.7 F 07/10/19 07:35 Pulse 100 07/10/19 07:49 Resp 17 07/10/19 07:40 BP 182/77 07/10/19 07:35 Pulse Ox 95 07/10/19 07:40 07/09/19 07/10/19 07/10/19 22:59 06:59 14:59 Intake Total 560 / 1280 240 / 240 Output Total 900 / 1500 1200 / 2700 200 / 200 Balance -340 / -220 -1200 / -1420 40 / 40 Physical Exam Narrative: EXAM NARRATIVE: GENERAL: The patient is alert and oriented times three. Not in any acute distress. HEENT: Minimal pallor, no icterus or lymphadenopathy.Oral cavity: There are no mucous membrane lesions. NECK: Trachea appears to be central. No masses noted. No JVD or thyromegaly appreciated. RESPIRATORY: Chest is symmetrical. No intercostals muscle retraction or any accessory muscle activation. There is no chest wall tenderness. Breath sounds are heard bilaterally. No rales or rhonchi heard. No evidence of any consolidation. The intensity of the breath sounds are diminished in the bases BREASTS: Deferred. HEART: The heart sounds are normal. No S3 or S4. Short systolic murmur the left sternal border. No pericardial rub ABDOMEN: No vessel pulsations or distention. No tenderness. No organomegaly appreciated. Bowel sounds are normally heard. : Deferred. RECTAL: Deferred. LYMPHATIC: No lymphadenopathy noted in the neck region. EXTREMITIES: 2+ pitting of both lower extremities. He has a hemorrhagic blister on the dorsum of the right big toe. There is an area of denuded skin in the plantar aspect of the right foot that is slightly tender. The peripheral pulses are weak bilaterally and deep to palpate because of the edema MUSCULOSKELETAL: No acute joint deformities or swelling SKIN: There are no significant rashes. He has extensive ecchymosis bilaterally especially at the IV site NEUROPSYCHIATRIC: The patient is alert and oriented x3. Appears to be in a good mood. No tremors or rigidity noted. Data : 07/10/19 05:17 07/10/19 05:17 Other Labs: Abnormal lab results 07/09/19 07/09/19 07/09/19 Range/Units 10:15 10:15 10:15 RBC 3.57 L (4.1-5.3) 10^6/uL Hgb 9.0 L (11.7-16.6) g/dL Hct 29.6 L (42.0-52.0) % MCH 25.2 L (28.0-34.0) pg MCHC (30.0-36.0) g/dL RDW 16.0 H (12.1-15.1) % MPV 10.5 H (7.4-10.4) fL Neut # (Auto) 7.9 H (1.8-7.7) 10^3/uL Lymph # (Auto) (0.8-4.8) 10^3/uL Sodium 133 L (136-145) mmol/L Potassium (3.5-5.1) mmol/L Chloride 96 L (98-107) mmol/L Carbon Dioxide (22-29) mmol/L BUN 86 H* (8-23) mg/dL Creatinine 1.9 H (0.7-1.2) mg/dL GFR Calculation 35.6 L (90-130) mL/min Glucose 262 H (65-115) mg/dL Magnesium 2.4 H (1.7-2.3) mg/dL NT-Pro-B Natriuret Pep 9391 H (0-125) pg/mL Total Protein 5.9 L (6.6-8.7) g/dL Albumin 3.0 L (3.5-5.2) g/dL 07/10/19 07/10/19 Range/Units 05:17 05:17 RBC 3.62 L (4.1-5.3) 10^6/uL Hgb 9.1 L (11.7-16.6) g/dL Hct 30.5 L (42.0-52.0) % MCH 25.1 L (28.0-34.0) pg MCHC 29.8 L (30.0-36.0) g/dL RDW 16.1 H (12.1-15.1) % MPV 11.0 H (7.4-10.4) fL Neut # (Auto) (1.8-7.7) 10^3/uL Lymph # (Auto) 0.3 L (0.8-4.8) 10^3/uL Sodium 133 L (136-145) mmol/L Potassium 5.6 H (3.5-5.1) mmol/L Chloride 94 L (98-107) mmol/L Carbon Dioxide 30 H (22-29) mmol/L BUN 77 H (8-23) mg/dL Creatinine 1.7 H (0.7-1.2) mg/dL GFR Calculation 40.5 L (90-130) mL/min Glucose 359 H (65-115) mg/dL Magnesium (1.7-2.3) mg/dL NT-Pro-B Natriuret Pep (0-125) pg/mL Total Protein 6.3 L (6.6-8.7) g/dL Albumin 3.3 L (3.5-5.2) g/dL Micro: Microbiology 07/04/19 11:55 Blood Culture - Final Blood NO GROWTH AFTER 5 DAYS 07/04/19 11:50 Blood Culture - Final Blood NO GROWTH AFTER 5 DAYS A&P Assessment and plan (1) Peripheral arterial disease: Patient needs to have a arterial duplex x2, to further evaluate the peripheral artery disease. According the patient, he has an appointment to see the herbarium curator and his web solutions architect next week. He has been having the blister on the right big toe for more than 3 weeks. He is wanting to wait till he see his web solutions architect and the herbarium curator before going for any further testings. He seems to understand implications. Status: Acute Code(s): I73.9 - Peripheral vascular disease, unspecified (2) Acute respiratory failure: Patient seems to be doing okay with room air. Continue on the current measures. Status: Acute Code(s): J96.00 - Acute respiratory failure, unspecified whether with hypoxia or hypercapnia (3) CHF (congestive heart failure): Heart failure is fairly compensated. May continue on the current medications. Status: Chronic Qualifiers: Heart failure chronicity: acute on chronic Heart failure type: diastolic Qualified Code(s): I50.33 - Acute on chronic diastolic (congestive) heart failure Code(s): I50.9 - Heart failure, unspecified (4) Pneumonia: Clinically has significant improvement. The chest x-ray was unremarkable. The x-ray report from 07/07/2019 is as follows Status: Acute Qualifiers: Laterality: bilateral Lung location: unspecified part of lung Pneumonia type: due to unspecified organism Qualified Code(s): J18.9 - Pneumonia, unspecified organism Code(s): J18.9 - Pneumonia, unspecified organism (5) NSTEMI (non-ST elevated myocardial infarction): Possibly type II myocardial infarction. Very small area of ischemia by perfusion scan. We will continue the medical treatment. Status: Acute Code(s): I21.4 - Non-ST elevation (NSTEMI) myocardial infarction (6) Afib: Patient is in atrial fibrillation. Currently he seems to be in sinus rhythm. The amiodarone may be continued Status: Chronic Qualifiers: Atrial fibrillation type: paroxysmal Qualified Code(s): I48.0 - Paroxysmal atrial fibrillation Code(s): I48.91 - Unspecified atrial fibrillation (7) CAD (coronary artery disease): Since the patient has no specific symptoms of coronary insufficiency, may not require any further investigations at this time. May continue on the current medications. Implications of the myocardial perfusion imaging results were discussed Status: Chronic Qualifiers: Associated angina: without angina Coronary Disease-Associated Artery/Lesion type: [place] artery [place] vs. transplanted heart: [place] heart Qualified Code(s): I25.10 - Atherosclerotic heart disease of [place] coronary artery without angina pectoris Code(s): I25.10 - Atherosclerotic heart disease of [place] coronary artery without angina pectoris (8) Chronic kidney disease, stage 3: Continue on the current medications Status: Chronic Code(s): N18.3 - Chronic kidney disease, stage 3 (moderate) (9) Hypertension: Currently of stage II. Continue to optimize the antihypertensive medications. May start him on hydralazine 25 mg p.o. 3 times daily Status: Chronic Qualifiers: Hypertension type: essential hypertension Qualified Code(s): I10 - Essential (primary) hypertension Code(s): I10 - Essential (primary) hypertension (10) LAURIE (obstructive sleep apnea): May continue on the CPAP. Status: Chronic Code(s): G47.33 - Obstructive sleep apnea (adult) (pediatric) (11) Diabetes mellitus, type II, insulin dependent: Management as per the primary. Need to have more aggressive treatment Status: Chronic Code(s): E11.9 - Type 2 diabetes mellitus without complications; Z79.4 - USP (current) use of insulin Additional A&P Information Anemia: Hemoglobin is stable. COPD exacerbation: Clinically improving. Management as per Dr. Lake Hyponatremia Hyperkalemia: Still the potassium is elevated Attestations Medical Necessity Statement*: Disposition as per the primary Coding Level of Care Code Acute Business Objects Report Developer for [facility] Fwd Diagnoses Peripheral arterial disease I73.9 Acute respiratory failure J96.00 CHF (congestive heart failure) I50.33 Heart failure chronicity: acute on chronic Heart failure type: diastolic Pneumonia J18.9 Laterality: bilateral Lung location: unspecified part of lung Pneumonia type: due to unspecified organism NSTEMI (non-ST elevated myocardial infarction) I21.4 Afib I48.0 Atrial fibrillation type: paroxysmal CAD (coronary artery disease) I25.10 Associated angina: without angina Coronary Disease-Associated Artery/Lesion type: [place] artery [place] vs. transplanted heart: [place] heart Chronic kidney disease, stage 3 N18.3 Hypertension I10 Hypertension type: essential hypertension LAURIE (obstructive sleep apnea) G47.33 Diabetes mellitus, type II, insulin dependent E11.9; Z79.4
[2019-07-10 11:16] LABS: Glucose Point of Care 445 mg/dL (70-110)
--- NOTE | 2019-07-10 16:15 | PM.DCS ---
Discharge Providers Date of Admission: 07/04/19 17:30 Date of Discharge: July 10, 2019 Attending Provider at Admission: Papo Lake MD Attending Provider at Discharge: Papo Lake MD Diagnoses at Discharge Discharge Diagnosis (1) Peripheral arterial disease: Status: Acute (2) Acute respiratory failure: Status: Acute (3) CHF (congestive heart failure): Status: Chronic Problem details: diastolic CHF -Echo (12/2018): EF=68%, G1DD Qualifiers: Heart failure type: diastolic Heart failure chronicity: acute on chronic Qualified Code(s): I50.33 - Acute on chronic diastolic (congestive) heart failure (4) Pneumonia: Status: Acute Problem details: X-ray from 07/07/2019 The pulmonary edema has resolved. There is no pleural effusion seen. The heart is smaller than previous exam. The hilum and apices normal. Qualifiers: Laterality: bilateral Lung location: unspecified part of lung Pneumonia type: due to unspecified organism Qualified Code(s): J18.9 - Pneumonia, unspecified organism (5) NSTEMI (non-ST elevated myocardial infarction): Status: Acute (6) Afib: Status: Chronic Problem details: Controlled. Continue metoprolol, amiodarone Qualifiers: Atrial fibrillation type: paroxysmal Qualified Code(s): I48.0 - Paroxysmal atrial fibrillation (7) CAD (coronary artery disease): Status: Chronic Problem details: History of PCI of the right coronary artery Qualifiers: Coronary Disease-Associated Artery/Lesion type: habematolel artery [place] vs. transplanted heart: habematolel heart Associated angina: without angina Qualified Code(s): I25.10 - Atherosclerotic heart disease of habematolel coronary artery without angina pectoris (8) Chronic kidney disease, stage 3: Status: Chronic Problem details: -has known CKD stage 2-3; baseline Cr around 1.5-1.7 -continue to monitor renal function particularly with diuresis; gradually improving -has f/u with nephrology the first week of June (9) Hypertension: Status: Chronic Qualifiers: Hypertension type: essential hypertension Qualified Code(s): I10 - Essential (primary) hypertension (10) LAURIE (obstructive sleep apnea): Status: Chronic (11) Diabetes mellitus, type II, insulin dependent: Status: Chronic Reason for Visit Reason for Visit: Reason For Visit: sob Hospital Course Discharge Summary: This is a 64-year-old male with a past medical history of COPD, CHF, hypertension, hyperlipidemia, obstructive sleep apnea, atrial fibrillation on chronic anticoagulation, insulin-dependent type 2 diabetes mellitus, CKD stage III, who presents to the emergency room due to complaints of cough, shortness of breath, fevers. Patient was admitted to the intensive care unit for right-sided pneumonia, diastolic CHF exacerbation, COPD exacerbation. Patient was started on broad-spectrum antibiotics, nebulizer treatments, steroids, diuresis, fluid restrictions, BiPAP. Patient clinically improved, was de-escalate it to the general medical floors, by the end of his admission he did not require any oxygen, he finished his steroid burst, he was discharged home on short course of Augmentin and azithromycin. For his diastolic CHF exacerbation, patient clinically did well, diuresed well, became minimally symptomatic, did require MT hose for his bilateral lower extremity edema, was discharged on Bumex 1 mg twice daily, with a follow-up of renal panel in 1 week. On admission patient was found to have NSTEMI, likely secondary to acute respiratory failure, had a cardiac stress test, which showed small sukhwinder-infarct ischemia, he was discharged on Eliquis and Plavix and Plavix due to reasons below, with a close follow-up with his cardiology in [place] During his admission patient was found to have anemia, likely secondary to antiplatelet and anticoagulation, his hemoglobin got as low as 9.0. His aspirin was held until he sees his web design intern. Patient is to continue Eliquis and Plavix. Patient was advised to repeat his blood work in 1 week, repeat hemoglobin. For his type 2 diabetes mellitus, patient's insulin requirements have increased, discharged on Lantus 25 units twice daily, with high-dose sliding scale, advised to check blood sugars 3 times daily, call PMD office if blood sugar than 500, if blood sugar less than 60, drink or juice, call PMD office. Patient atrial fibrillation, discharged on amiodarone 200 mg p.o. daily, Eliquis, Metroprolol 75 mg p.o. daily For his hypertension, he was discharged on hydralazine 25, 4 times daily, Imdur 45 mg p.o. daily Patient also had complaints of right toe ulcer, did not looked noninfected, look like a fluid-filled blister, advised to wear open toe shoe, advised to follow-up with his ruby on rails web developer as outpatient. Physical Exam Const: COMMON NORMALS: no apparent distress and oriented x3 HENMT: COMMON NORMALS: normocephalic HEAD & SCALP: normocephalic Neck/C-Spine: COMMON NORMALS: no JVD Resp: COMMON NORMALS: normal respiratory effort, no retractions, no use of accessory muscles and clear to auscultation bilaterally AUSCULTATION: clear to auscultation bilaterally Cardio: COMMON NORMALS: no JVD, regular rate, regular rhythm, S1 normal heart sound and S2 normal heart sound RATE: regular rate RHYTHM: regular rhythm HEART SOUNDS: S1 normal and S2 normal GI: COMMON NORMALS: normal to inspection, nondistended, normoactive bowel sounds, soft to palpation, non-tender, no hepatosplenomegaly, no masses and no bruits PALPATION: Yes soft and Yes no hepatosplenomegaly Extremity: COMMON NORMALS: normal capillary refill, no clubbing, cyanosis or edema, no calf tenderness and no pedal edema Neuro: COMMON NORMALS: oriented x3 Psych: COMMON NORMALS: mental status grossly normal Discharge Data Data Completed and Pending: Completed Studies During Hospitalization Category Date Time Status CT chest wo con 7 1250 Urgent Cat Scan 07/04/19 16:08 Completed Sestamibi Stress Test Request Routi ne Exams 07/06/19 17:26 Completed XR chest 1V vipul ble [id number] Urgent Exams 07/04/19 11:39 Completed XR chest 2V* [id number] Routine Exams 07/07/19 16:56 Completed NM elvis perf SPECT r/s* [id number] Routin e Nuc Med 07/08/19 17:26 Completed CV echo complete* [id number] Routine Ultrasound 07/05/19 02:54 Completed Labs from last 24 hours 07/10/19 07/10/19 07/10/19 11:10 06:29 05:17 WBC RBC Hgb Hct MCV MCH MCHC RDW Plt Count MPV Neut % (Auto) Lymph % (Auto) [place] % (Auto) Eos % (Auto) Baso % (Auto) Neut # (Auto) Lymph # (Auto) [place] # (Auto) Eos # (Auto) Baso # (Auto) Nucleated RBC % (a uto) Nucleated RBCs # Sodium 133 L Potassium 5.6 H Chloride 94 L Carbon Dioxide 30 H Anion Gap 14.6 BUN 77 H Creatinine 1.7 H GFR Calculation 40.5 L Glucose 359 H POC Glucose 445 389 Calculated Osmolal ity 290 Calcium 9.0 Total Bilirubin 0.4 AST 17 ALT 27 Alkaline Phosphata se 58 Total Protein 6.3 L Albumin 3.3 L Globulin 3.0 07/10/19 07/09/19 05:17 16:52 WBC 8.1 RBC 3.62 L Hgb 9.1 L Hct 30.5 L MCV 84.3 MCH 25.1 L MCHC 29.8 L RDW 16.1 H Plt Count 214 MPV 11.0 H Neut % (Auto) 92.1 Lymph % (Auto) 3.5 [place] % (Auto) 3.5 Eos % (Auto) 0.0 Baso % (Auto) 0.0 Neut # (Auto) 7.4 Lymph # (Auto) 0.3 L [place] # (Auto) 0.3 Eos # (Auto) 0.0 Baso # (Auto) 0.0 Nucleated RBC % (a uto) 0 Nucleated RBCs # 0.0 Sodium Potassium Chloride Carbon Dioxide Anion Gap BUN Creatinine GFR Calculation Glucose POC Glucose 236 Calculated Osmolal ity Calcium Total Bilirubin AST ALT Alkaline Phosphata se Total Protein Albumin Globulin Vitals: Last Vital Signs Temp 97.2 F L 07/10/19 14:50 Pulse 98 07/10/19 14:50 Resp 18 07/10/19 14:50 BP 151/73 07/10/19 14:50 Pulse Ox 100 07/10/19 14:50 Discharge Plan Discharge Patient Disposition: Home, Self-Care Condition: Fair Prescriptions: New metoprolol succinate 50 mg Tablet Extended Release 24 Hr 75 mg PO DAILY 30 Days Qty: 45 RF: 0 isosorbide mononitrate 30 mg Tablet Extended Release 24 Hr 45 mg PO DAILY 30 Days Qty: 30 RF: 0 azithromycin 250 mg Tablet 250 mg PO DAILY 3 Days Qty: 6 RF: 0 hydralazine 25 mg Tablet 25 mg PO QID 30 Days Qty: 120 RF: 0 bumetanide 1 mg Tablet 1 mg PO BIDWM 30 Days Qty: 6 RF: 0 Continued atorvastatin 40 mg Tablet 40 mg PO BEDTIME Qty: 30 RF: 0 pantoprazole 40 mg Tablet,Delayed Release (Dr/Ec) 40 mg PO DAILY Qty: 30 RF: 0 ipratropium-albuterol 0.5 mg-3 mg(2.5 mg base)/3 mL solution for nebulization 3 ml INHALATION Q6H PRN (Reason: Shortness Of Breath) RF: 0 amiodarone 200 mg tablet 200 mg PO DAILY RF: 0 clopidogrel 75 mg tablet 75 mg PO DAILY RF: 0 hydrocodone-acetaminophen 10-325 mg tablet See Rx Instructions .ROUTE .COMPLEX RF: 0 gabapentin 300 mg capsule 300 mg PO TID RF: 0 Spiriva with HandiHaler 18 mcg capsule, w/inhalation device 1 cap INHALATION DAILY RF: 0 Symbicort 160-4.5 mcg/actuation HFA aerosol inhaler 2 puff INHALATION BID RF: 0 Eliquis 5 mg tablet 5 mg PO BID RF: 0 Incruse Ellipta 62.5 mcg/actuation blister with device 1 inh INHALATION DAILY RF: 0 Combivent Respimat 20-100 mcg/actuation mist 2 puff INHALATION Q6H PRN (Reason: unknown) RF: 0 lisinopril 5 mg Tablet 5 mg PO DAILY RF: 0 Cinnamon 500 mg Capsule 500 mg PO DAILY RF: 0 Mucinex 1,200 mg Tablet Extended Release 12hr 1,200 mg PO DAILY RF: 0 Fish Oil 1 cap PO DAILY RF: 0 Augmentin 875-125 mg Tablet 1 tab PO BID 3 Days Qty: 6 RF: 0 Changed Humalog U-100 Insulin 100 unit/mL solution See Rx Instructions .ROUTE .COMPLEX Qty: 10 RF: 1 Lantus Solostar U-100 Insulin 100 unit/mL (3 mL) Insulin Pen 25 unit SUBCUT Q12H 30 Days Qty: 12 RF: 0 Held aspirin 81 mg Tablet,Delayed Release (Dr/Ec) 81 mg PO DAILY Qty: 30 RF: 0 Hold Instructions: Resume on 07/20/19. hold UNTIL SEEN BY CARDIOLOGY Discontinued metoprolol succinate 100 mg tablet extended release 24 hr 50 mg PO DAILY RF: 0 isosorbide mononitrate 30 mg Tablet Extended Release 24 Hr 30 mg PO DAILY Qty: 30 RF: 0 furosemide 40 mg tablet 40 mg PO DAILY 30 Days Qty: 30 RF: 0 prednisone 20 mg Tablet 40 mg PO DAILY RF: 0 Discharge Orders: Discharge Order (Routine); Ordered 07/10/19 Ordered By: Papo Lake Other Ambulatory Orders: Complete Blood Count w/Auto (Routine) Timeframe: 1 Week Location: Determined by Patient Ordered By: Papo Lake Comprehensive Metabolic Panel (Routine) Timeframe: 1 Week Facility: [facility] - Location: Lab - Main Lab Ordered By: Papo Lake Referrals: Aura Landaverde MD [Family Provider] - 4-7 days (PLEASE CALL FRIDAY TO SET UP A FOLLOW UP APPOINTMENT) Discharge Diet: Cardiac Discharge Activity: Resume usual activity Patient Instructions: Metoprolol (By mouth), Bumetanide (By mouth), Azithromycin (By mouth), Hydralazine (By mouth), COPD - Emphysema, Chronic Obstructive Pulmonary Disease (GEN), Bacterial Pneumonia (GEN) Activity Restrictions/Additional Instructions: -Continue to hold aspirin until seen by web design intern, held due to concerns of worsening anemia -On Plavix and Eliquis -Continue Bumex 1 mg twice daily -Take antibiotics for the next 3 days -Your steroids have been stopped -Please hydrate well, drink plenty of electrolyte balance fluids Please follow-up with your ruby on rails web developer in 1 to 2 weeks -For pressure ulcer of left great toe, offloading, wear open toed shoes -Please stay away from public places, handwashing, stay away from people do who have a fever -Check daily weights, fluid restrictions to less than 1500 mL's of fluid Discharge Date/Time: 07/10/19 14:51 Discharge Attestations Time Spent in Discharge Care*: less than 30 min Status at Discharge: Cognitive status at discharge: cognitively intact, Behavioral status at discharge: cooperative, Quality Metrics Clinical Quality Measures During this hospital stay, did patient experience: None Coding Level of Care Code Acute Rehab Rn for [facility] Fwd Diagnoses Peripheral arterial disease I73.9 Acute respiratory failure J96.00 CHF (congestive heart failure) I50.33 Heart failure type: diastolic Heart failure chronicity: acute on chronic Pneumonia J18.9 Laterality: bilateral Lung location: unspecified part of lung Pneumonia type: due to unspecified organism NSTEMI (non-ST elevated myocardial infarction) I21.4 Afib I48.0 Atrial fibrillation type: paroxysmal CAD (coronary artery disease) I25.10 Coronary Disease-Associated Artery/Lesion type: habematolel artery [place] vs. transplanted heart: habematolel heart Associated angina: without angina Chronic kidney disease, stage 3 N18.3 Hypertension I10 Hypertension type: essential hypertension LAURIE (obstructive sleep apnea) G47.33 Diabetes mellitus, type II, insulin dependent E11.9; Z79.4
== END 2019-07-10 14:51 | disposition home or self-care (01) | DRG 189 ==
LOC: ER 14:52 → ICU 17:31 → MEDSURG 07-08 16:06
PROVIDERS: Internal Medicine Cardiovascular Disease; Admitting Provider Family Medicine; Emergency Provider Family Medicine; Family Provider Family Medicine; Visit Provider Family Medicine
DX: J96.00 Acute respiratory failure, unspecified whether with hypoxia or hypercapnia (principal); I50.33 Acute on chronic diastolic (congestive) heart failure; J18.9 Pneumonia, unspecified organism; I21.4 Non-ST elevation (NSTEMI) myocardial infarction; J44.1 Chronic obstructive pulmonary disease with (acute) exacerbation; E87.1 Hypo-osmolality and hyponatremia; I73.9 Peripheral vascular disease, unspecified; I25.10 Atherosclerotic heart disease of native coronary artery without angina pectoris; N18.3 Chronic kidney disease, stage 3 (moderate); I12.9 Hypertensive chronic kidney disease with stage 1 through stage 4 chronic kidney disease, or unspecified chronic kidney disease; G47.33 Obstructive sleep apnea (adult) (pediatric); E11.9 Type 2 diabetes mellitus without complications; I48.91 Unspecified atrial fibrillation; D63.1 Anemia in chronic kidney disease; T45.515A Adverse effect of anticoagulants, initial encounter; T45.525A Adverse effect of antithrombotic drugs, initial encounter; E78.5 Hyperlipidemia, unspecified; E87.5 Hyperkalemia; I48.0 Paroxysmal atrial fibrillation; Z87.891 Personal history of nicotine dependence; Z79.82 Long term (current) use of aspirin; Z79.52 Long term (current) use of systemic steroids; Z79.01 Long term (current) use of anticoagulants; Z79.811 Long term (current) use of aromatase inhibitors; Z79.899 Other long term (current) drug therapy; Z79.4 Long term (current) use of insulin; Z79.83 Long term (current) use of bisphosphonates; Z79.2 Long term (current) use of antibiotics
CPT/HCPCS: 12345; 36415; 36416; 36600; 71045; 71046; 71250; 78452; 80053; 80202; 82803; 82947; 82962; 83036; 83735; 83880; 84100; 84145; 84484; 85025; 85610; 85651; 86140; 86403; 87040; 87070; 87205; 87641; 87804; 93005; 93017; 93306; 94003; 94640; 94660; 96372; 96374; 96375; 97116; 97161; 97165; 97530; 99283; A9500; J0456; J1650; J1815; J2543; J2785; J2920; J2930; J3370; J3490; J7030; J7040; J7050; J7512; J7626; Q0144